=== PATIENT | female | born 1950 | race Caucasian/White ===

== ENCOUNTER 2025-04-11 13:37 | Inpatient (IN) ==
--- NOTE | 2025-04-11 14:02 | Emergency Department Note ---
Impression & Plan Acute hypotension, Hypothermia, Elevated troponin, RANDY (acute kidney injury) ED Provider Note NAME: ANTONIA LAW AGE: 75 SEX: F : 1950 ARRIVES VIA: Walk-In INFORMANT: Patient ED PROVIDER(S): Paul Whipple DO CHIEF COMPLAINT: Slurred speech, loss of vision and facial droop HPI: Patient is a 75-year-old female who presents to the ER with a past medical history of HUANG who presents to the ER for symptoms that started 3 weeks ago. She notes it started with initially loss of vision from her left eye and part loss of vision from the right eye. In combination with this she noticed right sided facial droop and trouble speaking which has been present for the past 3 weeks. She denies any headache. No chest pain or shortness of breath currently but she did have some chest pain this previous Saturday. She notes that no belly pain, dysuria, urgency or frequency. No focal weakness in the arms and legs. No dysuria urgency or frequency. ADDITIONAL HISTORY OBTAINED: Brother is present at bedside and notes that she hit his shoe with her right walter last night and created a skin tear. Chronic Medical/Social Conditions Affecting Care: Per HPI PAST MEDICAL HISTORY:See Below PAST SURGICAL HISTORY:See Below FAMILY HISTORY:See Below SOCIAL HISTORY:See Below HOME MEDICATIONS:See Below ALLERGIES:See Below VITALS:See Below PHYSICAL EXAMINATION: GENERAL: Sitting up in bed, awake but falls asleep quickly, disheveled EYE EXAM: normal conjunctiva. PERRL and EOM's grossly intact. OROPHARYNX: no exudate, no erythema, lips, buccal mucosa, and tongue normal and mucous membranes are moist NECK: supple, no nuchal rigidity, no adenopathy, non-tender LUNGS: Clear to auscultation. Normal chest wall mechanics HEART: no murmurs, S1 normal and S2 normal ABDOMEN: abdomen soft, non-tender, normo-active bowel sounds, no masses, no rebound or guarding. UPPER EXTREMITIES: upper extremities are grossly normal. LOWER EXTREMITIES: No pitting edema. Skin tear on right lateral distal walter NEURO EXAM: Normal sensorium, cranial nerves II-XII intact with the exception of maybe a faint right-sided facial droop, normal speech, no weakness of arms, no weakness of legs. No drift. Finger to nose intact. Gross sensation intact. MEDICAL DECISION MAKING: Patient is a 75-year-old female who was brought into the B1 secondary to hypotension. Systolic pressures were initially 80 and they trended down to 60. IVs were started. We obtained 218 gauges. We initially started 2 L of IV fluids. Blood pressures continue to trend down into the 50s. She was started on Levophed prior to receiving 2 L of IV fluids. Levophed was titrated up to 0.1. This was then titrated down following the completion of 2 L to 0.02. We attempted to get her off of Levophed however she still required a small dose. She was given additional 500 cc bolus. Labs were obtained and she was placed on a Nichol hugger as temp was 35 C. Labs show mild leukopenia 3.6. No anemia. Thrombocytopenia at 61. INR 1.1. VBG with a pH of 7.3 and a CO2 of 22. BMP with a creatinine of 2.8 up from baseline of about 2. Lactate was elevated 2.7. LFTs and bilirubin were unremarkable. Troponin was elevated in the 60s. UA was clean. CT of the head chest abdomen pelvis showed a dilated CBD. LFTs and bilirubin were not elevated. I discussed this with Dr. Dong Corbin and he agreed with admission here. I discussed with the ICU Dr. Valadez. Patient was initially given IV Rocephin upon arrival following the CT to be on the safe side she was given IV Zosyn. Discussed case with Dr. Nagel for further evaluation management and treatment. Consults/Care Managements Discussions: Per [facility] Triage Nursing notes reviewed. Limited review of prior medical records performed Vital Signs: reviewed and remarkable for hypotensive and tachycardic Differential diagnosis: Differential Diagnosis includes but is not limited to ischemic Stroke, hemorrhagic stroke, bells palsy, mass, neoplasm, migraine headache, seizure, subarachnoid hemorrhage, TIA, and transient global amnesia. ER treatment provided: See below Diagnostics interpreted by me include EKG and cardiac monitoring as listed below: -Cardiac Monitoring: An order was placed for continuous cardiac monitoring. The monitor shows a rate of 110 with A-fib rhythm. -ECG: A-fib rate of 111 Left axis No PVCs QTc 443 -Laboratory studies:Interpreted by me as stated above in MDM and shown below. Imaging studies: Xrays: As interpreted by me: Portable AP upright 1 view of the chest shows no focal infiltrate CTs show: CT of the head chest abdomen pelvis as described above Procedures:none Critical Care: I have personally spent 75 minutes of critical care time in the direct management of this patient. This includes bedside care, interpretation of diagnostic studies, and testing, discussion with consultants, patient, and family members, and other required patient management activities. This 75 minutes is in excess of all separately billable procedures. Past Med/Surg History Problem List (Updated 04/11/25 @ 17:46 by Paul Whipple DO) Acute hypotension (Acute) Hypothermia (Acute) CKD (chronic kidney disease) stage 3, GFR 30-59 ml/min Atrial fibrillation with rapid ventricular response Septic shock (Acute) Encounter for pre-operative examination Hip fracture History of back surgery (Chronic) "x 2" History of total right knee replacement (Chronic) H/O repair of rotator cuff (Chronic) "L side" Lumbago (Chronic) HUANG (nonalcoholic steatohepatitis) (Chronic) Allergic rhinitis (Chronic) Medical History Anxiety Constipation HX Diabetes mellitus type 2 in nonobese DVT (deep venous thrombosis) RIGHT LEG S/P HIP SX 2016 Dyslipidemia GERD (gastroesophageal reflux disease) History of anemia HTN (hypertension) Lichen planus HUANG (nonalcoholic steatohepatitis) Thrombocytopenia HX Varicose veins of both lower extremities Surgical History H/O breast biopsy On 11/08/15 10:28 [facility] [employer] wrote "01/29/2012 right core bx - BCC - ductal hyperplasia, columnar cell hyperplasia and fibrocystic change - [facility] BCC 01/29/2012" H/O hernia repair History of back surgery X3 (HAS HARDWARE) History of cataract surgery Right Cataract surgery 06/11/22 History of colonoscopy History of endoscopy History of hip replacement PARTIAL RIGHT History of repair of rotator cuff LEFT History of tonsillectomy "1974" History of tubal ligation Family History Mother Family history of diabetes mellitus Other Family history non-contributory Social History Smoking Status: Never smoker Second Hand Exposure: No; Do You Dip or Chew Tobacco: No; Hx Alcohol Use: No Hx Substance Use: No Preferred Language: Bengali Communication Ability: Effective Supply Clerk Required: No Beliefs That Will Affect Care: None Current Living Situation: Alone Feels Safe at Home: Yes Assistive Devices: Cane, Denture - Upper, Denture - Lower and Glasses Allergies Allergies Allergy/AdvReac Type Severity Reaction Status Date / Time carrot Allergy Intermediate RAW Verified 04/11/25 14:52 CARROTS CAUSE INSIDE MOUTH TO GET ITCHY ON CHEEKS nut - unspecified Allergy Intermediate ERUPTION Verified 04/11/25 14:52 INSIDE MOUTH AND LIPS peanut Allergy Intermediate ERUPTION Verified 04/11/25 14:52 INSIDE MOUTH AND LIPS Sulfa (Sulfonamide Allergy Intermediate "SULFA Verified 04/11/25 14:52 Antibiotics) DRUGS": ITCHY & HIVES LICHEN ISLANDICUS AdvReac Intermediate BLEEDING Uncoded 04/11/25 14:52 Home Meds Home Medications Medication Instructions Recorded Confirmed ascorbic acid (vitamin C) 250 mg 500 mg PO QAM 06/23/18 04/11/25 tablet (Vitamin C) atenolol 50 mg tablet 50 mg PO QAM 06/23/18 04/11/25 clobetasol 0.05 % topical gel 1 applic topical BID PRN LICHEN 06/23/18 04/11/25 PLANUS BREAK OUTS clonazepam 0.5 mg tablet (Klonopin) 0.5 tab PO TID PRN Anxiety 06/23/18 04/11/25 ferrous sulfate 325 mg (65 mg 325 mg PO WK 06/23/18 04/11/25 iron) tablet (iron) folic acid 1 mg tablet 1 mg PO QAM 06/23/18 04/11/25 furosemide 40 mg tablet (Lasix) 40 mg PO QAM 06/23/18 04/11/25 gabapentin 100 mg capsule 100 mg PO .BID-QAM & AFTERNOON 06/23/18 04/11/25 lactulose 10 gram/15 mL oral 30 ml PO TID 06/23/18 04/11/25 solution omeprazole 40 mg capsule,delayed 40 mg PO DAILYBB 06/23/18 04/11/25 release oxycodone 5 mg tablet 2.5 mg PO Q8H PRN Pain 06/23/18 04/11/25 potassium chloride 20 mEq 10 meq PO QDL 06/23/18 04/11/25 tablet,extended release(part/cryst) (Klor-Con M) rifaximin 550 mg tablet (Xifaxan) 550 mg PO BID 06/23/18 04/11/25 spironolactone 100 mg tablet See Rx Instructions .Route .COMPLEX 06/23/18 04/11/25 cephalexin 500 mg capsule 500 mg PO BID 06/05/22 04/11/25 furosemide 40 mg tablet 20 mg PO HS 06/05/22 04/11/25 citalopram 40 mg tablet 20 mg PO DAILY PRN Anxiety 11/07/22 04/11/25 gabapentin 100 mg capsule 300 mg PO HS 11/07/22 04/11/25 nystatin 100,000 unit/gram topical 1 applic topical TID PRN SKIN RASH 07/15/23 04/11/25 powder (Nyamyc) ondansetron HCl 4 mg tablet 4 mg PO Q6H PRN NAUSEA/VOMITING 07/15/23 04/11/25 atenolol 50 mg tablet 25 mg PO QPM 04/11/25 04/11/25 betamethasone dipropionate 0.05 % 1 applic topical BID PRN SKIN 04/11/25 04/11/25 topical cream IRRITATIONS cholecalciferol (vitamin D3) 25 25 mcg PO DAILY 04/11/25 04/11/25 mcg (1,000 unit) capsule (Vitamin D3) cyanocobalamin (vitamin B-12) 1,000 mcg PO Q OTHER DAY 04/11/25 04/11/25 1,000 mcg tablet (Vitamin B-12) diclofenac sodium 2 % topical 0 ml topical DIRECTED PRN Pain 04/11/25 04/11/25 solution in packet (Pennsaid) empagliflozin 10 mg tablet 10 mg PO QAM 04/11/25 04/11/25 (Jardiance) levothyroxine 50 mcg tablet 50 mcg PO DAILYBB 04/11/25 04/11/25 lidocaine 4 % topical patch 1 patch topical DAILY 04/11/25 04/11/25 montelukast 10 mg tablet 10 mg PO HS 04/11/25 04/11/25 (Singulair) xyelbkut-bqk-jzldub 5 mg-zeaxanth 1 cap PO DAILY 04/11/25 04/11/25 1 mg-bilberry 7.5 mg-herbal capsule (In[employer]isource Health Formula) tacrolimus 0.1 % topical ointment 1 applic topical BID PRN SKIN 04/11/25 04/11/25 IRRITATIONS tizanidine 4 mg tablet 1 mg PO HS 04/11/25 04/11/25 triamcinolone acetonide 0.1 % 1 applic topical BID PRN FLARE UPS 04/11/25 04/11/25 topical ointment vitamin E 268 mg (400 unit) capsule 268 mg PO DAILY 04/11/25 04/11/25 Results & Data (ED) Vital Signs Vital Signs - 24 hr 04/11/25 13:40 04/11/25 13:55 04/11/25 13:56 Temperature 36.6 C Temperature Source Temporal Artery Scan Pulse Rate 90 Pulse Rate [Finger] 124 H Pulse Rate from SpO2 Sensor Pulse Rhythm [Finger] Regular Pulse Strength [Finger] Normal Respiratory Rate 16 24 Respiratory Effort / Characteristics Non-Labored Spontaneous Non-Labored Spontaneous Respiratory Depth Normal Normal Blood Pressure 43/33 L Blood Pressure [Right Arm] 88/47 L Blood Pressure Mean 36 Blood Pressure Mean [Right Arm] 60 Blood Pressure Position Sitting Blood Pressure Position [Right Arm] Pulse Oximetry 94 95 96 Oxygen Delivery Method Room Air Room Air Room Air Oxygen Flow Rate 0 Sepsis Recent Fever Within 48 Hours No Sepsis New/Unexplained Change in Mental Status No Sepsis Action Taken by Nursing No Action Required Oxygen Flow Rate - Titration Pulse Oximetry Post Tiitration 04/11/25 14:10 04/11/25 14:43 04/11/25 14:52 Temperature Temperature Source Pulse Rate Pulse Rate [Finger] 112 H 93 H Pulse Rate from SpO2 Sensor Pulse Rhythm [Finger] Regular Regular Pulse Strength [Finger] Normal Normal Respiratory Rate 16 20 Respiratory Effort / Characteristics Non-Labored Spontaneous Non-Labored Spontaneous Respiratory Depth Normal Normal Blood Pressure Blood Pressure [Right Arm] 61/41 L 131/98 Blood Pressure Mean Blood Pressure Mean [Right Arm] 47 109 Blood Pressure Position Blood Pressure Position [Right Arm] Sitting Pulse Oximetry 99 88 L 100 Oxygen Delivery Method Room Air Room Air Nasal Cannula Nasal Cannula Oxygen Flow Rate 0 2 Sepsis Recent Fever Within 48 Hours Sepsis New/Unexplained Change in Mental Status Sepsis Action Taken by Nursing Oxygen Flow Rate - Titration 2 Pulse Oximetry Post Tiitration 95 04/11/25 14:56 04/11/25 15:05 04/11/25 15:06 Temperature 35.5 C L Temperature Source Pulse Rate 110 H Pulse Rate [Finger] 82 Pulse Rate from SpO2 Sensor 96 H Pulse Rhythm [Finger] Regular Pulse Strength [Finger] Normal Respiratory Rate 21 21 Respiratory Effort / Characteristics Non-Labored Spontaneous Respiratory Depth Normal Blood Pressure 86/69 L Blood Pressure [Right Arm] 106/78 Blood Pressure Mean 74 Blood Pressure Mean [Right Arm] 87 Blood Pressure Position Blood Pressure Position [Right Arm] Pulse Oximetry 100 100 Oxygen Delivery Method Room Air Nasal Cannula Oxygen Flow Rate 1 Sepsis Recent Fever Within 48 Hours Sepsis New/Unexplained Change in Mental Status Sepsis Action Taken by Nursing Oxygen Flow Rate - Titration Pulse Oximetry Post Tiitration 04/11/25 15:12 04/11/25 15:15 04/11/25 15:16 Temperature Temperature Source Pulse Rate 120 H Pulse Rate [Finger] Pulse Rate from SpO2 Sensor 99 H Pulse Rhythm [Finger] Pulse Strength [Finger] Respiratory Rate 18 Respiratory Effort / Characteristics Respiratory Depth Blood Pressure 116/77 114/66 Blood Pressure [Right Arm] Blood Pressure Mean 83 90 Blood Pressure Mean [Right Arm] Blood Pressure Position Blood Pressure Position [Right Arm] Pulse Oximetry 100 Oxygen Delivery Method Nasal Cannula Oxygen Flow Rate 1 Sepsis Recent Fever Within 48 Hours Sepsis New/Unexplained Change in Mental Status Sepsis Action Taken by Nursing Oxygen Flow Rate - Titration Pulse Oximetry Post Tiitration 04/11/25 15:18 04/11/25 15:18 04/11/25 15:20 Temperature 35.5 C L Temperature Source Pulse Rate 97 H Pulse Rate [Finger] Pulse Rate from SpO2 Sensor 109 H Pulse Rhythm [Finger] Pulse Strength [Finger] Respiratory Rate 23 Respiratory Effort / Characteristics Respiratory Depth Blood Pressure 106/81 117/86 Blood Pressure [Right Arm] Blood Pressure Mean 86 91 Blood Pressure Mean [Right Arm] Blood Pressure Position Blood Pressure Position [Right Arm] Pulse Oximetry 100 Oxygen Delivery Method Nasal Cannula Oxygen Flow Rate 1 Sepsis Recent Fever Within 48 Hours Sepsis New/Unexplained Change in Mental Status Sepsis Action Taken by Nursing Oxygen Flow Rate - Titration Pulse Oximetry Post Tiitration 04/11/25 15:22 04/11/25 15:23 04/11/25 15:25 Temperature 35.5 C L Temperature Source Muniz Cath ( Temp Sensing) Pulse Rate Pulse Rate [Finger] Pulse Rate from SpO2 Sensor Pulse Rhythm [Finger] Pulse Strength [Finger] Respiratory Rate Respiratory Effort / Characteristics Respiratory Depth Blood Pressure 92/60 L 91/73 L Blood Pressure [Right Arm] Blood Pressure Mean 63 80 Blood Pressure Mean [Right Arm] Blood Pressure Position Blood Pressure Position [Right Arm] Pulse Oximetry Oxygen Delivery Method Oxygen Flow Rate Sepsis Recent Fever Within 48 Hours Sepsis New/Unexplained Change in Mental Status Sepsis Action Taken by Nursing Oxygen Flow Rate - Titration Pulse Oximetry Post Tiitration 04/11/25 15:27 04/11/25 15:30 04/11/25 15:36 Temperature 35.5 C L 35.5 C L Temperature Source Pulse Rate 114 H 101 H Pulse Rate [Finger] Pulse Rate from SpO2 Sensor 116 H 108 H Pulse Rhythm [Finger] Pulse Strength [Finger] Respiratory Rate 17 13 Respiratory Effort / Characteristics Respiratory Depth Blood Pressure 103/62 Blood Pressure [Right Arm] Blood Pressure Mean 82 Blood Pressure Mean [Right Arm] Blood Pressure Position Blood Pressure Position [Right Arm] Pulse Oximetry 98 100 Oxygen Delivery Method Nasal Cannula Nasal Cannula Oxygen Flow Rate 1 1 Sepsis Recent Fever Within 48 Hours Sepsis New/Unexplained Change in Mental Status Sepsis Action Taken by Nursing Oxygen Flow Rate - Titration Pulse Oximetry Post Tiitration 04/11/25 15:36 04/11/25 15:36 04/11/25 15:39 Temperature 35.5 C L Temperature Source Pulse Rate 95 H Pulse Rate [Finger] Pulse Rate from SpO2 Sensor 119 H Pulse Rhythm [Finger] Pulse Strength [Finger] Respiratory Rate 18 Respiratory Effort / Characteristics Respiratory Depth Blood Pressure 105/54 L 105/54 L Blood Pressure [Right Arm] Blood Pressure Mean 74 74 Blood Pressure Mean [Right Arm] Blood Pressure Position Blood Pressure Position [Right Arm] Pulse Oximetry 100 Oxygen Delivery Method Nasal Cannula Oxygen Flow Rate 1 Sepsis Recent Fever Within 48 Hours Sepsis New/Unexplained Change in Mental Status Sepsis Action Taken by Nursing Oxygen Flow Rate - Titration Pulse Oximetry Post Tiitration 04/11/25 15:48 04/11/25 15:50 04/11/25 15:50 Temperature 35.6 C L Temperature Source Muniz Cath ( Temp Sensing) Pulse Rate Pulse Rate [Finger] Pulse Rate from SpO2 Sensor Pulse Rhythm [Finger] Pulse Strength [Finger] Respiratory Rate Respiratory Effort / Characteristics Respiratory Depth Blood Pressure 92/61 L 92/61 L Blood Pressure [Right Arm] Blood Pressure Mean 67 67 Blood Pressure Mean [Right Arm] Blood Pressure Position Blood Pressure Position [Right Arm] Pulse Oximetry Oxygen Delivery Method Oxygen Flow Rate Sepsis Recent Fever Within 48 Hours Sepsis New/Unexplained Change in Mental Status Sepsis Action Taken by Nursing Oxygen Flow Rate - Titration Pulse Oximetry Post Tiitration 04/11/25 15:50 04/11/25 15:50 04/11/25 15:51 Temperature 35.6 C L Temperature Source Pulse Rate 114 H Pulse Rate [Finger] Pulse Rate from SpO2 Sensor 121 H Pulse Rhythm [Finger] Pulse Strength [Finger] Respiratory Rate 27 H Respiratory Effort / Characteristics Respiratory Depth Blood Pressure 92/61 L 92/61 L Blood Pressure [Right Arm] Blood Pressure Mean 67 67 Blood Pressure Mean [Right Arm] Blood Pressure Position Blood Pressure Position [Right Arm] Pulse Oximetry 99 Oxygen Delivery Method Nasal Cannula Oxygen Flow Rate 1 Sepsis Recent Fever Within 48 Hours Sepsis New/Unexplained Change in Mental Status Sepsis Action Taken by Nursing Oxygen Flow Rate - Titration Pulse Oximetry Post Tiitration 04/11/25 15:54 04/11/25 15:55 04/11/25 15:58 Temperature 35.6 C L Temperature Source Pulse Rate 117 H 99 H Pulse Rate [Finger] Pulse Rate from SpO2 Sensor 119 H Pulse Rhythm [Finger] Pulse Strength [Finger] Respiratory Rate 18 Respiratory Effort / Characteristics Respiratory Depth Blood Pressure 82/66 L Blood Pressure [Right Arm] Blood Pressure Mean 70 Blood Pressure Mean [Right Arm] Blood Pressure Position Blood Pressure Position [Right Arm] Pulse Oximetry 99 Oxygen Delivery Method Nasal Cannula Oxygen Flow Rate 1 Sepsis Recent Fever Within 48 Hours Sepsis New/Unexplained Change in Mental Status Sepsis Action Taken by Nursing Oxygen Flow Rate - Titration Pulse Oximetry Post Tiitration 04/11/25 16:00 04/11/25 16:03 04/11/25 16:12 Temperature 35.6 C L 35.6 C L 35.6 C L Temperature Source Pulse Rate 94 H 95 H 94 H Pulse Rate [Finger] Pulse Rate from SpO2 Sensor 113 H Pulse Rhythm [Finger] Pulse Strength [Finger] Respiratory Rate 25 H 29 H 24 Respiratory Effort / Characteristics Respiratory Depth Blood Pressure 103/77 Blood Pressure [Right Arm] Blood Pressure Mean 85 Blood Pressure Mean [Right Arm] Blood Pressure Position Blood Pressure Position [Right Arm] Pulse Oximetry 97 96 96 Oxygen Delivery Method Nasal Cannula Nasal Cannula Nasal Cannula Oxygen Flow Rate 1 1 1 Sepsis Recent Fever Within 48 Hours Sepsis New/Unexplained Change in Mental Status Sepsis Action Taken by Nursing Oxygen Flow Rate - Titration Pulse Oximetry Post Tiitration 04/11/25 16:12 04/11/25 16:15 04/11/25 16:15 Temperature 35.6 C L Temperature Source Pulse Rate 98 H Pulse Rate [Finger] Pulse Rate from SpO2 Sensor 97 H Pulse Rhythm [Finger] Pulse Strength [Finger] Respiratory Rate 18 Respiratory Effort / Characteristics Respiratory Depth Blood Pressure 103/77 90/65 L Blood Pressure [Right Arm] Blood Pressure Mean 81 81 Blood Pressure Mean [Right Arm] Blood Pressure Position Blood Pressure Position [Right Arm] Pulse Oximetry 100 Oxygen Delivery Method Nasal Cannula Oxygen Flow Rate 1 Sepsis Recent Fever Within 48 Hours Sepsis New/Unexplained Change in Mental Status Sepsis Action Taken by Nursing Oxygen Flow Rate - Titration Pulse Oximetry Post Tiitration 04/11/25 16:18 04/11/25 16:20 04/11/25 16:25 Temperature 35.6 C L Temperature Source Pulse Rate 102 H Pulse Rate [Finger] Pulse Rate from SpO2 Sensor 107 H Pulse Rhythm [Finger] Pulse Strength [Finger] Respiratory Rate 18 Respiratory Effort / Characteristics Respiratory Depth Blood Pressure 110/76 104/73 Blood Pressure [Right Arm] Blood Pressure Mean 82 75 Blood Pressure Mean [Right Arm] Blood Pressure Position Blood Pressure Position [Right Arm] Pulse Oximetry 100 Oxygen Delivery Method Oxygen Flow Rate Sepsis Recent Fever Within 48 Hours Sepsis New/Unexplained Change in Mental Status Sepsis Action Taken by Nursing Oxygen Flow Rate - Titration Pulse Oximetry Post Tiitration 04/11/25 16:27 04/11/25 16:30 04/11/25 16:33 Temperature 35.6 C L 35.6 C L Temperature Source Pulse Rate 100 H 81 Pulse Rate [Finger] Pulse Rate from SpO2 Sensor 98 H 97 H Pulse Rhythm [Finger] Pulse Strength [Finger] Respiratory Rate 22 15 Respiratory Effort / Characteristics Respiratory Depth Blood Pressure 105/71 Blood Pressure [Right Arm] Blood Pressure Mean 82 Blood Pressure Mean [Right Arm] Blood Pressure Position Blood Pressure Position [Right Arm] Pulse Oximetry 100 100 Oxygen Delivery Method Nasal Cannula Nasal Cannula Oxygen Flow Rate 1 1 Sepsis Recent Fever Within 48 Hours Sepsis New/Unexplained Change in Mental Status Sepsis Action Taken by Nursing Oxygen Flow Rate - Titration Pulse Oximetry Post Tiitration 04/11/25 16:36 04/11/25 16:41 04/11/25 16:46 Temperature Temperature Source Pulse Rate Pulse Rate [Finger] Pulse Rate from SpO2 Sensor Pulse Rhythm [Finger] Pulse Strength [Finger] Respiratory Rate Respiratory Effort / Characteristics Respiratory Depth Blood Pressure 93/70 L 105/58 L 108/56 L Blood Pressure [Right Arm] Blood Pressure Mean 78 80 67 Blood Pressure Mean [Right Arm] Blood Pressure Position Blood Pressure Position [Right Arm] Pulse Oximetry Oxygen Delivery Method Oxygen Flow Rate Sepsis Recent Fever Within 48 Hours Sepsis New/Unexplained Change in Mental Status Sepsis Action Taken by Nursing Oxygen Flow Rate - Titration Pulse Oximetry Post Tiitration 04/11/25 16:48 04/11/25 16:51 04/11/25 16:54 Temperature 35.7 C L 35.7 C L Temperature Source Pulse Rate 59 L 82 Pulse Rate [Finger] Pulse Rate from SpO2 Sensor 114 H Pulse Rhythm [Finger] Pulse Strength [Finger] Respiratory Rate 20 27 H Respiratory Effort / Characteristics Respiratory Depth Blood Pressure 152/72 H Blood Pressure [Right Arm] Blood Pressure Mean 85 Blood Pressure Mean [Right Arm] Blood Pressure Position Blood Pressure Position [Right Arm] Pulse Oximetry 100 95 Oxygen Delivery Method Nasal Cannula Nasal Cannula Oxygen Flow Rate 1 1 Sepsis Recent Fever Within 48 Hours Sepsis New/Unexplained Change in Mental Status Sepsis Action Taken by Nursing Oxygen Flow Rate - Titration Pulse Oximetry Post Tiitration 04/11/25 16:56 04/11/25 17:00 04/11/25 17:03 Temperature 35.8 C L Temperature Source Pulse Rate 106 H Pulse Rate [Finger] Pulse Rate from SpO2 Sensor 119 H Pulse Rhythm [Finger] Pulse Strength [Finger] Respiratory Rate 16 Respiratory Effort / Characteristics Respiratory Depth Blood Pressure 125/83 120/76 Blood Pressure [Right Arm] Blood Pressure Mean 92 95 Blood Pressure Mean [Right Arm] Blood Pressure Position Blood Pressure Position [Right Arm] Pulse Oximetry 99 Oxygen Delivery Method Nasal Cannula Oxygen Flow Rate 1 Sepsis Recent Fever Within 48 Hours Sepsis New/Unexplained Change in Mental Status Sepsis Action Taken by Nursing Oxygen Flow Rate - Titration Pulse Oximetry Post Tiitration 04/11/25 17:06 04/11/25 17:06 04/11/25 17:06 Temperature 35.8 C L Temperature Source Pulse Rate 113 H Pulse Rate [Finger] Pulse Rate from SpO2 Sensor 105 H Pulse Rhythm [Finger] Pulse Strength [Finger] Respiratory Rate 14 Respiratory Effort / Characteristics Respiratory Depth Blood Pressure 109/79 109/79 Blood Pressure [Right Arm] Blood Pressure Mean 84 84 Blood Pressure Mean [Right Arm] Blood Pressure Position Blood Pressure Position [Right Arm] Pulse Oximetry 95 Oxygen Delivery Method Nasal Cannula Oxygen Flow Rate 1 Sepsis Recent Fever Within 48 Hours Sepsis New/Unexplained Change in Mental Status Sepsis Action Taken by Nursing Oxygen Flow Rate - Titration Pulse Oximetry Post Tiitration 04/11/25 17:09 04/11/25 17:10 04/11/25 17:12 Temperature 35.8 C L 35.8 C L Temperature Source Pulse Rate 88 79 Pulse Rate [Finger] Pulse Rate from SpO2 Sensor 93 H 113 H Pulse Rhythm [Finger] Pulse Strength [Finger] Respiratory Rate 19 20 Respiratory Effort / Characteristics Respiratory Depth Blood Pressure 98/74 L Blood Pressure [Right Arm] Blood Pressure Mean 78 Blood Pressure Mean [Right Arm] Blood Pressure Position Blood Pressure Position [Right Arm] Pulse Oximetry 98 93 Oxygen Delivery Method Oxygen Flow Rate Sepsis Recent Fever Within 48 Hours Sepsis New/Unexplained Change in Mental Status Sepsis Action Taken by Nursing Oxygen Flow Rate - Titration Pulse Oximetry Post Tiitration 04/11/25 17:17 04/11/25 17:20 04/11/25 17:21 Temperature 35.9 C L Temperature Source Pulse Rate 109 H Pulse Rate [Finger] Pulse Rate from SpO2 Sensor 116 H Pulse Rhythm [Finger] Pulse Strength [Finger] Respiratory Rate 22 Respiratory Effort / Characteristics Respiratory Depth Blood Pressure 107/75 119/79 Blood Pressure [Right Arm] Blood Pressure Mean 80 89 Blood Pressure Mean [Right Arm] Blood Pressure Position Blood Pressure Position [Right Arm] Pulse Oximetry Oxygen Delivery Method Oxygen Flow Rate Sepsis Recent Fever Within 48 Hours Sepsis New/Unexplained Change in Mental Status Sepsis Action Taken by Nursing Oxygen Flow Rate - Titration Pulse Oximetry Post Tiitration 04/11/25 17:36 Temperature 35.8 C L Temperature Source Pulse Rate 111 H Pulse Rate [Finger] Pulse Rate from SpO2 Sensor 146 H Pulse Rhythm [Finger] Pulse Strength [Finger] Respiratory Rate Respiratory Effort / Characteristics Respiratory Depth Blood Pressure Blood Pressure [Right Arm] Blood Pressure Mean Blood Pressure Mean [Right Arm] Blood Pressure Position Blood Pressure Position [Right Arm] Pulse Oximetry Oxygen Delivery Method Oxygen Flow Rate Sepsis Recent Fever Within 48 Hours Sepsis New/Unexplained Change in Mental Status Sepsis Action Taken by Nursing Oxygen Flow Rate - Titration Pulse Oximetry Post Tiitration Laboratory Data 04/11/25 13:55 04/11/25 13:55 Lab Results 04/11/25 04/11/25 04/11/25 Range/Units 13:55 14:01 14:03 WBC 3.68 L (4.8-10.8) K/ul RBC 4.27 (4.20-5.40) M/uL Hgb 12.6 (12.0-16.0) g/dl POC Hgb 12.9 (12.0-16.0) g/dl Hct 38.8 (37.0-47.0) % POC Hct 38 (37-47) % MCV 90.9 (80.0-100.0) fL MCH 29.5 (25.0-34.0) pg MCHC 32.5 (32.0-36.0) g/dL RDW Std Deviation 48.8 H (36.4-46.3) fL RDW Coeff of Arlene 14.7 H (11.5-14.5) % Plt Count 61 L (130-400) K/uL MPV 11.7 (9.4-12.4) fL Immature Gran % (Auto) 0.3 % Neut % (Auto) 58.7 % Lymph % (Auto) 17.9 % [place] % (Auto) 14.4 % Eos % (Auto) 7.9 % Baso % (Auto) 0.8 % Neut # (Auto) 2.16 (1.40-6.50) K/uL Lymph # (Auto) 0.66 L (1.20-3.40) K/uL [place] # (Auto) 0.53 (0.11-0.59) K/uL Eos # (Auto) 0.29 (0.00-0.50) K/uL Baso # (Auto) 0.03 (0.00-0.20) K/uL Immature Gran # (Auto) 0.01 (0.01-0.20) K/uL PT 12.2 H (9.0-12.0) Seconds INR 1.1 (0.9-1.1) APTT 28 (21-31) Seconds PTT Ratio 1.0 VBG pH (7.36-7.41) VBG pCO2 (38-50) mmHg VBG pO2 mmHg VBG HCO3 mmol/L VBG O2 Saturation % VBG Base Excess mEq/L POC Sodium 134 L (135-144) mmol/L Sodium 133 L (136-145) mmol/L POC Potassium 4.4 (3.3-5.0) mmol/L Potassium 4.4 (3.5-5.1) mmol/L POC Chloride 98 L (101-112) mmol/L Chloride 97 L (98-107) mmol/L Carbon Dioxide 26 (21-32) mmol/L POC Total CO2 24 (24-31) mmol/L Anion Gap 10 (3-11) POC Anion Gap 17.0 (16-25) mmol/L POC BUN 31 H (7-18) mg/dl BUN 36 H (6-23) mg/dl Creatinine 2.84 H (0.6-1.2) mg/dl POC Creatinine 3.0 H (0.6-1.3) mg/dl Est Cr Clr Drug Dosing 11.9 ml/min eGFR 16.58 BUN/Creatinine Ratio 12.7 (10-20) Glucose 154 H (70-99(Fasting)) mg/dl POC Glucose 170 H (70-99) mg/dl POC Glucose (other) 149 H (70-99) mg/dl Lactate (0.4-2.0) mmol/L Calcium 9.0 (8.6-10.3) mg/dl POC Ioniz Calcium Tank 1.13 (1.12-1.32) mmol/l Magnesium 2.3 (1.7-2.4) mg/dl Total Bilirubin 1.0 (0.2-1.0) mg/dl AST 25 (13-39) U/L ALT 12 (7-52) U/L Alkaline Phosphatase 75 (34-104) U/L Ammonia (18-72) umol/L Troponin I High Sens 62.7 H* (0-14) pg/ml Total Protein 6.3 (6.0-8.3) gm/dl Albumin 3.3 L (3.4-5.0) gm/dl Globulin 3.0 (2.5-4.0) gm/dl Albumin/Globulin Ratio 1.1 (0.9-2) Urine Color Urine Appearance (Clear) Urine pH (4.5-7.5) Ur Specific [place] (1.000-1.030) Urine Protein (Negative) Urine Glucose (UA) (Negative) Urine Ketones (Negative) Urine Blood (Negative) Urine Nitrite (Negative) Urine Bilirubin (Negative) Urine Urobilinogen (Negative) Ur Leukocyte Esterase (Negative) Urine WBC (Auto) (0-5) /hpf Urine RBC (Auto) (0-2) /hpf U Hyaline Cast (Auto) (0-2) /lpf U Epithel Cells (Auto) (0-2) /hpf Urine Bacteria (Auto) (None Seen) Urine Comment Ethyl Alcohol mg/dL (<10.0) mg/dl 04/11/25 04/11/25 04/11/25 Range/Units 14:09 14:17 14:19 WBC (4.8-10.8) K/ul RBC (4.20-5.40) M/uL Hgb (12.0-16.0) g/dl POC Hgb (12.0-16.0) g/dl Hct (37.0-47.0) % POC Hct (37-47) % MCV (80.0-100.0) fL MCH (25.0-34.0) pg MCHC (32.0-36.0) g/dL RDW Std Deviation (36.4-46.3) fL RDW Coeff of Arlene (11.5-14.5) % Plt Count (130-400) K/uL MPV (9.4-12.4) fL Immature Gran % (Auto) % Neut % (Auto) % Lymph % (Auto) % [place] % (Auto) % Eos % (Auto) % Baso % (Auto) % Neut # (Auto) (1.40-6.50) K/uL Lymph # (Auto) (1.20-3.40) K/uL [place] # (Auto) (0.11-0.59) K/uL Eos # (Auto) (0.00-0.50) K/uL Baso # (Auto) (0.00-0.20) K/uL Immature Gran # (Auto) (0.01-0.20) K/uL PT (9.0-12.0) Seconds INR (0.9-1.1) APTT (21-31) Seconds PTT Ratio VBG pH 7.30 L (7.36-7.41) VBG pCO2 44 (38-50) mmHg VBG pO2 38 mmHg VBG HCO3 22 mmol/L VBG O2 Saturation 61.3 % VBG Base Excess -4.8 mEq/L POC Sodium (135-144) mmol/L Sodium (136-145) mmol/L POC Potassium (3.3-5.0) mmol/L Potassium (3.5-5.1) mmol/L POC Chloride (101-112) mmol/L Chloride (98-107) mmol/L Carbon Dioxide (21-32) mmol/L POC Total CO2 (24-31) mmol/L Anion Gap (3-11) POC Anion Gap (16-25) mmol/L POC BUN (7-18) mg/dl BUN (6-23) mg/dl Creatinine (0.6-1.2) mg/dl POC Creatinine (0.6-1.3) mg/dl Est Cr Clr Drug Dosing ml/min eGFR BUN/Creatinine Ratio (10-20) Glucose (70-99(Fasting)) mg/dl POC Glucose (70-99) mg/dl POC Glucose (other) (70-99) mg/dl Lactate 2.7 H* (0.4-2.0) mmol/L Calcium (8.6-10.3) mg/dl POC Ioniz Calcium Tank (1.12-1.32) mmol/l Magnesium (1.7-2.4) mg/dl Total Bilirubin (0.2-1.0) mg/dl AST (13-39) U/L ALT (7-52) U/L Alkaline Phosphatase (34-104) U/L Ammonia 39.0 (18-72) umol/L Troponin I High Sens (0-14) pg/ml Total Protein (6.0-8.3) gm/dl Albumin (3.4-5.0) gm/dl Globulin (2.5-4.0) gm/dl Albumin/Globulin Ratio (0.9-2) Urine Color Yellow Urine Appearance Clear (Clear) Urine pH 6.0 (4.5-7.5) Ur Specific [place] 1.016 (1.000-1.030) Urine Protein Negative (Negative) Urine Glucose (UA) Negative (Negative) Urine Ketones Trace H (Negative) Urine Blood Negative (Negative) Urine Nitrite Negative (Negative) Urine Bilirubin Negative (Negative) Urine Urobilinogen Negative (Negative) Ur Leukocyte Esterase Trace H (Negative) Urine WBC (Auto) 0-5 (0-5) /hpf Urine RBC (Auto) 0-2 (0-2) /hpf U Hyaline Cast (Auto) >20 H (0-2) /lpf U Epithel Cells (Auto) 0-2 (0-2) /hpf Urine Bacteria (Auto) None Seen (None Seen) Urine Comment Ethyl Alcohol mg/dL < 10.0 (<10.0) mg/dl 04/11/25 04/11/25 04/11/25 Range/Units 15:39 15:59 17:37 WBC (4.8-10.8) K/ul RBC (4.20-5.40) M/uL Hgb (12.0-16.0) g/dl POC Hgb (12.0-16.0) g/dl Hct (37.0-47.0) % POC Hct (37-47) % MCV (80.0-100.0) fL MCH (25.0-34.0) pg MCHC (32.0-36.0) g/dL RDW Std Deviation (36.4-46.3) fL RDW Coeff of Arlene (11.5-14.5) % Plt Count (130-400) K/uL MPV (9.4-12.4) fL Immature Gran % (Auto) % Neut % (Auto) % Lymph % (Auto) % [place] % (Auto) % Eos % (Auto) % Baso % (Auto) % Neut # (Auto) (1.40-6.50) K/uL Lymph # (Auto) (1.20-3.40) K/uL [place] # (Auto) (0.11-0.59) K/uL Eos # (Auto) (0.00-0.50) K/uL Baso # (Auto) (0.00-0.20) K/uL Immature Gran # (Auto) (0.01-0.20) K/uL PT (9.0-12.0) Seconds INR (0.9-1.1) APTT (21-31) Seconds PTT Ratio VBG pH (7.36-7.41) VBG pCO2 (38-50) mmHg VBG pO2 mmHg VBG HCO3 mmol/L VBG O2 Saturation % VBG Base Excess mEq/L POC Sodium (135-144) mmol/L Sodium (136-145) mmol/L POC Potassium (3.3-5.0) mmol/L Potassium (3.5-5.1) mmol/L POC Chloride (101-112) mmol/L Chloride (98-107) mmol/L Carbon Dioxide (21-32) mmol/L POC Total CO2 (24-31) mmol/L Anion Gap (3-11) POC Anion Gap (16-25) mmol/L POC BUN (7-18) mg/dl BUN (6-23) mg/dl Creatinine (0.6-1.2) mg/dl POC Creatinine (0.6-1.3) mg/dl Est Cr Clr Drug Dosing ml/min eGFR BUN/Creatinine Ratio (10-20) Glucose (70-99(Fasting)) mg/dl POC Glucose 175 H (70-99) mg/dl POC Glucose (other) (70-99) mg/dl Lactate 1.3 (0.4-2.0) mmol/L Calcium (8.6-10.3) mg/dl POC Ioniz Calcium Atnk (1.12-1.32) mmol/l Magnesium (1.7-2.4) mg/dl Total Bilirubin (0.2-1.0) mg/dl AST (13-39) U/L ALT (7-52) U/L Alkaline Phosphatase (34-104) U/L Ammonia (18-72) umol/L Troponin I High Sens 52.7 H* D (0-14) pg/ml Total Protein (6.0-8.3) gm/dl Albumin (3.4-5.0) gm/dl Globulin (2.5-4.0) gm/dl Albumin/Globulin Ratio (0.9-2) Urine Color Urine Appearance (Clear) Urine pH (4.5-7.5) Ur Specific [place] (1.000-1.030) Urine Protein (Negative) Urine Glucose (UA) (Negative) Urine Ketones (Negative) Urine Blood (Negative) Urine Nitrite (Negative) Urine Bilirubin (Negative) Urine Urobilinogen (Negative) Ur Leukocyte Esterase (Negative) Urine WBC (Auto) (0-5) /hpf Urine RBC (Auto) (0-2) /hpf U Hyaline Cast (Auto) (0-2) /lpf U Epithel Cells (Auto) (0-2) /hpf Urine Bacteria (Auto) (None Seen) Urine Comment Ethyl Alcohol mg/dL (<10.0) mg/dl Administered Medications Norepinephrine Bitartrate (Levophed/D5w) 4 mg in 250 mls @ 13.613 mls/hr IV .[id number] HUSAM; Protocol Stop: 05/11/25 14:14 Last Titration: 04/11/25 14:49 Dose: 0.02 mcg/kg/min, 5.4 mls/hr Documented By: NAHUM Co-signed By: ANNA Titration: 04/11/25 14:36 Dose: 0.05 mcg/kg/min, 13.6 mls/hr Documented By: NAHUM Co-signed By: SEEMA Titration: 04/11/25 14:16 Dose: 0.07 mcg/kg/min, 19.1 mls/hr Documented By: NAHUM Co-signed By: SEEMA Admin: 04/11/25 14:14 Dose: 0.05 mcg/kg/min, 13.6 mls/hr Documented By: NAHUM Co-signed By: SEEMA Discontinued Medications Ceftriaxone Sodium (Rocephin) 2,000 mg in 50 mls @ 100 mls/hr IV NOW STA Stop: 04/11/25 14:41 Last Infusion: 04/11/25 15:16 Dose: Infused Documented By: Admin: 04/11/25 14:46 Dose: 100 mls/hr Documented By: NAHUM Piperacillin Sod/Tazobactam Sod (Zosyn) 4.5 gm in 100 mls @ 200 mls/hr IV NOW ONE; Protocol Stop: 04/11/25 16:11 Last Infusion: 04/11/25 16:29 Dose: Infused Documented By: Admin: 04/11/25 15:59 Dose: 200 mls/hr Documented By: HANNAH Sodium Chloride (Nss) 500 mls @ 999 mls/hr IV .Q31M ONE Stop: 04/11/25 16:18 Last Admin: 04/11/25 15:59 Dose: 999 mls/hr Documented By: HANNAH Miscellaneous (Stat Iv Infusion Titration Per Protocol) 1 each N/A NOW STA Stop: 04/11/25 14:13 Last Admin: 04/11/25 14:14 Dose: Not Given Documented By: NAHUM Imaging Data Radiologist's Impression: Chest X-Ray 04/11/25 13:56 EXAM: Radiograph of the Chest 1 View INDICATION: Neurologic deficit. TECHNIQUE: Frontal view of the chest. COMPARISON: 04/11/2025 FINDINGS: Lungs and pleural spaces: Shallow inspiration with mild atelectasis in the left lung base. No pleural effusion or pneumothorax. No consolidation or pulmonary edema. Heart: Stable enlarged cardiac shadow accentuated by technique. Mediastinum: Normal contour. Bones/joints: Degenerative changes in the spine and right shoulder. No acute osseous abnormality. Visualized portions of posterior proximal lumbar hardware grossly unremarkable. Soft tissues: No abnormality noted. No radiopaque foreign body noted. Upper abdomen: No abnormality noted. IMPRESSION: Minimal left base atelectasis. ACT 112: N/A Electronically signed by Anu Garcia 04-11-2025 4:[address] 04/11/25 13:56 EXAM: CT Head Without Intravenous Contrast INDICATION: Stroke like symptoms. Sepsis. TECHNIQUE: Axial computed tomography images of the head/brain without intravenous contrast. Sagittal and/or coronal reformats are provided. Sagittal and coronal reformatted images were created and reviewed. This CT exam was performed using one or more of the following dose reduction techniques: automated exposure control, adjustment of the mA and/or kV according to patient size, and/or use of iterative reconstruction technique. COMPARISON: 11/27/2024 FINDINGS: Limitations: None. Brain and extra-axial spaces: There is age appropriate cortical atrophy and chronic ischemic periventricular white matter hypodensity. No acute infarct, hemorrhage or mass noted. Bones/joints: No acute changes. Soft tissues: No significant abnormality noted. Vasculature: No acute abnormality noted. Sinuses: No layering fluid in the visualized portions of the paranasal sinuses. Mastoid air cells: No mastoid effusion. Orbits: No significant abnormality noted. IMPRESSION: Cerebral atrophy. No acute changes. ACT 112: N/A Electronically signed by Anu Garcia 04-11-2025 2:57 PM Abdomen/Pelvis CT 04/11/25 14:12 EXAM: CT Chest Abdomen and Pelvis Without Intravenous Contrast INDICATION: Sepsis. TECHNIQUE: Axial computed tomography images of the chest, abdomen and pelvis without intravenous contrast. Sagittal and coronal reformatted images were created and reviewed. This CT exam was performed using one or more of the following dose reduction techniques: automated exposure control, adjustment of the mA and/or kV according to patient size, and/or use of iterative reconstruction technique. COMPARISON: No relevant prior studies available. FINDINGS: Limitations: None. CHEST: Lungs and pleural spaces: No abnormality noted. No mass. No consolidation. No significant effusion. No pneumothorax. Heart: Marked cardiomegaly. Dense coronary calcification noted. There is mitral annular calcification. Mild aortic valve calcification. No pericardial effusion. Mediastinum: No abnormality noted. Thyroid: No abnormality noted. ABDOMEN: Liver: Cirrhotic liver. Gallbladder and bile ducts: Layering stones and sludge in the gallbladder. Dilated common bile duct measures 2.3 cm. No calcified ductal stone noted. Pancreas: No pancreatic mass, calcification, inflammation or ductal dilation noted. Spleen: No significant abnormality noted. Adrenals: No significant abnormality noted. 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 No hemorrhage. No further assessment required. The left kidney is small. No stones or hydronephrosis. Stomach and bowel: No distension or mucosal thickening. No inflammation noted. PELVIS: Appendix: Well seen and appears normal. Bladder: Urinary bladder is obscured by artifact from a right hip prosthesis. A catheter is in place but not assessed. Reproductive: No significant abnormality noted. CHEST, ABDOMEN and PELVIS: Intraperitoneal space: No free air. No significant fluid collection. Retroperitoneal space: No abnormality noted. No fluid collection. Bones/joints: The bones are markedly demineralized. There is posterior lumbosacral fusion. Marked chronic compression fracture of T12 with thoracolumbar kyphosis. Moderate degenerative changes left hip. Right hip normally located. Soft tissues: No significant abnormality noted. Vasculature: There is diffuse atherosclerosis of the aorta and branches. The portal vein is somewhat ill-defined. Patency cannot be assessed. No aortic aneurysm. Lymph nodes: No enlarged lymph nodes. IMPRESSION: 1. No inflammatory process noted in the chest, abdomen or pelvis. 2. Markedly dilated common bile duct of 2.3 cm with sludge and stones noted in the gallbladder. 3. Cirrhosis. 4. Slightly ill-defined portal vein. Thrombosis not excluded. #5 scarred left kidney. ACT 112: N/A Electronically signed by Anu Garcia 04-11-2025 3:[address] 04/11/25 14:12 EXAM: CT Chest Abdomen and Pelvis Without Intravenous Contrast INDICATION: Sepsis. TECHNIQUE: Axial computed tomography images of the chest, abdomen and pelvis without intravenous contrast. Sagittal and coronal reformatted images were created and reviewed. This CT exam was performed using one or more of the following dose reduction techniques: automated exposure control, adjustment of the mA and/or kV according to patient size, and/or use of iterative reconstruction technique. COMPARISON: No relevant prior studies available. FINDINGS: Limitations: None. CHEST: Lungs and pleural spaces: No abnormality noted. No mass. No consolidation. No significant effusion. No pneumothorax. Heart: Marked cardiomegaly. Dense coronary calcification noted. There is mitral annular calcification. Mild aortic valve calcification. No pericardial effusion. Mediastinum: No abnormality noted. Thyroid: No abnormality noted. ABDOMEN: Liver: Cirrhotic liver. Gallbladder and bile ducts: Layering stones and sludge in the gallbladder. Dilated common bile duct measures 2.3 cm. No calcified ductal stone noted. Pancreas: No pancreatic mass, calcification, inflammation or ductal dilation noted. Spleen: No significant abnormality noted. Adrenals: No significant abnormality noted. 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 No hemorrhage. No further assessment required. The left kidney is small. No stones or hydronephrosis. Stomach and bowel: No distension or mucosal thickening. No inflammation noted. PELVIS: Appendix: Well seen and appears normal. Bladder: Urinary bladder is obscured by artifact from a right hip prosthesis. A catheter is in place but not assessed. Reproductive: No significant abnormality noted. CHEST, ABDOMEN and PELVIS: Intraperitoneal space: No free air. No significant fluid collection. Retroperitoneal space: No abnormality noted. No fluid collection. Bones/joints: The bones are markedly demineralized. There is posterior lumbosacral fusion. Marked chronic compression fracture of T12 with thoracolumbar kyphosis. Moderate degenerative changes left hip. Right hip normally located. Soft tissues: No significant abnormality noted. Vasculature: There is diffuse atherosclerosis of the aorta and branches. The portal vein is somewhat ill-defined. Patency cannot be assessed. No aortic aneurysm. Lymph nodes: No enlarged lymph nodes. IMPRESSION: 1. No inflammatory process noted in the chest, abdomen or pelvis. 2. Markedly dilated common bile duct of 2.3 cm with sludge and stones noted in the gallbladder. 3. Cirrhosis. 4. Slightly ill-defined portal vein. Thrombosis not excluded. #5 scarred left kidney. ACT 112: N/A Electronically signed by Anu Garcia 04-11-2025 3:02 PM Discharge Plan Visit Data Chief Complaint: Stroke/CVA Symptoms Stated Complaint: POSSIBLE STROKE, SPEECH PROBLEM RGT ANKLE CUT ED Provider: Paul Whipple Discharge Problem: Septic shock, Hypothermia, Acute hypotension Condition: Critical Discharge Instructions Interventions: ED Discharge Assessment Last Done: 04/11/25 17:16 Forms Stand Alone Forms: My [facility] Prescriptions Prescriptions: No Action furosemide [Lasix] 40 mg Tablet 40 mg PO QAM clonazepam [Klonopin] 0.5 mg Tablet 0.5 tab PO TID PRN (Reason: Anxiety) Patient Comments: GENERALLY TAKE A HALF AT BED TIME spironolactone 100 mg Tablet See Rx Instructions .ROUTE .COMPLEX Rx Instructions: TAKES 100 MG QAM, THEN 50 MG QPM. omeprazole 40 mg Capsule,Delayed Release(Dr/Ec) 40 mg PO DAILYBB clobetasol 0.05 % Gel 1 applic Topical BID PRN (Reason: LICHEN PLANUS BREAK OUTS) potassium chloride [Klor-Con M20] 20 mEq Tablet,Er Particles/Crystals 10 meq PO QDL ascorbic acid (vitamin C) [Vitamin C] 250 mg Tablet 500 mg PO QAM ferrous sulfate [iron] 325 mg (65 mg iron) Tablet 325 mg PO WK Patient Comments: NOT OFTEN, USUALLY TWICE A WEEK Rx Instructions: SATURDAYS folic acid 1 mg Tablet 1 mg PO QAM gabapentin 100 mg Capsule 100 mg PO .BID-QAM & AFTERNOON atenolol 50 mg Tablet 50 mg PO QAM oxycodone 5 mg Tablet 2.5 mg PO Q8H PRN (Reason: Pain) Patient Comments: CAN TAKE 1-1.5 PILLS EVERY 8 HR NEEDED lactulose 10 gram/15 mL Solution 30 ml PO TID Xifaxan 550 mg Tablet 550 mg PO BID furosemide 40 mg Tablet 20 mg PO HS cephalexin 500 mg Capsule 500 mg PO BID Patient Comments: FOR OUTBREAK ON LEGS AND LIPS WITH THE LICHEN PLANUS citalopram 40 mg tablet 20 mg PO DAILY PRN (Reason: Anxiety) Rx Instructions: PER GMG gabapentin 100 mg capsule 300 mg PO HS nystatin [Nyamyc] 100,000 unit/gram powder 1 applic TOPICAL TID PRN (Reason: SKIN RASH) ondansetron HCl [Zofran] 4 mg Tablet 4 mg PO Q6H PRN (Reason: NAUSEA/VOMITING) lidocaine 4 % Adhesive Patch,Medicated 1 patch TOPICAL DAILY Rx Instructions: APPLY FOR 12 HOURS tizanidine 4 mg tablet 1 mg PO HS Rx Instructions: TAKES 1/4 OF TAB AT HS, ORDERED Q8H IF NEEDED. cyanocobalamin (vitamin B-12) [Vitamin B-12] 1,000 mcg Tablet 1,000 mcg PO Q OTHER DAY levothyroxine 50 mcg Tablet 50 mcg PO DAILYBB tacrolimus 0.1 % Ointment 1 applic TOPICAL BID PRN (Reason: SKIN IRRITATIONS) Rx Instructions: APPLY TO LIPS & LEGS triamcinolone acetonide 0.1 % Ointment 1 applic TOPICAL BID PRN (Reason: FLARE UPS) Rx Instructions: APPLY TO LIPS NEEDED betamethasone dipropionate 0.05 % Cream 1 applic TOPICAL BID PRN (Reason: SKIN IRRITATIONS) Rx Instructions: APPLY TO LEGS montelukast [Singulair] 10 mg Tablet 10 mg PO HS atenolol 50 mg tablet 25 mg PO QPM vitamin E 268 mg (400 unit) Capsule 268 mg PO DAILY cholecalciferol (vitamin D3) [Vitamin D3] 25 mcg (1,000 unit) Capsule 25 mcg PO DAILY Jardiance 10 mg tablet 10 mg PO QAM Pennsaid 2 % Solution In Packet 0 ml TOPICAL DIRECTED PRN (Reason: Pain) Macular Health Formula 5-1-7.5 mg Capsule 1 cap PO DAILY Referrals Referrals: Deion Joy MD [Primary Care Provider] - Discharge Problem: Hypothermia Qualifiers: Encounter type: initial encounter Qualified Code(s): T68.XXXA - Hypothermia, initial encounter
[2025-04-11 14:13] LABS: iSTAT Hemoglobin 12.9 g/dl (12.0-16.0); iSTAT Ionized Calcium 1.13 mmol/l (1.12-1.32); iSTAT Potassium 4.4 mmol/L (3.3-5.0)
[2025-04-11 14:17] LABS: Basophils # (auto) 0.03 K/uL (0.00-0.20); Basophils % (auto) 0.8 %; Eosinophils # (auto) 0.29 K/uL (0.00-0.50); Eosinophils % (auto) 7.9 %; Hematocrit (blood only) 38.8 % (37.0-47.0); Hemoglobin 12.6 g/dl (12.0-16.0); Immature Granulocytes # (auto) 0.01 K/uL (0.01-0.20); Immature Granulocytes % (auto) 0.3 %; Lymphocytes # (auto) 0.66 K/uL (1.20-3.40); Lymphocytes % (auto) 17.9 %; Mean Corpuscular Hemoglobin 29.5 pg (25.0-34.0); Mean Corpuscular Hgb Conc 32.5 g/dL (32.0-36.0); Mean Corpuscular Volume 90.9 fL (80.0-100.0); Mean Platelet Volume 11.7 fL (9.4-12.4); Monocytes # (auto) 0.53 K/uL (0.11-0.59); Monocytes % (auto) 14.4 %; Neutrophils # (auto) 2.16 K/uL (1.40-6.50); Neutrophils % (auto) 58.7 %; Platelet Count 61 K/uL (130-400); RDW Coefficient of Variation 14.7 % (11.5-14.5); RDW Standard Deviation 48.8 fL (36.4-46.3); Red Blood Count 4.27 M/uL (4.20-5.40); White Blood Count 3.68 K/ul (4.8-10.8)
[2025-04-11 14:32] LABS: Base Excess VBG -4.8 mEq/L; HCO3 VBG 22 mmol/L; Oxygen Saturation VBG 61.3 %; PCO2 VBG 44 mmHg (38-50); PO2 VBG 38 mmHg
[2025-04-11 14:45] LABS: INR 1.1 (0.9-1.1); Partial Thromboplastin Time 28 Seconds (21-31); Prothrombin Time 12.2 Seconds (9.0-12.0)
[2025-04-11 14:49] LABS: Albumin Globulin Ratio 1.1 (0.9-2); Albumin Level 3.3 gm/dl (3.4-5.0); BUN Creatinine Ratio 12.7 (10-20); Creatinine Clr Calc Pharmacy 11.9 ml/min; Magnesium 2.3 mg/dl (1.7-2.4); Potassium 4.4 mmol/L (3.5-5.1); Total Protein 6.3 gm/dl (6.0-8.3)
[2025-04-11 14:51] LABS: Appearance Urine Clear (Clear); Bacteria Urine Automated None Seen (None Seen); Bilirubin Urine Negative (Negative); Blood Urine Negative (Negative); Cast Urine Automated >20 /lpf (0-2); Color Urine Yellow; Epithelial Cell Urine Auto 0-2 /hpf (0-2); Glucose Urine UA Negative (Negative); Ketones Urine Trace (Negative); Leukocyte Esterase Urine Trace (Negative); Nitrite Urine Negative (Negative); Protein Urine Negative (Negative); RBC Urine Automated 0-2 /hpf (0-2); Specific Gravity Urine 1.016 (1.000-1.030); Urobilinogen Urine Negative (Negative); WBC Urine Automated 0-5 /hpf (0-5)
--- NOTE | 2025-04-11 14:58 | CT Scan Report ---
EXAM: CT Head Without Intravenous Contrast INDICATION: Stroke like symptoms. Sepsis. TECHNIQUE: Axial computed tomography images of the head/brain without intravenous contrast. Sagittal and/or coronal reformats are provided. Sagittal and coronal reformatted images were created and reviewed. This CT exam was performed using one or more of the following dose reduction techniques: automated exposure control, adjustment of the mA and/or kV according to patient size, and/or use of iterative reconstruction technique. COMPARISON: 11/27/2024 FINDINGS: Limitations: None. Brain and extra-axial spaces: There is age appropriate cortical atrophy and chronic ischemic periventricular white matter hypodensity. No acute infarct, hemorrhage or mass noted. Bones/joints: No acute changes. Soft tissues: No significant abnormality noted. Vasculature: No acute abnormality noted. Sinuses: No layering fluid in the visualized portions of the paranasal sinuses. Mastoid air cells: No mastoid effusion. Orbits: No significant abnormality noted. IMPRESSION: Cerebral atrophy. No acute changes. ACT 112: N/A Electronically signed by Anu Garcia 04-11-2025 2:57 PM
--- NOTE | 2025-04-11 15:03 | CT Scan Report ---
EXAM: CT Chest Abdomen and Pelvis Without Intravenous Contrast INDICATION: Sepsis. TECHNIQUE: Axial computed tomography images of the chest, abdomen and pelvis without intravenous contrast. Sagittal and coronal reformatted images were created and reviewed. This CT exam was performed using one or more of the following dose reduction techniques: automated exposure control, adjustment of the mA and/or kV according to patient size, and/or use of iterative reconstruction technique. COMPARISON: No relevant prior studies available. FINDINGS: Limitations: None. CHEST: Lungs and pleural spaces: No abnormality noted. No mass. No consolidation. No significant effusion. No pneumothorax. Heart: Marked cardiomegaly. Dense coronary calcification noted. There is mitral annular calcification. Mild aortic valve calcification. No pericardial effusion. Mediastinum: No abnormality noted. Thyroid: No abnormality noted. ABDOMEN: Liver: Cirrhotic liver. Gallbladder and bile ducts: Layering stones and sludge in the gallbladder. Dilated common bile duct measures 2.3 cm. No calcified ductal stone noted. Pancreas: No pancreatic mass, calcification, inflammation or ductal dilation noted. Spleen: No significant abnormality noted. Adrenals: No significant abnormality noted. 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 No hemorrhage. No further assessment required. The left kidney is small. No stones or hydronephrosis. Stomach and bowel: No distension or mucosal thickening. No inflammation noted. PELVIS: Appendix: Well seen and appears normal. Bladder: Urinary bladder is obscured by artifact from a right hip prosthesis. A catheter is in place but not assessed. Reproductive: No significant abnormality noted. CHEST, ABDOMEN and PELVIS: Intraperitoneal space: No free air. No significant fluid collection. Retroperitoneal space: No abnormality noted. No fluid collection. Bones/joints: The bones are markedly demineralized. There is posterior lumbosacral fusion. Marked chronic compression fracture of T12 with thoracolumbar kyphosis. Moderate degenerative changes left hip. Right hip normally located. Soft tissues: No significant abnormality noted. Vasculature: There is diffuse atherosclerosis of the aorta and branches. The portal vein is somewhat ill-defined. Patency cannot be assessed. No aortic aneurysm. Lymph nodes: No enlarged lymph nodes. IMPRESSION: 1. No inflammatory process noted in the chest, abdomen or pelvis. 2. Markedly dilated common bile duct of 2.3 cm with sludge and stones noted in the gallbladder. 3. Cirrhosis. 4. Slightly ill-defined portal vein. Thrombosis not excluded. #5 scarred left kidney. ACT 112: N/A Electronically signed by Anu Garcia 04-11-2025 3:02 PM
[2025-04-11 15:17] LABS: Troponin I High Sensitivity 62.7 pg/ml (0-14)
--- NOTE | 2025-04-11 16:03 | XRay Report ---
EXAM: Radiograph of the Chest 1 View INDICATION: Neurologic deficit. TECHNIQUE: Frontal view of the chest. COMPARISON: 04/11/2025 FINDINGS: Lungs and pleural spaces: Shallow inspiration with mild atelectasis in the left lung base. No pleural effusion or pneumothorax. No consolidation or pulmonary edema. Heart: Stable enlarged cardiac shadow accentuated by technique. Mediastinum: Normal contour. Bones/joints: Degenerative changes in the spine and right shoulder. No acute osseous abnormality. Visualized portions of posterior proximal lumbar hardware grossly unremarkable. Soft tissues: No abnormality noted. No radiopaque foreign body noted. Upper abdomen: No abnormality noted. IMPRESSION: Minimal left base atelectasis. ACT 112: N/A Electronically signed by Anu Garcia 04-11-2025 4:03 PM
--- NOTE | 2025-04-11 16:22 | History & Physical Report ---
Date of Service April 11, 2025 Assessment & Plan (1) Septic shock: Plan: Presented with weakness and also fever with sweating since last night Elevated direct lactate with normal white count Significant elevation of the common bile duct with gallstones and gallbladder sludge likely the source of infection Started with intravenous Zosyn and blood cultures are taken Has been started on intravenous Levophed and also will be given cautious amount of intravenous fluid Accountant Manager consulted Strokelike symptoms She has been having strokelike symptoms with slurred speech and blurred vision for the last 6 weeks According to the daughter she gets the symptoms periodically She did not have any stroke in the past She is being seen by an metal cut off saw operator for ongoing 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 No focal neurological deficit on examination and CT scan of the head was unremarkable Will get MRI of the head to rule out any embolic phenomenon (2) Atrial fibrillation with rapid ventricular response: Plan: Has a strong family history of atrial fibrillation She is not aware of having atrial fibrillation so seems to be new in onset Discussed with the daughter about anticoagulation given that history of cirrhosis and thrombocytopenia and also anemia Discussed about consequences of not having any anticoagulation and also about bleeding risk with anticoagulation The family is okay if she needs to be on anticoagulation She has generalized bruising We discussed with the shipping and receiving supervisor and plan to start heparin Increased troponin Troponin is mildly elevated-likely secondary to stress and A-fib Doubt any ACS Will get serial troponins and echocardiogram (3) BUCHANAN (nonalcoholic steatohepatitis): Plan: History of [place] cirrhosis with history of hepatic encephalopathy Will continue with current lactulose and also rifaximin Will get ultrasound of the abdomen to rule out: Acute cholecystitis and also ascites and possible paracentesis if there is any ascites LFTs are normal and ammonia is normal to (4) Diabetes mellitus type 2 in nonobese: Plan: Will hold any oral medications and put her on sliding scale insulin coverage (5) GERD (gastroesophageal reflux disease): Plan: Continue PPI (6) HTN (hypertension): (7) CKD (chronic kidney disease) stage 3, GFR 30-59 ml/min: Plan: Will monitor kidney function (8) Thrombocytopenia: Plan: Platelet count is around 60s and will monitor Plan DVT prophylaxis SCDs CODE STATUS= DNR/DNI Discussed with the family members History of Present Illness Chief Complaint: Slurred speech, generalized weakness, fever with sweating since last night Primary Care Provider: Deion Joy MD She is a 75-year-old female with significant past medical history of cirrhosis of the liver with ascites and thrombocytopenia, type 2 diabetes, stage IIIb chronic kidney disease, hypertension, hyperlipidemia, history of hepatic failure, primary hyperparathyroidism and ambulatory dysfunction apparently was brought into the emergency room with profound weakness, slurred speech, fever with chills and sweating since last night and a recent skin tear involving the right ankle area. She was noted to be very hypertensive in the emergency room and required to restart intravenous pressor agents to maintain the blood pressure around systolic 90. She was noted to have normal white count, afebrile, elevated lactate and a dilated common bile duct with sludge and stones noted in the gallbladder without any abnormal liver function test. She was started with intravenous Zosyn and before that she received 1 dose of ceftriaxone and also started with Levophed and was transferred to ICU for continued care. She was also noted to be in atrial fibrillation with RVR and she has not on any anticoagulation. She also complained to have strokelike symptoms including slurred speech occasional facial droop and also visual problems involving both eyes for the last 6 weeks. She has been to metal cut off saw operator and the visual symptoms seems to be secondary to diabetic retinopathy. She is not aware of having any atrial fibrillation before and she has not been taking any anticoagulation. She denies any cough and/or increasing shortness of breath, no abdominal pain or distention does not have any nausea and or vomiting. Denies any problem with urine or bowel habit. Allergies Allergy/AdvReac Type Severity Reaction Status Date / Time carrot Allergy Intermediate RAW Verified 04/11/25 14:52 CARROTS CAUSE INSIDE MOUTH TO GET ITCHY ON CHEEKS nut - unspecified Allergy Intermediate ERUPTION Verified 04/11/25 14:52 INSIDE MOUTH AND LIPS peanut Allergy Intermediate ERUPTION Verified 04/11/25 14:52 INSIDE MOUTH AND LIPS Sulfa (Sulfonamide Allergy Intermediate "SULFA Verified 04/11/25 14:52 Antibiotics) DRUGS": ITCHY & HIVES [place]EN ISLANDICUS AdvReac Intermediate BLEEDING Uncoded 04/11/25 14:52 Home Medications Medication Instructions Recorded Confirmed Type ascorbic acid (vitamin C) 250 mg 500 mg PO QAM 06/23/18 04/11/25 History tablet (Vitamin C) atenolol 50 mg tablet 50 mg PO QAM 06/23/18 04/11/25 History clobetasol 0.05 % topical gel 1 applic topical BID PRN LICHEN 06/23/18 04/11/25 History PLANUS BREAK OUTS clonazepam 0.5 mg tablet (Klonopin) 0.5 tab PO TID PRN Anxiety 06/23/18 04/11/25 History ferrous sulfate 325 mg (65 mg 325 mg PO WK 06/23/18 04/11/25 History iron) tablet (iron) folic acid 1 mg tablet 1 mg PO QAM 06/23/18 04/11/25 History furosemide 40 mg tablet (Lasix) 40 mg PO QAM 06/23/18 04/11/25 History gabapentin 100 mg capsule 100 mg PO .BID-QAM & AFTERNOON 06/23/18 04/11/25 History lactulose 10 gram/15 mL oral 30 ml PO TID 06/23/18 04/11/25 History solution omeprazole 40 mg capsule,delayed 40 mg PO DAILYBB 06/23/18 04/11/25 History release oxycodone 5 mg tablet 2.5 mg PO Q8H PRN Pain 06/23/18 04/11/25 History potassium chloride 20 mEq 10 meq PO QDL 06/23/18 04/11/25 History tablet,extended release(part/cryst) (Klor-Con M) rifaximin 550 mg tablet (Xifaxan) 550 mg PO BID 06/23/18 04/11/25 History spironolactone 100 mg tablet See Rx Instructions .Route .COMPLEX 06/23/18 04/11/25 History cephalexin 500 mg capsule 500 mg PO BID 06/05/22 04/11/25 History furosemide 40 mg tablet 20 mg PO HS 06/05/22 04/11/25 History citalopram 40 mg tablet 20 mg PO DAILY PRN Anxiety 11/07/22 04/11/25 History gabapentin 100 mg capsule 300 mg PO HS 11/07/22 04/11/25 History nystatin 100,000 unit/gram topical 1 applic topical TID PRN SKIN RASH 07/15/23 04/11/25 History powder (Nyamyc) ondansetron HCl 4 mg tablet 4 mg PO Q6H PRN NAUSEA/VOMITING 07/15/23 04/11/25 History atenolol 50 mg tablet 25 mg PO QPM 04/11/25 04/11/25 History betamethasone dipropionate 0.05 % 1 applic topical BID PRN SKIN 04/11/25 04/11/25 History topical cream IRRITATIONS cholecalciferol (vitamin D3) 25 25 mcg PO DAILY 04/11/25 04/11/25 History mcg (1,000 unit) capsule (Vitamin D3) cyanocobalamin (vitamin B-12) 1,000 mcg PO Q OTHER DAY 04/11/25 04/11/25 History 1,000 mcg tablet (Vitamin B-12) diclofenac sodium 2 % topical 0 ml topical DIRECTED PRN Pain 04/11/25 04/11/25 History solution in packet (Pennsaid) empagliflozin 10 mg tablet 10 mg PO QAM 04/11/25 04/11/25 History (Jardiance) levothyroxine 50 mcg tablet 50 mcg PO DAILYBB 04/11/25 04/11/25 History lidocaine 4 % topical patch 1 patch topical DAILY 04/11/25 04/11/25 History montelukast 10 mg tablet 10 mg PO HS 04/11/25 04/11/25 History (Singulair) skifowoa-xya-xdwckm 5 mg-zeaxanth 1 cap PO DAILY 04/11/25 04/11/25 History 1 mg-bilberry 7.5 mg-herbal capsule (Macular Health Formula) tacrolimus 0.1 % topical ointment 1 applic topical BID PRN SKIN 04/11/25 04/11/25 History IRRITATIONS tizanidine 4 mg tablet 1 mg PO HS 04/11/25 04/11/25 History triamcinolone acetonide 0.1 % 1 applic topical BID PRN FLARE UPS 04/11/25 04/11/25 History topical ointment vitamin E 268 mg (400 unit) capsule 268 mg PO DAILY 04/11/25 04/11/25 History Past Med/Surg History Problem List (Updated 04/11/25 @ 16:41 by Char Nagel MD) CKD (chronic kidney disease) stage 3, GFR 30-59 ml/min Atrial fibrillation with rapid ventricular response Septic shock Encounter for pre-operative examination Hip fracture History of back surgery (Chronic) "x 2" History of total right knee replacement (Chronic) H/O repair of rotator cuff (Chronic) "L side" Lumbago (Chronic) BUCHANAN (nonalcoholic steatohepatitis) (Chronic) Allergic rhinitis (Chronic) Medical History Anxiety Constipation HX Diabetes mellitus type 2 in nonobese DVT (deep venous thrombosis) RIGHT LEG S/P HIP SX 2015 Dyslipidemia GERD (gastroesophageal reflux disease) History of anemia HTN (hypertension) Lichen planus BUCHANAN (nonalcoholic steatohepatitis) Thrombocytopenia HX Varicose veins of both lower extremities Surgical History H/O breast biopsy On 11/08/15 10:28 Erin Mccabe wrote "01/29/2012 right core bx - BCC - ductal hyperplasia, columnar cell hyperplasia and fibrocystic change - [facility] BCC 01/29/2012" H/O hernia repair History of back surgery X3 (HAS HARDWARE) History of cataract surgery Right Cataract surgery 06/11/22 History of colonoscopy History of endoscopy History of hip replacement PARTIAL RIGHT History of repair of rotator cuff LEFT History of tonsillectomy "1974" History of tubal ligation Family History Mother Family history of diabetes mellitus Other Family history non-contributory Social History Smoking Status: Never smoker Second Hand Exposure: No; Do You Dip or Chew Tobacco: No; Hx Alcohol Use: No Hx Substance Use: No Preferred Language: Thai Communication Ability: Effective Teradata Solution Architect Required: No Beliefs That Will Affect Care: None Current Living Situation: Alone Feels Safe at Home: Yes Assistive Devices: Cane, Denture - Upper, Denture - Lower and Glasses Review of Systems Review of Systems: All systems reviewed and unremarkable except as noted below Physical Exam Physical Exam: Lying in bed with weakness and tiredness but no acute distress Constitutional: + ill appearing and + obese Eyes: PERRL, conjunctivae normal, anicteric sclerae ENMT: external ear and nose normal, oropharynx normal Neck: trachea midline, no thyromegaly Respiratory: no respiratory distress Auscultation: lungs clear to auscultation bilaterally; no crackles Cardiovascular: Rate/Rhythm: + tachycardic and + irregularly irregular Heart Sounds: normal S1 and normal S2; no murmur Extremities: no edema Gastrointestinal (Abdomen): Inspection/Auscultation: normal bowel sounds; abdo men not distended Percussion/Palpation: abdomen soft; abdomen nontender Musculoskeletal: No acute arthritis involving any of the joint Skin: Has generalized skin bruising and skin tears in the upper extremities and also right ankle which is bandaged Neurologic: Alert and awake with occasional slurred speech. No facial droop. Generally weak but no focal neurodeficit Lymphatic: no cervical or axillary lymphadenopathy Results & Data Results & Data Vital Signs (Past 12 Hours) Vital Signs Temp Pulse Pulse Resp BP BP Pulse Ox 04/11/25 16:15 35.6 C L 98 H 18 100 04/11/25 16:15 90/65 L 04/11/25 16:12 103/77 04/11/25 16:12 35.6 C L 94 H 24 103/77 96 04/11/25 16:03 35.6 C L 95 H 29 H 96 04/11/25 16:00 35.6 C L 94 H 25 H 97 04/11/25 15:58 99 H 04/11/25 15:55 82/66 L 04/11/25 15:54 35.6 C L 117 H 18 99 04/11/25 15:51 35.6 C L 114 H 27 H 99 04/11/25 15:50 92/61 L 04/11/25 15:50 92/61 L 04/11/25 15:50 92/61 L 04/11/25 15:50 92/61 L 04/11/25 15:48 35.6 C L 04/11/25 15:39 35.5 C L 95 H 18 100 04/11/25 15:36 105/54 L 04/11/25 15:36 105/54 L 04/11/25 15:36 35.5 C L 101 H 13 100 04/11/25 15:30 103/62 04/11/25 15:27 35.5 C L 114 H 17 98 04/11/25 15:25 91/73 L 04/11/25 15:23 92/60 L 04/11/25 15:22 35.5 C L 04/11/25 15:20 117/86 04/11/25 15:18 35.5 C L 97 H 23 100 04/11/25 15:18 106/81 04/11/25 15:16 114/66 04/11/25 15:15 120 H 18 100 04/11/25 15:12 116/77 04/11/25 15:06 35.5 C L 110 H 21 100 04/11/25 15:05 86/69 L 04/11/25 14:56 82 21 106/78 100 04/11/25 14:52 93 H 20 131/98 100 04/11/25 14:43 88 L 04/11/25 14:10 112 H 16 61/41 L 99 04/11/25 13:56 96 04/11/25 13:55 124 H 24 88/47 L 95 04/11/25 13:40 36.6 C 90 16 43/33 L 94 O2 Del Method O2 Flow Rate 04/11/25 16:15 Nasal Cannula 1 04/11/25 16:15 04/11/25 16:12 04/11/25 16:12 Nasal Cannula 1 04/11/25 16:03 Nasal Cannula 1 04/11/25 16:00 Nasal Cannula 1 04/11/25 15:58 04/11/25 15:55 04/11/25 15:54 Nasal Cannula 1 04/11/25 15:51 Nasal Cannula 1 04/11/25 15:50 04/11/25 15:50 04/11/25 15:50 04/11/25 15:50 04/11/25 15:48 04/11/25 15:39 Nasal Cannula 1 04/11/25 15:36 04/11/25 15:36 04/11/25 15:36 Nasal Cannula 1 04/11/25 15:30 04/11/25 15:27 Nasal Cannula 1 04/11/25 15:25 04/11/25 15:23 04/11/25 15:22 04/11/25 15:20 04/11/25 15:18 Nasal Cannula 1 04/11/25 15:18 04/11/25 15:16 04/11/25 15:15 Nasal Cannula 1 04/11/25 15:12 04/11/25 15:06 Nasal Cannula 1 04/11/25 15:05 04/11/25 14:56 Room Air 04/11/25 14:52 Nasal Cannula 2 04/11/25 14:43 Room Air, Nasal Cannula 0 04/11/25 14:10 Room Air 04/11/25 13:56 Room Air 0 04/11/25 13:55 Room Air 04/11/25 13:40 Room Air Laboratory Results Short CBC 04/11/25 Range/Units 13:55 WBC 3.68 L (4.8-10.8) K/ul Hgb 12.6 (12.0-16.0) g/dl Hct 38.8 (37.0-47.0) % Plt Count 61 L (130-400) K/uL BMP 04/11/25 13:55 Sodium 133 L Potassium 4.4 Chloride 97 L Carbon Dioxide 26 BUN 36 H Creatinine 2.84 H Glucose 154 H Calcium 9.0 Liver Function 04/11/25 Range/Units 13:55 Total Bilirubin 1.0 (0.2-1.0) mg/dl AST 25 (13-39) U/L ALT 12 (7-52) U/L Alkaline Phosphatase 75 (34-104) U/L Albumin 3.3 L (3.4-5.0) gm/dl Urine 04/11/25 Range/Units 14:19 Urine Color Yellow Urine Appearance Clear (Clear) Urine pH 6.0 (4.5-7.5) Ur Specific [place] 1.016 (1.000-1.030) Urine Protein Negative (Negative) Urine Glucose (UA) Negative (Negative) Medications Administered Current Inpatient Medications Norepinephrine Bitartrate (Levophed/D5w) 4 mg in 250 mls @ 13.613 mls/hr IV .[id number] [facility]; Protocol Stop: 05/11/25 14:14 Last Titration: 04/11/25 14:49 Dose: 0.02 mcg/kg/min, 5.4 mls/hr Code Status & VTE Plan VTE Prophylaxis Plan VTE Prophylaxis will be ordered: Yes
--- NOTE | 2025-04-11 19:06 | Critical Care Consultation ---
Date of Consultation April 11, 2025 Assessment & Plan (1) Septic shock: (2) RANDY (acute kidney injury): (3) HUANG (nonalcoholic steatohepatitis): (4) New onset a-fib: (5) Thrombocytopenia: Plan Reason Critically Ill: 75 YOF presents to ER hypotensive - sepsis pathway initiated with presumed source at this time as GI likely GB, Neuro - Metabolic Encephalopathy, Stroke like symptoms, Hx of Anxiety/Depression, hx of chronic back pain CAM ICU: NEGATIVE - Metabolic Encephalopathy appears to have cleared with mormon of blood pressure - Ammonia negative - stroke like symptoms with reported monocular LEFT lateral visual field cut- no other focal symptoms on exam- ct head negative for LVO/Bleed/Mass- MRI pending - Anxiety- will continue with her Clonazepam 0.25mg PO TID anxiety - For her back pain/spasm- hold tizanidine at this time as this is also notorious for causing hypotension- - Gabapentin adjusted for renal function Cardiac- Shock, NOAF,elevated HsCTNI, Hx- HTN, HLD, - Shock at this time is likely multifactorial- she has SIRS criteria with WBC <5, Hypotension, Tachycardia, elevated lactate- with possible source being cholecystitis or other GI source. She also has NOAF with at times RVR. - She has received 2.5L crystalloid- will provide another 500ml and change to plasmalyte with her RANDY - Lactate has cleared and urine output is adequate- continue to follow perfusion with UO, MAPS, and biomarkers- consider POCUS for further evaluation of fluid volume status or PLR if further evaluation is needed - MAPS >65- LEVOphed- consider changing to ANGELES if afib with RVR becomes uncontrolled - Random cortisol 6- initiate stress dose steroids - Hold Atenolol until off vasopressors - Hold diuretics until vasopressor are off or clinically warranted - Elevated HsCTNi- with history of 1-3 days ago of chest pain- her ECG is without stemi likely type II demand - follow ECG and troponin - NOAF- ECHO pending- her symptoms over the past 1-3 days of dyspnea and chest pain may be related to her going into and out of afib- will follow symptoms- if rate control needed consider esmolol or DIG. - Heparin without bolus pending her imaging - will need to closely follow her platelet count and bleeding times - [id number] - HASbled- 3 Respiratory - No acute needs - imaging of CXR and CT non con chest personally reviewed- no opacites or infiltrates - continue supportive care GI - dilated CBD with sludge and stones, HUANG cirrhosis, ? hepatic vein thrombosis - with sludge and stones in CBD with dilation - request MRCP performed- with normal LFTS is reassuring and she is also non-tender- possible source of infection - continue ZOsyn - GI consultation appreciated - CT abd/pelvis is with mention of "Slightly ill-defined portal vein. 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 - PPI continue - NPO after midnight until GI evaluation RENAL/LYTES - RANDY on CKD 4, mild hyponatremia - Likely organ dysfunction secondary to shock- replete intravascular volume maintain MAPS as above- follow daily BMP - renal dose medications - avoid nephrotoxic medications as able and if needed, minimize duration of exposure - No acute needs - Shell to gravity ENDO - low random cortiso, elevated blood glucose without diagnosis of DM - as above initiate stress dose steroids - Place on ICU hyperglycemic protocol espeically while on steroids- HEME - chronic thrombocytopenia - Platelet count back to 2018 in our system remains with platelet count of 60s- review from history provided from admitting team - likely attributed to her HUANG cirrhosis ID - Septic shock - as above SIRS with source possibly GI/GB - Continue Zosyn - follow blood culture - PCT negative - Lactate cleared - follow organ dysfunction as above LINES/IV ACCESS - PIV x2, shell Continue use of these lines DVT PROPHYLAXIS - SCDS, Heparin infusion low dose no bolus- AFib ? portal vein thrombosis DISPO: ICU while on vasopressors I have personally spent 40minutes of critical care time in the direct management of this patient. This is a life/limb threatening event. This includes time spent evaluating patient, direct bedside care, chart review, placing orders, interpretation of diagnostic studies, discussion with consultants, patient, and family members, as well as other required patient management activities. This time is exclusive of all separately billable procedures, and separate from and in addition to any other critical care service time. Thank you for allowing us to participate in the care of this patient. Please refer to my attending physician's documentation for any further recommendations. History of Present Illness Reason for Consultation: septic shock Requesting Physician: Robe Pardo MD Attending Physician: Char Nagel MD History of Present Illness 75 YOF with medical history of: HUANG cirrhosis, chronic pain- hx lumbar fusion, HLD, DMII, GERD, Primary hyperparathyroidism, CKD, HFpEF. Patient comes to the ER or evaluation of weakness that has progressively getting worse, this has been associated with her having some episodes of dyspnea and chest pain over the past 3 days as well. She also reports that 2 months ago she lost vision in both eyes, this mostly resolve but still reports a left monocular lateral visual field cut. In the ER patient was noted to be very hypotensive and was started on vasopressors simultaneously as fluid boluses, which she responded to well enough to wean her vasopressors down to low dose LEVO. She had CT of the head completed, CXR, CT abd/pelvis completed. She was noted with sludge and stone in gallbladder with dilated CBD, however with normal LFTs/alk po4. She was noted on routine labs to have leukopenia, and thrombocytopenia (Her thrombocytopenia is chronic back to 2018 in our system and by chart review appears to be related to her cirrhosis). 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 Following 2.5 L crystalloid and vasopressors lactate did decrease to 1.3. She was also noted to be in AFIB, which appears as NOAF. Patient will be admitted to ICU for likely sepsis related to GI source. Evaluation with MRCP, further neurological imaging per primary service. CODE: DNR/DNI Allergies Allergy/AdvReac Type Severity Reaction Status Date / Time carrot Allergy Intermediate RAW Verified 04/11/25 14:52 CARROTS CAUSE INSIDE MOUTH TO GET ITCHY ON CHEEKS nut - unspecified Allergy Intermediate ERUPTION Verified 04/11/25 14:52 INSIDE MOUTH AND LIPS peanut Allergy Intermediate ERUPTION Verified 04/11/25 14:52 INSIDE MOUTH AND LIPS Sulfa (Sulfonamide Allergy Intermediate "SULFA Verified 04/11/25 14:52 Antibiotics) DRUGS": ITCHY & HIVES LICHEN ISLANDICUS AdvReac Intermediate BLEEDING Uncoded 04/11/25 14:52 Home Medications Medication Instructions Recorded Confirmed Type ascorbic acid (vitamin C) 250 mg 500 mg PO QAM 06/23/18 04/11/25 History tablet (Vitamin C) atenolol 50 mg tablet 50 mg PO QAM 06/23/18 04/11/25 History clobetasol 0.05 % topical gel 1 applic topical BID PRN LICHEN 06/23/18 04/11/25 History PLANUS BREAK OUTS clonazepam 0.5 mg tablet (Klonopin) 0.5 tab PO TID PRN Anxiety 06/23/18 04/11/25 History ferrous sulfate 325 mg (65 mg 325 mg PO WK 06/23/18 04/11/25 History iron) tablet (iron) folic acid 1 mg tablet 1 mg PO QAM 06/23/18 04/11/25 History furosemide 40 mg tablet (Lasix) 40 mg PO QAM 06/23/18 04/11/25 History gabapentin 100 mg capsule 100 mg PO .BID-QAM & AFTERNOON 06/23/18 04/11/25 History lactulose 10 gram/15 mL oral 30 ml PO TID 06/23/18 04/11/25 History solution omeprazole 40 mg capsule,delayed 40 mg PO DAILYBB 06/23/18 04/11/25 History release oxycodone 5 mg tablet 2.5 mg PO Q8H PRN Pain 06/23/18 04/11/25 History potassium chloride 20 mEq 10 meq PO QDL 06/23/18 04/11/25 History tablet,extended release(part/cryst) (Klor-Con M) rifaximin 550 mg tablet (Xifaxan) 550 mg PO BID 06/23/18 04/11/25 History spironolactone 100 mg tablet See Rx Instructions .Route .COMPLEX 06/23/18 04/11/25 History cephalexin 500 mg capsule 500 mg PO BID 06/05/22 04/11/25 History furosemide 40 mg tablet 20 mg PO HS 06/05/22 04/11/25 History citalopram 40 mg tablet 20 mg PO DAILY PRN Anxiety 11/07/22 04/11/25 History gabapentin 100 mg capsule 300 mg PO HS 11/07/22 04/11/25 History nystatin 100,000 unit/gram topical 1 applic topical TID PRN SKIN RASH 07/15/23 04/11/25 History powder (Nyamyc) ondansetron HCl 4 mg tablet 4 mg PO Q6H PRN NAUSEA/VOMITING 07/15/23 04/11/25 History atenolol 50 mg tablet 25 mg PO QPM 04/11/25 04/11/25 History betamethasone dipropionate 0.05 % 1 applic topical BID PRN SKIN 04/11/25 04/11/25 History topical cream IRRITATIONS cholecalciferol (vitamin D3) 25 25 mcg PO DAILY 04/11/25 04/11/25 History mcg (1,000 unit) capsule (Vitamin D3) cyanocobalamin (vitamin B-12) 1,000 mcg PO Q OTHER DAY 04/11/25 04/11/25 History 1,000 mcg tablet (Vitamin B-12) diclofenac sodium 2 % topical 0 ml topical DIRECTED PRN Pain 04/11/25 04/11/25 History solution in packet (Pennsaid) empagliflozin 10 mg tablet 10 mg PO QAM 04/11/25 04/11/25 History (Jardiance) levothyroxine 50 mcg tablet 50 mcg PO DAILYBB 04/11/25 04/11/25 History lidocaine 4 % topical patch 1 patch topical DAILY 04/11/25 04/11/25 History montelukast 10 mg tablet 10 mg PO HS 04/11/25 04/11/25 History (Singulair) [id number] 5 mg-zeaxanth 1 cap PO DAILY 04/11/25 04/11/25 History 1 mg-bilberry 7.5 mg-herbal capsule (Macular Health Formula) tacrolimus 0.1 % topical ointment 1 applic topical BID PRN SKIN 04/11/25 04/11/25 History IRRITATIONS tizanidine 4 mg tablet 1 mg PO HS 04/11/25 04/11/25 History triamcinolone acetonide 0.1 % 1 applic topical BID PRN FLARE UPS 04/11/25 04/11/25 History topical ointment vitamin E 268 mg (400 unit) capsule 268 mg PO DAILY 04/11/25 04/11/25 History Patient History Medical History Varicose veins of both lower extremities HUANG (nonalcoholic steatohepatitis) Constipation HX Anxiety Lichen planus Thrombocytopenia HX History of anemia Diabetes mellitus type 2 in nonobese DVT (deep venous thrombosis) RIGHT LEG S/P HIP SX 2015 Dyslipidemia GERD (gastroesophageal reflux disease) HTN (hypertension) Surgical History History of cataract surgery Right Cataract surgery 06/11/22 History of endoscopy History of colonoscopy History of back surgery X3 (HAS HARDWARE) History of hip replacement PARTIAL RIGHT History of repair of rotator cuff LEFT History of tonsillectomy "1974" H/O hernia repair History of tubal ligation H/O breast biopsy On 11/08/15 10:28 Erin Estelle wrote "01/29/2012 right core bx - BCC - ductal hyperplasia, columnar cell hyperplasia and fibrocystic change - [facility] BCC 01/29/2012" Family History Mother Family history of diabetes mellitus Other Family history non-contributory Social History Smoking Status: Former smoker Second Hand Exposure: No; Do You Dip or Chew Tobacco: No; Hx Alcohol Use: No Hx Substance Use: No Preferred Language: [place]ese Communication Ability: Effective Source Inspector Required: No Beliefs That Will Affect Care: None Current Living Situation: Alone Other Information That Helps Us Care for You: No Feels Safe at Home: Yes Safety Concerns: Feels Safe At This Time Assistive Devices: Cane, Denture - Upper, Denture - Lower, Glasses and Wheelchair Review of Systems Review of Systems: REVIEW OF SYSTEMS: Constitutional: (+) generalized weakness, No fever, sweats or chills Eyes: (+) vision changes with left visual field cut, ENT: normal hearing, no trouble swallowing Respiratory: No cough, sputum, dyspnea at rest or on exertion Cardiovascular: (+) chest pain, tightness or palpitations Abdomen: (+) pain, nausea, No vomiting, diarrhea or constipation Musculoskeletal: (+) chronic back joint pain, Neurologic: (+) weakness, balance problems (uses walker at baseline) NO numbness/tingling, or balance problems Psychiatric: (+) anxiety Skin: (+) easily bruising Physical Exam Physical Exam: PHYSICAL EXAM: General: awake, alert, no apparent distress Head: Normocephalic, atraumatic Neuro: AAO x 3, speech clear and appropriate, PERRLA, EOMI, reports LEFT visual field cut, but peripheral exam appears to be intact bilaterally and with right eye covered, strength equal bilaterally and sensation intact bilaterally, no pronator drift and no facial droop. Chest: equal rise and fall of the chest, no accessory muscle use, Clear to auscultation, on room air, Cardiac: irregular rate and rhythm, telemetry reviewed- afib rate controlled, skin warm dry, cap refill <3 seconds, peripheral pusles +2 no JVD, trace edema, GI: NABS x 4 quadrants, soft, nontender to palpation, no rebound, guarding or tenderness : Shell to gravity Psych: anxious Skin: with multiple areas of bruising Results & Data Results & Data Vital Signs (Past 12 Hours) Vital Signs Temp Pulse Pulse Resp BP BP Pulse Ox 04/11/25 18:31 96 H 16 102/64 98 04/11/25 18:15 36.0 C L 101 H 14 95 04/11/25 18:01 94/59 L 04/11/25 17:36 35.8 C L 111 H 04/11/25 17:21 35.9 C L 109 H 22 04/11/25 17:20 119/79 04/11/25 17:17 107/75 04/11/25 17:12 35.8 C L 79 20 93 04/11/25 17:10 98/74 L 04/11/25 17:09 35.8 C L 88 19 98 04/11/25 17:06 109/79 04/11/25 17:06 35.8 C L 113 H 14 95 04/11/25 17:06 109/79 04/11/25 17:03 35.8 C L 106 H 16 99 04/11/25 17:00 120/76 04/11/25 16:56 125/83 04/11/25 16:54 35.7 C L 82 27 H 95 04/11/25 16:51 152/72 H 04/11/25 16:48 35.7 C L 59 L 20 100 04/11/25 16:46 108/56 L 04/11/25 16:41 105/58 L 04/11/25 16:36 93/70 L 04/11/25 16:33 35.6 C L 81 15 100 04/11/25 16:30 105/71 04/11/25 16:27 35.6 C L 100 H 22 100 04/11/25 16:25 104/73 04/11/25 16:20 110/76 04/11/25 16:18 35.6 C L 102 H 18 100 04/11/25 16:15 35.6 C L 98 H 18 100 04/11/25 16:15 90/65 L 04/11/25 16:12 103/77 04/11/25 16:12 35.6 C L 94 H 24 103/77 96 04/11/25 16:03 35.6 C L 95 H 29 H 96 04/11/25 16:00 35.6 C L 94 H 25 H 97 04/11/25 15:58 99 H 04/11/25 15:55 82/66 L 04/11/25 15:54 35.6 C L 117 H 18 99 04/11/25 15:51 35.6 C L 114 H 27 H 99 04/11/25 15:50 92/61 L 04/11/25 15:50 92/61 L 04/11/25 15:50 92/61 L 04/11/25 15:50 92/61 L 04/11/25 15:48 35.6 C L 04/11/25 15:39 35.5 C L 95 H 18 100 04/11/25 15:36 105/54 L 04/11/25 15:36 105/54 L 04/11/25 15:36 35.5 C L 101 H 13 100 04/11/25 15:30 103/62 04/11/25 15:27 35.5 C L 114 H 17 98 04/11/25 15:25 91/73 L 04/11/25 15:23 92/60 L 04/11/25 15:22 35.5 C L 04/11/25 15:20 117/86 04/11/25 15:18 35.5 C L 97 H 23 100 04/11/25 15:18 106/81 04/11/25 15:16 114/66 04/11/25 15:15 120 H 18 100 04/11/25 15:12 116/77 04/11/25 15:06 35.5 C L 110 H 21 100 04/11/25 15:05 86/69 L 04/11/25 14:56 82 21 106/78 100 04/11/25 14:52 93 H 20 131/98 100 06/22/25 14:43 88 L 04/11/25 14:10 112 H 16 61/41 L 99 04/11/25 13:56 96 04/11/25 13:55 124 H 24 88/47 L 95 04/11/25 13:40 36.6 C 90 16 43/33 L 94 O2 Del Method O2 Flow Rate 04/11/25 18:31 Room Air 04/11/25 18:15 04/11/25 18:01 04/11/25 17:36 04/11/25 17:21 04/11/25 17:20 04/11/25 17:17 04/11/25 17:12 04/11/25 17:10 04/11/25 17:09 04/11/25 17:06 04/11/25 17:06 Nasal Cannula 1 04/11/25 17:06 04/11/25 17:03 Nasal Cannula 1 04/11/25 17:00 04/11/25 16:56 04/11/25 16:54 Nasal Cannula 1 04/11/25 16:51 04/11/25 16:48 Nasal Cannula 1 04/11/25 16:46 04/11/25 16:41 04/11/25 16:36 04/11/25 16:33 Nasal Cannula 1 04/11/25 16:30 04/11/25 16:27 Nasal Cannula 1 04/11/25 16:25 04/11/25 16:20 04/11/25 16:18 04/11/25 16:15 Nasal Cannula 1 04/11/25 16:15 04/11/25 16:12 04/11/25 16:12 Nasal Cannula 1 04/11/25 16:03 Nasal Cannula 1 04/11/25 16:00 Nasal Cannula 1 04/11/25 15:58 04/11/25 15:55 04/11/25 15:54 Nasal Cannula 1 04/11/25 15:51 Nasal Cannula 1 04/11/25 15:50 04/11/25 15:50 04/11/25 15:50 04/11/25 15:50 04/11/25 15:48 04/11/25 15:39 Nasal Cannula 1 04/11/25 15:36 04/11/25 15:36 04/11/25 15:36 Nasal Cannula 1 04/11/25 15:30 04/11/25 15:27 Nasal Cannula 1 04/11/25 15:25 04/11/25 15:23 04/11/25 15:22 04/11/25 15:20 04/11/25 15:18 Nasal Cannula 1 04/11/25 15:18 04/11/25 15:16 04/11/25 15:15 Nasal Cannula 1 04/11/25 15:12 04/11/25 15:06 Nasal Cannula 1 04/11/25 15:05 04/11/25 14:56 Room Air 04/11/25 14:52 Nasal Cannula 2 04/11/25 14:43 Room Air, Nasal Cannula 0 04/11/25 14:10 Room Air 04/11/25 13:56 Room Air 0 04/11/25 13:55 Room Air 04/11/25 13:40 Room Air Laboratory Results Abnormal lab results 04/11/25 04/11/25 04/11/25 Range/Units 13:55 14:01 14:03 WBC 3.68 L (4.8-10.8) K/ul RDW Std Deviation 48.8 H (36.4-46.3) fL RDW Coeff of Arlene 14.7 H (11.5-14.5) % Plt Count 61 L (130-400) K/uL Lymph # (Auto) 0.66 L (1.20-3.40) K/uL PT 12.2 H (9.0-12.0) Seconds VBG pH (7.36-7.41) POC Sodium 134 L (135-144) mmol/L Sodium 133 L (136-145) mmol/L POC Chloride 98 L (101-112) mmol/L Chloride 97 L (98-107) mmol/L POC BUN 31 H (7-18) mg/dl BUN 36 H (6-23) mg/dl Creatinine 2.84 H (0.6-1.2) mg/dl POC Creatinine 3.0 H (0.6-1.3) mg/dl Glucose 154 H (70-99(Fasting)) mg/dl POC Glucose 170 H (70-99) mg/dl POC Glucose (other) 149 H (70-99) mg/dl Lactate (0.4-2.0) mmol/L Troponin I High Sens 62.7 H* (0-14) pg/ml Albumin 3.3 L (3.4-5.0) gm/dl Urine Ketones (Negative) Ur Leukocyte Esterase (Negative) U Hyaline Cast (Auto) (0-2) /lpf 04/11/25 04/11/25 04/11/25 Range/Units 14:09 14:17 14:19 WBC (4.8-10.8) K/ul RDW Std Deviation (36.4-46.3) fL RDW Coeff of Arlene (11.5-14.5) % Plt Count (130-400) K/uL Lymph # (Auto) (1.20-3.40) K/uL PT (9.0-12.0) Seconds VBG pH 7.30 L (7.36-7.41) POC Sodium (135-144) mmol/L Sodium (136-145) mmol/L POC Chloride (101-112) mmol/L Chloride (98-107) mmol/L POC BUN (7-18) mg/dl BUN (6-23) mg/dl Creatinine (0.6-1.2) mg/dl POC Creatinine (0.6-1.3) mg/dl Glucose (70-99(Fasting)) mg/dl POC Glucose (70-99) mg/dl POC Glucose (other) (70-99) mg/dl Lactate 2.7 H* (0.4-2.0) mmol/L Troponin I High Sens (0-14) pg/ml Albumin (3.4-5.0) gm/dl Urine Ketones Trace H (Negative) Ur Leukocyte Esterase Trace H (Negative) U Hyaline Cast (Auto) >20 H (0-2) /lpf 04/11/25 04/11/25 Range/Units 15:39 17:37 WBC (4.8-10.8) K/ul RDW Std Deviation (36.4-46.3) fL RDW Coeff of Arlene (11.5-14.5) % Plt Count (130-400) K/uL Lymph # (Auto) (1.20-3.40) K/uL PT (9.0-12.0) Seconds VBG pH (7.36-7.41) POC Sodium (135-144) mmol/L Sodium (136-145) mmol/L POC Chloride (101-112) mmol/L Chloride (98-107) mmol/L POC BUN (7-18) mg/dl BUN (6-23) mg/dl Creatinine (0.6-1.2) mg/dl POC Creatinine (0.6-1.3) mg/dl Glucose (70-99(Fasting)) mg/dl POC Glucose 175 H (70-99) mg/dl POC Glucose (other) (70-99) mg/dl Lactate (0.4-2.0) mmol/L Troponin I High Sens 52.7 H* D (0-14) pg/ml Albumin (3.4-5.0) gm/dl Urine Ketones (Negative) Ur Leukocyte Esterase (Negative) U Hyaline Cast (Auto) (0-2) /lpf Diagnostic Findings Chest X-Ray 04/11/25 13:56 EXAM: Radiograph of the Chest 1 View INDICATION: Neurologic deficit. TECHNIQUE: Frontal view of the chest. COMPARISON: 04/11/2025 FINDINGS: Lungs and pleural spaces: Shallow inspiration with mild atelectasis in the left lung base. No pleural effusion or pneumothorax. No consolidation or pulmonary edema. Heart: Stable enlarged cardiac shadow accentuated by technique. Mediastinum: Normal contour. Bones/joints: Degenerative changes in the spine and right shoulder. No acute osseous abnormality. Visualized portions of posterior proximal lumbar hardware grossly unremarkable. Soft tissues: No abnormality noted. No radiopaque foreign body noted. Upper abdomen: No abnormality noted. IMPRESSION: Minimal left base atelectasis. ACT 112: N/A Electronically signed by Anu Garcia 04-11-2025 4:[address] 04/11/25 13:56 EXAM: CT Head Without Intravenous Contrast INDICATION: Stroke like symptoms. Sepsis. TECHNIQUE: Axial computed tomography images of the head/brain without intravenous contrast. Sagittal and/or coronal reformats are provided. Sagittal and coronal reformatted images were created and reviewed. This CT exam was performed using one or more of the following dose reduction techniques: automated exposure control, adjustment of the mA and/or kV according to patient size, and/or use of iterative reconstruction technique. COMPARISON: 11/27/2024 FINDINGS: Limitations: None. Brain and extra-axial spaces: There is age appropriate cortical atrophy and chronic ischemic periventricular white matter hypodensity. No acute infarct, hemorrhage or mass noted. Bones/joints: No acute changes. Soft tissues: No significant abnormality noted. Vasculature: No acute abnormality noted. Sinuses: No layering fluid in the visualized portions of the paranasal sinuses. Mastoid air cells: No mastoid effusion. Orbits: No significant abnormality noted. IMPRESSION: Cerebral atrophy. No acute changes. ACT 112: N/A Electronically signed by Anu Garcia 04-11-2025 2:57 PM Abdomen/Pelvis CT 04/11/25 14:12 EXAM: CT Chest Abdomen and Pelvis Without Intravenous Contrast INDICATION: Sepsis. TECHNIQUE: Axial computed tomography images of the chest, abdomen and pelvis without intravenous contrast. Sagittal and coronal reformatted images were created and reviewed. This CT exam was performed using one or more of the following dose reduction techniques: automated exposure control, adjustment of the mA and/or kV according to patient size, and/or use of iterative reconstruction technique. COMPARISON: No relevant prior studies available. FINDINGS: Limitations: None. CHEST: Lungs and pleural spaces: No abnormality noted. No mass. No consolidation. No significant effusion. No pneumothorax. Heart: Marked cardiomegaly. Dense coronary calcification noted. There is mitral annular calcification. Mild aortic valve calcification. No pericardial effusion. Mediastinum: No abnormality noted. Thyroid: No abnormality noted. ABDOMEN: Liver: Cirrhotic liver. Gallbladder and bile ducts: Layering stones and sludge in the gallbladder. Dilated common bile duct measures 2.3 cm. No calcified ductal stone noted. Pancreas: No pancreatic mass, calcification, inflammation or ductal dilation noted. Spleen: No significant abnormality noted. Adrenals: No significant abnormality noted. 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 No hemorrhage. No further assessment required. The left kidney is small. No stones or hydronephrosis. Stomach and bowel: No distension or mucosal thickening. No inflammation noted. PELVIS: Appendix: Well seen and appears normal. Bladder: Urinary bladder is obscured by artifact from a right hip prosthesis. A catheter is in place but not assessed. Reproductive: No significant abnormality noted. CHEST, ABDOMEN and PELVIS: Intraperitoneal space: No free air. No significant fluid collection. Retroperitoneal space: No abnormality noted. No fluid collection. Bones/joints: The bones are markedly demineralized. There is posterior lumbosacral fusion. Marked chronic compression fracture of T12 with thoracolumbar kyphosis. Moderate degenerative changes left hip. Right hip normally located. Soft tissues: No significant abnormality noted. Vasculature: There is diffuse atherosclerosis of the aorta and branches. The portal vein is somewhat ill-defined. Patency cannot be assessed. No aortic aneurysm. Lymph nodes: No enlarged lymph nodes. IMPRESSION: 1. No inflammatory process noted in the chest, abdomen or pelvis. 2. Markedly dilated common bile duct of 2.3 cm with sludge and stones noted in the gallbladder. 3. Cirrhosis. 4. Slightly ill-defined portal vein. Thrombosis not excluded. #5 scarred left kidney. ACT 112: N/A Electronically signed by Anu Garcia 04-11-2025 3:[address] 04/11/25 14:12 EXAM: CT Chest Abdomen and Pelvis Without Intravenous Contrast INDICATION: Sepsis. TECHNIQUE: Axial computed tomography images of the chest, abdomen and pelvis without intravenous contrast. Sagittal and coronal reformatted images were created and reviewed. This CT exam was performed using one or more of the following dose reduction techniques: automated exposure control, adjustment of the mA and/or kV according to patient size, and/or use of iterative reconstruction technique. COMPARISON: No relevant prior studies available. FINDINGS: Limitations: None. CHEST: Lungs and pleural spaces: No abnormality noted. No mass. No consolidation. No significant effusion. No pneumothorax. Heart: Marked cardiomegaly. Dense coronary calcification noted. There is mitral annular calcification. Mild aortic valve calcification. No pericardial effusion. Mediastinum: No abnormality noted. Thyroid: No abnormality noted. ABDOMEN: Liver: Cirrhotic liver. Gallbladder and bile ducts: Layering stones and sludge in the gallbladder. Dilated common bile duct measures 2.3 cm. No calcified ductal stone noted. Pancreas: No pancreatic mass, calcification, inflammation or ductal dilation noted. Spleen: No significant abnormality noted. Adrenals: No significant abnormality noted. 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 No hemorrhage. No further assessment required. The left kidney is small. No stones or hydronephrosis. Stomach and bowel: No distension or mucosal thickening. No inflammation noted. PELVIS: Appendix: Well seen and appears normal. Bladder: Urinary bladder is obscured by artifact from a right hip prosthesis. A catheter is in place but not assessed. Reproductive: No significant abnormality noted. CHEST, ABDOMEN and PELVIS: Intraperitoneal space: No free air. No significant fluid collection. Retroperitoneal space: No abnormality noted. No fluid collection. Bones/joints: The bones are markedly demineralized. There is posterior lumbosacral fusion. Marked chronic compression fracture of T12 with thoracolumbar kyphosis. Moderate degenerative changes left hip. Right hip normally located. Soft tissues: No significant abnormality noted. Vasculature: There is diffuse atherosclerosis of the aorta and branches. The portal vein is somewhat ill-defined. Patency cannot be assessed. No aortic aneurysm. Lymph nodes: No enlarged lymph nodes. IMPRESSION: 1. No inflammatory process noted in the chest, abdomen or pelvis. 2. Markedly dilated common bile duct of 2.3 cm with sludge and stones noted in the gallbladder. 3. Cirrhosis. 4. Slightly ill-defined portal vein. Thrombosis not excluded. #5 scarred left kidney. ACT 112: N/A Electronically signed by Anu Garcia 04-11-2025 3:02 PM Medications Administered Home Medications ascorbic acid (vitamin C) 250 mg tablet (Vitamin C) 500 mg PO QAM 06/23/18 [History Confirmed 04/11/25] atenolol 50 mg tablet 50 mg PO QAM 06/23/18 [History Confirmed 04/11/25] clobetasol 0.05 % topical gel 1 applic topical BID PRN LICHEN PLANUS BREAK OUTS 06/23/18 [History Confirmed 04/11/25] clonazepam 0.5 mg tablet (Klonopin) 0.5 tab PO TID PRN Anxiety 06/23/18 [History Confirmed 04/11/25] ferrous sulfate 325 mg (65 mg iron) tablet (iron) 325 mg PO WK 06/23/18 [History Confirmed 04/11/25] folic acid 1 mg tablet 1 mg PO QAM 06/23/18 [History Confirmed 04/11/25] furosemide 40 mg tablet (Lasix) 40 mg PO QAM 06/23/18 [History Confirmed 04/11/25] gabapentin 100 mg capsule 100 mg PO .BID-QAM & AFTERNOON 06/23/18 [History Con firmed 04/11/25] lactulose 10 gram/15 mL oral solution 30 ml PO TID 06/23/18 [History Confirmed 04/11/25] omeprazole 40 mg capsule,delayed release 40 mg PO DAILYBB 06/23/18 [History Confirmed 04/11/25] oxycodone 5 mg tablet 2.5 mg PO Q8H PRN Pain 06/23/18 [History Confirmed 04/11/25] potassium chloride 20 mEq tablet,extended release(part/cryst) (Klor-Con M) 10 meq PO QDL 06/23/18 [History Confirmed 04/11/25] rifaximin 550 mg tablet (Xifaxan) 550 mg PO BID 06/23/18 [History Confirmed 04/11/25] spironolactone 100 mg tablet See Rx Instructions .Route .COMPLEX 06/23/18 [History Confirmed 04/11/25] cephalexin 500 mg capsule 500 mg PO BID 06/05/22 [History Confirmed 04/11/25] furosemide 40 mg tablet 20 mg PO HS 06/05/22 [History Confirmed 04/11/25] citalopram 40 mg tablet 20 mg PO DAILY PRN Anxiety 11/07/22 [History Confirmed 04/11/25] gabapentin 100 mg capsule 300 mg PO HS 11/07/22 [History Confirmed 04/11/25] nystatin 100,000 unit/gram topical powder (Nyamyc) 1 applic topical TID PRN SKIN RASH 07/15/23 [History Confirmed 04/11/25] ondansetron HCl 4 mg tablet 4 mg PO Q6H PRN NAUSEA/VOMITING 07/15/23 [History Confirmed 04/11/25] atenolol 50 mg tablet 25 mg PO QPM 04/11/25 [History Confirmed 04/11/25] betamethasone dipropionate 0.05 % topical cream 1 applic topical BID PRN SKIN IRRITATIONS 04/11/25 [History Confirmed 04/11/25] cholecalciferol (vitamin D3) 25 mcg (1,000 unit) capsule (Vitamin D3) 25 mcg PO DAILY 04/11/25 [History Confirmed 04/11/25] cyanocobalamin (vitamin B-12) 1,000 mcg tablet (Vitamin B-12) 1,000 mcg PO Q OTHER DAY 04/11/25 [History Confirmed 04/11/25] diclofenac sodium 2 % topical solution in packet (Pennsaid) 0 ml topical DIRECTED PRN Pain 04/11/25 [History Confirmed 04/11/25] empagliflozin 10 mg tablet (Jardiance) 10 mg PO QAM 04/11/25 [History Confirmed 04/11/25] levothyroxine 50 mcg tablet 50 mcg PO DAILYBB 04/11/25 [History Confirmed 04/11/25] lidocaine 4 % topical patch 1 patch topical DAILY 04/11/25 [History Confirmed 04/11/25] montelukast 10 mg tablet (Singulair) 10 mg PO HS 04/11/25 [History Confirmed 04/11/25] [id number] 5 mg-zeaxanth 1 mg-bilberry 7.5 mg-herbal capsule ([employer] Formula) 1 cap PO DAILY 04/11/25 [History Confirmed 04/11/25] tacrolimus 0.1 % topical ointment 1 applic topical BID PRN SKIN IRRITATIONS 04/11/25 [History Confirmed 04/11/25] tizanidine 4 mg tablet 1 mg PO HS 04/11/25 [History Confirmed 04/11/25] triamcinolone acetonide 0.1 % topical ointment 1 applic topical BID PRN FLARE UPS 04/11/25 [History Confirmed 04/11/25] vitamin E 268 mg (400 unit) capsule 268 mg PO DAILY 04/11/25 [History Confirmed 04/11/25] Active Medications Atenolol (Atenolol 25 Mg Tablet) 25 mg PO QPM HUSAM Stop: 05/11/25 20:59 Atenolol (Atenolol 50 Mg Tablet) 50 mg PO QAM HUSAM Stop: 05/12/25 08:59 Citalopram Hydrobromide (Citalopram 20 Mg Tab) 20 mg PO DAILY PRN PRN Reason: Anxiety Stop: 05/11/25 18:00 Clonazepam (Clonazepam 0.5 Mg Tab) 0.25 mg PO TID PRN PRN Reason: Anxiety Stop: 05/11/25 19:00 Last Admin: 04/11/25 19:14 Dose: 0.25 mg Cyanocobalamin (Cyanocobalamin (B-12) 500 Mcg Tablet) 1,000 mcg PO Q2D HUSAM Stop: 05/12/25 08:59 Dextrose (Dextrose 50% 50 Ml Syringe) 25 - 50 ml IV UD PRN; Protocol PRN Reason: Hypoglycemia Protocol Stop: 05/11/25 18:27 Folic Acid (Folic Acid 1 Mg Tab) 1 mg PO QAM HUSAM Stop: 05/12/25 08:59 Gabapentin (Gabapentin 100 Mg Cap) 100 mg PO BID@0900,1400 HUSAM Stop: 05/11/25 18:29 Glucagon (Glucagon For Inj 1 Mg Vial) 1 mg SQ UD PRN; Protocol PRN Reason: Hypoglycemia Protocol Stop: 05/11/25 18:27 Glucose (Glucose 40% Gel 15 Gm Tube) 15 - 30 gm PO UD PRN; Protocol PRN Reason: Hypoglycemia Protocol Stop: 05/11/25 18:27 Glucose (Glucose 10 Tab/Tube) 4 - 8 tab PO UD PRN; Protocol PRN Reason: Hypoglycemia Protocol Stop: 05/11/25 18:27 Norepinephrine Bitartrate (Levophed/D5w) 4 mg in 250 mls @ 8.168 mls/hr IV .Q24H HUSAM; Protocol Stop: 05/11/25 14:14 Last Titration: 04/11/25 19:02 Dose: 0.03 mcg/kg/min, 8.2 mls/hr Piperacillin Sod/Tazobactam Sod (Zosyn) 4.5 gm in 100 mls @ 25 mls/hr IV Q12H HUSAM; Protocol Stop: 04/22/25 00:00 Hydrocortisone Sodium (Succinate 50 mg/ Syringe) 1 mls @ 4 mls/min IV Q6 HUSAM Stop: 05/12/25 00:00 Parenteral Electrolytes (Plasma-Lyte A Ph 7.4) 1,000 mls @ 125 mls/hr IV .Q8H HUSAM Stop: 04/14/25 18:44 Insulin Aspart (Insulin Aspart Per Unit Charge) 0 units SC ACHS HUSAM Stop: 05/11/25 20:59 Lactulose (Lactulose Syrup 20 Gm/30 Ml Udc) 20 gm PO TID HUSAM Stop: 05/11/25 20:59 Levothyroxine Sodium (Levothyroxine Sodium 50 Mcg Tablet) 50 mcg PO DAILYBB HUSAM Stop: 05/12/25 06:29 Miscellaneous (Tacrolimus Ointment: Order Awaiting Action) 1 each N/A QS HUSAM Stop: 05/12/25 00:00 Miscellaneous (Carbohydrates For Hypoglycemia ) 15 - 30 gm PO UD PRN PRN Reason: Hypoglycemia Protocol Stop: 05/11/25 18:27 Montelukast Sodium (Montelukast Sodium 10 Mg Tablet) 10 mg PO HS HUSAM Stop: 05/11/25 20:59 Multivitamins/Minerals (Cerovite Adv Formula Tab) 1 tab PO DAILY HUSAM; Protocol Stop: 05/12/25 08:59 Nystatin (Nystatin Powder 15gm Btl) 1 appln EXT TID PRN PRN Reason: SKIN RASH Stop: 05/11/25 18:00 Pantoprazole Sodium (Pantoprazole 40 Mg Tab) 40 mg PO DAILYBB HUSAM; Protocol Stop: 05/12/25 06:29 Rifaximin (Rifaximin 550 Mg Tablet) 550 mg PO BID HUSAM Stop: 05/11/25 20:59 Vitamin D (Cholecalciferol 25 Mcg (1000 Units) Tab) 25 mcg PO DAILY HUSAM Stop: 05/12/25 08:59 Vitamin E (Tocopheryl, Dl-Alpha 400 Units 180 Mg Cap) 180 mg PO DAILY HUSAM Stop: 05/12/25 08:59 ECG Additional Comments: Atrial fibrillationwith rapid ventricular responsewith premature ventricular or aberrantly conducted complexes Left axis deviation Inferior infarct, age undetermined Anterolateral infarct, age undetermined Abnormal ECG When compared with ECG [id number] 11:53, Atrial fibrillationhas replacedSinus rhythm Vent. ratehas increasedby 52bpm Inferior infarctis nowPresent Non-specific change in ST segment inLateral leads Coding Level of Care Code 95619 CRITICAL CARE 1ST 30-74M Diagnoses Septic shock A41.9; R65.21 RANDY (acute kidney injury) N17.9 HUANG (nonalcoholic steatohepatitis) K75.81 New onset a-fib I48.91 Thrombocytopenia D69.6
--- NOTE | 2025-04-11 21:06 | Magnetic Resonance Report ---
MRI of the brain performed without IV contrast History: Recent vision loss. Comparison: Noncontrast head CT correlate earlier same day. Technique: Routine multiplanar multisequence MR images of the brain without contrast. Findings: No restricted diffusion. Ventricles and sulci are within normal limits for patient's age. Major vascular flow voids are present. Brain parenchyma demonstrates few scattered small foci of increased T2 T2 flair signal. This is not uncommon for patient's age. No mass effect. Basal cisterns are patent. Midline structures are intact. Orbital soft tissues are within normal limits. Skull base and calvarial signal are within normal limits. Impression: Few nonspecific small foci of white matter signal alteration not uncommon for patient's age likely representing mild sequela from chronic microvascular disease. Otherwise no findings to indicate source of patient's symptoms. Electronically signed by Jared Chin 04-11-2025 9:06 PM
--- NOTE | 2025-04-11 21:24 | Magnetic Resonance Report ---
Exam: Magnetic resonance cholangiopancreatography without contrast. History: Cirrhosis. Comparison:None. Findings: Diffusion weighted series demonstrates no discrete restricted diffusion. Motion limits portions of the evaluation. Macro microlobulated surface contour to the liver is noted. This is consistent with cirrhosis history. Heterogeneous increased fluid sensitive signal of the liver most marked along the right liver lobe without discrete mass or fluid collection. Layering densities within a moderately distended gallbladder consistent with likely gravel type stones. Common duct measures approximately 9 mm. No discrete choledocholithiasis. Prominent pancreatic duct. At the level of the pancreatic head there is a 3.1 cm diameter fluid signal mass. No appreciated surrounding fluid collections or discrete inflammatory changes. Pancreas appears to be at least mildly atrophied. Small amount of fluid within the perisplenic region. There is a partially included fluid signal process within the right abdomen which may represent free fluid. This is indeterminant and incompletely evaluated on this exam. Impression: 1. Significantly degraded exam secondary to patient motion with cirrhotic appearing liver. No discrete mass is identified. Infiltrative process cannot be excluded on the basis of this exam. 2. At least moderate distended gallbladder with layering likely gravel type stones. No discrete acute gallbladder disease. 3. Approximately 9 mm diameter common duct without appreciated choledocholithiasis. 4. Approximately 3 cm diameter pancreatic head cyst. Suspect benign process although other etiologies are not excluded. No additional pancreatic mass or ductal dilatation. 5. Incompletely evaluated fluid signal intensity process of the right lower abdominal quadrant. This is indeterminant. Recommend CT and/or ultrasound for further characterization. Electronically signed by Jared Chin 04-11-2025 9:23 PM
[2025-04-11 22:06] LABS: Basophils # (auto) 0.04 K/uL (0.00-0.20); Eosinophils # (auto) 0.45 K/uL (0.00-0.50); Eosinophils % (auto) 11.2 %; Hematocrit (blood only) 37.6 % (37.0-47.0); Hemoglobin 12.5 g/dl (12.0-16.0); Immature Granulocytes # (auto) 0.01 K/uL (0.01-0.20); Immature Granulocytes % (auto) 0.2 %; Lymphocytes # (auto) 0.51 K/uL (1.20-3.40); Lymphocytes % (auto) 12.7 %; Mean Corpuscular Hgb Conc 33.2 g/dL (32.0-36.0); Mean Corpuscular Volume 90.2 fL (80.0-100.0); Monocytes # (auto) 0.62 K/uL (0.11-0.59); Monocytes % (auto) 15.4 %; Neutrophils # (auto) 2.39 K/uL (1.40-6.50); Neutrophils % (auto) 59.5 %; Platelet Count 71 K/uL (130-400); RDW Coefficient of Variation 14.7 % (11.5-14.5); RDW Standard Deviation 48.4 fL (36.4-46.3); Red Blood Count 4.17 M/uL (4.20-5.40); White Blood Count 4.02 K/ul (4.8-10.8)
[2025-04-11 22:21] LABS: BUN Creatinine Ratio 12.6 (10-20); Calcium 7.8 mg/dl (8.6-10.3); Creatinine Clr Calc Pharmacy 13.6 ml/min; Potassium 3.8 mmol/L (3.5-5.1)
[2025-04-11 22:37] LABS: INR 1.1 (0.9-1.1); Partial Thromboplastin Time 28 Seconds (21-31); Prothrombin Time 12.2 Seconds (9.0-12.0)
--- NOTE | 2025-04-12 00:04 | Ultrasound Report ---
Exam(s): US OTHER EXAM: US Duplex liver CLINICAL HISTORY: Reason for exam: eval for ? Thrombus portal vein. TECHNIQUE: Real-time duplex ultrasound scan of the liver integrating B-mode two- dimensional vascular structure, Doppler spectral analysis and color flow Doppler imaging. COMPARISON: No relevant prior studies available. FINDINGS: Exam is somewhat limited. The left hepatic vein, the right hepatic vein and the main hepatic vein are patent. The main portal vein demonstrates hepatopedal flow. No thrombus is visualized. The left and right portal veins are patent. The splenic vein is patent. The hepatic artery is patent. IMPRESSION: No thrombus is noted in the portal veins. Electronically signed by: Ollie Myers MD 04/12/25 00:03 AM
[2025-04-12 04:24] LABS: Basophils # (auto) 0.01 K/uL (0.00-0.20); Basophils % (auto) 0.4 %; Eosinophils # (auto) 0.01 K/uL (0.00-0.50); Eosinophils % (auto) 0.4 %; Hematocrit (blood only) 40.4 % (37.0-47.0); Hemoglobin 13.5 g/dl (12.0-16.0); Lymphocytes # (auto) 0.22 K/uL (1.20-3.40); Lymphocytes % (auto) 9.9 %; Mean Corpuscular Hemoglobin 29.8 pg (25.0-34.0); Mean Corpuscular Hgb Conc 33.4 g/dL (32.0-36.0); Mean Corpuscular Volume 89.2 fL (80.0-100.0); Monocytes # (auto) 0.06 K/uL (0.11-0.59); Monocytes % (auto) 2.7 %; Neutrophils # (auto) 1.93 K/uL (1.40-6.50); Neutrophils % (auto) 86.6 %; Platelet Count 50 K/uL (130-400); RDW Coefficient of Variation 14.7 % (11.5-14.5); RDW Standard Deviation 47.4 fL (36.4-46.3); Red Blood Count 4.53 M/uL (4.20-5.40); White Blood Count 2.23 K/ul (4.8-10.8)
[2025-04-12 04:37] LABS: Albumin Globulin Ratio 0.9 (0.9-2); Albumin Level 2.9 gm/dl (3.4-5.0); BUN Creatinine Ratio 14.8 (10-20); Bilirubin,Total 1.1 mg/dl (0.2-1.0); Calcium 8.1 mg/dl (8.6-10.3); Globulin 3.1 gm/dl (2.5-4.0); Magnesium 2.1 mg/dl (1.7-2.4); Phosphorus 4.4 mg/dl (2.5-4.9)
[2025-04-12 04:51] LABS: Thyroid Stimulating Hormone 0.355 uIu/ml (0.300-4.500)
[2025-04-12 05:45] LABS: ANTI-Xa, UFH(UnfractionatedHep 0.24 IU/ml (0.3-0.7)
[2025-04-12 08:29] LABS: Estimated Average Glucose 117 mg/dl; Hemoglobin A1C 5.7 % (4.5-5.6)
--- NOTE | 2025-04-12 08:38 | Critical Care Progress Note ---
Date of Service April 12, 2025 Assessment & Plan (1) New onset a-fib: (2) RANDY (acute kidney injury): (3) Septic shock: (4) Thrombocytopenia: (5) HUANG (nonalcoholic steatohepatitis): Plan Impression: 75-year-old female with nonalcoholic steatohepatitis and chronic thrombocytopenia admitted with lactic acidosis and septic shock with dilated common bile duct and stones in the gallbladder but negative MRCP. She was transferred to the ICU due to the continued pressor requirement which has been weaned to off. Patient is in new onset A-fib and anticoagulated on heparin. 24-hour events: Patient mated to the ICU. Antibiotics were continued. She has been weaned off of vasopressor agents. She was placed on stress dose steroids for relative adrenal insufficiency. Recommendations: 1. Neurologic: Patient presented with a variety of neurological complaints which been going on for over 3 years. Initial imaging unrevealing and no neurological deficits currently. MRI of the brain shows only small vessel white matter signal alteration likely consistent with microvascular changes. Continue to follow clinically. Initiate physical therapy and Occupational Therapy. Out of bed to chair as tolerated. If continued neurological complaints persist, consultation with neurology might be appropriate. Continue outpatient Celexa and Klonopin as well as gabapentin 2. Cardiovascular: Patient presented with lactic acidosis and hypotension. She was adequately fluid resuscitated. Lactate is cleared. Pressors are now off. She is in A-fib. Holding rate control agents given soft blood pressure. She is anticoagulated with heparin currently and will need to transition to a DOAC or Coumadin at some point. Will initiate cardiology consultation. Echocardiogram pending. Holding outpatient antihypertensives. If rate control remains problematic, consideration for digoxin might be appropriate however her renal function may present some problems for this. She did have a mild elevation in her troponin which has peaked and is downtrending and likely represents type II ischemia. No additional workup evaluation needed at this point in time unless echo suggest regional wall motion abnormalities 3. Pulmonary: No current issues. Incentive spirometry. Out of bed to chair as tolerated. 4. Renal: The patient presented with acute on chronic renal insufficiency. Creatinine has improved but remains above her baseline. She had an initial metabolic acidosis which is cleared. Acid-base status and electrolytes appear improved this morning. Continue to follow clinically. Discontinue Muniz catheter 5. GI: History of nonalcoholic steatohepatitis with significantly dilated common bile duct. MRCP unremarkable. Patient is currently on antibiotics and GI consultation is pending. LFTs fortunately unrevealing with the exception of a very marginal elevation in total bilirubin. Keep n.p.o. pending GI evaluation. Acalculous cholecystitis would be a concern however given the patient's clinical improvement, would hold off for HIDA scan pending GI recommen dations. 6. ID: Patient is currently day #2 Zosyn. This would be adequate coverage for intra-abdominal pathology and will be continued for 3 days as empiric coverage pending clarification of the patient's clinical status. 7. Heme-onc: Patient is leukopenic and thrombocytopenic. These findings are been present dating back for 5 or 6 years. Recommend outpatient hematology evaluation. 8. Endocrine: On stress dose steroids. Ideally would add Florinef however she is clinically improved. Glycemic control per protocol. Hemoglobin A1c marginally elevated. Continue Synthroid The patient appears to be responding favorably. If she remains off pressors this morning, can likely transfer to the floor later today. Critical care will sign off when the patient is transferred out of the ICU Total time for todays visit is 52 minutes which includes reviewing records prior to patient arrival, the face to face visit, as well as time to record documentation after patient departure including coordination of care with other specialists and providers. Admission and Anticipated Discharge Date Admission Date: April 11, 2025 Subjective Patient seen and examined. MR sadler Discussed with overnight critical care QUAN as well as with bedside critical care nurse in a multidisciplinary rounds. Patient is awake alert and conversant this morning. She is complaining of hunger and thirst but otherwise has no complaints. She specifically denies any nausea or vomiting or significant abdominal pain. She has no new neurological complaints. Review of Systems Review of Systems: All systems reviewed & are unremarkable except as noted in Subjective Physical Exam Constitutional: WD/WN, vitals as above Neck: trachea midline, no thyromegaly Respiratory: normal respiratory effort, lungs clear to auscultation Cardiovascular: RRR, no murmur, no edema Gastrointestinal (Abdomen): normal bowel sounds, soft, nontender, no hepatosplenomegaly Musculoskeletal: Extremities: extremities normal to inspection Skin: no rashes, warm and dry Neurologic: Nonfocal exam Lymphatic: no cervical lymphadenopathy Results & Data Results & Data Vital Signs (Past 12 Hours) Vital Signs Temp Pulse Resp BP Pulse Ox O2 Del Method 04/12/25 07:56 Room Air 04/12/25 07:49 119 H 04/12/25 07:31 93/63 L 04/12/25 07:18 36.6 C 120 H 14 100 04/12/25 06:51 94/69 L 04/12/25 06:48 36.7 C 126 H 16 98 04/12/25 06:42 36.7 C 111 H 22 90 04/12/25 06:39 36.5 C 104 H 26 H 98 04/12/25 06:30 85/71 L 04/12/25 06:15 36.7 C 120 H 21 93 04/12/25 06:06 36.7 C 114 H 15 94 04/12/25 06:03 36.8 C 117 H 17 94 04/12/25 06:00 87/71 L 04/12/25 05:54 36.7 C 117 H 20 98 04/12/25 05:36 36.7 C 113 H 16 98 04/12/25 05:30 94/72 L 04/12/25 05:30 94/72 L 04/12/25 05:30 36.7 C 127 H 19 99 04/12/25 05:27 36.7 C 127 H 20 98 04/12/25 05:21 36.7 C 107 H 26 H 96 04/12/25 05:04 86/69 L 04/12/25 05:04 86/69 L 04/12/25 05:03 36.6 C 116 H 13 97 04/12/25 05:00 36.7 C 116 H 14 98 04/12/25 04:57 36.7 C 114 H 23 97 04/12/25 04:45 36.7 C 112 H 14 100 04/12/25 04:45 86/72 L 04/12/25 04:42 36.7 C 126 H 14 91 04/12/25 04:39 36.7 C 105 H 16 95 04/12/25 04:21 36.7 C 109 H 20 97 04/12/25 04:08 103/79 04/12/25 04:08 103/79 04/12/25 04:06 36.9 C 122 H 19 95 04/12/25 04:00 36.9 C 120 H 19 97 04/12/25 03:48 36.9 C 113 H 18 97 04/12/25 03:45 101/75 04/12/25 03:45 101/75 04/12/25 03:42 36.9 C 109 H 17 97 04/12/25 03:21 36.9 C 113 H 15 98 04/12/25 03:16 103/79 04/12/25 03:16 103/79 04/12/25 03:15 36.8 C 105 H 16 95 04/12/25 02:45 125/81 04/12/25 02:45 125/81 04/12/25 02:39 36.7 C 106 H 27 H 97 04/12/25 02:30 101/72 04/12/25 02:24 36.7 C 112 H 30 H 93 04/12/25 02:21 36.7 C 107 H 31 H 96 04/12/25 02:15 36.7 C 114 H 25 H 94 04/12/25 02:00 36.6 C 106 H 17 95 04/12/25 02:00 109/85 04/12/25 02:00 109/85 04/12/25 01:57 36.6 C 110 H 13 96 04/12/25 01:45 36.6 C 115 H 15 90 04/12/25 01:45 113/77 04/12/25 01:45 113/77 04/12/25 01:42 36.6 C 114 H 16 99 04/12/25 01:36 36.7 C 113 H 20 99 04/12/25 01:30 106/76 04/12/25 01:30 106/76 04/12/25 01:30 106/76 04/12/25 01:30 36.6 C 106 H 19 96 04/12/25 01:27 36.7 C 115 H 18 98 04/12/25 01:24 36.6 C 113 H 19 99 04/12/25 01:15 36.6 C 106 H 15 97 04/12/25 01:00 36.6 C 123 H 20 88 L 04/12/25 00:51 36.6 C 115 H 23 95 04/12/25 00:46 119/64 04/12/25 00:46 119/64 04/12/25 00:42 36.5 C 105 H 19 97 04/12/25 00:30 116/90 04/12/25 00:30 116/90 04/12/25 00:24 36.4 C L 109 H 23 97 04/12/25 00:15 115/79 04/12/25 00:15 36.4 C L 113 H 18 97 04/12/25 00:12 36.4 C L 112 H 19 95 04/12/25 00:06 36.3 C L 112 H 22 89 L 04/12/25 00:01 113/75 04/12/25 00:01 113/75 04/11/25 23:57 36.3 C L 113 H 13 97 04/11/25 23:45 117/88 04/11/25 23:45 117/88 04/11/25 23:45 117/88 04/11/25 23:45 36.3 C L 108 H 14 96 04/11/25 23:42 36.3 C L 104 H 17 92 04/11/25 23:31 127/102 H 04/11/25 23:31 127/102 H 04/11/25 23:31 127/102 H 04/11/25 23:30 36.3 C L 97 H 9 L 99 04/11/25 23:27 36.3 C L 110 H 16 97 04/11/25 23:21 36.3 C L 94 H 17 95 04/11/25 23:15 96/77 L 04/11/25 23:15 96/77 L 04/11/25 23:00 107/74 04/11/25 23:00 107/74 04/11/25 22:45 123/85 04/11/25 22:45 123/85 04/11/25 22:45 123/85 04/11/25 22:45 36.2 C L 98 H 15 95 04/11/25 22:36 36.2 C L 111 H 20 100 04/11/25 22:30 113/85 04/11/25 22:30 113/85 04/11/25 22:30 113/85 04/11/25 22:30 36.2 C L 114 H 21 97 04/11/25 22:21 36.2 C L 93 H 17 99 04/11/25 22:15 110/83 04/11/25 22:15 110/83 04/11/25 22:00 126/80 04/11/25 22:00 36.2 C L 120 H 20 99 04/11/25 21:57 36.2 C L 90 16 99 04/11/25 21:54 36.2 C L 100 H 15 96 04/11/25 21:46 102/79 04/11/25 21:22 88/69 L Critical Care Results & Data Vital Signs (Past 12 Hours) Vital Signs Temp Pulse Resp BP Pulse Ox O2 Del Method 04/12/25 07:56 Room Air 04/12/25 07:49 119 H 04/12/25 07:31 93/63 L 04/12/25 07:18 36.6 C 120 H 14 100 04/12/25 06:51 94/69 L 04/12/25 06:48 36.7 C 126 H 16 98 04/12/25 06:42 36.7 C 111 H 22 90 04/12/25 06:39 36.5 C 104 H 26 H 98 04/12/25 06:30 85/71 L 04/12/25 06:15 36.7 C 120 H 21 93 04/12/25 06:06 36.7 C 114 H 15 94 04/12/25 06:03 36.8 C 117 H 17 94 04/12/25 06:00 87/71 L 04/12/25 05:54 36.7 C 117 H 20 98 04/12/25 05:36 36.7 C 113 H 16 98 04/12/25 05:30 94/72 L 04/12/25 05:30 94/72 L 04/12/25 05:30 36.7 C 127 H 19 99 04/12/25 05:27 36.7 C 127 H 20 98 04/12/25 05:21 36.7 C 107 H 26 H 96 04/12/25 05:04 86/69 L 04/12/25 05:04 86/69 L 04/12/25 05:03 36.6 C 116 H 13 97 04/12/25 05:00 36.7 C 116 H 14 98 04/12/25 04:57 36.7 C 114 H 23 97 04/12/25 04:45 36.7 C 112 H 14 100 04/12/25 04:45 86/72 L 04/12/25 04:42 36.7 C 126 H 14 91 04/12/25 04:39 36.7 C 105 H 16 95 04/12/25 04:21 36.7 C 109 H 20 97 04/12/25 04:08 103/79 04/12/25 04:08 103/79 04/12/25 04:06 36.9 C 122 H 19 95 04/12/25 04:00 36.9 C 120 H 19 97 04/12/25 03:48 36.9 C 113 H 18 97 04/12/25 03:45 101/75 04/12/25 03:45 101/75 04/12/25 03:42 36.9 C 109 H 17 97 04/12/25 03:21 36.9 C 113 H 15 98 04/12/25 03:16 103/79 04/12/25 03:16 103/79 04/12/25 03:15 36.8 C 105 H 16 95 04/12/25 02:45 125/81 04/12/25 02:45 125/81 04/12/25 02:39 36.7 C 106 H 27 H 97 04/12/25 02:30 101/72 04/12/25 02:24 36.7 C 112 H 30 H 93 04/12/25 02:21 36.7 C 107 H 31 H 96 04/12/25 02:15 36.7 C 114 H 25 H 94 04/12/25 02:00 36.6 C 106 H 17 95 04/12/25 02:00 109/85 04/12/25 02:00 109/85 04/12/25 01:57 36.6 C 110 H 13 96 04/12/25 01:45 36.6 C 115 H 15 90 04/12/25 01:45 113/77 04/12/25 01:45 113/77 04/12/25 01:42 36.6 C 114 H 16 99 04/12/25 01:36 36.7 C 113 H 20 99 04/12/25 01:30 106/76 04/12/25 01:30 106/76 04/12/25 01:30 106/76 04/12/25 01:30 36.6 C 106 H 19 96 04/12/25 01:27 36.7 C 115 H 18 98 04/12/25 01:24 36.6 C 113 H 19 99 04/12/25 01:15 36.6 C 106 H 15 97 04/12/25 01:00 36.6 C 123 H 20 88 L 04/12/25 00:51 36.6 C 115 H 23 95 04/12/25 00:46 119/64 04/12/25 00:46 119/64 04/12/25 00:42 36.5 C 105 H 19 97 04/12/25 00:30 116/90 04/12/25 00:30 116/90 04/12/25 00:24 36.4 C L 109 H 23 97 04/12/25 00:15 115/79 04/12/25 00:15 36.4 C L 113 H 18 97 04/12/25 00:12 36.4 C L 112 H 19 95 04/12/25 00:06 36.3 C L 112 H 22 89 L 04/12/25 00:01 113/75 04/12/25 00:01 113/75 04/11/25 23:57 36.3 C L 113 H 13 97 04/11/25 23:45 117/88 04/11/25 23:45 117/88 04/11/25 23:45 117/88 04/11/25 23:45 36.3 C L 108 H 14 96 04/11/25 23:42 36.3 C L 104 H 17 92 04/11/25 23:31 127/102 H 04/11/25 23:31 127/102 H 04/11/25 23:31 127/102 H 04/11/25 23:30 36.3 C L 97 H 9 L 99 04/11/25 23:27 36.3 C L 110 H 16 97 04/11/25 23:21 36.3 C L 94 H 17 95 04/11/25 23:15 96/77 L 04/11/25 23:15 96/77 L 04/11/25 23:00 107/74 04/11/25 23:00 107/74 04/11/25 22:45 123/85 04/11/25 22:45 123/85 04/11/25 22:45 123/85 04/11/25 22:45 36.2 C L 98 H 15 95 04/11/25 22:36 36.2 C L 111 H 20 100 04/11/25 22:30 113/85 04/11/25 22:30 113/85 04/11/25 22:30 113/85 04/11/25 22:30 36.2 C L 114 H 21 97 04/11/25 22:21 36.2 C L 93 H 17 99 04/11/25 22:15 110/83 04/11/25 22:15 110/83 04/11/25 22:00 126/80 04/11/25 22:00 36.2 C L 120 H 20 99 04/11/25 21:57 36.2 C L 90 16 99 04/11/25 21:54 36.2 C L 100 H 15 96 04/11/25 21:46 102/79 04/11/25 21:22 88/69 L Lab & Micro Results (Past 24 Hours) RBC 4.53 M/uL (4.20-5.40) 04/12/25 WBC 2.23 K/ul (4.8-10.8) L 04/12/25 Hgb 13.5 g/dl (12.0-16.0) 04/12/25 Hct 40.4 % (37.0-47.0) 04/12/25 MCV 89.2 fL (80.0-100.0) 04/12/25 MCH 29.8 pg (25.0-34.0) 04/12/25 MCHC 33.4 g/dL (32.0-36.0) 04/12/25 RDW Standard Deviation 47.4 fL (36.4-46.3) H 04/12/25 RDW Coefficient of Variation 14.7 % (11.5-14.5) H 04/12/25 Plt Count 50 K/uL (130-400) L 04/12/25 MPV 12.0 fL (9.4-12.4) 04/12/25 Neutrophils (%) (Auto) 86.6 % 04/12/25 Lymphocytes (%) (Auto) 9.9 % 04/12/25 Monocytes # (Auto) 0.06 K/uL (0.11-0.59) L 04/12/25 Eosinophils # (Auto) 0.01 K/uL (0.00-0.50) 04/12/25 Immature Granulocyte % (Auto) 0.0 % 04/12/25 Neutrophils # (Auto) 1.93 K/uL (1.40-6.50) 04/12/25 Lymphocytes # (Auto) 0.22 K/uL (1.20-3.40) L 04/12/25 Monocytes # (Auto) 0.06 K/uL (0.11-0.59) L 04/12/25 Eosinophils # (Auto) 0.01 K/uL (0.00-0.50) 04/12/25 Basophils # (Auto) 0.01 K/uL (0.00-0.20) 04/12/25 Immature Granulocyte # (Auto) 0.00 K/uL (0.01-0.20) L 04/12 Na 136 mmol/L (136-145) 04/12/25 K 4.0 mmol/L (3.5-5.1) 04/12/25 Cl 106 mmol/L (98-107) 04/12/25 CO2 19 mmol/L (21-32) L 04/12/25 Anion Gap 11 (3-11) 04/12/25 BUN 31 mg/dl (6-23) H 04/12/25 Creatinine 2.10 mg/dl (0.6-1.2) H 04/12/25 BUN/Creatinine Ratio 14.8 (10-20) 04/12/25 Glu 142 mg/dl (70-99(Fasting)) H 04/12/25 Ca 8.1 mg/dl (8.6-10.3) L 04/12/25 Phosphorus Level 4.4 mg/dl (2.5-4.9) 04/12/25 Total Bilirubin 1.1 mg/dl (0.2-1.0) H 04/12/25 AST 24 U/L (13-39) 04/12/25 ALT 10 U/L (7-52) 04/12/25 Alkaline Phosphatase 75 U/L (34-104) 04/12/25 TP 6.0 gm/dl (6.0-8.3) 04/12/25 Albumin 2.9 gm/dl (3.4-5.0) L 04/12/25 Globulin 3.1 gm/dl (2.5-4.0) 04/12/25 Albumin/Globulin Ratio 0.9 (0.9-2) 04/12/25 Mg 2.1 mg/dl (1.7-2.4) 04/12/25 03:48 Calcium Level 8.1 mg/dl (8.6-10.3) L 04/12/25 03:48 Prothromb Time International Ratio 1.1 (0.9-1.1) 04/11/25 21:5 0 Venous Blood pH 7.30 (7.36-7.41) L 04/11/25 14:17 Venous Blood Partial Pressure CO2 44 mmHg (38-50) 04/11/25 14:1 7 Venous Blood Partial Pressure O2 38 mmHg 04/11/25 14:17 Venous Blood HCO3 22 mmol/L 04/11/25 14:17 Venous Blood Base Excess -4.8 mEq/L 04/11/25 14:17 Venous Blood Oxygen Saturation 61.3 % 04/11/25 14:17 Diagnostic Findings (Past 24 Hours) Chest X-Ray 04/11/25 13:56 EXAM: Radiograph of the Chest 1 View INDICATION: Neurologic deficit. TECHNIQUE: Frontal view of the chest. COMPARISON: 04/11/2025 FINDINGS: Lungs and pleural spaces: Shallow inspiration with mild atelectasis in the left lung base. No pleural effusion or pneumothorax. No consolidation or pulmonary edema. Heart: Stable enlarged cardiac shadow accentuated by technique. Mediastinum: Normal contour. Bones/joints: Degenerative changes in the spine and right shoulder. No acute osseous abnormality. Visualized portions of posterior proximal lumbar hardware grossly unremarkable. Soft tissues: No abnormality noted. No radiopaque foreign body noted. Upper abdomen: No abnormality noted. IMPRESSION: Minimal left base atelectasis. ACT 112: N/A Electronically signed by Anu Garcia 04-11-2025 4:[address] 04/11/25 13:56 EXAM: CT Head Without Intravenous Contrast INDICATION: Stroke like symptoms. Sepsis. TECHNIQUE: Axial computed tomography images of the head/brain without intravenous contrast. Sagittal and/or coronal reformats are provided. Sagittal and coronal reformatted images were created and reviewed. This CT exam was performed using one or more of the following dose reduction techniques: automated exposure control, adjustment of the mA and/or kV according to patient size, and/or use of iterative reconstruction technique. COMPARISON: 11/27/2024 FINDINGS: Limitations: None. Brain and extra-axial spaces: There is age appropriate cortical atrophy and chronic ischemic periventricular white matter hypodensity. No acute infarct, hemorrhage or mass noted. Bones/joints: No acute changes. Soft tissues: No significant abnormality noted. Vasculature: No acute abnormality noted. Sinuses: No layering fluid in the visualized portions of the paranasal sinuses. Mastoid air cells: No mastoid effusion. Orbits: No significant abnormality noted. IMPRESSION: Cerebral atrophy. No acute changes. ACT 112: N/A Electronically signed by Jose Anu 04-11-2025 2:57 PM Abdomen/Pelvis CT 04/11/25 14:12 EXAM: CT Chest Abdomen and Pelvis Without Intravenous Contrast INDICATION: Sepsis. TECHNIQUE: Axial computed tomography images of the chest, abdomen and pelvis without intravenous contrast. Sagittal and coronal reformatted images were created and reviewed. This CT exam was performed using one or more of the following dose reduction techniques: automated exposure control, adjustment of the mA and/or kV according to patient size, and/or use of iterative reconstruction technique. COMPARISON: No relevant prior studies available. FINDINGS: Limitations: None. CHEST: Lungs and pleural spaces: No abnormality noted. No mass. No consolidation. No significant effusion. No pneumothorax. Heart: Marked cardiomegaly. Dense coronary calcification noted. There is mitral annular calcification. Mild aortic valve calcification. No pericardial effusion. Mediastinum: No abnormality noted. Thyroid: No abnormality noted. ABDOMEN: Liver: Cirrhotic liver. Gallbladder and bile ducts: Layering stones and sludge in the gallbladder. Dilated common bile duct measures 2.3 cm. No calcified ductal stone noted. Pancreas: No pancreatic mass, calcification, inflammation or ductal dilation noted. Spleen: No significant abnormality noted. Adrenals: No significant abnormality noted. 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 No hemorrhage. No further assessment required. The left kidney is small. No stones or hydronephrosis. Stomach and bowel: No distension or mucosal thickening. No inflammation noted. PELVIS: Appendix: Well seen and appears normal. Bladder: Urinary bladder is obscured by artifact from a right hip prosthesis. A catheter is in place but not assessed. Reproductive: No significant abnormality noted. CHEST, ABDOMEN and PELVIS: Intraperitoneal space: No free air. No significant fluid collection. Retroperitoneal space: No abnormality noted. No fluid collection. Bones/joints: The bones are markedly demineralized. There is posterior lumbosacral fusion. Marked chronic compression fracture of T12 with thoracolumbar kyphosis. Moderate degenerative changes left hip. Right hip normally located. Soft tissues: No significant abnormality noted. Vasculature: There is diffuse atherosclerosis of the aorta and branches. The portal vein is somewhat ill-defined. Patency cannot be assessed. No aortic aneurysm. Lymph nodes: No enlarged lymph nodes. IMPRESSION: 1. No inflammatory process noted in the chest, abdomen or pelvis. 2. Markedly dilated common bile duct of 2.3 cm with sludge and stones noted in the gallbladder. 3. Cirrhosis. 4. Slightly ill-defined portal vein. Thrombosis not excluded. #5 scarred left kidney. ACT 112: N/A Electronically signed by Anu Garcia 04-11-2025 3:[address] 04/11/25 14:12 EXAM: CT Chest Abdomen and Pelvis Without Intravenous Contrast INDICATION: Sepsis. TECHNIQUE: Axial computed tomography images of the chest, abdomen and pelvis without intravenous contrast. Sagittal and coronal reformatted images were created and reviewed. This CT exam was performed using one or more of the following dose reduction techniques: automated exposure control, adjustment of the mA and/or kV according to patient size, and/or use of iterative reconstruction technique. COMPARISON: No relevant prior studies available. FINDINGS: Limitations: None. CHEST: Lungs and pleural spaces: No abnormality noted. No mass. No consolidation. No significant effusion. No pneumothorax. Heart: Marked cardiomegaly. Dense coronary calcification noted. There is mitral annular calcification. Mild aortic valve calcification. No pericardial effusion. Mediastinum: No abnormality noted. Thyroid: No abnormality noted. ABDOMEN: Liver: Cirrhotic liver. Gallbladder and bile ducts: Layering stones and sludge in the gallbladder. Dilated common bile duct measures 2.3 cm. No calcified ductal stone noted. Pancreas: No pancreatic mass, calcification, inflammation or ductal dilation noted. Spleen: No significant abnormality noted. Adrenals: No significant abnormality noted. 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 No hemorrhage. No further assessment required. The left kidney is small. No stones or hydronephrosis. Stomach and bowel: No distension or mucosal thickening. No inflammation noted. PELVIS: Appendix: Well seen and appears normal. Bladder: Urinary bladder is obscured by artifact from a right hip prosthesis. A catheter is in place but not assessed. Reproductive: No significant abnormality noted. CHEST, ABDOMEN and PELVIS: Intraperitoneal space: No free air. No significant fluid collection. Retroperitoneal space: No abnormality noted. No fluid collection. Bones/joints: The bones are markedly demineralized. There is posterior lumbosacral fusion. Marked chronic compression fracture of T12 with thoracolumbar kyphosis. Moderate degenerative changes left hip. Right hip normally located. Soft tissues: No significant abnormality noted. Vasculature: There is diffuse atherosclerosis of the aorta and branches. The portal vein is somewhat ill-defined. Patency cannot be assessed. No aortic aneurysm. Lymph nodes: No enlarged lymph nodes. IMPRESSION: 1. No inflammatory process noted in the chest, abdomen or pelvis. 2. Markedly dilated common bile duct of 2.3 cm with sludge and stones noted in the gallbladder. 3. Cirrhosis. 4. Slightly ill-defined portal vein. Thrombosis not excluded. #5 scarred left kidney. ACT 112: N/A Electronically signed by Anu Garcia 04-11-2025 3:02 PM Brain MRI 04/11/25 17:08 MRI of the brain performed without IV contrast History: Recent vision loss. Comparison: Noncontrast head CT correlate earlier same day. Technique: Routine multiplanar multisequence MR images of the brain without contrast. Findings: No restricted diffusion. Ventricles and sulci are within normal limits for patient's age. Major vascular flow voids are present. Brain parenchyma demonstrates few scattered small foci of increased T2 T2 flair signal. This is not uncommon for patient's age. No mass effect. Basal cisterns are patent. Midline structures are intact. Orbital soft tissues are within normal limits. Skull base and calvarial signal are within normal limits. Impression: Few nonspecific small foci of white matter signal alteration not uncommon for patient's age likely representing mild sequela from chronic microvascular disease. Otherwise no findings to indicate source of patient's symptoms. Electronically signed by Jared Chin 04-11-2025 9:06 PM Cholangiopancreatography MRI 04/11/25 18:52 Exam: Magnetic resonance cholangiopancreatography without contrast. History: Cirrhosis. Comparison:None. Findings: Diffusion weighted series demonstrates no discrete restricted diffusion. Motion limits portions of the evaluation. Macro microlobulated surface contour to the liver is noted. This is consistent with cirrhosis history. Heterogeneous increased fluid sensitive signal of the liver most marked along the right liver lobe without discrete mass or fluid collection. Layering densities within a moderately distended gallbladder consistent with likely gravel type stones. Common duct measures approximately 9 mm. No discrete choledocholithiasis. Prominent pancreatic duct. At the level of the pancreatic head there is a 3.1 cm diameter fluid signal mass. No appreciated surrounding fluid collections or discrete inflammatory changes. Pancreas appears to be at least mildly atrophied. Small amount of fluid within the perisplenic region. There is a partially included fluid signal process within the right abdomen which may represent free fluid. This is indeterminant and incompletely evaluated on this exam. Impression: 1. Significantly degraded exam secondary to patient motion with cirrhotic appearing liver. No discrete mass is identified. Infiltrative process cannot be excluded on the basis of this exam. 2. At least moderate distended gallbladder with layering likely gravel type stones. No discrete acute gallbladder disease. 3. Approximately 9 mm diameter common duct without appreciated choledocholithiasis. 4. Approximately 3 cm diameter pancreatic head cyst. Suspect benign process although other etiologies are not excluded. No additional pancreatic mass or ductal dilatation. 5. Incompletely evaluated fluid signal intensity process of the right lower abdominal quadrant. This is indeterminant. Recommend CT and/or ultrasound for further characterization. Electronically signed by Jared Chin 04-11-2025 9:23 PM Portal Vein US 04/11/25 19:59 Exam(s): US OTHER EXAM: US Duplex liver CLINICAL HISTORY: Reason for exam: eval for ? Thrombus portal vein. TECHNIQUE: Real-time duplex ultrasound scan of the liver integrating B-mode two- dimensional vascular structure, Doppler spectral analysis and color flow Doppler imaging. COMPARISON: No relevant prior studies available. FINDINGS: Exam is somewhat limited. The left hepatic vein, the right hepatic vein and the main hepatic vein are patent. The main portal vein demonstrates hepatopedal flow. No thrombus is visualized. The left and right portal veins are patent. The splenic vein is patent. The hepatic artery is patent. IMPRESSION: No thrombus is noted in the portal veins. Electronically signed by: Ollie Myers MD 04/12/25 00:03 AM I & O Totals 24 Hours 04/11/25 04/12/25 04/13/25 06:59 06:59 06:59 Intake Total 2716.172 / 2716.172 Output Total 1010 / 1010 140 / 140 Balance 1706.172 / 1706.172 -140 / -140 Cumulative 04/11/25 13:37 thru 04/12/25 08:09 Intake Total 2716.172 Output Total 1150 Balance 1566.172 RT Ventilator Mngmt (Last Documented) Ventilator Ordered Settings Respiratory Rate 14 04/12/25 07:18 Ventilator - PT Measurements Respiratory Rate 14 Coding Level of Care Code 93973 SUB INP/OBS CARE 3/50MIN Diagnoses New onset a-fib I48.91 RANDY (acute kidney injury) N17.9 Septic shock A41.9; R65.21 Thrombocytopenia D69.6 HUANG (nonalcoholic steatohepatitis) K75.81
--- NOTE | 2025-04-12 09:37 | Gastroenterology Progress Note ---
Date of Service April 12, 2025 Assessment & Plan Admission and Anticipated Discharge Date Admission Date: April 11, 2025 Review of Systems Constitutional: as per Subjective / HPI; no body aches Results & Data Vital Signs (Past 12 Hours) Vital Signs Temp Pulse Resp BP Pulse Ox O2 Del Method 04/12/25 07:56 Room Air 04/12/25 07:49 119 H 04/12/25 07:31 93/63 L 04/12/25 07:18 36.6 C 120 H 14 100 04/12/25 06:51 94/69 L 04/12/25 06:48 36.7 C 126 H 16 98 04/12/25 06:42 36.7 C 111 H 22 90 04/12/25 06:39 36.5 C 104 H 26 H 98 04/12/25 06:30 85/71 L 04/12/25 06:15 36.7 C 120 H 21 93 04/12/25 06:06 36.7 C 114 H 15 94 04/12/25 06:03 36.8 C 117 H 17 94 04/12/25 06:00 87/71 L 04/12/25 05:54 36.7 C 117 H 20 98 04/12/25 05:36 36.7 C 113 H 16 98 04/12/25 05:30 94/72 L 04/12/25 05:30 94/72 L 04/12/25 05:30 36.7 C 127 H 19 99 04/12/25 05:27 36.7 C 127 H 20 98 04/12/25 05:21 36.7 C 107 H 26 H 96 04/12/25 05:04 86/69 L 04/12/25 05:04 86/69 L 04/12/25 05:03 36.6 C 116 H 13 97 04/12/25 05:00 36.7 C 116 H 14 98 04/12/25 04:57 36.7 C 114 H 23 97 04/12/25 04:45 36.7 C 112 H 14 100 04/12/25 04:45 86/72 L 04/12/25 04:42 36.7 C 126 H 14 91 04/12/25 04:39 36.7 C 105 H 16 95 04/12/25 04:21 36.7 C 109 H 20 97 04/12/25 04:08 103/79 04/12/25 04:08 103/79 04/12/25 04:06 36.9 C 122 H 19 95 04/12/25 04:00 36.9 C 120 H 19 97 04/12/25 03:48 36.9 C 113 H 18 97 04/12/25 03:45 101/75 04/12/25 03:45 101/75 04/12/25 03:42 36.9 C 109 H 17 97 04/12/25 03:21 36.9 C 113 H 15 98 04/12/25 03:16 103/79 04/12/25 03:16 103/79 04/12/25 03:15 36.8 C 105 H 16 95 04/12/25 02:45 125/81 04/12/25 02:45 125/81 04/12/25 02:39 36.7 C 106 H 27 H 97 04/12/25 02:30 101/72 04/12/25 02:24 36.7 C 112 H 30 H 93 04/12/25 02:21 36.7 C 107 H 31 H 96 04/12/25 02:15 36.7 C 114 H 25 H 94 04/12/25 02:00 36.6 C 106 H 17 95 04/12/25 02:00 109/85 04/12/25 02:00 109/85 04/12/25 01:57 36.6 C 110 H 13 96 04/12/25 01:45 36.6 C 115 H 15 90 04/12/25 01:45 113/77 04/12/25 01:45 113/77 04/12/25 01:42 36.6 C 114 H 16 99 04/12/25 01:36 36.7 C 113 H 20 99 04/12/25 01:30 106/76 04/12/25 01:30 106/76 04/12/25 01:30 106/76 04/12/25 01:30 36.6 C 106 H 19 96 04/12/25 01:27 36.7 C 115 H 18 98 04/12/25 01:24 36.6 C 113 H 19 99 04/12/25 01:15 36.6 C 106 H 15 97 04/12/25 01:00 36.6 C 123 H 20 88 L 04/12/25 00:51 36.6 C 115 H 23 95 04/12/25 00:46 119/64 04/12/25 00:46 119/64 04/12/25 00:42 36.5 C 105 H 19 97 04/12/25 00:30 116/90 04/12/25 00:30 116/90 04/12/25 00:24 36.4 C L 109 H 23 97 04/12/25 00:15 115/79 04/12/25 00:15 36.4 C L 113 H 18 97 04/12/25 00:12 36.4 C L 112 H 19 95 04/12/25 00:06 36.3 C L 112 H 22 89 L 04/12/25 00:01 113/75 04/12/25 00:01 113/75 04/11/25 23:57 36.3 C L 113 H 13 97 04/11/25 23:45 117/88 04/11/25 23:45 117/88 04/11/25 23:45 117/88 04/11/25 23:45 36.3 C L 108 H 14 96 04/11/25 23:42 36.3 C L 104 H 17 92 04/11/25 23:31 127/102 H 04/11/25 23:31 127/102 H 04/11/25 23:31 127/102 H 04/11/25 23:30 36.3 C L 97 H 9 L 99 04/11/25 23:27 36.3 C L 110 H 16 97 04/11/25 23:21 36.3 C L 94 H 17 95 04/11/25 23:15 96/77 L 04/11/25 23:15 96/77 L 04/11/25 23:00 107/74 04/11/25 23:00 107/74 04/11/25 22:45 123/85 04/11/25 22:45 123/85 04/11/25 22:45 123/85 04/11/25 22:45 36.2 C L 98 H 15 95 04/11/25 22:36 36.2 C L 111 H 20 100 04/11/25 22:30 113/85 04/11/25 22:30 113/85 04/11/25 22:30 113/85 04/11/25 22:30 36.2 C L 114 H 21 97 04/11/25 22:21 36.2 C L 93 H 17 99 04/11/25 22:15 110/83 04/11/25 22:15 110/83 04/11/25 22:00 126/80 04/11/25 22:00 36.2 C L 120 H 20 99 04/11/25 21:57 36.2 C L 90 16 99 04/11/25 21:54 36.2 C L 100 H 15 96 04/11/25 21:46 102/79
--- NOTE | 2025-04-12 10:39 | Gastrointestinal Consultation ---
Date of Consultation April 12, 2025 Assessment & Plan (1) Cirrhosis: Plan Patient with known HUANG Cirrhosis, who had biliary dilation seen on imaging but LFTs are unremarkable and MRCP did not suggest choledocholithiasis at this time. She overall seems to be improving. There does not appear to be a GI issue currently. Would recommend supportive care and she should follow with her regular GI team at [facility] upon discharge. She can discuss with her outpatient GI team about possible EUS to evaluate pancreatic head cyst seen on MRCP. I will discuss this case further with my supervising physician. Further recommendations to follow. Supervising Physician Co-Signing Physician Notes ATTENDING ADDENDUM The patient was seen and evaluated at bedside. The patient is asymptomatic at present time and is tolerating diet well. There is no clear gastrointestinal source of sepsis and imaging is not borne out any choledocholithiasis or biliary obstruction. Outpatient endoscopic ultrasound is reasonable to rule workup the patient's pancreatic cyst which likely represents a cystic pancreatic neoplasm. Recommend pursuit of alternative causes of sepsis and infection. We will sign off. Kindly recall the GI service as needed. History of Present Illness Reason for Consultation: Cirrhosis, gallstones with dilated CBD Requesting Physician: Char Nagel MD Attending Physician: Vishal Cruz MD History of Present Illness Patient is a 75 year old female with significant past medical history of HUANG cirrhosis of the liver with ascites and thrombocytopenia, DM II, stage IIIb chronic kidney disease, hypertension, hyperlipidemia, history of hepatic failure, primary hyperparathyroidism and ambulatory dysfunction who was brought into the emergency room with profound weakness, slurred speech, fever with chills and sweating and a recent skin tear involving the right ankle area. She was noted to be very hypertensive in the emergency room and required to restart intravenous pressor agents to maintain the blood pressure around systolic 90. She was noted to have normal white count, afebrile, elevated lactate and a dilated common bile duct with sludge and stones noted in the gallbladder without any abnormal liver function test. She was started with intravenous Zosyn and before that she received 1 dose of ceftriaxone and also started with Levophed and was transferred to ICU for continued care. She was noted to be in atrial fibrillation with RVR which she tells me is new for her. no anticoagulation use. She also complained to have intermittent strokelike symptoms including slurred speech, occasional facial droop, and also visual problems involving both eyes for the last 6 weeks. She has been to [facility] and the visual symptoms seems to be secondary to diabetic retinopathy. GI asked to see for Cirrhosis, gallstones and a dilated common bile duct. LFTs unremarkable. She had follow up MRCP that shown no choledocholithiasis. She tells me that she has known she has had cirrhosis since 2017 when she was told it was secondary to history of fatty liver. She follows with [facility] on this as an outpatient. Currently in ICU for septic shock with gallbladder being presumed source and required pressors. She seems to have improved. she denies any nausea, vomiting, abdominal pain, acid reflux, dysphagia, unintentional weight loss, changes in bowels, blood in the stools, or melena. 04/11/25 LFTs wnl. 04/12/25 T bili 1.1, rest of LFTs wnl. MRCP 04/11/25 1. Significantly degraded exam secondary to patient motion with cirrhotic appearing liver. No discrete mass is identified. Infiltrative process cannot be excluded on the basis of this exam. 2. At least moderate distended gallbladder with layering likely gravel type stones. No discrete acute gallbladder disease. 3. Approximately 9 mm diameter common duct without appreciated choledocholithiasis. 4. Approximately 3 cm diameter pancreatic head cyst. Suspect benign process al though other etiologies are not excluded. No additional pancreatic mass or ductal dilatation. 5. Incompletely evaluated fluid signal intensity process of the right lower abdominal quadrant. This is indeterminant. Recommend CT and/or ultrasound for further characterization. Portal vein US 04/11/25 No thrombus is noted in the portal veins. CT A/P 04/11/25 1. No inflammatory process noted in the chest, abdomen or pelvis. 2. Markedly dilated common bile duct of 2.3 cm with sludge and stones noted in the gallbladder. 3. Cirrhosis. 4. Slightly ill-defined portal vein. Thrombosis not excluded. #5 scarred left kidney. Allergies Allergy/AdvReac Type Severity Reaction Status Date / Time carrot Allergy Intermediate RAW Verified 04/11/25 14:52 CARROTS CAUSE INSIDE MOUTH TO GET ITCHY ON CHEEKS nut - unspecified Allergy Intermediate ERUPTION Verified 04/11/25 14:52 INSIDE MOUTH AND LIPS peanut Allergy Intermediate ERUPTION Verified 04/11/25 14:52 INSIDE MOUTH AND LIPS Sulfa (Sulfonamide Allergy Intermediate "SULFA Verified 04/11/25 14:52 Antibiotics) DRUGS": ITCHY & HIVES [place] AdvReac Intermediate BLEEDING Uncoded 04/11/25 14:52 Home Medications Medication Instructions Recorded Confirmed Type ascorbic acid (vitamin C) 250 mg 500 mg PO QAM 06/23/18 04/11/25 History tablet (Vitamin C) atenolol 50 mg tablet 50 mg PO QAM 06/23/18 04/11/25 History clobetasol 0.05 % topical gel 1 applic topical BID PRN LICHEN 06/23/18 04/11/25 History PLANUS BREAK OUTS clonazepam 0.5 mg tablet (Klonopin) 0.5 tab PO TID PRN Anxiety 06/23/18 04/11/25 History ferrous sulfate 325 mg (65 mg 325 mg PO WK 06/23/18 04/11/25 History iron) tablet (iron) folic acid 1 mg tablet 1 mg PO QAM 06/23/18 04/11/25 History furosemide 40 mg tablet (Lasix) 40 mg PO QAM 06/23/18 04/11/25 History gabapentin 100 mg capsule 100 mg PO .BID-QAM & AFTERNOON 06/23/18 04/11/25 History lactulose 10 gram/15 mL oral 30 ml PO TID 06/23/18 04/11/25 History solution omeprazole 40 mg capsule,delayed 40 mg PO DAILYBB 06/23/18 04/11/25 History release oxycodone 5 mg tablet 2.5 mg PO Q8H PRN Pain 06/23/18 04/11/25 History potassium chloride 20 mEq 10 meq PO QDL 06/23/18 04/11/25 History tablet,extended release(part/cryst) (Klor-Con M) rifaximin 550 mg tablet (Xifaxan) 550 mg PO BID 06/23/18 04/11/25 History spironolactone 100 mg tablet See Rx Instructions .Route .COMPLEX 06/23/18 04/11/25 History cephalexin 500 mg capsule 500 mg PO BID 06/05/22 04/11/25 History furosemide 40 mg tablet 20 mg PO HS 06/05/22 04/11/25 History citalopram 40 mg tablet 20 mg PO DAILY PRN Anxiety 11/07/22 04/11/25 History gabapentin 100 mg capsule 300 mg PO HS 11/07/22 04/11/25 History nystatin 100,000 unit/gram topical 1 applic topical TID PRN SKIN RASH 07/15/23 04/11/25 History powder (Nyamyc) ondansetron HCl 4 mg tablet 4 mg PO Q6H PRN NAUSEA/VOMITING 07/15/23 04/11/25 History atenolol 50 mg tablet 25 mg PO QPM 04/11/25 04/11/25 History betamethasone dipropionate 0.05 % 1 applic topical BID PRN SKIN 04/11/25 04/11/25 History topical cream IRRITATIONS cholecalciferol (vitamin D3) 25 25 mcg PO DAILY 04/11/25 04/11/25 History mcg (1,000 unit) capsule (Vitamin D3) cyanocobalamin (vitamin B-12) 1,000 mcg PO Q OTHER DAY 04/11/25 04/11/25 History 1,000 mcg tablet (Vitamin B-12) diclofenac sodium 2 % topical 0 ml topical DIRECTED PRN Pain 04/11/25 04/11/25 History solution in packet (Pennsaid) empagliflozin 10 mg tablet 10 mg PO QAM 04/11/25 04/11/25 History (Jardiance) levothyroxine 50 mcg tablet 50 mcg PO DAILYBB 04/11/25 04/11/25 History lidocaine 4 % topical patch 1 patch topical DAILY 04/11/25 04/11/25 History montelukast 10 mg tablet 10 mg PO HS 04/11/25 04/11/25 History (Singulair) vjjtaula-zhg-txzlnh 5 mg-zeaxanth 1 cap PO DAILY 04/11/25 04/11/25 History 1 mg-bilberry 7.5 mg-herbal capsule (Macular Health Formula) tacrolimus 0.1 % topical ointment 1 applic topical BID PRN SKIN 04/11/25 04/11/25 History IRRITATIONS tizanidine 4 mg tablet 1 mg PO HS 04/11/25 04/11/25 History triamcinolone acetonide 0.1 % 1 applic topical BID PRN FLARE UPS 04/11/25 04/11/25 History topical ointment vitamin E 268 mg (400 unit) capsule 268 mg PO DAILY 04/11/25 04/11/25 History Patient History Medical History Varicose veins of both lower extremities HUANG (nonalcoholic steatohepatitis) Constipation HX Anxiety Lichen planus Thrombocytopenia HX History of anemia Diabetes mellitus type 2 in nonobese DVT (deep venous thrombosis) RIGHT LEG S/P HIP SX 2016 Dyslipidemia GERD (gastroesophageal reflux disease) HTN (hypertension) Surgical History History of cataract surgery Right Cataract surgery 06/11/22 History of endoscopy History of colonoscopy History of back surgery X3 (HAS HARDWARE) History of hip replacement PARTIAL RIGHT History of repair of rotator cuff LEFT History of tonsillectomy "1974" H/O hernia repair History of tubal ligation H/O breast biopsy On 11/08/15 10:28 Erin Mccabe wrote "01/29/2012 right core bx - BCC - ductal hyperplasia, columnar cell hyperplasia and fibrocystic change - [facility] BCC 01/29/2012" Family History Mother Family history of diabetes mellitus Other Family history non-contributory Social History Smoking Status: Former smoker Second Hand Exposure: No; Do You Dip or Chew Tobacco: No; Hx Alcohol Use: No Hx Substance Use: No Preferred Language: Ethiopian Communication Ability: Effective 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 Beliefs That Will Affect Care: None Current Living Situation: Alone Other Information That Helps Us Care for You: No Feels Safe at Home: Yes Safety Concerns: Feels Safe At This Time Assistive Devices: Cane Review of Systems Review of Systems: All systems reviewed & are unremarkable except as noted in HPI & below Physical Exam Constitutional: WD/WN, vitals as above Respiratory: normal respiratory effort, lungs clear to auscultation Cardiovascular: tachycardic Gastrointestinal (Abdomen): normal bowel sounds, soft, nontender, no hepatosplenomegaly Psychiatric: Orientation: alert and oriented x 3 Affect: euthymic affect Results & Data Vital Signs (Past 12 Hours) Vital Signs Temp Pulse Resp BP Pulse Ox O2 Del Method 04/12/25 10:22 97/75 L 04/12/25 10:03 98.6 F 121 H 15 97 04/12/25 10:00 86/64 L 04/12/25 09:48 98.4 F 130 H 15 96 04/12/25 09:00 86/72 L 04/12/25 09:00 98.2 F 132 H 17 99 04/12/25 08:35 107/68 04/12/25 08:30 98.6 F 105 H 17 97 04/12/25 08:00 94/72 L 04/12/25 07:56 Room Air 04/12/25 07:49 119 H 04/12/25 07:33 98.2 F 107 H 15 90 04/12/25 07:31 93/63 L 04/12/25 07:18 97.9 F 120 H 14 100 04/12/25 06:51 94/69 L 04/12/25 06:48 98.1 F 126 H 16 98 04/12/25 06:42 98.1 F 111 H 22 90 04/12/25 06:39 97.7 F 104 H 26 H 98 04/12/25 06:30 85/71 L 04/12/25 06:15 98.1 F 120 H 21 93 04/12/25 06:06 98.1 F 114 H 15 94 04/12/25 06:03 98.2 F 117 H 17 94 04/12/25 06:00 87/71 L 04/12/25 05:54 98.1 F 117 H 20 98 04/12/25 05:36 98.1 F 113 H 16 98 04/12/25 05:30 94/72 L 04/12/25 05:30 94/72 L 04/12/25 05:30 98.1 F 127 H 19 99 04/12/25 05:27 98.1 F 127 H 20 98 04/12/25 05:21 98.1 F 107 H 26 H 96 04/12/25 05:04 86/69 L 04/12/25 05:04 86/69 L 04/12/25 05:03 97.9 F 116 H 13 97 04/12/25 05:00 98.1 F 116 H 14 98 04/12/25 04:57 98.1 F 114 H 23 97 04/12/25 04:45 98.1 F 112 H 14 100 04/12/25 04:45 86/72 L 04/12/25 04:42 98.1 F 126 H 14 91 04/12/25 04:39 98.1 F 105 H 16 95 04/12/25 04:21 98.1 F 109 H 20 97 04/12/25 04:08 103/79 04/12/25 04:08 103/79 04/12/25 04:06 98.4 F 122 H 19 95 04/12/25 04:00 98.4 F 120 H 19 97 04/12/25 03:48 98.4 F 113 H 18 97 04/12/25 03:45 101/75 04/12/25 03:45 101/75 04/12/25 03:42 98.4 F 109 H 17 97 04/12/25 03:21 98.4 F 113 H 15 98 04/12/25 03:16 103/79 04/12/25 03:16 103/79 04/12/25 03:15 98.2 F 105 H 16 95 04/12/25 02:45 125/81 04/12/25 02:45 125/81 04/12/25 02:39 98.1 F 106 H 27 H 97 04/12/25 02:30 101/72 04/12/25 02:24 98.1 F 112 H 30 H 93 04/12/25 02:21 98.1 F 107 H 31 H 96 04/12/25 02:15 98.1 F 114 H 25 H 94 04/12/25 02:00 97.9 F 106 H 17 95 04/12/25 02:00 109/85 04/12/25 02:00 109/85 04/12/25 01:57 97.9 F 110 H 13 96 04/12/25 01:45 97.9 F 115 H 15 90 04/12/25 01:45 113/77 04/12/25 01:45 113/77 04/12/25 01:42 97.9 F 114 H 16 99 04/12/25 01:36 98.1 F 113 H 20 99 04/12/25 01:30 106/76 04/12/25 01:30 106/76 04/12/25 01:30 106/76 04/12/25 01:30 97.9 F 106 H 19 96 04/12/25 01:27 98.1 F 115 H 18 98 04/12/25 01:24 97.9 F 113 H 19 99 04/12/25 01:15 97.9 F 106 H 15 97 04/12/25 01:00 97.9 F 123 H 20 88 L 04/12/25 00:51 97.9 F 115 H 23 95 04/12/25 00:46 119/64 04/12/25 00:46 119/64 04/12/25 00:42 97.7 F 105 H 19 97 04/12/25 00:30 116/90 04/12/25 00:30 116/90 04/12/25 00:24 97.5 F L 109 H 23 97 04/12/25 00:15 115/79 04/12/25 00:15 97.5 F L 113 H 18 97 04/12/25 00:12 97.5 F L 112 H 19 95 04/12/25 00:06 97.3 F L 112 H 22 89 L 04/12/25 00:01 113/75 04/12/25 00:01 113/75 04/11/25 23:57 97.3 F L 113 H 13 97 04/11/25 23:45 117/88 04/11/25 23:45 117/88 04/11/25 23:45 117/88 04/11/25 23:45 97.3 F L 108 H 14 96 04/11/25 23:42 97.3 F L 104 H 17 92 04/11/25 23:31 127/102 H 04/11/25 23:31 127/102 H 04/11/25 23:31 127/102 H 04/11/25 23:30 97.3 F L 97 H 9 L 99 04/11/25 23:27 97.3 F L 110 H 16 97 04/11/25 23:21 97.3 F L 94 H 17 95 04/11/25 23:15 96/77 L 04/11/25 23:15 96/77 L 04/11/25 23:00 107/74 04/11/25 23:00 107/74 04/11/25 22:45 123/85 04/11/25 22:45 123/85 04/11/25 22:45 123/85 04/11/25 22:45 97.2 F L 98 H 15 95 PG Care Time/CCT Total # of Minutes Spent Total Time Spent with Patient: > 55 minutes which includes reviewing records/information prior to seeing patient, face to face discussion, as well as record documentation on the date of encounter. Coding Level of Care Code 88213 INT INP/OBS CARE MIN Diagnoses Cirrhosis K74.60
--- NOTE | 2025-04-12 11:29 | Cardiology Consultation ---
Date of Consultation April 12, 2025 Assessment & Plan (1) Septic shock: (2) Atrial fibrillation with rapid ventricular response: (3) RANDY (acute kidney injury): (4) Thrombocytopenia: (5) Cirrhosis: Plan Patient admitted to [facility] with weakness, hypotension, tachycardia, with findings of possible biliary dilatation on CT scans with underlying HUANG and signs of septic shock. Blood cultures pending Started on broad spectrum antibiotics for probable sepsis. Required pressor support for hypotension. Weaned off pressors overnight, but remains borderline hypotensive with BP in the 90's GI consulted and after further imaging, felt there was no evidence of choledocholithiasis and no further GI testing warranted. Upon admission, also found to have afib with RVR. New diagnosis. Duration unknown. She normally takes atenolol as an outpatient for 'palpitations' but no history of PAF. She began to feel weak and have intermittent abdominal pain and chest tightness last week, possibly correlating with onset of afib. HS troponin minimally elevated but flat ranging 55-70, consistent with demand ischemia in setting of afib RVR and RANDY. Echo ordered and pending. Started on IV heparin due to stroke concerns. Brain MRI negative. Monitor platelet count with chronic thrombocytopenia. Amiodarone not ideal treatment given her HUANG/cirrhosis. consider low dose IV digoxin to treat afib RVR, however with RANDY on admisison, would need to monitor closely. Could also consider low dose metoprolol. Her BP seems to improve as her HR trends lower, so possible she may tolerate low dose beta lizbet. Will discuss with Dr. Reddy and review echo when available. Further recommendations pending evaluation with Dr. Reddy Case discussed with Dr. Reddy I spent a total of 60 minutes on the date of service in preparation, delivery, and documentation of the care provided to this patient, excluding any time spent in the performance of separately billed services. Telma Buckley PA-C Department of Cardiology, [facility] This chart was completed in part utilizing Speech Voice Recognition Software. Grammatical errors, random word insertions, pronoun errors, and incomplete sentences are an occasional consequence of this system due to software limitations, ambient noise, and hardware issues. Any formal questions or concerns about the content, text, or information contained within the body of this dictation should be directly addressed to the provider for clarification. Supervising Physician Co-Signing Physician Notes I have personally performed a history and physical examination on the patient. I have reviewed the advance practitioner's documentation, and I agree with, and take responsibility for the plan of care. 75-year-old female admitted with weakness, hypotension, atrial fibrillation with rapid ventricular response and possible sepsis. Prescribed broad-spectrum antibiotic and pressor therapy. Levophed weaned off with systolic pressures averaging in the 90s currently. Telemetry reveals atrial fibrillation with heart rates in the 120s to 130s. Echocardiogram with hyperdynamic LV function and moderate concentric left ventricular hypertrophy. Severe left atrial enlargement noted. No significant pericardial effusion or valvular pathology. Treated with atenolol as an outpatient although not restarted during hospitalization due to hypotension. Recommend addition of low-dose beta- lizbet, metoprolol tartrate 12.5 mg 3 times daily. First dose now. Medication parameters adjusted to hold for systolic blood pressure less than 90 mmHg. Consider addition of digoxin pending clinical response/tolerance. Patient currently anticoagulated, however, does not appear to be a strong candidate for long-term anticoagulation due to chronic thrombocytopenia. Monitor CBC daily. Consider hematology evaluation. I spent a total of 35 minutes on the date of service in preparation, delivery, and documentation of the care provided to this patient, excluding any time spent in the performance of separately billed services. Ghulam Reddy DO, [facility] History of Present Illness Reason for Consultation: Afib RVR in setting of septic shock Requesting Physician: Armando Hospitalist/Critical Care Team Attending Physician: Dr. Reddy History of Present Illness Patient is a 75 year old female who preented to [facility] yesterday afternoon with weakness, abdominal pain, slurred speech, and intermittent fever/chills. Symptoms began last week and over the last few days patient devleoped worsening weakness, dizziness. Over the weekend she also sliced her right ankle and reports losing "alot of blood", soaking thhrough multiple dish towels. Patient was camping and did not seek emergency help. Upon arrival to the ER, patient was hypotensive with systolic readings in the 80's requiring pressors. WBC was normal. Found to have dilated CBD with sludge and stones. Normal LFT's. GI consulted. blood cultures ordered. Started on broad spectrum antibiotics and admitted to ICU for septic shock, RANDY with creatinine of 2.8. Upon admission, EKG demonstrated atrial fibrillation with RVR. New diagnosis. Duration unknown. She was hypotensive at recent PCP office visit in the 80's, but HR was recorded as 55 bmp. No EKG done. Apparently patient had been complaining of stroke like symptoms with slurred speech, facial droop and visual problems over the last 6 months. Brain MRI ordered but was negative for acute infarcts. Possible microvascular changes noted. Patient admitted to ICU on pressors to aid with BP support. Pressors di scontinued approx 3:00 AM. BP in the 90's50's. HR remains in the 110-120's Cardiology consulted due to persistent afib with elevated rates. She has not received any AV ministerio blocking agents since admission due to hypotension. At time of consult, patient resting in bed. Just feels ongoing weakness and intermittent epigastric pain/tightness. Occasional tightness radiates to her chest and left arm and her back between her shoulder blades. HS troponin minimally elevated on arrival at 62 and has remained fairly flat at 52-71-and 53. Echo was completed this morning and is pending. Per nursing staff, when HR trends lower around 90-100 her BP typically improves. History includes; 1. 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 Chronic thrombocytopenia 3. type II diabetes 4. CKD 5. HTN 6. Dyslipidemia 7. history of liver failure 8. history of hyperparathyroidism. Allergies Allergy/AdvReac Type Severity Reaction Status Date / Time carrot Allergy Intermediate RAW Verified 04/11/25 14:52 CARROTS CAUSE INSIDE MOUTH TO GET ITCHY ON CHEEKS nut - unspecified Allergy Intermediate ERUPTION Verified 04/11/25 14:52 INSIDE MOUTH AND LIPS peanut Allergy Intermediate ERUPTION Verified 04/11/25 14:52 INSIDE MOUTH AND LIPS Sulfa (Sulfonamide Allergy Intermediate "SULFA Verified 04/11/25 14:52 Antibiotics) DRUGS": ITCHY & HIVES [place] IS[place]IC[place] AdvReac Intermediate BLEEDING Uncoded 04/11/25 14:52 Home Medications Medication Instructions Recorded Confirmed Type ascorbic acid (vitamin C) 250 mg 500 mg PO QAM 06/23/18 04/11/25 History tablet (Vitamin C) atenolol 50 mg tablet 50 mg PO QAM 06/23/18 04/11/25 History clobetasol 0.05 % topical gel 1 applic topical BID PRN LICHEN 06/23/18 04/11/25 History PLANUS BREAK OUTS clonazepam 0.5 mg tablet (Klonopin) 0.5 tab PO TID PRN Anxiety 06/23/18 04/11/25 History ferrous sulfate 325 mg (65 mg 325 mg PO WK 06/23/18 04/11/25 History iron) tablet (iron) folic acid 1 mg tablet 1 mg PO QAM 06/23/18 04/11/25 History furosemide 40 mg tablet (Lasix) 40 mg PO QAM 06/23/18 04/11/25 History gabapentin 100 mg capsule 100 mg PO .BID-QAM & AFTERNOON 06/23/18 04/11/25 History lactulose 10 gram/15 mL oral 30 ml PO TID 06/23/18 04/11/25 History solution omeprazole 40 mg capsule,delayed 40 mg PO DAILYBB 06/23/18 04/11/25 History release oxycodone 5 mg tablet 2.5 mg PO Q8H PRN Pain 06/23/18 04/11/25 History potassium chloride 20 mEq 10 meq PO QDL 06/23/18 04/11/25 History tablet,extended release(part/cryst) (Klor-Con M) rifaximin 550 mg tablet (Xifaxan) 550 mg PO BID 06/23/18 04/11/25 History spironolactone 100 mg tablet See Rx Instructions .Route .COMPLEX 06/23/18 04/11/25 History cephalexin 500 mg capsule 500 mg PO BID 06/05/22 04/11/25 History furosemide 40 mg tablet 20 mg PO HS 06/05/22 04/11/25 History citalopram 40 mg tablet 20 mg PO DAILY PRN Anxiety 11/07/22 04/11/25 History gabapentin 100 mg capsule 300 mg PO HS 11/07/22 04/11/25 History nystatin 100,000 unit/gram topical 1 applic topical TID PRN SKIN RASH 07/15/23 04/11/25 History powder (Nyamyc) ondansetron HCl 4 mg tablet 4 mg PO Q6H PRN NAUSEA/VOMITING 07/15/23 04/11/25 History atenolol 50 mg tablet 25 mg PO QPM 04/11/25 04/11/25 History betamethasone dipropionate 0.05 % 1 applic topical BID PRN SKIN 04/11/25 04/11/25 History topical cream IRRITATIONS cholecalciferol (vitamin D3) 25 25 mcg PO DAILY 04/11/25 04/11/25 History mcg (1,000 unit) capsule (Vitamin D3) cyanocobalamin (vitamin B-12) 1,000 mcg PO Q OTHER DAY 04/11/25 04/11/25 History 1,000 mcg tablet (Vitamin B-12) diclofenac sodium 2 % topical 0 ml topical DIRECTED PRN Pain 04/11/25 04/11/25 History solution in packet (Pennsaid) empagliflozin 10 mg tablet 10 mg PO QAM 04/11/25 04/11/25 History (Jardiance) levothyroxine 50 mcg tablet 50 mcg PO DAILYBB 04/11/25 04/11/25 History lidocaine 4 % topical patch 1 patch topical DAILY 04/11/25 04/11/25 History montelukast 10 mg tablet 10 mg PO HS 04/11/25 04/11/25 History (Singulair) mvpvfkie-swp-oclxza 5 mg-zeaxanth 1 cap PO DAILY 04/11/25 04/11/25 History 1 mg-bilberry 7.5 mg-herbal capsule (Macular Health Formula) tacrolimus 0.1 % topical ointment 1 applic topical BID PRN SKIN 04/11/25 04/11/25 History IRRITATIONS tizanidine 4 mg tablet 1 mg PO HS 04/11/25 04/11/25 History triamcinolone acetonide 0.1 % 1 applic topical BID PRN FLARE UPS 04/11/25 04/11/25 History topical ointment vitamin E 268 mg (400 unit) capsule 268 mg PO DAILY 04/11/25 04/11/25 History Patient History Medical History Varicose veins of both lower extremities HUANG (nonalcoholic steatohepatitis) Constipation HX Anxiety Lichen planus Thrombocytopenia HX History of anemia Diabetes mellitus type 2 in nonobese DVT (deep venous thrombosis) RIGHT LEG S/P HIP SX 2015 Dyslipidemia GERD (gastroesophageal reflux disease) HTN (hypertension) Surgical History History of cataract surgery Right Cataract surgery 06/11/22 History of endoscopy History of colonoscopy History of back surgery X3 (HAS HARDWARE) History of hip replacement PARTIAL RIGHT History of repair of rotator cuff LEFT History of tonsillectomy "1974" H/O hernia repair History of tubal ligation H/O breast biopsy On 11/08/15 10:28 Erin Mccabe wrote "01/29/2012 right core bx - BCC - ductal hyperplasia, columnar cell hyperplasia and fibrocystic change - [facility] BCC 01/29/2012" Family History Mother Family history of diabetes mellitus Other Family history non-contributory Social History Smoking Status: Former smoker Second Hand Exposure: No; Do You Dip or Chew Tobacco: No; Hx Alcohol Use: No Hx Substance Use: No Preferred Language: Uzbek Communication Ability: Effective Homogenizer Operator Required: No Beliefs That Will Affect Care: None Current Living Situation: Alone Other Information That Helps Us Care for You: No Feels Safe at Home: Yes Safety Concerns: Feels Safe At This Time Assistive Devices: Cane Review of Systems Review of Systems: All systems reviewed & are unremarkable except as noted in HPI & below Physical Exam Constitutional: + ill appearing; no acute distress Neck: trachea midline, no thyromegaly Respiratory: normal respiratory effort; no cough Auscultation: lungs clear to auscultation bilaterally Cardiovascular: Rate/Rhythm: + tachycardic and + irregularly irregular Heart Sounds: no murmur (no audible murmurs) Vessels: no JVD Extremities: + edema (trace b/l pretibial edema ; right LE wrapped ) Gastrointestinal (Abdomen): normal bowel sounds, soft, nontender, no hepatosplenomegaly Neurologic: PERRL, EOMI, accommodation nl, no face palsy, no dysarthria Results & Data Vital Signs (Past 12 Hours) Vital Signs Temp Pulse Resp BP Pulse Ox O2 Del Method 04/12/25 11:03 37.2 C 124 H 24 99 04/12/25 11:00 91/66 L 04/12/25 10:33 37.1 C 124 H 20 98 04/12/25 10:33 82/65 L 04/12/25 10:24 37.1 C 121 H 19 94 04/12/25 10:22 97/75 L 04/12/25 10:03 37.0 C 121 H 15 97 04/12/25 10:00 86/64 L 04/12/25 09:48 36.9 C 130 H 15 96 04/12/25 09:00 86/72 L 04/12/25 09:00 36.8 C 132 H 17 99 04/12/25 08:35 107/68 04/12/25 08:30 37.0 C 105 H 17 97 04/12/25 08:00 94/72 L 04/12/25 07:56 Room Air 04/12/25 07:49 119 H 04/12/25 07:33 36.8 C 107 H 15 90 04/12/25 07:31 93/63 L 04/12/25 07:18 36.6 C 120 H 14 100 04/12/25 06:51 94/69 L 04/12/25 06:48 36.7 C 126 H 16 98 04/12/25 06:42 36.7 C 111 H 22 90 04/12/25 06:39 36.5 C 104 H 26 H 98 04/12/25 06:30 85/71 L 04/12/25 06:15 36.7 C 120 H 21 93 04/12/25 06:06 36.7 C 114 H 15 94 04/12/25 06:03 36.8 C 117 H 17 94 04/12/25 06:00 87/71 L 04/12/25 05:54 36.7 C 117 H 20 98 04/12/25 05:36 36.7 C 113 H 16 98 04/12/25 05:30 94/72 L 04/12/25 05:30 94/72 L 04/12/25 05:30 36.7 C 127 H 19 99 04/12/25 05:27 36.7 C 127 H 20 98 04/12/25 05:21 36.7 C 107 H 26 H 96 04/12/25 05:04 86/69 L 04/12/25 05:04 86/69 L 04/12/25 05:03 36.6 C 116 H 13 97 04/12/25 05:00 36.7 C 116 H 14 98 04/12/25 04:57 36.7 C 114 H 23 97 04/12/25 04:45 36.7 C 112 H 14 100 04/12/25 04:45 86/72 L 04/12/25 04:42 36.7 C 126 H 14 91 04/12/25 04:39 36.7 C 105 H 16 95 04/12/25 04:21 36.7 C 109 H 20 97 04/12/25 04:08 103/79 04/12/25 04:08 103/79 04/12/25 04:06 36.9 C 122 H 19 95 04/12/25 04:00 36.9 C 120 H 19 97 04/12/25 03:48 36.9 C 113 H 18 97 04/12/25 03:45 101/75 04/12/25 03:45 101/75 04/12/25 03:42 36.9 C 109 H 17 97 04/12/25 03:21 36.9 C 113 H 15 98 04/12/25 03:16 103/79 04/12/25 03:16 103/79 04/12/25 03:15 36.8 C 105 H 16 95 04/12/25 02:45 125/81 04/12/25 02:45 125/81 04/12/25 02:39 36.7 C 106 H 27 H 97 04/12/25 02:30 101/72 04/12/25 02:24 36.7 C 112 H 30 H 93 04/12/25 02:21 36.7 C 107 H 31 H 96 04/12/25 02:15 36.7 C 114 H 25 H 94 04/12/25 02:00 36.6 C 106 H 17 95 04/12/25 02:00 109/85 04/12/25 02:00 109/85 04/12/25 01:57 36.6 C 110 H 13 96 04/12/25 01:45 36.6 C 115 H 15 90 04/12/25 01:45 113/77 04/12/25 01:45 113/77 04/12/25 01:42 36.6 C 114 H 16 99 04/12/25 01:36 36.7 C 113 H 20 99 04/12/25 01:30 106/76 04/12/25 01:30 106/76 04/12/25 01:30 106/76 04/12/25 01:30 36.6 C 106 H 19 96 04/12/25 01:27 36.7 C 115 H 18 98 04/12/25 01:24 36.6 C 113 H 19 99 04/12/25 01:15 36.6 C 106 H 15 97 04/12/25 01:00 36.6 C 123 H 20 88 L 04/12/25 00:51 36.6 C 115 H 23 95 04/12/25 00:46 119/64 04/12/25 00:46 119/64 04/12/25 00:42 36.5 C 105 H 19 97 04/12/25 00:30 116/90 04/12/25 00:30 116/90 04/12/25 00:24 36.4 C L 109 H 23 97 04/12/25 00:15 115/79 04/12/25 00:15 36.4 C L 113 H 18 97 04/12/25 00:12 36.4 C L 112 H 19 95 04/12/25 00:06 36.3 C L 112 H 22 89 L 04/12/25 00:01 113/75 04/12/25 00:01 113/75 04/11/25 23:57 36.3 C L 113 H 13 97 04/11/25 23:45 117/88 04/11/25 23:45 117/88 04/11/25 23:45 117/88 04/11/25 23:45 36.3 C L 108 H 14 96 04/11/25 23:42 36.3 C L 104 H 17 92 04/11/25 23:31 127/102 H 04/11/25 23:31 127/102 H 04/11/25 23:31 127/102 H 04/11/25 23:30 36.3 C L 97 H 9 L 99 04/11/25 23:27 36.3 C L 110 H 16 97 04/11/25 23:21 36.3 C L 94 H 17 95 Laboratory Results Cardiac Enzymes 04/11/25 04/11/25 04/11/25 Range/Units 13:55 15:39 21:50 AST 25 (13-39) U/L Troponin I High Sens 62.7 H* 52.7 H* D 71.0 H* D (0-14) pg/ml 04/12/25 Range/Units 03:48 AST 24 (13-39) U/L Troponin I High Sens 53.5 H* D (0-14) pg/ml Coagulation 04/11/25 04/11/25 Range/Units 13:55 21:50 PT 12.2 H 12.2 H (9.0-12.0) Seconds APTT 28 28 (21-31) Seconds CBC 04/11/25 04/11/25 04/12/25 Range/Units 13:55 21:50 03:48 WBC 3.68 L 4.02 L 2.23 L (4.8-10.8) K/ul RBC 4.27 4.17 L 4.53 (4.20-5.40) M/uL Hgb 12.6 12.5 13.5 (12.0-16.0) g/dl Hct 38.8 37.6 40.4 (37.0-47.0) % Plt Count 61 L 71 L 50 L (130-400) K/uL Neut # (Auto) 2.16 2.39 1.93 (1.40-6.50) K/uL Lymph # (Auto) 0.66 L 0.51 L 0.22 L (1.20-3.40) K/uL [place] # (Auto) 0.53 0.62 H 0.06 L (0.11-0.59) K/uL Eos # (Auto) 0.29 0.45 0.01 (0.00-0.50) K/uL Baso # (Auto) 0.03 0.04 0.01 (0.00-0.20) K/uL Comprehensive Metabolic Panel 04/11/25 04/11/25 04/12/25 Range/Units 13:55 21:50 03:48 Sodium 133 L 136 136 (136-145) mmol/L Potassium 4.4 3.8 4.0 (3.5-5.1) mmol/L Chloride 97 L 104 106 (98-107) mmol/L Carbon Dioxide 26 24 19 L (21-32) mmol/L BUN 36 H 31 H 31 H (6-23) mg/dl Creatinine 2.84 H 2.47 H D 2.10 H D (0.6-1.2) mg/dl Glucose 154 H 80 142 H (70-99(Fasting)) mg/dl Calcium 9.0 7.8 L 8.1 L (8.6-10.3) mg/dl AST 25 24 (13-39) U/L ALT 12 10 (7-52) U/L Alkaline Phosphatase 75 75 (34-104) U/L Total Protein 6.3 6.0 (6.0-8.3) gm/dl Albumin 3.3 L 2.9 L (3.4-5.0) gm/dl Intake and Output 04/11/25 04/12/25 04/12/25 22:59 06:59 14:59 Intake Total 1450.803 / 2716.172 1255.602 / 2716.172 160 / 160 Output Total 275 / 1010 735 / 1010 320 / 320 Balance 1175.803 / 1706.172 520.602 / 1706.172 -160 / -160 Intake: IV 1450.803 / 2716.172 1255.602 / 2716.172 160 / 160 Acetaminophen 1,000 mg In 100 100 / 100 ml @ 400 mls/hr IV NOW STA Rx#: [id number] Albumin 25% 25 gm In 100 ml @ 100 / 100 50 mls/hr IV ONE ONE Rx#: [id number] Calcium Gluconate 1,000 mg In 60 / 60 60 ml @ 240 mls/hr IV NOW STA Rx#:[id number] Heparin 90546 Unit/500 ml D5w 91.65 / 91.65 25,000 units In 500 ml @ 700 UNITS/HR 14 mls/hr IV .Q24H HUSAM Rx#:[id number] Norepinephrine/D5w 4 mg In 250 25.803 / 99.522 63.952 / 99.522 0 / 0 ml @ 0 MCG/KG/MIN IV .Q0M HUSAM Rx#:[id number] Piperacillin/Tazobactam 4.5 gm 100 / 200 100 / 200 In 100 ml @ 25 mls/hr IV Q12H HUSAM Rx#:[id number] Plasma-Lyte A 1,000 ml @ 125 500 / 1500 1000 / 1500 mls/hr IV .Q8H HUSAM Rx#:[id number] Sodium Chloride 0.9% 1,000 ml @ 175 / 175 125 mls/hr IV .Q8H HUSAM Rx#: [id number] Sodium Chloride 0.9% 500 ml @ 500 / 500 999 mls/hr IV .Q31M ONE Rx#: [id number] cefTRIAXone SODIUM 2,000 mg In 50 / 50 50 ml @ 100 mls/hr IV NOW STA Rx#:[id number] Output: Urine 180 / 180 Urine Amount (Catheter) 275 / 1010 735 / 1010 140 / 140 Muniz/Indwelling 275 / 1010 735 / 1010 140 / 140 Other: Weight 72.6 kg 72.6 kg Weight Measurement Method Built in [facility] Patient Weight 04/13/25 06:59 Weight 72.6 kg Diagnostic Findings Telemetry reviewed: Atrial fibrillation with rapid ventricular response, rates ranging 100-130's; Frequent PVC's. EKG reviewed from admission: Afib with RVR at 111 bmp LAD Old anteroseptal infarct Old Inferior infarct Poor R wave progression T wave abnormality in lateral leads. Echocardiogram pending Chest X-Ray 04/11/25 13:56 IMPRESSION: Minimal left base atelectasis. Head CT 04/11/25 13:56 IMPRESSION: Cerebral atrophy. No acute changes. Abdomen/Pelvis CT 04/11/25 14:12 IMPRESSION: 1. No inflammatory process noted in the chest, abdomen or pelvis. 2. Markedly dilated common bile duct of 2.3 cm with sludge and stones noted in the gallbladder. 3. Cirrhosis. 4. Slightly ill-defined portal vein. Thrombosis not excluded. #5 scarred left kidney. Chest CT 04/11/25 14:12 IMPRESSION: 1. No inflammatory process noted in the chest, abdomen or pelvis. 2. Markedly dilated common bile duct of 2.3 cm with sludge and stones noted in the gallbladder. 3. Cirrhosis. 4. Slightly ill-defined portal vein. Thrombosis not excluded. #5 scarred left kidney. Brain MRI 04/11/25 17:08 Impression: Few nonspecific small foci of white matter signal alteration not uncommon for patient's age likely representing mild sequela from chronic microvascular disease. Otherwise no findings to indicate source of patient's symptoms. Cholangiopancreatography MRI 04/11/25 18:52 Exam: Magnetic resonance cholangiopancreatography without contrast. Impression: 1. Significantly degraded exam secondary to patient motion with cirrhotic appearing liver. No discrete mass is identified. Infiltrative process cannot be excluded on the basis of this exam. 2. At least moderate distended gallbladder with layering likely gravel type stones. No discrete acute gallbladder disease. 3. Approximately 9 mm diameter common duct without appreciated choledocholithiasis. 4. Approximately 3 cm diameter pancreatic head cyst. Suspect benign process although other etiologies are not excluded. No additional pancreatic mass or ductal dilatation. 5. Incompletely evaluated fluid signal intensity process of the right lower abdominal quadrant. This is indeterminant. Recommend CT and/or ultrasound for further characterization. Electronically signed by Jared Chin 04-11-2025 9:23 PM Portal Vein US 04/11/25 19:59 IMPRESSION: No thrombus is noted in the portal veins Electronically signed by: Ollie Myers MD 04/12/25 00:03 AM Medications Administered Current Inpatient Medications Atenolol (Atenolol 25 Mg Tablet) 25 mg PO QPM HUSAM Stop: 05/11/25 20:59 Atenolol (Atenolol 50 Mg Tablet) 50 mg PO QAM HUSAM Stop: 05/12/25 08:59 Citalopram Hydrobromide (Citalopram 20 Mg Tab) 20 mg PO DAILY PRN PRN Reason: Anxiety Stop: 05/11/25 18:00 Clonazepam (Clonazepam 0.5 Mg Tab) 0.25 mg PO TID PRN PRN Reason: Anxiety Stop: 05/11/25 19:00 Last Admin: 04/11/25 19:14 Dose: 0.25 mg Cyanocobalamin (Cyanocobalamin (B-12) 500 Mcg Tablet) 1,000 mcg PO Q2D HUSAM Stop: 05/12/25 08:59 Last Admin: 04/12/25 08:26 Dose: 1,000 mcg Dextrose (Dextrose 50% 50 Ml Syringe) 25 - 50 ml IV UD PRN; Protocol PRN Reason: Hypoglycemia Protocol Stop: 05/11/25 18:27 Folic Acid (Folic Acid 1 Mg Tab) 1 mg PO QAM HUSAM Stop: 05/12/25 08:59 Last Admin: 04/12/25 08:27 Dose: 1 mg Gabapentin (Gabapentin 100 Mg Cap) 100 mg PO BID@0900,1400 HUSAM Stop: 05/11/25 18:29 Last Admin: 04/12/25 08:28 Dose: 100 mg Glucagon (Glucagon For Inj 1 Mg Vial) 1 mg SQ UD PRN; Protocol PRN Reason: Hypoglycemia Protocol Stop: 05/11/25 18:27 Glucose (Glucose 40% Gel 15 Gm Tube) 15 - 30 gm PO UD PRN; Protocol PRN Reason: Hypoglycemia Protocol Stop: 05/11/25 18:27 Glucose (Glucose 10 Tab/Tube) 4 - 8 tab PO UD PRN; Protocol PRN Reason: Hypoglycemia Protocol Stop: 05/11/25 18:27 Piperacillin Sod/Tazobactam Sod (Zosyn) 4.5 gm in 100 mls @ 25 mls/hr IV Q12H HUSAM; Protocol Stop: 04/22/25 00:00 Last Admin: 04/12/25 12:14 Dose: 25 mls/hr Hydrocortisone Sodium (Succinate 50 mg/ Syringe) 1 mls @ 4 mls/min IV Q6 HUSAM Stop: 05/12/25 00:00 Last Admin: 04/12/25 12:14 Dose: 4 mls/min Heparin Sodium/Dextrose (Heparin 94638 Unit/500 Ml D5w) 25,000 units in 500 mls @ 14 mls/hr IV .Q24H HUSAM; Protocol Stop: 05/11/25 22:14 Last Titration: 04/12/25 05:47 Dose: 700 units/hr, 14 mls/hr Insulin Aspart (Insulin Aspart Per Unit Charge) 0 units SC ACHS HUSAM Stop: 05/11/25 20:59 Last Admin: 04/12/25 12:10 Dose: Not Given Lactulose (Lactulose Syrup 20 Gm/30 Ml Udc) 20 gm PO TID HUSAM Stop: 05/11/25 20:59 Last Admin: 04/12/25 08:26 Dose: 20 gm Levothyroxine Sodium (Levothyroxine Sodium 50 Mcg Tablet) 50 mcg PO DAILYBB HUSAM Stop: 05/12/25 06:29 Last Admin: 04/12/25 05:51 Dose: 50 mcg Miscellaneous (Tacrolimus Ointment: Order Awaiting Action) 1 each N/A QS [facility] Stop: 05/12/25 00:00 Last Admin: 04/12/25 08:40 Dose: Not Given Miscellaneous (Carbohydrates For Hypoglycemia ) 15 - 30 gm PO UD PRN PRN Reason: Hypoglycemia Protocol Stop: 05/11/25 18:27 Miscellaneous (Icu Electrolyte Replacement Protocol) 1 each N/A BID@06,18 HUSAM; Protocol Stop: 04/19/25 05:59 Last Admin: 04/12/25 04:39 Dose: Not Given Montelukast Sodium (Montelukast Sodium 10 Mg Tablet) 10 mg PO HS HUSAM Stop: 05/11/25 20:59 Last Admin: 04/11/25 21:39 Dose: 10 mg Multivitamins/Minerals (Cerovite Adv Formula Tab) 1 tab PO DAILY HUSAM; Protocol Stop: 05/12/25 08:59 Last Admin: 04/12/25 08:28 Dose: 1 tab Nystatin (Nystatin Powder 15gm Btl) 1 appln EXT TID PRN PRN Reason: SKIN RASH Stop: 05/11/25 18:00 Pantoprazole Sodium (Pantoprazole 40 Mg Tab) 40 mg PO DAILYBB HUSAM; Protocol Stop: 05/12/25 06:29 Last Admin: 04/12/25 05:51 Dose: 40 mg Vitamin D (Cholecalciferol 25 Mcg (1000 Units) Tab) 25 mcg PO DAILY HUSAM Stop: 05/12/25 08:59 Last Admin: 04/12/25 08:27 Dose: 25 mcg Vitamin E (Tocopheryl, Dl-Alpha 400 Units 180 Mg Cap) 180 mg PO DAILY HUSAM Stop: 05/12/25 08:59 Last Admin: 04/12/25 08:27 Dose: 180 mg
--- NOTE | 2025-04-12 15:06 | Hospitalist Progress Note ---
Date of Service April 12, 2025 Assessment & Plan (1) Septic shock: Plan: -Presented with weakness and also fever with sweating since last night -Elevated direct lactate with normal white count -unclear source of shock, likely multifactorial (septic, cardiogenic, distributive) shock in setting of uncontrolled afib with RVR, cirrhosis, and septic component as well -unclear infectious source, UA unremarkable, imaging unremarkable for infectious process, could GI in nature given dilated bile ducts -also on clonazepam and other potentially sedating medications Plan: -goal MAP 65, currently off pressors -continue zosyn for now -f/u culture results -appreciate GI and cardiology input, hopeful that afib treatment will improve BP -may need further inpatient evaluation of bile duct dilatation with EUS/ERCP pending clinical course -will downtitrate hydrocortisone tomorrow to homegoing dose -continue decreased prn dose of clonazepam -stop montelukast (2) Atrial fibrillation with rapid ventricular response: Plan: -Has a strong family history of atrial fibrillation -She is not aware of having atrial fibrillation so seems to be new in onset -concern afib with RVR is causing low BP -echo with severely dilated LA and EF of 70% suggestive that cardioversion and even amiodarone may not be successful 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 low dose metoprolol per cardiology -switch to eliquis vs. 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 -likely contributor to shock Plan: -Will continue with current lactulose and also rifaximin (4) Diabetes mellitus type 2 in nonobese: Plan: -Will hold any oral medications and put her on sliding scale insulin coverage (5) GERD (gastroesophageal reflux disease): Plan: -Continue PPI (6) CKD (chronic kidney disease) stage 3, GFR 30-59 ml/min: Plan: -Will monitor kidney function (7) Thrombocytopenia: Plan: -Platelet count is around 60s and will monitor Plan #Slurred Speech -She has been having strokelike symptoms with slurred speech and blurred vision for the last 6 weeks -According to the daughter she gets the symptoms periodically -She did not have any stroke in the past -She is being seen by an pneumatic hoist operator for ongoing 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 -No focal neurological deficit on examination and CT scan of the head was unremarkable -MRI unremarkable Plan: -PT/OT/speech consults ordered #Type 2 TN -in setting of above -resolving I spent a total of 55 minutes in direct patient care, including [id number] time with the patient and/or family, reviewing medical records, ordering and reviewing diagnostic tests, and coordinating care with other healthcare providers. This time includes: history taking, physical examination, medical decision making, counseling, ECG interpretation, imaging interpretation, lab interpretation, orders, and education, excluding time spent in the performance of separately billed services. Admission and Anticipated Discharge Date Admission Date: April 11, 2025 Subjective Patient seen and examined at bedside. Patient doing ok today. She is surpised she is in the ICU. Otherwise feels fatigued and weak but otherwise ok. Review of Systems Review of Systems: CONSTITUTIONAL: fatigue weakness EYES: Patient denies any visual symptoms. EARS, NOSE, AND THROAT: No difficulties with hearing. No symptoms of rhinitis or sore throat. CARDIOVASCULAR: Patient denies chest pains, palpitations, orthopnea and paroxysmal nocturnal dyspnea. RESPIRATORY: No dyspnea on exertion, no wheezing or cough. GI: No nausea, vomiting, diarrhea, constipation, abdominal pain, hematochezia or melena. : No urinary hesitancy or dribbling. No nocturia or urinary frequency. No abnormal urethral discharge. MUSCULOSKELETAL: No myalgias or arthralgias. NEUROLOGIC: No chronic headaches, no seizures. Patient denies numbness, tingling or weakness. PSYCHIATRIC: Patient denies problems with mood disturbance. No problems with anxiety. ENDOCRINE: No excessive urination or excessive thirst. DERMATOLOGIC: Patient denies any rashes or skin changes. Physical Exam Physical Exam: Gen: A&O 3 NAD HEENT: NCAT, EOMI, not icteric. External ears normal. No rhinorrhea. Moist mucous membranes. Neck: Supple, full range of motion, no observable masses, No meningeal sign. Lungs: No Respiratory distress. CV: RRR, no edema. Abdomen: Soft, nondistended, No rebound tenderness. MSK: No joint swelling, no redness. Skin: No rashes, petechiae, lesions. Normal color per patient. Neuro: Normal Gait, Grossly intact. Psych: Appropriate for situation. Results & Data Results & Data Vital Signs (Past 12 Hours) Vital Signs Temp Pulse Resp BP Pulse Ox O2 Del Method 04/12/25 14:00 89/62 L 04/12/25 13:57 37.4 C 134 H 20 97 04/12/25 13:01 98/69 L 04/12/25 13:00 37.4 C 130 H 19 87 L 04/12/25 12:06 37.3 C 132 H 20 96 04/12/25 12:02 93/65 L 04/12/25 12:00 37.3 C 123 H 21 97 04/12/25 11:03 37.2 C 124 H 24 99 04/12/25 11:00 91/66 L 04/12/25 10:33 37.1 C 124 H 20 98 04/12/25 10:33 82/65 L 04/12/25 10:24 37.1 C 121 H 19 94 04/12/25 10:22 97/75 L 04/12/25 10:03 37.0 C 121 H 15 97 04/12/25 10:00 86/64 L 04/12/25 09:48 36.9 C 130 H 15 96 04/12/25 09:00 86/72 L 04/12/25 09:00 36.8 C 132 H 17 99 04/12/25 08:35 107/68 04/12/25 08:30 37.0 C 105 H 17 97 04/12/25 08:00 94/72 L 04/12/25 07:56 Room Air 04/12/25 07:49 119 H 04/12/25 07:33 36.8 C 107 H 15 90 04/12/25 07:31 93/63 L 04/12/25 07:18 36.6 C 120 H 14 100 04/12/25 06:51 94/69 L 04/12/25 06:48 36.7 C 126 H 16 98 04/12/25 06:42 36.7 C 111 H 22 90 04/12/25 06:39 36.5 C 104 H 26 H 98 04/12/25 06:30 85/71 L 04/12/25 06:15 36.7 C 120 H 21 93 04/12/25 06:06 36.7 C 114 H 15 94 04/12/25 06:03 36.8 C 117 H 17 94 04/12/25 06:00 87/71 L 04/12/25 05:54 36.7 C 117 H 20 98 04/12/25 05:36 36.7 C 113 H 16 98 04/12/25 05:30 94/72 L 04/12/25 05:30 94/72 L 04/12/25 05:30 36.7 C 127 H 19 99 04/12/25 05:27 36.7 C 127 H 20 98 04/12/25 05:21 36.7 C 107 H 26 H 96 04/12/25 05:04 86/69 L 04/12/25 05:04 86/69 L 04/12/25 05:03 36.6 C 116 H 13 97 04/12/25 05:00 36.7 C 116 H 14 98 04/12/25 04:57 36.7 C 114 H 23 97 04/12/25 04:45 36.7 C 112 H 14 100 04/12/25 04:45 86/72 L 04/12/25 04:42 36.7 C 126 H 14 91 04/12/25 04:39 36.7 C 105 H 16 95 04/12/25 04:21 36.7 C 109 H 20 97 04/12/25 04:08 103/79 04/12/25 04:08 103/79 04/12/25 04:06 36.9 C 122 H 19 95 04/12/25 04:00 36.9 C 120 H 19 97 04/12/25 03:48 36.9 C 113 H 18 97 04/12/25 03:45 101/75 04/12/25 03:45 101/75 04/12/25 03:42 36.9 C 109 H 17 97 04/12/25 03:21 36.9 C 113 H 15 98 04/12/25 03:16 103/79 04/12/25 03:16 103/79 04/12/25 03:15 36.8 C 105 H 16 95 Laboratory Results -personally reviewed, leukopenia noted, creatinine at baseline Medications Administered Clonazepam (Clonazepam 0.5 Mg Tab) 0.25 mg PO TID PRN PRN Reason: Anxiety Stop: 05/11/25 19:00 Last Admin: 04/11/25 19:14 Dose: 0.25 mg Documented By: SMW Cyanocobalamin (Cyanocobalamin (B-12) 500 Mcg Tablet) 1,000 mcg PO Q2D [facility] Stop: 05/12/25 08:59 Last Admin: 04/12/25 08:26 Dose: 1,000 mcg Documented By: AISSATOU Folic Acid (Folic Acid 1 Mg Tab) 1 mg PO QAM [facility] Stop: 05/12/25 08:59 Last Admin: 04/12/25 08:27 Dose: 1 mg Documented By: AISSATOU Gabapentin (Gabapentin 100 Mg Cap) 100 mg PO BID@0900,1400 [facility] Stop: 05/11/25 18:29 Last Admin: 04/12/25 13:43 Dose: 100 mg Documented By: Admin: 04/12/25 08:28 Dose: 100 mg Documented By: Admin: 04/11/25 21:38 Dose: 100 mg Documented By: ITALO Piperacillin Sod/Tazobactam Sod (Zosyn) 4.5 gm in 100 mls @ 25 mls/hr IV Q12H [facility]; Protocol Stop: 04/22/25 00:00 Last Admin: 04/12/25 12:14 Dose: 25 mls/hr Documented By: Infusion: 04/12/25 03:37 Dose: Infused Documented By: Admin: 04/11/25 23:57 Dose: 25 mls/hr Documented By: ITALO Hydrocortisone Sodium (Succinate 50 mg/ Syringe) 1 mls @ 4 mls/min IV Q6 [facility] Stop: 05/12/25 00:00 Last Admin: 04/12/25 12:14 Dose: 4 mls/min Documented By: Admin: 04/12/25 05:51 Dose: 4 mls/min Documented By: Admin: 04/11/25 23:58 Dose: 4 mls/min Documented By: ITALO Heparin Sodium/Dextrose (Heparin 78623 Unit/500 Ml D5w) 25,000 units in 500 mls @ 14 mls/hr IV .Q24H [facility]; Protocol Stop: 05/11/25 22:14 Last Titration: 04/12/25 12:42 Dose: 700 units/hr, 14 mls/hr Documented By: AISSATOU Co-signed By: LAF Titration: 04/12/25 05:47 Dose: 700 units/hr, 14 mls/hr Documented By: ITALO Co-signed By: SAMIR Admin: 04/11/25 22:44 Dose: 650 units/hr, 13 mls/hr Documented By: ITALO Co-signed By: SAMIR Insulin Aspart (Insulin Aspart Per Unit Charge) 0 units SC ACHS [facility] Stop: 05/11/25 20:59 Last Admin: 04/12/25 12:10 Dose: Not Given Documented By: Admin: 04/12/25 08:23 Dose: Not Given Documented By: Admin: 04/11/25 21:53 Dose: Not Given Documented By: ITALO Lactulose (Lactulose Syrup 20 Gm/30 Ml Udc) 20 gm PO TID [facility] Stop: 05/11/25 20:59 Last Admin: 04/12/25 13:43 Dose: 20 gm Documented By: Admin: 04/12/25 08:26 Dose: 20 gm Documented By: Admin: 04/11/25 21:38 Dose: 20 gm Documented By: ITALO Levothyroxine Sodium (Levothyroxine Sodium 50 Mcg Tablet) 50 mcg PO DAILYBB [facility] Stop: 05/12/25 06:29 Last Admin: 04/12/25 05:51 Dose: 50 mcg Documented By: ITALO Missusuaneous (Tacrolimus Ointment: Order Awaiting Action) 1 each N/A QS [facility] Stop: 05/12/25 00:00 Last Admin: 04/12/25 08:40 Dose: Not Given Documented By: Admin: 04/11/25 22:50 Dose: Not Given Documented By: SAMIR Missusuaneous (Icu Electrolyte Replacement Protocol) 1 each N/A BID@06,18 [facility]; Protocol Stop: 04/19/25 05:59 Last Admin: 04/12/25 04:39 Dose: Not Given Documented By: ITALO Montelukast Sodium (Montelukast Sodium 10 Mg Tablet) 10 mg PO HS [facility] Stop: 05/11/25 20:59 Last Admin: 04/11/25 21:39 Dose: 10 mg Documented By: ITALO Multivitamins/Minerals (Cerovite Adv Formula Tab) 1 tab PO DAILY [facility]; Protocol Stop: 05/12/25 08:59 Last Admin: 04/12/25 08:28 Dose: 1 tab Documented By: AISSATOU Pantoprazole Sodium ([facility]op[facility] 40 Mg Tab) [facility]; Protocol Stop: 05/12/25 06:29 Last Admin: 04/12/25 05:51 Dose: 40 mg Documented By: ITALO Vitamin D (Cholecalciferol 25 Mcg (1000 Units) Tab) 25 mcg PO DAILY [facility] Stop: 05/12/25 08:59 Last Admin: 04/12/25 08:27 Dose: 25 mcg Documented By: AISSATOU Vitamin E (Tocopheryl, Dl-Alpha 400 Units 180 Mg Cap) 180 mg PO DAILY [facility] Stop: 05/12/25 08:59 Last Admin: 04/12/25 08:27 Dose: 180 mg Documented By: AISSATOU
[2025-04-13 05:07] LABS: Hematocrit (blood only) 32.5 % (37.0-47.0); Mean Corpuscular Hgb Conc 33.8 g/dL (32.0-36.0); Mean Corpuscular Volume 88.6 fL (80.0-100.0); Mean Platelet Volume 11.8 fL (9.4-12.4); Platelet Count 39 K/uL (130-400); RDW Coefficient of Variation 14.6 % (11.5-14.5); RDW Standard Deviation 47.5 fL (36.4-46.3); Red Blood Count 3.67 M/uL (4.20-5.40); White Blood Count 2.37 K/ul (4.8-10.8)
[2025-04-13 05:16] LABS: ANTI-Xa, UFH(UnfractionatedHep 0.42 IU/ml (0.3-0.7)
[2025-04-13 05:27] LABS: BUN Creatinine Ratio 13.2 (10-20); Calcium 8.4 mg/dl (8.6-10.3); Creatinine Clr Calc Pharmacy 15.3 ml/min; Magnesium 2.2 mg/dl (1.7-2.4); Phosphorus 4.5 mg/dl (2.5-4.9); Potassium 3.2 mmol/L (3.5-5.1)
--- NOTE | 2025-04-13 10:14 | Cardiology Progress Note ---
Date of Service April 13, 2025 Assessment & Plan (1) Atrial fibrillation with rapid ventricular response: (2) RANDY (acute kidney injury): (3) Thrombocytopenia: (4) Cirrhosis: Plan 04/12/25 Patient admitted to [facility] with weakness, hypotension, tachycardia, with findings of possible biliary dilatation on CT scans with underlying HUANG and signs of septic shock. Blood cultures pending Started on broad spectrum antibiotics for probable sepsis. Required pressor support for hypotension. Weaned off pressors overnight, but remains borderline hypotensive with BP in the 90's GI consulted and after further imaging, felt there was no evidence of choledocholithiasis and no further GI testing warranted. Upon admission, also found to have afib with RVR. New diagnosis. Duration unknown. She normally takes atenolol as an outpatient for 'palpitations' but no history of PAF. She began to feel weak and have intermittent abdominal pain and chest tightness last week, possibly correlating with onset of afib. HS troponin minimally elevated but flat ranging 55-70, consistent with demand ischemia in setting of afib RVR and RANDY. Echo ordered and pending. Started on IV heparin due to stroke concerns. Brain MRI negative. Monitor platelet count with chronic thrombocytopenia. Amiodarone not ideal treatment given her HUANG/cirrhosis. consider low dose IV digoxin to treat afib RVR, however with RANDY on admission, would need to monitor closely. Could also consider low dose metoprolol. Her BP seems to improve as her HR trends lower, so possible she may tolerate low dose beta lizbet. 04/13/25 Initially felt to be in septic shock, but infectious work up has been unremarka ble. She was hypotensive likely due to hypovolemia, and afib RVR. Persistent afib noted this morning. She has severely dilated left atrium, suggesting that afib has been present for awhile, conversion to NSR would be unlikely. Continue rate control strategy. Increase metoprolol tartrate to 25 mg BID. Additional 12.5 mg now to equal 25 mg this morning. Holding parameters changed to hold for systolic BP < 90, HR < 60. In regards to anticoagulation, she was started on IV heparin. Unfortunately her platelet count has dropped to 39, lower than typical baseline for her chronic thrombocytopenia (baseline 50-70's per outpatient labs). Hold IV heparin this morning. clinical research associate anticoagulation therapy would be high risk and likely outweigh the benefit of stroke prevention. Supplement potassium - ordered. Recheck this afternoon. Case discussed with Dr. Reddy I spent a total of 30 minutes on the date of service in preparation, delivery, and documentation of the care provided to this patient, excluding any time spent in the performance of separately billed services. Telma Buckley PA-C Department of Cardiology, [facility] This chart was completed in part utilizing Speech Voice Recognition Software. Grammatical errors, random word insertions, pronoun errors, and incomplete sentences are an occasional consequence of this system due to software limitations, ambient noise, and hardware issues. Any formal questions or concerns about the content, text, or information contained within the body of this dictation should be directly addressed to the provider for clarification. Admission and Anticipated Discharge Date Admission Date: April 11, 2025 Supervising Physician Co-Signing Physician Notes I have personally performed a history and physical examination on the patient. I have reviewed the advance practitioner's documentation, and I agree with, and take responsibility for the plan of care. 75-year-old female admitted with weakness, hypotension, atrial fibrillation with rapid ventricular response and possible sepsis. Prescribed broad-spectrum antibiotic and pressor therapy. Levophed weaned off with systolic pressures averaging in the 90s. Beta-lizbet restarted 04/12/2025 with low-dose metoprolol. (Taking atenolol as outpatient) heart rate improved. Increase metoprolol to 25 mg twice daily. Discontinue IV heparin with platelets trending downward below 50. Monitor CBC daily. Consider hematology evaluation. I spent a total of 30 minutes on the date of service in preparation, delivery, and documentation of the care provided to this patient, excluding any time spent in the performance of separately billed services. Ghulam Reddy DO, [facility] Subjective Patient resting in chair. Feeling well. About to work with PT. HR's have trended down and tolerating low dose metoprolol. BP improved. No dizziness or lightheadedness. Review of Systems Review of Systems: All systems reviewed & are unremarkable except as noted in HPI & below Physical Exam Constitutional: no acute distress Neck: trachea midline, no thyromegaly Respiratory: normal respiratory effort; no cough Auscultation: lungs clear to auscultation bilaterally Cardiovascular: Rate/Rhythm: + irregularly irregular Heart Sounds: no murmur (no audible murmurs) Vessels: no JVD Extremities: + edema (trace b/l pretibial edema ; right LE wrapped ) Gastrointestinal (Abdomen): normal bowel sounds, soft, nontender, no hepatosplenomegaly Neurologic: PERRL, EOMI, accommodation nl, no face palsy, no dysarthria Results & Data Vital Signs (Past 12 Hours) Vital Signs Temp Pulse Resp BP Pulse Ox 04/13/25 09:03 86 20 04/13/25 08:03 112 H 24 04/13/25 08:00 109/72 04/13/25 07:54 104 H 21 04/13/25 07:02 107 H 04/13/25 07:00 36.9 C 98 H 18 92/64 L 100 04/13/25 06:06 36.9 C 97 H 23 99 04/13/25 06:00 36.9 C 101 H 17 100 04/13/25 06:00 92/64 L 04/13/25 06:00 92/64 L 04/13/25 06:00 92/64 L 04/13/25 06:00 92/64 L 04/13/25 05:57 36.9 C 83 13 99 04/13/25 05:42 36.9 C 108 H 18 76 L 04/13/25 04:48 36.9 C 103 H 20 98 04/13/25 04:36 36.9 C 92 H 17 97 04/13/25 04:30 36.9 C 95 H 23 100 04/13/25 04:27 36.9 C 115 H 17 99 04/13/25 04:21 36.9 C 108 H 17 98 04/13/25 04:15 36.9 C 105 H 18 87 L 04/13/25 04:12 36.9 C 108 H 21 96 04/13/25 04:09 36.9 C 95 H 23 94 04/13/25 04:00 97/66 L 04/13/25 04:00 97/66 L 04/13/25 04:00 97/66 L 04/13/25 03:51 36.9 C 105 H 18 98 04/13/25 03:45 36.9 C 92 H 15 98 04/13/25 03:36 36.9 C 110 H 18 97 04/13/25 03:30 36.9 C 106 H 19 94 04/13/25 03:00 36.9 C 143 H 15 96 04/13/25 02:51 36.9 C 108 H 18 97 04/13/25 02:42 36.9 C 108 H 16 94 04/13/25 02:36 36.9 C 122 H 14 94 04/13/25 02:21 36.9 C 110 H 20 96 04/13/25 02:00 91/62 L 04/13/25 01:45 36.9 C 106 H 15 96 04/13/25 01:30 36.9 C 109 H 16 98 04/13/25 01:06 36.9 C 103 H 21 99 04/13/25 01:03 36.9 C 110 H 21 100 04/13/25 00:51 37.0 C 118 H 22 100 04/13/25 00:21 37.1 C 106 H 18 97 04/13/25 00:18 37.1 C 107 H 21 100 04/13/25 00:12 37.1 C 103 H 22 88 L 04/13/25 00:09 37.1 C 113 H 27 H 83 L 04/13/25 00:01 96/67 L 04/13/25 00:00 37.0 C 123 H 23 90 04/12/25 23:51 37.0 C 101 H 20 95 04/12/25 23:48 37.0 C 101 H 19 90 04/12/25 23:39 37.0 C 106 H 20 98 04/12/25 23:30 37.0 C 103 H 21 92 04/12/25 23:21 37.0 C 101 H 21 87 L 04/12/25 23:15 37.0 C 115 H 18 96 04/12/25 23:12 37.0 C 104 H 21 97 04/12/25 23:06 37.0 C 123 H 22 92 04/12/25 23:03 37.0 C 100 H 25 H 93 04/12/25 22:51 37.0 C 96 H 19 98 04/12/25 22:45 37.0 C 96 H 16 89 L 04/12/25 22:42 37.0 C 99 H 21 97 04/12/25 22:36 37.0 C 105 H 22 95 04/12/25 22:27 37.0 C 99 H 15 100 Laboratory Results CBC 04/13/25 Range/Units 04:56 WBC 2.37 L (4.8-10.8) K/ul RBC 3.67 L (4.20-5.40) M/uL Hgb 11.0 L (12.0-16.0) g/dl Hct 32.5 L (37.0-47.0) % Plt Count 39 L (130-400) K/uL Comprehensive Metabolic Panel 04/13/25 Range/Units 04:56 Sodium 134 L (136-145) mmol/L Potassium 3.2 L (3.5-5.1) mmol/L Chloride 102 (98-107) mmol/L Carbon Dioxide 22 (21-32) mmol/L BUN 29 H (6-23) mg/dl Creatinine 2.20 H (0.6-1.2) mg/dl Glucose 148 H (70-99(Fasting)) mg/dl Calcium 8.4 L (8.6-10.3) mg/dl Intake and Output 04/12/25 04/13/25 04/13/25 22:59 06:59 14:59 Intake Total 100 / 709.066 352.233 / 709.066 Output Total 200 / 1045 400 / 1045 Balance -100 / -335.934 -47.767 / -335.934 Intake: IV 100 / 709.066 352.233 / 709.066 Heparin 00912 Unit/500 ml D5w 252.233 / 349.066 25,000 units In 500 ml @ 700 UNITS/HR 14 mls/hr IV .Q24H [facility] Rx#:[id number] Piperacillin/Tazobactam 4.5 gm 100 / 200 100 / 200 In 100 ml @ 25 mls/hr IV Q12H [facility] Rx#:[id number] Output: Urine Amount (Catheter) 200 / 865 400 / 865 Muniz/Indwelling 200 / 865 400 / 865 Diagnostic Findings telemetry reviewed: Persistent afib, rates improving. Currently ranging 90-110 at rest. Echo reviewed from 04/12: Compared to prior study, changes are noted. The rhythm is afib with RVR LV is hyperdynamic. LVEF > 70% severely dilated left atrium Mild MR Mild TR No pulm hypertension Medications Administered Current Inpatient Medications Acetaminophen (Acetaminophen 500 Mg Tab) 1,000 mg PO Q8H PRN PRN Reason: Severe Pain (Scale 7, 8, 9,10) Stop: 05/12/25 16:25 Last Admin: 04/12/25 20:13 Dose: 1,000 mg Citalopram Hydrobromide (Citalopram 20 Mg Tab) 20 mg PO DAILY PRN PRN Reason: Anxiety Stop: 05/11/25 18:00 Clonazepam (Clonazepam 0.5 Mg Tab) 0.25 mg PO TID PRN PRN Reason: Anxiety Stop: 05/11/25 19:00 Last Admin: 04/13/25 08:36 Dose: 0.25 mg Cyanocobalamin (Cyanocobalamin (B-12) 500 Mcg Tablet) 1,000 mcg PO Q2D [facility] Stop: 05/12/25 08:59 Last Admin: 04/12/25 08:26 Dose: 1,000 mcg Folic Acid (Folic Acid 1 Mg Tab) 1 mg PO QAM [facility] Stop: 05/12/25 08:59 Last Admin: 04/13/25 08:39 Dose: 1 mg Gabapentin (Gabapentin 100 Mg Cap) 100 mg PO BID@0900,1400 [facility] Stop: 05/11/25 18:29 Last Admin: 04/13/25 08:38 Dose: 100 mg Glucagon (Glucagon For Inj 1 Mg Vial) 1 mg SQ UD PRN; Protocol PRN Reason: Hypoglycemia Protocol Stop: 05/11/25 18:27 Glucose (Glucose 40% Gel 15 Gm Tube) 15 - 30 gm PO UD PRN; Protocol PRN Reason: Hypoglycemia Protocol Stop: 05/11/25 18:27 Glucose (Glucose 10 Tab/Tube) 4 - 8 tab PO UD PRN; Protocol PRN Reason: Hypoglycemia Protocol Stop: 05/11/25 18:27 Piperacillin Sod/Tazobactam Sod (Zosyn) 4.5 gm in 100 mls @ 25 mls/hr IV Q12H [facility]; Protocol Stop: 04/22/25 00:00 Last Infusion: 04/13/25 03:45 Dose: Infused Hydrocortisone Sodium (Succinate 50 mg/ Syringe) 1 mls @ 4 mls/min IV Q6 [facility] Stop: 05/12/25 00:00 Last Admin: 04/13/25 03:40 Dose: 4 mls/min Heparin Sodium/Dextrose (Heparin 38811 Unit/500 Ml D5w) 25,000 units in 500 mls @ 14 mls/hr IV .Q24H [facility]; Protocol Stop: 05/11/25 22:14 Last Titration: 04/13/25 06:43 Dose: 700 units/hr, 14 mls/hr Insulin Aspart (Insulin Aspart Per Unit Charge) 0 units SC ACHS [facility] Stop: 05/11/25 20:59 Last Admin: 04/13/25 08:35 Dose: 2 units Lactulose (Lactulose Syrup 20 Gm/30 Ml Udc) 20 gm PO TID [facility] Stop: 05/11/25 20:59 Last Admin: 04/13/25 08:39 Dose: Not Given Levothyroxine Sodium (Levothyroxine Sodium 50 Mcg Tablet) 50 mcg PO DAILYBB [facility] Stop: 05/12/25 06:29 Last Admin: 04/13/25 03:40 Dose: 50 mcg Metoprolol Tartrate (Metoprolol Tartrate 25 Mg Tab) 25 mg PO BID [facility] Stop: 05/13/25 20:59 Miscellaneous (Tacrolimus Ointment: Order Awaiting Action) 1 each N/A QS [facility] Stop: 05/12/25 00:00 Last Admin: 04/13/25 08:36 Dose: Not Given Multivitamins/Minerals (Cerovite Adv Formula Tab) 1 tab PO DAILY [facility]; Protocol Stop: 05/12/25 08:59 Last Admin: 04/13/25 08:38 Dose: 1 tab Nystatin (Nystatin Powder 15gm Btl) 1 appln EXT TID PRN PRN Reason: SKIN RASH Stop: 05/11/25 18:00 Pantoprazole Sodium (Pantoprazole 40 Mg Tab) 40 mg PO DAILYBB [facility]; Protocol Stop: 05/12/25 06:29 Last Admin: 04/13/25 03:40 Dose: 40 mg Vitamin D (Cholecalciferol 25 Mcg (1000 Units) Tab) 25 mcg PO DAILY [facility] Stop: 05/12/25 08:59 Last Admin: 04/13/25 08:38 Dose: 25 mcg
--- NOTE | 2025-04-13 13:45 | Hospitalist Progress Note ---
Date of Service April 13, 2025 Assessment & Plan (1) Septic shock: Plan: -Presented with weakness and also fever with sweating since last night -Elevated direct lactate with normal white count -unclear source of shock, likely multifactorial (septic, cardiogenic, distributive) shock in setting of uncontrolled afib with RVR, cirrhosis, and septic component as well -unclear infectious source, UA unremarkable, imaging unremarkable for infectious process, could GI in nature given dilated bile ducts -also on clonazepam and other potentially sedating medications Plan: -goal MAP 65, currently off pressors -continue zosyn for 5 day course given possible GI source, albeit unlikely -f/u culture results -appreciate GI and cardiology input -f/u bile duct dilitation outpatient -switch IV hydrocortisone to hydrocortisone 50 mg PO bid, then in 72 hours switch to 20mg PO in morning, 10mg PO in evening -continue decreased prn dose of clonazepam -start oxycodone 2.5 q4hr prn for severe pain, lidocaine cream scheduled for bilateral leg pain before bedtime, discussed with patient and family, patient requested (2) Atrial fibrillation with rapid ventricular response: Plan: -Has a strong family history of atrial fibrillation -She is not aware of having atrial fibrillation so seems to be new in onset -concern afib with RVR is causing low BP -echo with severely dilated LA and EF of 70% suggestive that cardioversion and even amiodarone may not be successful short and snf Plan: -cardiology consulted, appreciate recs -stop anticoagulation given platlet levels chronically, will be unable to anticoagulate given this -increase metoprolol to 25mg bid, 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 (3) HUANG (nonalcoholic steatohepatitis): Plan: -History of Huang cirrhosis with history of hepatic encephalopathy -likely contributor to shock Plan: -Will continue with current lactulose and also rifaximin (4) Diabetes mellitus type 2 in nonobese: Plan: -SSI (5) GERD (gastroesophageal reflux disease): Plan: -Continue PPI (6) CKD (chronic kidney disease) stage 3, GFR 30-59 ml/min: Plan: -Will monitor kidney function (7) Thrombocytopenia: Plan: -Platelet count is around 60s and will monitor Plan #Slurred Speech -She has been having strokelike symptoms with slurred speech and blurred vision for the last 6 weeks -According to the daughter she gets the symptoms periodically -She did not have any stroke in the past -She is being seen by an family medicine physician for 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 This time includes: history taking, physical examination, medical decision making, counseling, ECG interpretation, imaging interpretation, lab interpretation, orders, and education, excluding time spent in the performance of separately billed services. Admission and Anticipated Discharge Date Admission Date: April 11, 2025 Subjective Patient seen and examined at bedside. Patient doing better today, daughter and grandson at bedside as well. Patient having pain in legs. Review of Systems Review of Systems: CONSTITUTIONAL: fatigue, weakness, improved from prior EYES: Patient denies any visual symptoms. EARS, NOSE, AND THROAT: No difficulties with hearing. No symptoms of rhinitis or sore throat. CARDIOVASCULAR: Patient denies chest pains, palpitations, orthopnea and paroxysmal nocturnal dyspnea. RESPIRATORY: No dyspnea on exertion, no wheezing or cough. GI: No nausea, vomiting, diarrhea, constipation, abdominal pain, hematochezia or melena. : No urinary hesitancy or dribbling. No nocturia or urinary frequency. No abnormal urethral discharge. MUSCULOSKELETAL: leg pain bilaterally NEUROLOGIC: No chronic headaches, no seizures. Patient denies numbness, tingling or weakness. PSYCHIATRIC: Patient denies problems with mood disturbance. No problems with anxiety. ENDOCRINE: No excessive urination or excessive thirst. DERMATOLOGIC: Patient denies any rashes or skin changes. Physical Exam Physical Exam: Gen: A&O 3 NAD HEENT: NCAT, EOMI, not icteric. External ears normal. No rhinorrhea. Moist mucous membranes. Neck: Supple, full range of motion, no observable masses, No meningeal sign. Lungs: No Respiratory distress. CV: irregularly irregular, tachycardic Abdomen: Soft, nondistended, No rebound tenderness. MSK: No joint swelling, no redness. Skin: No rashes, petechiae, lesions. Normal color per patient. Neuro: Normal Gait, Grossly intact. Psych: Appropriate for situation. Results & Data Results & Data Vital Signs (Past 12 Hours) Vital Signs Temp Pulse Resp BP Pulse Ox O2 Del Method 04/13/25 11:03 95/73 L 99 Room Air 04/13/25 11:00 90 04/13/25 10:00 84 24 04/13/25 09:03 86 20 04/13/25 08:03 112 H 24 04/13/25 08:00 109/72 04/13/25 07:54 104 H 21 04/13/25 07:02 107 H 04/13/25 07:00 36.9 C 98 H 18 92/64 L 100 04/13/25 06:06 36.9 C 97 H 23 99 04/13/25 06:00 36.9 C 101 H 17 100 04/13/25 06:00 92/64 L 04/13/25 06:00 92/64 L 04/13/25 06:00 92/64 L 04/13/25 06:00 92/64 L 04/13/25 05:57 36.9 C 83 13 99 04/13/25 05:42 36.9 C 108 H 18 76 L 04/13/25 04:48 36.9 C 103 H 20 98 04/13/25 04:36 36.9 C 92 H 17 97 04/13/25 04:30 36.9 C 95 H 23 100 04/13/25 04:27 36.9 C 115 H 17 99 04/13/25 04:21 36.9 C 108 H 17 98 04/13/25 04:15 36.9 C 105 H 18 87 L 04/13/25 04:12 36.9 C 108 H 21 96 04/13/25 04:09 36.9 C 95 H 23 94 04/13/25 04:00 97/66 L 04/13/25 04:00 97/66 L 04/13/25 04:00 97/66 L 04/13/25 03:51 36.9 C 105 H 18 98 04/13/25 03:45 36.9 C 92 H 15 98 04/13/25 03:36 36.9 C 110 H 18 97 04/13/25 03:30 36.9 C 106 H 19 94 04/13/25 03:00 36.9 C 143 H 15 96 04/13/25 02:51 36.9 C 108 H 18 97 04/13/25 02:42 36.9 C 108 H 16 94 04/13/25 02:36 36.9 C 122 H 14 94 04/13/25 02:21 36.9 C 110 H 20 96 04/13/25 02:00 91/62 L 04/13/25 01:45 36.9 C 106 H 15 96 Laboratory Results -personally reviewed, pancytopenia in setting of cirrhosis, K of 3.2 repleted, creatinine appears at baseline Medications Administered Acetaminophen (Acetaminophen 500 Mg Tab) 1,000 mg PO Q8H PRN PRN Reason: Severe Pain (Scale 7, 8, 9,10) Stop: 05/12/25 16:25 Last Admin: 04/12/25 20:13 Dose: 1,000 mg Documented By: Admin: 04/12/25 16:40 Dose: 1,000 mg Documented By: AISSATOU Clonazepam (Clonazepam 0.5 Mg Tab) 0.25 mg PO TID PRN PRN Reason: Anxiety Stop: 05/11/25 19:00 Last Admin: 04/13/25 08:36 Dose: 0.25 mg Documented By: Admin: 04/12/25 20:14 Dose: 0.25 mg Documented By: Admin: 04/11/25 19:14 Dose: 0.25 mg Documented By: ITALO Cyanocobalamin (Cyanocobalamin (B-12) 500 Mcg Tablet) 1,000 mcg PO Q2D [facility] Stop: 05/12/25 08:59 Last Admin: 04/12/25 08:26 Dose: 1,000 mcg Documented By: AISSATOU Folic Acid (Folic Acid 1 Mg Tab) 1 mg PO QAM [facility] Stop: 05/12/25 08:59 Last Admin: 04/13/25 08:39 Dose: 1 mg Documented By: Admin: 04/12/25 08:27 Dose: 1 mg Documented By: AISSATOU Gabapentin (Gabapentin 100 Mg Cap) 100 mg PO BID@0900,1400 [facility] Stop: 05/11/25 18:29 Last Admin: 04/13/25 08:38 Dose: 100 mg Documented By: Admin: 04/12/25 13:43 Dose: 100 mg Documented By: Admin: 04/12/25 08:28 Dose: 100 mg Documented By: Admin: 04/11/25 21:38 Dose: 100 mg Documented By: ITALO Piperacillin Sod/Tazobactam Sod (Zosyn) 4.5 gm in 100 mls @ 25 mls/hr IV Q12H [facility]; Protocol Stop: 04/22/25 00:00 Last Admin: 04/13/25 10:56 Dose: 25 mls/hr Documented By: Infusion: 04/13/25 03:45 Dose: Infused Documented By: Admin: 04/12/25 23:54 Dose: 25 mls/hr Documented By: Infusion: 04/12/25 17:20 Dose: Infused Documented By: Admin: 04/12/25 12:14 Dose: 25 mls/hr Documented By: Infusion: 04/12/25 03:37 Dose: Infused Documented By: Admin: 04/11/25 23:57 Dose: 25 mls/hr Documented By: ITALO Hydrocortisone Sodium (Succinate 50 mg/ Syringe) 1 mls @ 4 mls/min IV Q6 [facility] Stop: 05/12/25 00:00 Last Admin: 04/13/25 10:59 Dose: 4 mls/min Documented By: Admin: 04/13/25 03:40 Dose: 4 mls/min Documented By: Admin: 04/12/25 23:54 Dose: 4 mls/min Documented By: Admin: 04/12/25 17:58 Dose: 4 mls/min Documented By: Admin: 04/12/25 12:14 Dose: 4 mls/min Documented By: Admin: 04/12/25 05:51 Dose: 4 mls/min Documented By: Admin: 04/11/25 23:58 Dose: 4 mls/min Documented By: ITALO Heparin Sodium/Dextrose (Heparin 09736 Unit/500 Ml D5w) 25,000 units in 500 mls @ 14 mls/hr IV .Q24H [facility]; Protocol Stop: 05/11/25 22:14 Last Titration: 04/13/25 10:52 Dose: Infused Documented By: ALFRED Co-signed By: BETTY Titration: 04/13/25 06:43 Dose: 700 units/hr, 14 mls/hr Documented By: SAMIR Co-signed By: ALFRED Admin: 04/12/25 20:22 Dose: Not Given Documented By: Titration: 04/12/25 12:42 Dose: 700 units/hr, 14 mls/hr Documented By: AISSATOU Co-signed By: ALFRED Titration: 04/12/25 05:47 Dose: 700 units/hr, 14 mls/hr Documented By: ITALO Co-signed By: SAMIR Admin: 04/11/25 22:44 Dose: 650 units/hr, 13 mls/hr Documented By: ITALO Co-signed By: SAMIR Insulin Aspart (Insulin Aspart Per Unit Charge) 0 units SC ACHS [facility] Stop: 05/11/25 20:59 Last Admin: 04/13/25 12:41 Dose: 3 units Documented By: BARRY Co-signed By: ALFRED Admin: 04/13/25 08:35 Dose: 2 units Documented By: ALFRED Co-signed By: BARRY Admin: 04/12/25 20:58 Dose: 3 units Documented By: SAMIR Co-signed By: ITALO Admin: 04/12/25 17:14 Dose: 2 units Documented By: AISSATOU Co-signed By: ALFRED Admin: 04/12/25 12:10 Dose: Not Given Documented By: Admin: 04/12/25 08:23 Dose: Not Given Documented By: Admin: 04/11/25 21:53 Dose: Not Given Documented By: ITALO Lactulose (Lactulose Syrup 20 Gm/30 Ml Udc) 20 gm PO TID [facility] Stop: 05/11/25 20:59 Last Admin: 04/13/25 08:39 Dose: Not Given Documented By: Admin: 04/12/25 20:22 Dose: Not Given Documented By: Admin: 04/12/25 13:43 Dose: 20 gm Documented By: Admin: 04/12/25 08:26 Dose: 20 gm Documented By: Admin: 04/11/25 21:38 Dose: 20 gm Documented By: ITALO Levothyroxine Sodium (Levothyroxine Sodium 50 Mcg Tablet) 50 mcg PO DAILYBB [facility] Stop: 05/12/25 06:29 Last Admin: 04/13/25 03:40 Dose: 50 mcg Documented By: Admin: 04/12/25 05:51 Dose: 50 mcg Documented By: ITALO Miscellaneous (Tacrolimus Ointment: Order Awaiting Action) 1 each N/A QS [facility] Stop: 05/12/25 00:00 Last Admin: 04/13/25 08:36 Dose: Not Given Documented By: Admin: 04/12/25 20:51 Dose: Not Given Documented By: Admin: 04/12/25 17:19 Dose: Not Given Documented By: Admin: 04/12/25 08:40 Dose: Not Given Documented By: Admin: 04/11/25 22:50 Dose: Not Given Documented By: SAMIR Multivitamins/Minerals (Cerovite Adv Formula Tab) 1 tab PO DAILY [facility]; Protocol Stop: 05/12/25 08:59 Last Admin: 04/13/25 08:38 Dose: 1 tab Documented By: Admin: 04/12/25 08:28 Dose: 1 tab Documented By: AISSATOU Pantoprazole Sodium (Pantoprazole 40 Mg Tab) 40 mg PO DAILYBB [facility]; Protocol Stop: 05/12/25 06:29 Last Admin: 04/13/25 03:40 Dose: 40 mg Documented By: Admin: 04/12/25 05:51 Dose: 40 mg Documented By: ITALO Vitamin D (Cholecalciferol 25 Mcg (1000 Units) Tab) 25 mcg PO DAILY [facility] Stop: 05/12/25 08:59 Last Admin: 04/13/25 08:38 Dose: 25 mcg Documented By: Admin: 04/12/25 08:27 Dose: 25 mcg Documented By: AISSATOU
[2025-04-14 07:03] LABS: Hematocrit (blood only) 33.8 % (37.0-47.0); Hemoglobin 11.3 g/dl (12.0-16.0); Mean Corpuscular Hemoglobin 29.7 pg (25.0-34.0); Mean Corpuscular Hgb Conc 33.4 g/dL (32.0-36.0); Mean Corpuscular Volume 88.9 fL (80.0-100.0); Mean Platelet Volume 10.8 fL (9.4-12.4); Platelet Count 39 K/uL (130-400); RDW Standard Deviation 47.8 fL (36.4-46.3); White Blood Count 2.78 K/ul (4.8-10.8)
[2025-04-14 07:21] LABS: ANTI-Xa, UFH(UnfractionatedHep < 0.10 IU/ml (0.3-0.7); Calcium 8.5 mg/dl (8.6-10.3); Creatinine Clr Calc Pharmacy 16.2 ml/min; Magnesium 2.3 mg/dl (1.7-2.4); Phosphorus 3.6 mg/dl (2.5-4.9); Potassium 3.4 mmol/L (3.5-5.1)
[2025-04-14 10:25] LABS: Immature Granulocytes # (auto) 0.02 K/uL (0.01-0.20); Immature Granulocytes % (auto) 0.7 %; Lymphocytes # (auto) 0.15 K/uL (1.20-3.40); Lymphocytes % (auto) 5.2 %; Monocytes # (auto) 0.21 K/uL (0.11-0.59); Monocytes % (auto) 7.3 %; Neutrophils # (auto) 2.48 K/uL (1.40-6.50); Neutrophils % (auto) 86.8 %
[2025-04-14 10:46] LABS: Toxic Vacuolation 1+
--- NOTE | 2025-04-14 11:42 | Cardiology Progress Note ---
Date of Service April 14, 2025 Assessment & Plan (1) Atrial fibrillation with rapid ventricular response: (2) RANDY (acute kidney injury): (3) Thrombocytopenia: (4) Cirrhosis: Plan 75-year-old female admitted with weakness, hypotension, atrial fibrillation with rapid ventricular response and possible sepsis. Prescribed broad-spectrum antibiotic and pressor therapy. Levophed weaned off and patient transferred out of ICU. Beta-lizbet restarted 04/12/2025 with low-dose metoprolol. (Taking atenolol as outpatient) Heart rate improved, however, remains mildly elevated. Recommendations: * Increase metoprolol to 50 mg twice daily. * Give additional 25 mg oral metoprolol x 1 dose now. * Anticoagulation discontinued secondary to thrombocytopenia * Monitor CBC daily. * Baseline creatinine 1.9-2.2. * Consider restart oral furosemide 20 mg daily (outpatient dose) in next 24 to 48 hours Ghulam Reddy DO, [facility] Admission and Anticipated Discharge Date Admission Date: April 11, 2025 Subjective Patient seen and examined at the bedside. Feeling better today. Heart rate mildly improved. Blood pressure trending upward. Denies chest pain or p alpitations. Serum creatinine trending downward today. Platelet count remains low (39), however, unchanged from yesterday. Review of Systems Review of Systems: All systems reviewed & are unremarkable except as noted in Subjective Physical Exam Constitutional: + ill appearing; no acute distress Respiratory: no respiratory distress, no labored breathing and no retractions Cardiovascular: Rate/Rhythm: + irregularly irregular Heart Sounds: normal S1 and normal S2; no murmur Vessels: no JVD Extremities: + edema Gastrointestinal (Abdomen): Inspection/Auscultation: abdomen normal to inspection and normal bowel sounds; abdomen not distended Percussion/Palpation: abdomen soft; abdomen nontender Neurologic: moves all extremities; no focal motor deficits Results & Data Vital Signs (Past 12 Hours) Vital Signs Temp Pulse Pulse Pulse Resp BP Pulse Ox 04/14/25 10:49 36.4 C L 109 H 18 126/71 97 04/14/25 08:00 101 H 04/14/25 07:19 36.6 C 90 17 109/66 96 04/14/25 02:36 36.5 C 96 H 18 122/73 96 O2 Del Method 04/14/25 10:49 Room Air 04/14/25 08:00 04/14/25 07:19 Room Air 04/14/25 02:36 Room Air Laboratory Results CBC 04/14/25 Range/Units 06:36 WBC 2.78 L (4.8-10.8) K/ul RBC 3.80 L (4.20-5.40) M/uL Hgb 11.3 L (12.0-16.0) g/dl Hct 33.8 L (37.0-47.0) % Plt Count 39 L (130-400) K/uL Neut # (Auto) 2.48 (1.40-6.50) K/uL Lymph # (Auto) 0.15 L (1.20-3.40) K/uL [place] # (Auto) 0.21 (0.11-0.59) K/uL Eos # (Auto) 0.00 (0.00-0.50) K/uL Baso # (Auto) 0.00 (0.00-0.20) K/uL Comprehensive Metabolic Panel 04/14/25 Range/Units 06:36 Sodium 133 L (136-145) mmol/L Potassium 3.4 L (3.5-5.1) mmol/L Chloride 101 (98-107) mmol/L Carbon Dioxide 25 (21-32) mmol/L BUN 27 H (6-23) mg/dl Creatinine 2.08 H (0.6-1.2) mg/dl Glucose 143 H (70-99(Fasting)) mg/dl Calcium 8.5 L (8.6-10.3) mg/dl Intake and Output 04/13/25 04/14/25 04/14/25 22:59 06:59 14:59 Intake Total 100 / 459.284 300 / 459.284 Balance 100 / 459.284 300 / 459.284 Intake: IV 100 / 259.284 100 / 259.284 Piperacillin/Tazobactam 4.5 gm 100 / 200 100 / 200 In 100 ml @ 25 mls/hr IV Q12H [facility] Rx#:[id number] Oral 200 / 200 Other: # Unmeasured Voids 1 2 Weight 72.3 kg
--- NOTE | 2025-04-14 12:37 | Electrocardiogram Report ---
Test Reason : Blood Pressure : */* mmHG Vent. Rate : 111 BPM Atrial Rate : * BPM P-R Int : * ms QRS Dur : 76 ms QT Int : 326 ms P-R-T Axes : * -43 106 degrees QTcB Int : 443 ms Atrial fibrillation with rapid ventricular response with premature ventricular or aberrantly conducte d complexes Left axis deviation Inferior infarct , age undetermined Anterolateral infarct , age undetermined Abnormal ECG When compared with ECG of 07-Nov-2022 11:53, Atrial fibrillation has replaced Sinus rhythm Vent. rate has increased by 52 bpm Inferior infarct is now Present Non-specific change in ST segment in Lateral leads Confirmed by Nathaniel Chavis ([id number]) on 04/14/2025 12:37:04 PM Referred By: Confirmed By: Nathaniel Chavis
--- NOTE | 2025-04-14 14:47 | Hospitalist Progress Note ---
Date of Service April 14, 2025 Assessment & Plan (1) Septic shock: Plan: per previous hospitalist notes with addendum: -Presented with weakness and also fever with sweating since last night -Elevated direct lactate with normal white count -unclear source of shock, likely multifactorial (septic, cardiogenic, distributive) shock in setting of uncontrolled afib with RVR, cirrhosis, and septic component as well -unclear infectious source, UA unremarkable, imaging unremarkable for infectious process, could GI in nature given dilated bile ducts -also on clonazepam and other potentially sedating medications Plan: -goal MAP 65, currently off pressors -continue zosyn for 5 day course given possible GI source, albeit unlikely -f/u culture results -appreciate GI and cardiology input -f/u bile duct dilitation outpatient -switch IV hydrocortisone to hydrocortisone 50 mg PO bid, then in 72 hours switch to 20mg PO in morning, 10mg PO in evening -continue decreased prn dose of clonazepam -start oxycodone 2.5 q4hr prn for severe pain, lidocaine cream scheduled for bilateral leg pain before bedtime, discussed with patient and family, patient requested 04/14 BP stable overall continue Hydrocortisone PO 50mg BID continue IV Zosyn (2) Atrial fibrillation with rapid ventricular response: Plan: -Has a strong family history of atrial fibrillation -She is not aware of having atrial fibrillation so seems to be new in onset -concern afib with RVR is causing low BP -echo with severely dilated LA and EF of 70% suggestive that cardioversion and even amiodarone may not be successful short and mcfp Plan: -cardiology consulted, appreciate recs -stop anticoagulation given platlet levels chronically, will be unable to anticoagulate given this -increase metoprolol to 25mg bid, trial judge response 04/14 Metoprolol increased further to 50mg BID (3) HUANG (nonalcoholic steatohepatitis): Plan: -History of Huang cirrhosis with history of hepatic encephalopathy -likely contributor to shock Plan: -Will continue with current lactulose and also rifaximin (4) Diabetes mellitus type 2 in nonobese: Plan: -SSI (5) GERD (gastroesophageal reflux disease): Plan: -Continue PPI (6) CKD (chronic kidney disease) stage 3, GFR 30-59 ml/min: Plan: -Will monitor kidney function (7) Thrombocytopenia: Plan: PANCYTOPENIA -Platelet count is around 60s and will monitor 04/14 peripheral smear ordered anemia panel ordered Consulted Hematology Plan #Slurred Speech -She has been having strokelike symptoms with slurred speech and blurred vision for the last 6 weeks -According to the daughter she gets the symptoms periodically -She did not have any stroke in the past -She is being seen by an registered route associate for ongoing 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 -No focal neurological deficit on examination and CT scan of the head was unremarkable -MRI unremarkable Plan: -PT/OT/speech consults ordered #Type 2 [place] -in setting of above -resolving #Adrenal Insufficiency -see above Disposition PT/OT evaluation Admission and Anticipated Discharge Date Admission Date: April 11, 2025 Subjective ff up for shock, etc seen resting in bed, comfortable states she continues to feel improved gradually daily no fever/chills no abdominal pain, nausea, tolerated breakfast well no chest pain, palpitations, dizziness no other symptoms Review of Systems 2 Review of Systems: all noted and negative except for above Physical Exam Physical Exam: General- oriented x 3, not in distress, speaks in sentences with no effort or accessory muscle use Eyes- anicteric Neck- no JVD Lungs- clear breath sounds bilaterally, no rales/wheezes Heart- normal rate, irregularly irregular rhythm; no murmurs Abdomen- normal bowel sounds, nondistended, soft, nontender Extremities- no pretibial edema, no calf tenderness Neuro- alert, oriented x 3; no gross focal neurologic deficits Skin- warm & dry Results & Data Results & Data Vital Signs (Past 12 Hours) Vital Signs Temp Pulse Pulse Resp BP Pulse Ox O2 Del Method 04/14/25 10:49 36.4 C L 109 H 18 126/71 97 Room Air 04/14/25 08:00 101 H 04/14/25 07:19 36.6 C 90 17 109/66 96 Room Air all noted and reviewed including below
--- NOTE | 2025-04-14 19:27 | CT Scan Report ---
CT ABDOMEN and PELVIS without INTRAVENOUS CONTRAST HISTORY: Abdominal pain TECHNIQUE: CT abdomen and pelvis without contrast. IV CONTRAST: None ENTERIC CONTRAST: None. COMPARISON: CT abdomen pelvis April 11, 2025 FINDINGS: LOWER CHEST: Cardiac enlargement. Coronary and valvular calcifications. Small pleural fluids are new from previous. Subjacent atelectasis LIVER: Limited assessment for a focal lesion identified in this noncontrast study. Advanced cirrhosis GALLBLADDER/BILIARY: Hyperdense luminal material is again, likely represents sludge and small stones. No appreciable pericholecystic inflammation. Redemonstrated marked dilatation of the common bile duct. SPLEEN: Splenomegaly. PANCREAS: Unremarkable. ADRENALS: Unremarkable. KIDNEYS: Severely atrophic kidneys. No stones or hydronephrosis identified. Small angiomyelolipoma of the right kidney PERITONEUM/RETROPERITONEUM. No significant ascites. No lymphadenopathy by size criteria. No aortic aneurysm. GASTROINTESTINAL: No obstruction. Mild distention of the stomach and proximal small bowel loops without a clear transition point identified. Also small bowel loops demonstrate inflammatory changes wall thickening. Normal appendix. Colonic diverticulosis without evidence of diverticulitis. REPRODUCTIVE: No specific pelvic mass identified however evaluation of the pelvis is limited due to streak artifact arising from the right hip arthroplasty hardware. BONES: No acute findings. Right hip arthroplasty. Lumbosacral spinal fusion and laminectomies with chronic appearing compression fractures of the lower thoracic spine vertebral bodies. Chronic deformity of the right superior and inferior pubic rami IMPRESSION: New small pleural fluids. Advanced cirrhosis with portal hypertension. No significant ascitic fluid. Mild distention of the stomach and the proximal small bowel loops without a clear transition point with inflammatory changes may suggest gastroenteritis. While etiology may be infectious/inflammatory, portal hypertensive enteropathy is a consideration. Electronically signed by Nelson Ordoñez 04-14-2025 7:27 PM
[2025-04-15 08:08] LABS: Hematocrit (blood only) 37.1 % (37.0-47.0); Hemoglobin 12.6 g/dl (12.0-16.0); Mean Corpuscular Hemoglobin 30.4 pg (25.0-34.0); Mean Corpuscular Volume 89.6 fL (80.0-100.0); Mean Platelet Volume 11.9 fL (9.4-12.4); Platelet Count 48 K/uL (130-400); RDW Coefficient of Variation 14.9 % (11.5-14.5); RDW Standard Deviation 47.9 fL (36.4-46.3); Red Blood Count 4.14 M/uL (4.20-5.40); White Blood Count 3.19 K/ul (4.8-10.8)
[2025-04-15 08:22] LABS: ANTI-Xa, UFH(UnfractionatedHep < 0.10 IU/ml (0.3-0.7)
[2025-04-15 08:23] LABS: BUN Creatinine Ratio 14.4 (10-20); Calcium 8.9 mg/dl (8.6-10.3); Creatinine Clr Calc Pharmacy 18.5 ml/min; Magnesium 2.6 mg/dl (1.7-2.4); Phosphorus 3.2 mg/dl (2.5-4.9)
[2025-04-15 08:43] LABS: Ferritin 58.4 ng/ml (8-388); Folate (Folic Acid),Ser orPlas > 22.30 ng/ml (>5.38)
[2025-04-15 08:44] LABS: Vitamin B12 > 1500 pg/ml (180-914)
--- NOTE | 2025-04-15 08:46 | Cardiology Progress Note ---
Date of Service April 15, 2025 Assessment & Plan (1) Atrial fibrillation with rapid ventricular response: (2) RANDY (acute kidney injury): (3) Thrombocytopenia: (4) Cirrhosis: Plan Assessment: 75-year-old female admitted with weakness, hypotension, atrial fibrillation with rapid ventricular response and possible sepsis. Prescribed broad-spectrum antibiotic and pressor therapy. Levophed weaned off and patient transferred out of ICU. Beta-lizbet restarted 04/12/2025 with low-dose metoprolol. (Taking atenolol as outpatient) Heart rate improved, however, remains mildly elevated. 1. Atrial fibrillation with RVR 2. RANDY 3. Thrombocytopenia 4. Cirrhosis -Patient with no acute cardiac complaints. -Telemetry reviewed:Afib with PVCs, HR 90s-114 with no acute events overnight. Afib, HR 80s with rate of 130s-140s x1 hr this morning. -Continue metoprolol tartrate 50 mg twice daily (increased from 25 mg BID on 04/14/25) -Patient with chronic thrombocytopenia, baseline platelets 60,000. Anticoagulation discontinued 04/14/25 d/t platelets 39,000; today 48,000. -Continue to hold Heparin. -Monitor CBC daily. -Baseline creatinine 1.9-2.2. -Consider restarting oral furosemide 20 mg daily (outpatient dose) in next 24 to 48 hours -CT AP 04/14/25: New small pleural fluids. Advanced cirrhosis with portal hypertension. No significant ascitic fluid. Recommend continued follow-up with GI. Case discussed with biopharmaceutical rep Dr. Reddy. Further recommendations pending his evaluation and assessment. I spent a total of 35 minutes on the date of service in preparation, delivery, and documentation of the care provided to this patient, excluding any time spent in the performance of separately billed services. Patsy Flores, GEOVANYC Department of Cardiology, [facility] This chart was completed in part utilizing Speech Voice Recognition Software. Grammatical errors, random word insertions, pronoun errors, and incomplete sentences are an occasional consequence of this system due to software limitations, ambient noise, and hardware issues. Any formal questions or concerns about the content, text, or information contained within the body of this dictation should be directly addressed to the provider for clarification. Admission and Anticipated Discharge Date Admission Date: April 11, 2025 Supervising Physician Co-Signing Physician Notes I have personally performed a history and physical examination on the patient. I have reviewed the advance practitioner's documentation, and I agree with, and take responsibility for the plan of care. 75-year-old female admitted with weakness, hypotension, atrial fibrillation with rapid ventricular response and possible sepsis. Beta-lizbet restarted 04/12/2025 with low-dose metoprolol. Titrated to 50 mg twice daily yesterday. Continue this dose for another 24 hours and observe telemetry. Consider titration to 75 mg twice daily tomorrow. Anticoagulation discontinued secondary to thrombocytopenia. Positive fluid balance noted since admission. Restart outpatient furosemide 40 mg daily. She was taking spironolactone as an outpatient as well, however, will hold off on restarting at this time due to elevated creatinine. I spent a total of 30 minutes on the date of service in preparation, delivery, and documentation of the care provided to this patient, excluding any time spent in the performance of separately billed services. Ghulam Reddy DO, [facility] Subjective Patient seen and examined today for follow-up. Offers no acute cardiac complaints. Denies chest pain, heart palpitations/fluttering, and SOB. Complains of abdominal discomfort and bloating with pain 2/10 in severity and described as "a grinding toothache" in quality. She attributes this mostly to her known HUANG cirrhosis but states she is more bloated than usual. Denies any other issues. Labs, diagnostics, vitals, and documentation reviewed. Telemetry reviewed:Afib with PVCs, HR 90s-114 with no acute events overnight. Afib, HR 80s with rate of 130s-140s x1 hr this morning. Review of Systems Review of Systems: All systems reviewed & are unremarkable except as noted in HPI & below Physical Exam Constitutional: no acute distress Neck: trachea midline, no thyromegaly Respiratory: normal respiratory effort; no respiratory distress, no labored breathing, no retractions and no cough Auscultation: lungs clear to auscultation bilaterally Cardiovascular: Rate/Rhythm: + irregularly irregular Heart Sounds: normal S1 and normal S2; no murmur Vessels: no JVD Extremities: + edema (minimal) Gastrointestinal (Abdomen): Inspection/Auscultation: + abdomen distended and normal bowel sounds Percussion/Palpation: abdomen nontender and no guarding Skin: + purpura (bilateral UE) Neurologic: PERRL, EOMI, accommodation nl, no face palsy, no dysarthria moves all extremities; no focal motor deficits Psychiatric: A+Ox3, euthymic affect Results & Data Vital Signs (Past 12 Hours) Vital Signs Temp Pulse Pulse Pulse Resp BP Pulse Ox 04/15/25 07:23 36.5 C 100 H 16 107/64 97 04/15/25 02:25 36.6 C 98 H 20 112/79 96 04/14/25 23:39 36.5 C 63 16 117/73 96 04/14/25 21:48 95 H O2 Del Method 04/15/25 07:23 Room Air 04/15/25 02:25 Room Air 04/14/25 23:39 Room Air 04/14/25 21:48 Laboratory Results CBC 04/14/25 04/15/25 Range/Units 06:36 07:33 WBC 2.78 L 3.19 L (4.8-10.8) K/ul RBC 3.80 L 4.14 L (4.20-5.40) M/uL Hgb 11.3 L 12.6 (12.0-16.0) g/dl Hct 33.8 L 37.1 (37.0-47.0) % Plt Count 39 L 48 L (130-400) K/uL Neut # (Auto) 2.48 (1.40-6.50) K/uL Lymph # (Auto) 0.15 L (1.20-3.40) K/uL [place] # (Auto) 0.21 (0.11-0.59) K/uL Eos # (Auto) 0.00 (0.00-0.50) K/uL Baso # (Auto) 0.00 (0.00-0.20) K/uL Comprehensive Metabolic Panel 04/15/25 Range/Units 07:33 Sodium 133 L (136-145) mmol/L Potassium 4.0 (3.5-5.1) mmol/L Chloride 100 (98-107) mmol/L Carbon Dioxide 27 (21-32) mmol/L BUN 26 H (6-23) mg/dl Creatinine 1.81 H (0.6-1.2) mg/dl Glucose 142 H (70-99(Fasting)) mg/dl Calcium 8.9 (8.6-10.3) mg/dl Intake and Output 04/14/25 04/15/25 04/15/25 22:59 06:59 14:59 Intake Total 100 / 680 100 / 680 Balance 100 / 430 100 / 430 Intake: IV 100 / 200 100 / 200 Piperacillin/Tazobactam 4.5 gm 100 / 200 100 / 200 In 100 ml @ 25 mls/hr IV Q12H [facility] Rx#:[id number] Other: # Unmeasured Voids 1 2 1 Weight 72.[address] AP 04/14/25: New small pleural fluids. Advanced cirrhosis with portal hypertension. No significant ascitic fluid. Medications Administered Current Inpatient Medications Acetaminophen (Acetaminophen 500 Mg Tab) 1,000 mg PO Q8H PRN PRN Reason: Mild-Mod Pain (Scale 1-6) Stop: 05/12/25 16:25 Last Admin: 04/15/25 04:03 Dose: 1,000 mg Citalopram Hydrobromide (Citalopram 20 Mg Tab) 20 mg PO DAILY PRN PRN Reason: Anxiety Stop: 05/11/25 18:00 Clonazepam (Clonazepam 0.5 Mg Tab) 0.25 mg PO TID PRN PRN Reason: Anxiety Stop: 05/11/25 19:00 Last Admin: 04/15/25 04:02 Dose: 0.25 mg Cyanocobalamin (Cyanocobalamin (B-12) 500 Mcg Tablet) 1,000 mcg PO Q2D [facility]US[facility] Stop: 05/12/25 08:59 Last Admin: 04/14/25 09:21 Dose: 1,000 mcg Folic Acid (Folic Acid 1 Mg Tab) 1 mg PO QAM HUSAM Stop: 05/12/25 08:59 Last Admin: 04/15/25 08:22 Dose: 1 mg Gabapentin (Gabapentin 100 Mg Cap) 100 mg PO BID@0900,1400 [facility] Stop: 05/11/25 18:29 Last Admin: 04/15/25 08:21 Dose: 100 mg Glucagon (Glucagon For Inj 1 Mg Vial) 1 mg SQ UD PRN; Protocol PRN Reason: Hypoglycemia Protocol Stop: 05/11/25 18:27 Glucose (Glucose 40% Gel 15 Gm Tube) 15 - 30 gm PO UD PRN; Protocol PRN Reason: Hypoglycemia Protocol Stop: 05/11/25 18:27 Glucose (Glucose 10 Tab/Tube) 4 - 8 tab PO UD PRN; Protocol PRN Reason: Hypoglycemia Protocol Stop: 05/11/25 18:27 Hydrocortisone (Hydrocortisone 10 Mg Tab) 50 mg PO BID [facility] Stop: 05/13/25 20:59 Last Admin: 04/15/25 08:19 Dose: 50 mg Piperacillin Sod/Tazobactam Sod (Zosyn) 4.5 gm in 100 mls @ 25 mls/hr IV Q12H [facility]; Protocol Stop: 04/16/25 23:59 Last Infusion: 04/15/25 04:06 Dose: Infused Heparin Sodium/Dextrose (Heparin 75540 Unit/500 Ml D5w) 25,000 units in 500 mls @ 14 mls/hr IV .Q24H [facility]; Protocol Stop: 05/11/25 22:14 Last Titration: 04/13/25 10:52 Dose: Infused Insulin Aspart (Insulin Aspart Per Unit Charge) 0 units SC ACHS HUSAM Stop: 05/11/25 20:59 Last Admin: 04/15/25 08:18 Dose: 4 units Lactulose (Lactulose Syrup 20 Gm/30 Ml Udc) 20 gm PO TID [facility] Stop: 05/11/25 20:59 Last Admin: 04/15/25 08:20 Dose: Not Given Levothyroxine Sodium (Levothyroxine Sodium 50 Mcg Tablet) 50 mcg PO DAILYBB [facility] Stop: 05/12/25 06:29 Last Admin: 04/15/25 04:03 Dose: 50 mcg Lidocaine (Lidocaine 5% Oint 30 Gm Tube) 1 appln EXT HS PRN PRN Reason: leg pain Stop: 05/13/25 13:47 Metoprolol Tartrate (Metoprolol Tartrate 50 Mg Tab) 50 mg PO BID [facility] Stop: 05/14/25 20:59 Last Admin: 04/15/25 08:21 Dose: 50 mg Miscellaneous (Tacrolimus Ointment: Order Awaiting Action) 1 each N/A QS [facility] Stop: 05/12/25 00:00 Last Admin: 04/15/25 08:07 Dose: Not Given Multivitamins/Minerals (Cerovite Adv Formula Tab) 1 tab PO DAILY [facility]; Protocol Stop: 05/12/25 08:59 Last Admin: 04/15/25 08:20 Dose: 1 tab Nystatin (Nystatin Powder 15gm Btl) 1 appln EXT TID PRN PRN Reason: SKIN RASH Stop: 05/11/25 18:00 Oxycodone HCl (Oxycodone Hcl Ir 5 Mg Tab (Immediate Release)) 2.5 mg PO Q4 PRN PRN Reason: Severe Pain (Scale 7, 8, 9,10) Stop: 04/27/25 13:47 Last Admin: 04/15/25 08:17 Dose: 2.5 mg Pantoprazole Sodium ([facility]ant[facility]razole 40 Mg Tab) [facility]; Protocol Stop: 05/12/25 06:29 Last Admin: 04/15/25 04:03 Dose: 40 mg Vitamin D (Cholecalciferol 25 Mcg (1000 Units) Tab) 25 mcg PO DAILY [facility] Stop: 05/12/25 08:59 Last Admin: 04/15/25 08:19 Dose: 25 mcg (4) Cirrhosis Hepatic cirrhosis type: other cirrhosis Qualified Code(s): K74.69 - Other cirrhosis of liver
--- NOTE | 2025-04-15 14:55 | Hospitalist Progress Note ---
Date of Service April 15, 2025 Assessment & Plan (1) Septic shock: Plan: per previous hospitalist notes with addendum: -Presented with weakness and also fever with sweating since last night -Elevated direct lactate with normal white count -unclear source of shock, likely multifactorial (septic, cardiogenic, distributive) shock in setting of uncontrolled afib with RVR, cirrhosis, and septic component as well -unclear infectious source, UA unremarkable, imaging unremarkable for infectious process, could GI in nature given dilated bile ducts -also on clonazepam and other potentially sedating medications Plan: -goal MAP 65, currently off pressors -continue zosyn for 5 day course given possible GI source, albeit unlikely -f/u culture results -appreciate GI and cardiology input -f/u bile duct dilitation outpatient -switch IV hydrocortisone to hydrocortisone 50 mg PO bid, then in 72 hours switch to 20mg PO in morning, 10mg PO in evening -continue decreased prn dose of clonazepam -start oxycodone 2.5 q4hr prn for severe pain, lidocaine cream scheduled for bilateral leg pain before bedtime, discussed with patient and family, patient requested 04/15 BP stable overall continue Hydrocortisone PO 50mg BID, taper continue IV Zosyn Day 4/ (2) Atrial fibrillation with rapid ventricular response: Plan: -Has a strong family history of atrial fibrillation -She is not aware of having atrial fibrillation so seems to be new in onset -concern afib with RVR is causing low BP -echo with severely dilated LA and EF of 70% suggestive that cardioversion and even amiodarone may not be successful short and shelter Plan: -cardiology consulted, appreciate recs -stop anticoagulation given platlet levels chronically, will be unable to anticoagulate given this -increase metoprolol to 25mg bid, premium representative response 04/15 Metoprolol increased further to 50mg BID Lasix 40mg po resumed continue to monitor closely (3) HUANG (nonalcoholic steatohepatitis): Plan: -History of Huang cirrhosis with history of hepatic encephalopathy -likely contributor to shock Plan: -Will continue with current lactulose and also rifaximin (4) Diabetes mellitus type 2 in nonobese: Plan: -SSI (5) GERD (gastroesophageal reflux disease): Plan: -Continue PPI (6) CKD (chronic kidney disease) stage 3, GFR 30-59 ml/min: Plan: improving Crea 1.8 (baseline 1.7) (7) Thrombocytopenia: Plan: PANCYTOPENIA -Platelet count is around 60s and will monitor 04/14 peripheral smear ordered: reviewed anemia panel ordered: iron, vit b12, folate okay CBC trending up continue to monitor Plan #Slurred Speech -She has been having strokelike symptoms with slurred speech and blurred vision for the last 6 weeks -According to the daughter she gets the symptoms periodically -She did not have any stroke in the past -She is being seen by an team foreman for ongoing 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 Seen sitting up in bed, comfortable, not in distress, in good spirits Patient's daughter at the bedside visiting States she feels better overall Denies dizziness, shortness of breath, chest pain, palpitations No abdominal pain, nausea or vomiting Ambulating to the bathroom with no problems no bleeding No other new symptoms Review of Systems Review of Systems: all noted and negative except for above Physical Exam Physical Exam: General- oriented x 3, not in distress, speaks in sentences with no effort or accessory muscle use Eyes- anicteric Neck- no JVD Lungs- clear breath sounds bilaterally, no rales/wheezes Heart- normal rate, regular rhythm; no murmurs Abdomen- normal bowel sounds, nondistended, soft, nontender Extremities- no pretibial edema, no calf tenderness Neuro- alert, oriented x 3; no gross focal neurologic deficits Skin- warm & dry Results & Data Results & Data Vital Signs (Past 12 Hours) Vital Signs Temp Pulse Resp BP BP Pulse Ox O2 Del Method 04/15/25 11:11 36.8 C 105 H 18 117/73 95 Room Air 04/15/25 07:23 36.5 C 100 H 16 107/64 97 Room Air all noted and reviewed including below
[2025-04-16 07:12] LABS: Calcium 8.4 mg/dl (8.6-10.3); Creatinine Clr Calc Pharmacy 18.8 ml/min; Magnesium 2.4 mg/dl (1.7-2.4); Phosphorus 3.4 mg/dl (2.5-4.9); Potassium 3.6 mmol/L (3.5-5.1)
--- NOTE | 2025-04-16 08:15 | Cardiology Progress Note ---
Date of Service April 16, 2025 Assessment & Plan (1) Atrial fibrillation with rapid ventricular response: (2) RANDY (acute kidney injury): (3) Thrombocytopenia: (4) Cirrhosis: Plan Assessment: 75-year-old female admitted with weakness, hypotension, atrial fibrillation with rapid ventricular response and possible sepsis. Prescribed broad-spectrum antibiotic and pressor therapy. Levophed weaned off and patient transferred out of ICU. Beta-lizbet restarted 04/12/2025 with low-dose metoprolol. (Taking atenolol as outpatient) Heart rate improved, however, remains mildly elevated. 1. Atrial fibrillation with RVR 2. RANDY 3. Thrombocytopenia 4. Cirrhosis -Patient with no acute cardiac complaints. -Telemetry reviewed: Afib with PVCs, HR 80s-110s with no acute events overnight. -Change metoprolol tartrate 50 mg BID to metoprolol succinate 100 mg PO QAM and 50 mg PO HS. (Patient was increased from metoprolol tartrate 25 mg BID to 50 mg BID on 04/14/25). -Patient with chronic thrombocytopenia, baseline platelets 60,000. Anticoagulation discontinued 04/14/25 d/t thrombocytopenia (plt 39,000); today 49,000. -Continue to hold Heparin due to thrombocytopenia. -Monitor CBC daily. -Elevated creatinine, 1.88 today. Patient was taking Spironolactone as outpa tient. Continue to hold off on restarting at this time due to increased creatinine. -Continue Furosemide 40 mg daily; restarted 04/15/25 due to positive fluid balance since admission. -Monitor ins and outs. -CT AP 04/14/25: New small pleural fluids. Advanced cirrhosis with portal hypertension. No significant ascitic fluid. Recommend continued follow-up with GI. -Recommend outpatient cardiology follow-up; most recent visit 04/26/2015. Case discussed with recruitment specialist Dr. Reddy. Further recommendations pending his evaluation and assessment. I spent a total of 35 minutes on the date of service in preparation, delivery, and documentation of the care provided to this patient, excluding any time spent in the performance of separately billed services. Patsy Flores, PALewisC Department of Cardiology, [facility] This chart was completed in part utilizing Speech Voice Recognition Software. Grammatical errors, random word insertions, pronoun errors, and incomplete sentences are an occasional consequence of this system due to software limitations, ambient noise, and hardware issues. Any formal questions or concerns about the content, text, or information contained within the body of t his dictation should be directly addressed to the provider for clarification. Admission and Anticipated Discharge Date Admission Date: April 11, 2025 Supervising Physician Co-Signing Physician Notes I have personally performed a history and physical examination on the patient. I have reviewed the advance practitioner's documentation, and I agree with, and take responsibility for the plan of care. 75-year-old female admitted with weakness, hypotension, atrial fibrillation with rapid ventricular response and possible sepsis. Beta-lizbet restarted 04/12/2025 with low-dose metoprolol. Borderline heart rate control at rest with rapid ventricular response during periods of mild activity. Current dose of metoprolol 50 mg twice daily. Outpatient dose of atenolol was 150 mg daily. Anticoagulation discontinued secondary to thrombocytopenia. Co nsider outpatient hematology evaluation to discuss feasibility of long-term anticoagulation. Outpatient furosemide 40 mg daily restarted yesterday. Recommendations: * Patient may resume Aldactone at discharge. * Transition metoprolol to tartrate to succinate formulation. * Titrate metoprolol to 100 mg in the a.m., 50 mg in the evening. * Outpatient hematology evaluation * No further inpatient cardiac testing or intervention recommended at this time. * Outpatient cardiology follow-up in 2 to 4 weeks. I spent a total of 30 minutes on the date of service in preparation, delivery, and documentation of the care provided to this patient, excluding any time spent in the performance of separately billed services. Ghulam Reddy DO, [facility] Subjective Patient seen and examined today for follow-up. Offers no acute cardiac complaints. Denies chest pain, heart palpitations/fluttering, SOB, dizziness, or lightheadedness. States her abdominal discomfort and distension have improved since yesterday, she feels great, and is ready to go home. Labs, diagnostics, vitals, and documentation reviewed. Telemetry reviewed: Afib with PVCs, HR 80s-110s with no acute events overnight. Review of Systems Review of Systems: All systems reviewed & are unremarkable except as noted in HPI & below Physical Exam Constitutional: no acute distress Neck: normal visual inspection and trachea midline Respiratory: normal respiratory effort; no respiratory distress, no labored breathing, no retractions and no cough Auscultation: lungs clear to auscultation bilaterally Cardiovascular: Rate/Rhythm: + irregularly irregular Heart Sounds: normal S1 and normal S2; no murmur Vessels: no JVD Extremities: + edema (minimal) Gastrointestinal (Abdomen): Inspection/Auscultation: + abdomen distended Skin: + purpura (bilateral UE) Psychiatric: A+Ox3, euthymic affect Results & Data Vital Signs (Past 12 Hours) Vital Signs Temp Pulse Pulse Resp BP Pulse Ox O2 Del Method 04/16/25 07:22 110 H 04/16/25 03:07 36.5 C 77 14 119/72 97 Room Air 04/15/25 23:55 95 H 04/15/25 23:09 36.4 C L 96 H 14 113/68 96 Room Air Laboratory Results Comprehensive Metabolic Panel 04/16/25 Range/Units 06:26 Sodium 132 L (136-145) mmol/L Potassium 3.6 (3.5-5.1) mmol/L Chloride 102 (98-107) mmol/L Carbon Dioxide 24 (21-32) mmol/L BUN 32 H (6-23) mg/dl Creatinine 1.88 H (0.6-1.2) mg/dl Glucose 161 H (70-99(Fasting)) mg/dl Calcium 8.4 L (8.6-10.3) mg/dl Intake and Output 04/15/25 04/16/25 04/16/25 22:59 06:59 14:59 Intake Total 1410 / 1560 150 / 1560 Balance 1410 / 1560 150 / 1560 Intake: IV 100 / 200 100 / 200 Piperacillin/Tazobactam 4.5 gm 100 / 200 100 / 200 In 100 ml @ 25 mls/hr IV Q12H [facility] Rx#:[id number] Oral 1310 / 1360 50 / 1360 Other: # Unmeasured Voids 2 2 Weight 77.973 kg Weight Measurement Method Built in [facility] Medications Administered Current Inpatient Medications Acetaminophen (Acetaminophen 500 Mg Tab) 1,000 mg PO Q8H PRN PRN Reason: Mild-Mod Pain (Scale 1-6) Stop: 05/12/25 16:25 Last Admin: 04/15/25 20:40 Dose: 1,000 mg Citalopram Hydrobromide (Citalopram 20 Mg Tab) 20 mg PO DAILY PRN PRN Reason: Anxiety Stop: 05/11/25 18:00 Last Admin: 04/15/25 09:18 Dose: 20 mg Clonazepam (Clonazepam 0.5 Mg Tab) 0.25 mg PO TID PRN PRN Reason: Anxiety Stop: 05/11/25 19:00 Last Admin: 04/15/25 20:40 Dose: 0.25 mg Cyanocobalamin (Cyanocobalamin (B-12) 500 Mcg Tablet) 1,000 mcg PO Q2D [facility] Stop: 05/12/25 08:59 Last Admin: 04/14/25 09:21 Dose: 1,000 mcg Folic Acid (Folic Acid 1 Mg Tab) 1 mg PO QAM [facility] Stop: 05/12/25 08:59 Last Admin: 04/15/25 08:22 Dose: 1 mg Furosemide (Furosemide 40 Mg Tab) 40 mg PO QAM [facility] Stop: 05/15/25 10:29 Last Admin: 04/15/25 11:30 Dose: 40 mg Gabapentin (Gabapentin 100 Mg Cap) 100 mg PO BID@0900,1400 [facility] Stop: 05/11/25 18:29 Last Admin: 04/15/25 14:54 Dose: 100 mg Glucagon (Glucagon For Inj 1 Mg Vial) 1 mg SQ UD PRN; Protocol PRN Reason: Hypoglycemia Protocol Stop: 05/11/25 18:27 Glucose (Glucose 40% Gel 15 Gm Tube) 15 - 30 gm PO UD PRN; Protocol PRN Reason: Hypoglycemia Protocol Stop: 05/11/25 18:27 Glucose (Glucose 10 Tab/Tube) 4 - 8 tab PO UD PRN; Protocol PRN Reason: Hypoglycemia Protocol Stop: 05/11/25 18:27 Hydrocortisone (Hydrocortisone 10 Mg Tab) 50 mg PO BID [facility] Stop: 05/13/25 20:59 Last Admin: 04/15/25 20:39 Dose: 50 mg Piperacillin Sod/Tazobactam Sod (Zosyn) 4.5 gm in 100 mls @ 25 mls/hr IV Q12H [facility]; Protocol Stop: 04/16/25 23:59 Last Infusion: 04/16/25 03:34 Dose: Infused Heparin Sodium/Dextrose (Heparin 98008 Unit/500 Ml D5w) 25,000 units in 500 mls @ 14 mls/hr IV .Q24H [facility]; Protocol Stop: 05/11/25 22:14 Last Titration: 04/13/25 10:52 Dose: Infused Insulin Aspart (Insulin Aspart Per Unit Charge) 0 units SC ACHS [facility] Stop: 05/11/25 20:59 Last Admin: 04/15/25 20:40 Dose: 1 units Lactulose (Lactulose Syrup 20 Gm/30 Ml Udc) 20 gm PO TID [facility] Stop: 05/11/25 20:59 Last Admin: 04/15/25 20:37 Dose: Not Given Levothyroxine Sodium (Levothyroxine Sodium 50 Mcg Tablet) 50 mcg PO DAILYBB [facility] Stop: 05/12/25 06:29 Last Admin: 04/16/25 05:54 Dose: 50 mcg Lidocaine (Lidocaine 5% Oint 30 Gm Tube) 1 appln EXT HS PRN PRN Reason: leg pain Stop: 05/13/25 13:47 Last Admin: 04/15/25 09:18 Dose: 1 appln Metoprolol Tartrate (Metoprolol Tartrate 50 Mg Tab) 50 mg PO BID [facility] Stop: 05/14/25 20:59 Last Admin: 04/15/25 20:39 Dose: 50 mg Miscellaneous (Tacrolimus Ointment: Order Awaiting Action) 1 each N/A QS [facility] Stop: 05/12/25 00:00 Last Admin: 04/16/25 07:49 Dose: Not Given Multivitamins/Minerals (Cerovite Adv Formula Tab) 1 tab PO DAILY [facility]; Protocol Stop: 05/12/25 08:59 Last Admin: 04/15/25 08:20 Dose: 1 tab Nystatin (Nystatin Powder 15gm Btl) 1 appln EXT TID PRN PRN Reason: SKIN RASH Stop: 05/11/25 18:00 Oxycodone HCl (Oxycodone Hcl Ir 5 Mg Tab (Immediate Release)) 2.5 mg PO Q4 PRN PRN Reason: Severe Pain (Scale 7, 8, 9,10) Stop: 04/27/25 13:47 Last Admin: 04/16/25 05:58 Dose: 2.5 mg Pantoprazole Sodium (Pantoprazole 40 Mg Tab) [facility] Protocol Stop: 05/12/25 06:29 Last Admin: 04/16/25 05:54 Dose: 40 mg Vitamin D (Cholecalciferol 25 Mcg (1000 Units) Tab) 25 mcg PO DAILY [facility] Stop: 05/12/25 08:59 Last Admin: 04/15/25 08:19 Dose: 25 mcg (4) Cirrhosis Hepatic cirrhosis type: other cirrhosis Qualified Code(s): K74.69 - Other cirrhosis of liver
[2025-04-16 10:37] LABS: Hematocrit (blood only) 37.2 % (37.0-47.0); Hemoglobin 12.9 g/dl (12.0-16.0); Lymphocytes # (auto) 0.16 K/uL (1.20-3.40); Lymphocytes % (auto) 4.8 %; Mean Corpuscular Hemoglobin 30.9 pg (25.0-34.0); Mean Corpuscular Hgb Conc 34.7 g/dL (32.0-36.0); Mean Corpuscular Volume 89.2 fL (80.0-100.0); Mean Platelet Volume 11.8 fL (9.4-12.4); Monocytes # (auto) 0.29 K/uL (0.11-0.59); Monocytes % (auto) 8.8 %; Neutrophils # (auto) 2.85 K/uL (1.40-6.50); Neutrophils % (auto) 86.4 %; Platelet Count 49 K/uL (130-400); RDW Coefficient of Variation 15.1 % (11.5-14.5); RDW Standard Deviation 48.6 fL (36.4-46.3); Red Blood Count 4.17 M/uL (4.20-5.40)
--- NOTE | 2025-04-16 11:41 | Discharge Summary ---
Discharge Summary Date of Service April 16, 2025 Principal Dx & Hospital Course #1 = Principal Diagnosis (1) Septic shock: per previous hospitalist notes with addendum: -Presented with weakness and also fever with sweating since last night -Elevated direct lactate with normal white count -unclear source of shock, likely multifactorial (septic, cardiogenic, distributive) shock in setting of uncontrolled afib with RVR, cirrhosis, and septic component as well -unclear infectious source, UA unremarkable, imaging unremarkable for infectious process, could GI in nature given dilated bile ducts -also on clonazepam and other potentially sedating medications Plan: -goal MAP 65, currently off pressors -continued zosyn for 5 day course given possible GI source, albeit unlikely -appreciate GI and cardiology input -f/u bile duct dilatation outpatient -switch IV hydrocortisone to hydrocortisone 50 mg PO bid, then in 72 hours switch to 20mg PO in morning, 10mg PO in evening -continue decreased prn dose of clonazepam -start oxycodone 2.5 q4hr prn for severe pain, lidocaine cream scheduled for bilateral leg pain before bedtime, discussed with patient and family, patient requested 04/16 BP stable overall continue Hydrocortisone PO taper x 4 more days ff up with PCP in 1 week (2) Atrial fibrillation with rapid ventricular response: -Has a strong family history of atrial fibrillation -She is not aware of having atrial fibrillation so seems to be new in onset -concern afib with RVR is causing low BP -echo with severely dilated LA and EF of 70% suggestive that cardioversion and even amiodarone may not be successful 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 * Transition metoprolol to tartrate to succinate formulation. * Titrate metoprolol to 100 mg in the a.m., 50 mg in the evening. * Outpatient hematology evaluation * No further inpatient cardiac testing or intervention recommended at this time. * Outpatient cardiology follow-up in 2 to 4 weeks. Dense coronary calcification noted Diffuse atherosclerosis of the aorta and branches -- seen on CT abd/pelvis -- Further work up, management, and ff up as outpatient (3) BUCHANAN (nonalcoholic steatohepatitis): -History of [place] cirrhosis with history of hepatic encephalopathy -likely contributor to shock Plan: - continue with current lactulose and also rifaximin Approximately 3 cm diameter pancreatic head cyst. Suspect benign process although other etiologies are not excluded. No additional pancreatic mass or ductal dilatation. -- seen on MRCP Further work up, management, and ff up as outpatient (4) Diabetes mellitus type 2 in nonobese: -SSI (5) GERD (gastroesophageal reflux disease): -Continue PPI (6) CKD (chronic kidney disease) stage 3, GFR 30-59 ml/min: improving Crea 1.8 (baseline 1.7) (7) Thrombocytopenia: PANCYTOPENIA -Platelet count is around 60s and will monitor 04/16 peripheral smear ordered: reviewed anemia panel ordered: iron, vit b12, folate okay CBC trending up repeat CBC upon ff up with PCP in 1 week Plan #Slurred Speech -She has been having strokelike symptoms with slurred speech and blurred vision for the last 6 weeks -According to the daughter she gets the symptoms periodically -She did not have any stroke in the past -She is being seen by an medical technologist clinical for ongoing 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 -No focal neurological deficit on examination and CT scan of the head was u nremarkable -MRI unremarkable Plan: -PT/OT/speech consults ordered #Type 2 NV -in setting of above -resolving #Adrenal Insufficiency -see above Disposition d/c home ff up with PCP in 1 week, Slag [facility]er in 2-4 weeks Notes For Next Care Provider Medication Changes From Visit as per Med rec Admission HPI Per Admitting Provider She is a 75-year-old female with significant past medical history of cirrhosis of the liver with ascites and thrombocytopenia, type 2 diabetes, stage IIIb chronic kidney disease, hypertension, hyperlipidemia, history of hepatic failure, primary hyperparathyroidism and ambulatory dysfunction apparently was brought into the emergency room with profound weakness, slurred speech, fever with chills and sweating since last night and a recent skin tear involving the right ankle area. She was noted to be very hypertensive in the emergency room and required to restart intravenous pressor agents to maintain the blood pressure around systolic 90. She was noted to have normal white count, afebrile, elevated lactate and a dilated common bile duct with sludge and stones noted in the gallbladder without any abnormal liver function test. She was started with intravenous Zosyn and before that she received 1 dose of ceftriaxone and also started with Levophed and was transferred to ICU for continued care. She was also noted to be in atrial fibrillation with RVR and she has not on any anticoagulation. She also complained to have strokelike symptoms including slurred speech occasional facial droop and also visual problems involving both eyes for the l ast 6 weeks. She has been to medical technologist clinical and the visual symptoms seems to be secondary to diabetic retinopathy. She is not aware of having any atrial fibrillation before and she has not been taking any anticoagulation. She denies any cough and/or increasing shortness of breath, no abdominal pain or distention does not have any nausea and or vomiting. Denies any problem with urine or bowel habit. Admission Exam Per Admitting Provider Physical Exam: Lying in bed with weakness and tiredness but no acute distress Constitutional: + ill appearing and + obese Eyes: PERRL, conjunctivae normal, anicteric sclerae ENMT: external ear and nose normal, oropharynx normal Neck: trachea midline, no thyromegaly Respiratory: no respiratory distress Auscultation: lungs clear to auscultation bilaterally; no crackles Cardiovascular: Rate/Rhythm: + tachycardic and + irregularly irregular Heart Sounds: normal S1 and normal S2; no murmur Extremities: no edema Gastrointestinal (Abdomen): Inspection/Auscultation: normal bowel sounds; abdomen not distended Percussion/Palpation: abdomen soft; abdomen nontender Musculoskeletal: No acute arthritis involving any of the joint Skin: Has generalized skin bruising and skin tears in the upper extremities and also right ankle which is bandaged Neurologic: Alert and awake with occasional slurred speech. No facial droop. Generally weak but no focal neurodeficit Lymphatic: no cervical or axillary lymphadenopathy Discharge Exam General- oriented x 3, not in distress, speaks in sentences with no effort or accessory muscle use Eyes- anicteric Neck- no JVD Lungs- clear breath sounds bilaterally, no rales/wheezes Heart- normal rate, irregularly irregular rhythm; no murmurs Abdomen- normal bowel sounds, nondistended, soft, nontender Extremities- no pretibial edema, no calf tenderness RLE: wound healing well Neuro- alert, oriented x 3; no gross focal neurologic deficits Skin- warm & dry Updated Medication List Medication Instructions Recorded Confirmed Type ascorbic acid (vitamin C) 250 mg 500 mg PO QAM 06/23/18 04/11/25 History tablet (Vitamin C) clobetasol 0.05 % topical gel 1 applic topical BID PRN LICHEN 06/23/18 04/11/25 History PLANUS BREAK OUTS clonazepam 0.5 mg tablet (Klonopin) 0.5 tab PO TID PRN Anxiety 06/23/18 04/11/25 History ferrous sulfate 325 mg (65 mg 325 mg PO WK 06/23/18 04/11/25 History iron) tablet (iron) folic acid 1 mg tablet 1 mg PO QAM 06/23/18 04/11/25 History furosemide 40 mg tablet (Lasix) 40 mg PO QAM 06/23/18 04/11/25 History gabapentin 100 mg capsule 100 mg PO .BID-QAM & AFTERNOON 06/23/18 04/11/25 History lactulose 10 gram/15 mL oral 30 ml PO TID 06/23/18 04/11/25 History solution omeprazole 40 mg capsule,delayed 40 mg PO DAILYBB 06/23/18 04/11/25 History release oxycodone 5 mg tablet 2.5 mg PO Q8H PRN Pain 06/23/18 04/11/25 History potassium chloride 20 mEq 10 meq PO QDL 06/23/18 04/11/25 History tablet,extended release(part/cryst) (Klor-Con M) rifaximin 550 mg tablet (Xifaxan) 550 mg PO BID 06/23/18 04/11/25 History spironolactone 100 mg tablet See Rx Instructions .Route .COMPLEX 06/23/18 04/11/25 History furosemide 40 mg tablet 20 mg PO HS 06/05/22 04/11/25 History citalopram 40 mg tablet 20 mg PO DAILY PRN Anxiety 11/07/22 04/11/25 History gabapentin 100 mg capsule 300 mg PO HS 11/07/22 04/11/25 History nystatin 100,000 unit/gram topical 1 applic topical TID PRN SKIN RASH 07/15/23 04/11/25 History powder (Nyamyc) ondansetron HCl 4 mg tablet 4 mg PO Q6H PRN NAUSEA/VOMITING 07/15/23 04/11/25 History betamethasone dipropionate 0.05 % 1 applic topical BID PRN SKIN 04/11/25 04/11/25 History topical cream IRRITATIONS cholecalciferol (vitamin D3) 25 25 mcg PO DAILY 04/11/25 04/11/25 History mcg (1,000 unit) capsule (Vitamin D3) cyanocobalamin (vitamin B-12) 1,000 mcg PO Q OTHER DAY 04/11/25 04/11/25 History 1,000 mcg tablet (Vitamin B-12) diclofenac sodium 2 % topical 0 ml topical DIRECTED PRN Pain 04/11/2504/11 History solution in packet (Pennsaid) empagliflozin 10 mg tablet 10 mg PO QAM 04/11/25 04/11/25 History (Jardiance) levothyroxine 50 mcg tablet 50 mcg PO DAILYBB 04/11/25 04/11/25 History lidocaine 4 % topical patch 1 patch topical DAILY 04/11/25 04/11/25 History montelukast 10 mg tablet 10 mg PO HS 04/11/25 04/11/25 History (Singulair) ufzslxig-[id number] 5 mg-zeaxanth 1 cap PO DAILY 04/11/25 04/11/25 History 1 mg-bilberry 7.5 mg-herbal capsule (Macular Health Formula) tacrolimus 0.1 % topical ointment 1 applic topical BID PRN SKIN 04/11/25 04/11/25 History IRRITATIONS tizanidine 4 mg tablet 1 mg PO HS 04/11/25 04/11/25 History triamcinolone acetonide 0.1 % 1 applic topical BID PRN FLARE UPS 04/11/25 04/11/25 History topical ointment vitamin E 268 mg (400 unit) capsule 268 mg PO DAILY 04/11/25 04/11/25 History hydrocortisone 10 mg tablet 10 mg PO UD #10 tabs 04/16/25 Rx metoprolol succinate 50 mg 50 mg PO HS 30 days #30 tabs 04/16/25 Rx tablet,extended release 24 hr metoprolol succinate 50 mg 100 mg (2 x 50 mg) PO QAM 30 days 04/16/25 Rx tablet,extended release 24 hr #60 tabs Hospital Stay Data Consultations 04/11/25 15:42 ED Decision to Admit Stat 04/11/25 16:17 Consult Account Associate Routine 04/11/25 16:52 Consult Gastroenterology Routine 04/12/25 08:46 Consult Cardiology Routine 04/14/25 10:50 Consult Hematology Routine Diagnostic Imagining Performed Laboratory Results WBC 3.30 K/ul (4.8-10.8) L 04/16/25 06:31 RBC 4.17 M/uL (4.20-5.40) L 04/16/25 06:31 Hgb 12.9 g/dl (12.0-16.0) 04/16/25 06:31 POC Hgb 12.9 g/dl (12.0-16.0) 04/11/25 14:01 Hct 37.2 % (37.0-47.0) 04/16/25 06:31 POC Hct 38 % (37-47) 04/11/25 14:01 MCV 89.2 fL (80.0-100.0) 04/16/25 06:31 MCH 30.9 pg (25.0-34.0) 04/16/25 06: MCHC 34.7 g/dL (32.0-36.0) 04/16/25 06:31 RDW Std Deviation 48.6 fL (36.4-46.3) H 04/16/25 06:31 RDW Coeff of Arlene 15.1 % (11.5-14.5) H 04/16/25 06:31 Plt Count 49 K/uL (130-400) L 04/16/25 06:31 MPV 11.8 fL (9.4-12.4) 04/16/25 06:31 Immature Gran % (Auto) 0.0 % 04/16/25 06: Neut % (Auto) 86.4 % 04/16/25 06:31 Lymph % (Auto) 4.8 % 04/16/25 06:31 [place] % (Auto) 8.8 % 04/16/25 06:31 Eos % (Auto) 0.0 % 04/16/25 06:31 Baso % (Auto) 0.0 % 04/16/25 06:31 Neut # (Auto) 2.85 K/uL (1.40-6.50) 04/16/25 06:31 Lymph # (Auto) 0.16 K/uL (1.20-3.40) L 04/16/25 06:31 [place] # (Auto) 0.29 K/uL (0.11-0.59) 04/16/25 06:31 Eos # (Auto) 0.00 K/uL (0.00-0.50) 04/16/25 06:31 Baso # (Auto) 0.00 K/uL (0.00-0.20) 04/16/25 06:31 Immature Gran # (Auto) 0.00 K/uL (0.01-0.20) L 04/16/25 06:31 Toxic Vacuolation 1+ 04/14/25 06:36 Peripher Smr Path Cons 04/14/25 06:36 PT 12.2 Seconds (9.0-12.0) H 04/11/25 21:50 INR 1.1 (0.9-1.1) 04/11/25 21:50 APTT 28 Seconds (21-31) 04/11/25 21:50 PTT Ratio 1.0 04/11/25 21:50 Heparin Anti-Xa, Unfract < 0.10 IU/ml (0.3-0.7) L 04/15/25 07:33 VBG pH 7.30 (7.36-7.41) L 04/11/25 14:17 VBG pCO2 44 mmHg (38-50) 04/11/25 14:17 VBG pO2 38 mmHg 04/11/25 14:17 VBG HCO3 22 mmol/L 04/11/25 14:17 VBG O2 Saturation 61.3 % 04/11/25 14:17 VBG Base Excess -4.8 mEq/L 04/11/25 14:17 POC Sodium 134 mmol/L (135-144) L 04/11/25 14:01 Sodium 132 mmol/L (136-145) L 04/16/25 06:26 POC Potassium 4.4 mmol/L (3.3-5.0) 04/11/25 14:01 Potassium 3.6 mmol/L (3.5-5.1) 04/16/25 06:26 POC Chloride 98 mmol/L (101-112) L 04/11/25 14:01 Chloride 102 mmol/L (98-107) 04/16/25 06:26 Carbon Dioxide 24 mmol/L (21-32) 04/16/25 06:26 POC Total CO2 24 mmol/L (24-31) 04/11/25 14:01 Anion Gap 6 (3-11) 04/16/25 06:26 POC Anion Gap 17.0 mmol/L (16-25) 04/11/25 14:01 POC BUN 31 mg/dl (7-18) H 04/11/25 14:01 BUN 32 mg/dl (6-23) H 04/16/25 06:26 Creatinine 1.88 mg/dl (0.6-1.2) H 04/16/25 06:26 POC Creatinine 3.0 mg/dl (0.6-1.3) H 04/11/25 14:01 Est Cr Clr Drug Dosing 18.8 ml/min 04/16/25 06: eGFR 27.20 04/16/25 06: BUN/Creatinine Ratio 17.0 (10-20) 04/16/25 06:26 Glucose 161 mg/dl (70-99(Fasting)) H 04/16/25 06:26 POC Glucose 138 mg/dl (70-99) H 04/16/25 11:12 POC Glucose (other) 149 mg/dl (70-99) H 04/11/25 14:01 Estimat Average Glucose 117 mg/dl 04/12/25 03:48 Hemoglobin A1c 5.7 % (4.5-5.6) H 04/12/25 03:48 Lactate 1.3 mmol/L (0.4-2.0) 04/11/25 15:59 Calcium 8.4 mg/dl (8.6-10.3) L 04/16/25 06:26 POC Ioniz Calcium Tank 1.13 mmol/l (1.12-1.32) 04/11/25 14:01 Phosphorus 3.4 mg/dl (2.5-4.9) 04/16/25 06:26 Magnesium 2.4 mg/dl (1.7-2.4) 04/16/25 06:26 Iron 47 mcg/dl (35-150) 04/15/25 07:33 Transferrin 211 mg/dl (200-360) 04/15/25 07:33 Ferritin 58.4 ng/ml (8-388) 04/15/25 07:33 Total Bilirubin 1.1 mg/dl (0.2-1.0) H 04/12/25 03:48 AST 24 U/L (13-39) 04/12/25 03:48 ALT 10 U/L (7-52) 04/12/25 03:48 Alkaline Phosphatase 75 U/L (34-104) 04/12/25 03:48 Ammonia 39.0 umol/L (18-72) 04/11/25 14:09 Troponin I High Sens 53.5 pg/ml (0-14) H* D 04/12/25 03:48 Total Protein 6.0 gm/dl (6.0-8.3) 04/12/25 03:48 Albumin 2.9 gm/dl (3.4-5.0) L 04/12/25 03:48 Globulin 3.1 gm/dl (2.5-4.0) 04/12/25 03:48 Albumin/Globulin Ratio 0.9 (0.9-2) 04/12/25 03:48 Vitamin B12 > 1500 pg/ml (180-914) H 04/15/25 07:33 Folate > 22.30 ng/ml (>5.38) 04/15/25 07:33 Procalcitonin 0.05 ng/ml (0-0.5) 04/11/25 13:55 TSH 0.355 uIu/ml (0.300-4.500) 04/12/25 03:48 Random Cortisol 6.48 mcg/dl 04/11/25 13:55 Urine Color Yellow 04/11/25 14:19 Urine Appearance Clear (Clear) 04/11/25 14:19 Urine pH 6.0 (4.5-7.5) 04/11/25 14:19 Ur Specific [place] 1.016 (1.000-1.030) 04/11/25 14:19 Urine Protein Negative (Negative) 04/11/25 14:19 Urine Glucose (UA) Negative (Negative) 04/11/25 14:19 Urine Ketones Trace (Negative) H 04/11/25 14:19 Urine Blood Negative (Negative) 04/11/25 14:19 Urine Nitrite Negative (Negative) 04/11/25 14:19 Urine Bilirubin Negative (Negative) 04/11/25 14:19 Urine Urobilinogen Negative (Negative) 04/11/25 14:19 Ur Leukocyte Esterase Trace (Negative) H 04/11/25 14:19 Urine WBC (Auto) 0-5 /hpf (0-5) 04/11/25 14:19 Urine RBC (Auto) 0-2 /hpf (0-2) 04/11/25 14:19 U Hyaline Cast (Auto) >20 /lpf (0-2) H 04/11/25 14:19 U Epithel Cells (Auto) 0-2 /hpf (0-2) 04/11/25 14:19 Urine Bacteria (Auto) None Seen (None Seen) 04/11/25 14:19 Urine Comment 04/11/25 14:19 Nasal Screen MRSA (PCR) Negative (Negative) 04/11/25 17:38 Ethyl Alcohol mg/dL < 10.0 mg/dl (<10.0) 04/11/25 14:17 Impressions Chest X-Ray 04/11/25 13:56 EXAM: Radiograph of the Chest 1 View INDICATION: Neurologic deficit. TECHNIQUE: Frontal view of the chest. COMPARISON: 04/11/2025 FINDINGS: Lungs and pleural spaces: Shallow inspiration with mild atelectasis in the left lung base. No pleural effusion or pneumothorax. No consolidation or pulmonary edema. Heart: Stable enlarged cardiac shadow accentuated by technique. Mediastinum: Normal contour. Bones/joints: Degenerative changes in the spine and right shoulder. No acute osseous abnormality. Visualized portions of posterior proximal lumbar hardware grossly unremarkable. Soft tissues: No abnormality noted. No radiopaque foreign body noted. Upper abdomen: No abnormality noted. IMPRESSION: Minimal left base atelectasis. ACT 112: N/A Electronically signed by Anu Garcia 04-11-2025 4:[address] 04/11/25 13:56 EXAM: CT Head Without Intravenous Contrast INDICATION: Stroke like symptoms. Sepsis. TECHNIQUE: Axial computed tomography images of the head/brain without intravenous contrast. Sagittal and/or coronal reformats are provided. Sagittal and coronal reformatted images were created and reviewed. This CT exam was performed using one or more of the following dose reduction techniques: automated exposure control, adjustment of the mA and/or kV according to patient size, and/or use of iterative reconstruction technique. COMPARISON: 11/27/2024 FINDINGS: Limitations: None. Brain and extra-axial spaces: There is age appropriate cortical atrophy and chronic ischemic periventricular white matter hypodensity. No acute infarct, hemorrhage or mass noted. Bones/joints: No acute changes. Soft tissues: No significant abnormality noted. Vasculature: No acute abnormality noted. Sinuses: No layering fluid in the visualized portions of the paranasal sinuses. Mastoid air cells: No mastoid effusion. Orbits: No significant abnormality noted. IMPRESSION: Cerebral atrophy. No acute changes. ACT 112: N/A Electronically signed by Anu Garcia 04-11-2025 2:[address] 04/11/25 14:12 EXAM: CT Chest Abdomen and Pelvis Without Intravenous Contrast INDICATION: Sepsis. TECHNIQUE: Axial computed tomography images of the chest, abdomen and pelvis without intravenous contrast. Sagittal and coronal reformatted images were created and reviewed. This CT exam was performed using one or more of the following dose reduction techniques: automated exposure control, adjustment of the mA and/or kV according to patient size, and/or use of iterative reconstruction technique. COMPARISON: No relevant prior studies available. FINDINGS: Limitations: None. CHEST: Lungs and pleural spaces: No abnormality noted. No mass. No consolidation. No significant effusion. No pneumothorax. Heart: Marked cardiomegaly. Dense coronary calcification noted. There is mitral annular calcification. Mild aortic valve calcification. No pericardial effusion. Mediastinum: No abnormality noted. Thyroid: No abnormality noted. ABDOMEN: Liver: Cirrhotic liver. Gallbladder and bile ducts: Layering stones and sludge in the gallbladder. Dilated common bile duct measures 2.3 cm. No calcified ductal stone noted. Pancreas: No pancreatic mass, calcification, inflammation or ductal dilation noted. Spleen: No significant abnormality noted. Adrenals: No significant abnormality noted. 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 No hemorrhage. No further assessment required. The left kidney is small. No stones or hydronephrosis. Stomach and bowel: No distension or mucosal thickening. No inflammation noted. PELVIS: Appendix: Well seen and appears normal. Bladder: Urinary bladder is obscured by artifact from a right hip prosthesis. A catheter is in place but not assessed. Reproductive: No significant abnormality noted. CHEST, ABDOMEN and PELVIS: Intraperitoneal space: No free air. No significant fluid collection. Retroperitoneal space: No abnormality noted. No fluid collection. Bones/joints: The bones are markedly demineralized. There is posterior lumbosacral fusion. Marked chronic compression fracture of T12 with thoracolumbar kyphosis. Moderate degenerative changes left hip. Right hip normally located. Soft tissues: No significant abnormality noted. Vasculature: There is diffuse atherosclerosis of the aorta and branches. The portal vein is somewhat ill-defined. Patency cannot be assessed. No aortic aneurysm. Lymph nodes: No enlarged lymph nodes. IMPRESSION: 1. No inflammatory process noted in the chest, abdomen or pelvis. 2. Markedly dilated common bile duct of 2.3 cm with sludge and stones noted in the gallbladder. 3. Cirrhosis. 4. Slightly ill-defined portal vein. Thrombosis not excluded. #5 scarred left kidney. ACT 112: N/A Electronically signed by Anu Garcia 04-11-2025 3:02 PM Brain MRI 04/11/25 17:08 MRI of the brain performed without IV contrast History: Recent vision loss. Comparison: Noncontrast head CT correlate earlier same day. Technique: Routine multiplanar multisequence MR images of the brain without contrast. Findings: No restricted diffusion. Ventricles and sulci are within normal limits for patient's age. Major vascular flow voids are present. Brain parenchyma demonstrates few scattered small foci of increased T2 T2 flair signal. This is not uncommon for patient's age. No mass effect. Basal cisterns are patent. Midline structures are intact. Orbital soft tissues are within normal limits. Skull base and calvarial signal are within normal limits. Impression: Few nonspecific small foci of white matter signal alteration not uncommon for patient's age likely representing mild sequela from chronic microvascular disease. Otherwise no findings to indicate source of patient's symptoms. Electronically signed by Jared Chin 04-11-2025 9:06 PM Cholangiopancreatography MRI 04/11/25 18:52 Exam: Magnetic resonance cholangiopancreatography without contrast. History: Cirrhosis. Comparison:None. Findings: Diffusion weighted series demonstrates no discrete restricted diffusion. Motion limits portions of the evaluation. Macro microlobulated surface contour to the liver is noted. This is consistent with cirrhosis history. Heterogeneous increased fluid sensitive signal of the liver most marked along the right liver lobe without discrete mass or fluid collection. Layering densities within a moderately distended gallbladder consistent with likely gravel type stones. Common duct measures approximately 9 mm. No discrete choledocholithiasis. Prominent pancreatic duct. At the level of the pancreatic head there is a 3.1 cm diameter fluid signal mass. No appreciated surrounding fluid collections or discrete inflammatory changes. Pancreas appears to be at least mildly atrophied. Small amount of fluid within the perisplenic region. There is a partially included fluid signal process within the right abdomen which may represent free fluid. This is indeterminant and incompletely evaluated on this exam. Impression: 1. Significantly degraded exam secondary to patient motion with cirrhotic appearing liver. No discrete mass is identified. Infiltrative process cannot be excluded on the basis of this exam. 2. At least moderate distended gallbladder with layering likely gravel type stones. No discrete acute gallbladder disease. 3. Approximately 9 mm diameter common duct without appreciated choledocholithiasis. 4. Approximately 3 cm diameter pancreatic head cyst. Suspect benign process although other etiologies are not excluded. No additional pancreatic mass or ductal dilatation. 5. Incompletely evaluated fluid signal intensity process of the right lower abdominal quadrant. This is indeterminant. Recommend CT and/or ultrasound for further characterization. Electronically signed by Jared Chin 04-11-2025 9:23 PM Portal Vein US 04/11/25 19:59 Exam(s): US OTHER EXAM: US Duplex liver CLINICAL HISTORY: Reason for exam: eval for ? Thrombus portal vein. TECHNIQUE: Real-time duplex ultrasound scan of the liver integrating B-mode two- dimensional vascular structure, Doppler spectral analysis and color flow Doppler imaging. COMPARISON: No relevant prior studies available. FINDINGS: Exam is somewhat limited. The left hepatic vein, the right hepatic vein and the main hepatic vein are patent. The main portal vein demonstrates hepatopedal flow. No thrombus is visualized. The left and right portal veins are patent. The splenic vein is patent. The hepatic artery is patent. IMPRESSION: No thrombus is noted in the portal veins. Electronically signed by: Ollie Myers MD 04/12/25 00:03 AM Abdomen/Pelvis CT 04/14/25 18:26 CT ABDOMEN and PELVIS without INTRAVENOUS CONTRAST HISTORY: Abdominal pain TECHNIQUE: CT abdomen and pelvis without contrast. IV CONTRAST: None ENTERIC CONTRAST: None. COMPARISON: CT abdomen pelvis April 11, 2025 FINDINGS: LOWER CHEST: Cardiac enlargement. Coronary and valvular calcifications. Small pleural fluids are new from previous. Subjacent atelectasis LIVER: Limited assessment for a focal lesion identified in this noncontrast study. Advanced cirrhosis GALLBLADDER/BILIARY: Hyperdense luminal material is again, likely represents sludge and small stones. No appreciable pericholecystic inflammation. Redemonstrated marked dilatation of the common bile duct. SPLEEN: Splenomegaly. PANCREAS: Unremarkable. ADRENALS: Unremarkable. KIDNEYS: Severely atrophic kidneys. No stones or hydronephrosis identified. Small angiomyelolipoma of the right kidney PERITONEUM/RETROPERITONEUM. No significant ascites. No lymphadenopathy by size criteria. No aortic aneurysm. GASTROINTESTINAL: No obstruction. Mild distention of the stomach and proximal small bowel loops without a clear transition point identified. Also small bowel loops demonstrate inflammatory changes wall thickening. Normal appendix. Colonic diverticulosis without evidence of diverticulitis. REPRODUCTIVE: No specific pelvic mass identified however evaluation of the pelvis is limited due to streak artifact arising from the right hip arthroplasty hardware. BONES: No acute findings. Right hip arthroplasty. Lumbosacral spinal fusion and laminectomies with chronic appearing compression fractures of the lower thoracic spine vertebral bodies. Chronic deformity of the right superior and inferior pubic rami IMPRESSION: New small pleural fluids. Advanced cirrhosis with portal hypertension. No significant ascitic fluid. Mild distention of the stomach and the proximal small bowel loops without a clear transition point with inflammatory changes may suggest gastroenteritis. While etiology may be infectious/inflammatory, portal hypertensive enteropathy is a consideration. Electronically signed by Nelson Ordoñez 04-14-2025 7:27 PM 04/11/25 13:56 CT head/brain wo con Stat 04/11/25 14:12 CT abd pelvis wo con Stat CT chest diagnostic wo con Stat 04/11/25 17:08 MRI Brain [MR brain wo con] Stat 04/11/25 18:52 MR MRCP Urgent 04/11/25 19:59 US duplex portal hepatic veins Routine 04/14/25 18:26 CT Abd and Pelvis [CT abd pelvis wo con] Stat Discharge Instructions Given to Patient (Per Discharging Provider) PLEASE REFER TO YOUR NEW MEDICATION LIST AND FOLLOW INSTRUCTIONS CAREFULLY. YOUR NEW MEDICATIONS INCLUDE: METOPROLOL - for atrial fibrillation, heart rate control HYDROCORTISONE TAPER- steroid taper for possible adrenal insufficiency PLEASE CALL YOUR PRIMARY CARE PHYSICIAN OR RETURN TO THE ER IF WITH WORSENING OF SYMPTOMS, INCLUDING FEVER/CHILLS, WEAKNESS, NAUSEA/VOMITING, CHEST PAIN, SHORTNESS OF BREATH, ETC FOLLOW UP WITH PRIMARY CARE PHYSICIAN OUTLINED ABOVE. FOLLOW UP WITH INSOLE AND HEEL STIFFENER DR. GODFREY IN 2 WEEKS. Total Time Total Time Spent Total Time Spent (In Minutes): 45 minutes
[2025-04-16 12:18] VITALS: RESP 18; TEMP 97.2; O2SAT 99
[2025-04-16 14:27] VITALS: BP 107/74; PULSE 77
== END 2025-04-16 15:28 | disposition home health service (06) | DRG 871 ==
LOC: ED 13:37 → SUATTDRO 16:17 → 1E 16:17 → 2S 04-13 13:09

== ENCOUNTER 2025-04-21 06:13 | Inpatient (IN) ==
--- NOTE | 2025-04-21 06:35 | Emergency Department Note ---
Impression & Plan Shock, Acute hypotension, HUANG (nonalcoholic steatohepatitis), RANDY (acute kidney injury) ED Provider Note NAME: ANTONIA LAW AGE: 75 SEX: F : 1950 ARRIVES VIA: Walk-In INFORMANT: Patient ED PROVIDER(S): Paul Whipple DO CHIEF COMPLAINT: Weakness, shortness of breath HPI: Patient is a 75-year-old female with a past medical history of cirrhosis, thrombocytopenia, RANDY, new onset A-fib who was just recently started on metoprolol. She was seen by her PCP yesterday and they increased her metoprolol as her heart was racing. She has had increasing shortness of breath over the past 24 hours. She has had increased swelling in her legs and drainage. Denies any headache or change in vision. No chest pain. Does admit to an upset stomach. No dysuria urgency or frequency. No other exacerbating or remitting factors. ADDITIONAL HISTORY OBTAINED: Per HPI Chronic Medical/Social Conditions Affecting Care: Per HPI PAST MEDICAL HISTORY:See Below PAST SURGICAL HISTORY:See Below FAMILY HISTORY:See Below SOCIAL HISTORY:See Below HOME MEDICATIONS:See Below ALLERGIES:See Below VITALS:See Below PHYSICAL EXAMINATION: GENERAL: Sitting up in bed, alert, ill-appearing, disheveled EYE EXAM: normal conjunctiva. PERRL and EOM's grossly intact. OROPHARYNX: no exudate, no erythema, lips, buccal mucosa, and tongue normal and mucous membranes are moist NECK: supple, no nuchal rigidity, no adenopathy, non-tender LUNGS: Clear to auscultation. Normal chest wall mechanics HEART: no murmurs, S1 normal and S2 normal ABDOMEN: abdomen soft, non-tender, normo-active bowel sounds, no masses, no rebound or guarding. UPPER EXTREMITIES: upper extremities are grossly normal. LOWER EXTREMITIES: Pitting edema in the bilateral lower extremities with a rash proximally on the right medial thigh NEURO EXAM: Normal sensorium, cranial nerves II-XII grossly intact, normal speech, no gross weakness of arms, no gross weakness of legs. No drift. Finger to nose intact. Gross sensation intact. MEDICAL DECISION MAKING: Patient is a 75-year-old female who presents ER for shortness of breath and weakness over the past 24 hours. Per daughter she has been unable to get up and walk over this time and has become slightly more confused. Upon arrival systolic pressures were found to be around 50 which then dropped into the 40s on repeat. IVs were obtained and blood work. Patient was started on IV fluids and Levophed. Chart was reviewed. POC was obtained and showed creatinine 2.7 up from 1.6. Systolic blood pressure trended up to the 80s to 90s on Levophed. This was was continually titrated up. Initially I felt this to be consistent with heart failure due to exam and did notify the supervisor painting. Labs eventually resulted and chest x-ray was obtained. Chest x-ray showed a right lower lobe infiltrate. Labs showed no significant leukocytosis but a mild anemia 10.4 and thrombocytopenia consistent with previous. VBG with a pH of 7.3. BMP was fairly reassuring with exception of creatinine of 2.6 up from 1.7. Lactate was elevated at 4.3. Troponin was elevated at 250. Pro-Rudy was significantly elevated at 13. UA with 0-5 whites not suggesting infection. Patient was covered with Zosyn IV and added vancomycin. Patient was given 2 L of IV fluids. CTs were obtained of the chest abdomen pelvis which showed no infiltrate in the lungs but rather pulmonary edema. CT of the belly to question Pylo however UA has no white cells to suggest infection but Pro-Rudy was significantly elevated. Patient was appropriately covered with IV antibiotics. Was admitted to the supervisor painting for further management Consults/Care Managements Discussions: Per [facility] Triage Nursing notes reviewed. Limited review of prior medical records performed Vital Signs: reviewed and remarkable for hypotension Differential diagnosis: Differential diagnosis includes etiologies such as sepsis, UTI, pneumonia, metabolic, electrolyte abnormalities, cardiac sources, intracerebral event, toxicologic, neurological, as well as others were entertained. ER treatment provided: See below Diagnostics interpreted by me include EKG and cardiac monitoring as listed below: -Cardiac Monitoring: An order was placed for continuous cardiac monitoring. The monitor shows a rate of 120 with AFIB rhythm. -ECG: A-fib rate of 120 Left axis No PVCs Septal Q waves QTc 426 -Laboratory studies:Interpreted by me as stated above in MDM and shown below. Imaging studies: Xrays: As interpreted by me: Portable AP upright 1 view of the chest shows opacity in right lower lobe CTs show: CT of the chest abdomen pelvis as described above Procedures:none Critical Care: I have personally spent 125 minutes of critical care time in the direct management of this patient. This includes bedside care, interpretation of diagnostic studies, and testing, discussion with consultants, patient, and family members, and other required patient management activities. This 125 minutes is in excess of all separately billable procedures. Past Med/Surg History Problem List (Updated 04/21/25 @ 12:49 by Paul Whipple, DO) Shock Cirrhosis Thrombocytopenia HX New onset a-fib RANDY (acute kidney injury) Acute hypotension (Acute) Hypothermia (Acute) CKD (chronic kidney disease) stage 3, GFR 30-59 ml/min Atrial fibrillation with rapid ventricular response Septic shock (Acute) Encounter for pre-operative examination Hip fracture History of back surgery (Chronic) "x 2" History of total right knee replacement (Chronic) H/O repair of rotator cuff (Chronic) "L side" Lumbago (Chronic) HUANG (nonalcoholic steatohepatitis) (Chronic) Allergic rhinitis (Chronic) Medical History Varicose veins of both lower extremities HUANG (nonalcoholic steatohepatitis) Constipation HX Anxiety Lichen planus Thrombocytopenia HX History of anemia Diabetes mellitus type 2 in nonobese DVT (deep venous thrombosis) RIGHT LEG S/P HIP SX 2016 Dyslipidemia GERD (gastroesophageal reflux disease) HTN (hypertension) Surgical History History of cataract surgery Right Cataract surgery 06/11/22 History of endoscopy History of colonoscopy History of back surgery X3 (HAS HARDWARE) History of hip replacement PARTIAL RIGHT History of repair of rotator cuff LEFT History of tonsillectomy "1974" H/O hernia repair History of tubal ligation H/O breast biopsy On 11/08/15 10:28 Erin Mccabe wrote "01/29/2012 right core bx - BCC - ductal hyperplasia, columnar cell hyperplasia and fibrocystic change - [facility] B[facility] 01/29/2012" Family History Mother Family history of diabetes mellitus Other Family history non-contributory Social History Smoking Status: Former smoker Second Hand Exposure: No; Do You Dip or Chew Tobacco: No; Tobacco Cessation Education Requested by Patient: No Hx Alcohol Use: No Hx Substance Use: No Preferred Language: Swazi Communication Ability: Effective Electronics Tester Required: No Beliefs That Will Affect Care: None Current Living Situation: Family Other Information That Helps Us Care for You: No Feels Safe at Home: Yes Safety Concerns: Feels Safe At This Time Assistive Devices: Cane, Denture - Upper, Denture - Lower, Glasses and Wheelchair Allergies Allergies Allergy/AdvReac Type Severity Reaction Status Date / Time carrot Allergy Intermediate RAW Verified 04/11/25 14:52 CARROTS CAUSE INSIDE MOUTH TO GET ITCHY ON CHEEKS nut - unspecified Allergy Intermediate ERUPTION Verified 04/11/25 14:52 INSIDE MOUTH AND LIPS peanut Allergy Intermediate ERUPTION Verified 04/11/25 14:52 INSIDE MOUTH AND LIPS Sulfa (Sulfonamide Allergy Intermediate "SULFA Verified 04/11/25 14:52 Antibiotics) DRUGS": ITCHY & HIVES [place] ISLANDIC[place] AdvReac Intermediate BLEEDING Uncoded 04/11/25 14:52 Home Meds Home Medications Medication Instructions Recorded Confirmed ascorbic acid (vitamin C) 250 mg 500 mg PO QAM 06/23/18 04/21/25 tablet (Vitamin C) clobetasol 0.05 % topical gel 1 applic topical BID PRN LICHEN 06/23/18 04/21/25 PLANUS BREAK OUTS clonazepam 0.5 mg tablet (Klonopin) 0.5 tab PO TID PRN Anxiety 06/23/18 04/21/25 ferrous sulfate 325 mg (65 mg 325 mg PO WK 06/23/18 04/21/25 iron) tablet (iron) folic acid 1 mg tablet 1 mg PO QAM 06/23/18 04/21/25 furosemide 40 mg tablet (Lasix) 40 mg PO QAM 06/23/18 04/21/25 gabapentin 100 mg capsule 100 mg PO .BID-QAM & AFTERNOON 06/23/18 04/21/25 lactulose 10 gram/15 mL oral 30 ml PO TID 06/23/18 04/21/25 solution omeprazole 40 mg capsule,delayed 40 mg PO DAILYBB 06/23/18 04/21/25 release oxycodone 5 mg tablet 2.5 mg PO Q8H PRN Pain 06/23/18 04/21/25 potassium chloride 20 mEq 10 meq PO QDL 06/23/18 04/21/25 tablet,extended release(part/cryst) (Klor-Con M) rifaximin 550 mg tablet (Xifaxan) 550 mg PO BID 06/23/18 04/21/25 spironolactone 100 mg tablet See Rx Instructions .Route .COMPLEX 06/23/18 04/21/25 furosemide 40 mg tablet 20 mg PO HS 06/05/22 04/21/25 citalopram 40 mg tablet 20 mg PO DAILY PRN Anxiety 11/07/22 04/21/25 gabapentin 100 mg capsule 300 mg PO HS 11/07/22 04/21/25 nystatin 100,000 unit/gram topical 1 applic topical TID PRN SKIN RASH 07/15/23 04/21/25 powder (Nyamyc) ondansetron HCl 4 mg tablet 4 mg PO Q6H PRN NAUSEA/VOMITING 07/15/23 04/21/25 betamethasone dipropionate 0.05 % 1 applic topical BID PRN SKIN 04/11/25 04/21/25 topical cream IRRITATIONS cholecalciferol (vitamin D3) 25 25 mcg PO DAILY 04/11/25 04/21/25 mcg (1,000 unit) capsule (Vitamin D3) cyanocobalamin (vitamin B-12) 1,000 mcg PO Q OTHER DAY 04/11/25 04/21/25 1,000 mcg tablet (Vitamin B-12) diclofenac sodium 2 % topical 0 ml topical DIRECTED PRN Pain 04/11/25 04/21/25 solution in packet (Pennsaid) empagliflozin 10 mg tablet 10 mg PO QAM 04/11/25 04/21/25 (Jardiance) levothyroxine 50 mcg tablet 50 mcg PO DAILYBB 04/11/25 04/21/25 lidocaine 4 % topical patch 1 patch topical DAILY 04/11/25 04/21/25 montelukast 10 mg tablet 10 mg PO HS 04/11/25 04/21/25 (Singulair) koevazae-jjl-geuvda 5 mg-zeaxanth 1 cap PO DAILY 04/11/25 04/21/25 1 mg-bilberry 7.5 mg-herbal capsule (Macular Health Formula) tacrolimus 0.1 % topical ointment 1 applic topical BID PRN SKIN 04/11/25 04/21/25 IRRITATIONS tizanidine 4 mg tablet 1 mg PO HS 04/11/25 04/21/25 triamcinolone acetonide 0.1 % 1 applic topical BID PRN FLARE UPS 04/11/25 04/21/25 topical ointment vitamin E 268 mg (400 unit) capsule 268 mg PO DAILY 04/11/25 04/21/25 metoprolol succinate 50 mg 100 mg PO BID 04/21/25 04/21/25 tablet,extended release 24 hr Previous Rx's Medication Instructions Recorded hydrocortisone 10 mg tablet 10 mg PO UD #10 tabs 04/16/25 Results & Data (ED) Vital Signs Vital Signs - 24 hr 04/21/25 06:17 04/21/25 06:35 04/21/25 06:37 Temperature 37.2 C Temperature Source Oral Pulse Rate 92 H 118 H Pulse Rate [Right Finger] 110 H Pulse Rate from SpO2 Sensor Pulse Rhythm Regular Respiratory Rate 19 28 H Respiratory Effort / Characteristics Non-Labored Respiratory Depth Normal Blood Pressure 70/47 L Blood Pressure [Left Arm] 69/46 L Blood Pressure Mean 54 Blood Pressure Mean [Left Arm] 53 Pulse Oximetry 100 Oxygen Delivery Method Room Air Sepsis Recent Fever Within 48 Hours No Sepsis New/Unexplained Change in Mental Status No Sepsis Action Taken by Nursing No Action Required 04/21/25 06:41 04/21/25 06:43 04/21/25 06:45 Temperature Temperature Source Pulse Rate 114 H 100 H Pulse Rate [Right Finger] Pulse Rate from SpO2 Sensor Pulse Rhythm Respiratory Rate 24 24 Respiratory Effort / Characteristics Respiratory Depth Blood Pressure 72/53 L 88/63 L Blood Pressure [Left Arm] Blood Pressure Mean 57 68 Blood Pressure Mean [Left Arm] Pulse Oximetry 91 99 95 Oxygen Delivery Method Room Air Sepsis Recent Fever Within 48 Hours Sepsis New/Unexplained Change in Mental Status Sepsis Action Taken by Nursing 04/21/25 06:50 04/21/25 06:55 04/21/25 06:57 Temperature Temperature Source Pulse Rate 92 H 91 H Pulse Rate [Right Finger] Pulse Rate from SpO2 Sensor 101 H Pulse Rhythm Respiratory Rate 24 26 H Respiratory Effort / Characteristics Respiratory Depth Blood Pressure 89/58 L 85/66 L Blood Pressure [Left Arm] Blood Pressure Mean 61 69 Blood Pressure Mean [Left Arm] Pulse Oximetry 98 96 Oxygen Delivery Method Sepsis Recent Fever Within 48 Hours Sepsis New/Unexplained Change in Mental Status Sepsis Action Taken by Nursing 04/21/25 07:02 04/21/25 07:03 04/21/25 07:05 Temperature 36.5 C Temperature Source Pulse Rate 95 H Pulse Rate [Right Finger] Pulse Rate from SpO2 Sensor 123 H Pulse Rhythm Respiratory Rate 20 Respiratory Effort / Characteristics Respiratory Depth Blood Pressure 88/47 L 77/48 L Blood Pressure [Left Arm] Blood Pressure Mean 56 54 Blood Pressure Mean [Left Arm] Pulse Oximetry 97 Oxygen Delivery Method Sepsis Recent Fever Within 48 Hours Sepsis New/Unexplained Change in Mental Status Sepsis Action Taken by Nursing 04/21/25 07:09 04/21/25 07:10 04/21/25 07:10 Temperature 36.8 C Temperature Source Pulse Rate 80 Pulse Rate [Right Finger] Pulse Rate from SpO2 Sensor 98 H Pulse Rhythm Respiratory Rate 17 Respiratory Effort / Characteristics Respiratory Depth Blood Pressure 77/54 L 77/54 L Blood Pressure [Left Arm] Blood Pressure Mean 58 58 Blood Pressure Mean [Left Arm] Pulse Oximetry 93 Oxygen Delivery Method Sepsis Recent Fever Within 48 Hours Sepsis New/Unexplained Change in Mental Status Sepsis Action Taken by Nursing 04/21/25 07:16 04/21/25 07:16 04/21/25 07:18 Temperature 37.4 C Temperature Source Pulse Rate 115 H Pulse Rate [Right Finger] Pulse Rate from SpO2 Sensor 110 H Pulse Rhythm Respiratory Rate 21 Respiratory Effort / Characteristics Respiratory Depth Blood Pressure 62/52 L 62/52 L Blood Pressure [Left Arm] Blood Pressure Mean 56 56 Blood Pressure Mean [Left Arm] Pulse Oximetry 96 Oxygen Delivery Method Sepsis Recent Fever Within 48 Hours Sepsis New/Unexplained Change in Mental Status Sepsis Action Taken by Nursing 04/21/25 07:21 04/21/25 07:21 04/21/25 07:21 Temperature 37.5 C Temperature Source Pulse Rate 97 H Pulse Rate [Right Finger] Pulse Rate from SpO2 Sensor 140 H Pulse Rhythm Respiratory Rate 19 Respiratory Effort / Characteristics Respiratory Depth Blood Pressure 51/27 L 51/27 L Blood Pressure [Left Arm] Blood Pressure Mean 35 35 Blood Pressure Mean [Left Arm] Pulse Oximetry Oxygen Delivery Method Sepsis Recent Fever Within 48 Hours Sepsis New/Unexplained Change in Mental Status Sepsis Action Taken by Nursing 04/21/25 07:24 04/21/25 07:31 04/21/25 07:31 Temperature Temperature Source Pulse Rate Pulse Rate [Right Finger] Pulse Rate from SpO2 Sensor Pulse Rhythm Respiratory Rate Respiratory Effort / Characteristics Respiratory Depth Blood Pressure 120/61 76/53 L 76/53 L Blood Pressure [Left Arm] Blood Pressure Mean 68 57 57 Blood Pressure Mean [Left Arm] Pulse Oximetry Oxygen Delivery Method Sepsis Recent Fever Within 48 Hours Sepsis New/Unexplained Change in Mental Status Sepsis Action Taken by Nursing 04/21/25 07:33 04/21/25 07:36 04/21/25 07:36 Temperature 37.6 C H Temperature Source Pulse Rate 72 Pulse Rate [Right Finger] Pulse Rate from SpO2 Sensor 116 H Pulse Rhythm Respiratory Rate 21 Respiratory Effort / Characteristics Respiratory Depth Blood Pressure 79/65 L 79/65 L Blood Pressure [Left Arm] Blood Pressure Mean 70 70 Blood Pressure Mean [Left Arm] Pulse Oximetry 98 Oxygen Delivery Method Sepsis Recent Fever Within 48 Hours Sepsis New/Unexplained Change in Mental Status Sepsis Action Taken by Nursing 04/21/25 07:36 04/21/25 07:36 04/21/25 07:36 Temperature 37.7 C H Temperature Source Pulse Rate 109 H Pulse Rate [Right Finger] Pulse Rate from SpO2 Sensor Pulse Rhythm Respiratory Rate 13 Respiratory Effort / Characteristics Respiratory Depth Blood Pressure 79/65 L 79/65 L Blood Pressure [Left Arm] Blood Pressure Mean 70 70 Blood Pressure Mean [Left Arm] Pulse Oximetry 98 Oxygen Delivery Method Sepsis Recent Fever Within 48 Hours Sepsis New/Unexplained Change in Mental Status Sepsis Action Taken by Nursing 04/21/25 07:39 04/21/25 07:40 04/21/25 07:46 Temperature 37.7 C H Temperature Source Pulse Rate 102 H Pulse Rate [Right Finger] Pulse Rate from SpO2 Sensor Pulse Rhythm Respiratory Rate 18 Respiratory Effort / Characteristics Respiratory Depth Blood Pressure 98/75 L 97/64 L Blood Pressure [Left Arm] Blood Pressure Mean 81 68 Blood Pressure Mean [Left Arm] Pulse Oximetry Oxygen Delivery Method Sepsis Recent Fever Within 48 Hours Sepsis New/Unexplained Change in Mental Status Sepsis Action Taken by Nursing 04/21/25 07:48 04/21/25 07:51 04/21/25 07:51 Temperature 37.7 C H Temperature Source Pulse Rate 101 H Pulse Rate [Right Finger] Pulse Rate from SpO2 Sensor Pulse Rhythm Respiratory Rate 17 Respiratory Effort / Characteristics Respiratory Depth Blood Pressure 75/36 L 75/36 L Blood Pressure [Left Arm] Blood Pressure Mean 43 43 Blood Pressure Mean [Left Arm] Pulse Oximetry 93 Oxygen Delivery Method Sepsis Recent Fever Within 48 Hours Sepsis New/Unexplained Change in Mental Status Sepsis Action Taken by Nursing 04/21/25 07:54 04/21/25 08:00 04/21/25 08:00 Temperature 37.7 C H Temperature Source Pulse Rate 112 H Pulse Rate [Right Finger] Pulse Rate from SpO2 Sensor Pulse Rhythm Respiratory Rate 24 Respiratory Effort / Characteristics Respiratory Depth Blood Pressure 88/58 L 88/58 L Blood Pressure [Left Arm] Blood Pressure Mean 62 62 Blood Pressure Mean [Left Arm] Pulse Oximetry Oxygen Delivery Method Sepsis Recent Fever Within 48 Hours Sepsis New/Unexplained Change in Mental Status Sepsis Action Taken by Nursing 04/21/25 08:05 04/21/25 08:05 04/21/25 08:05 Temperature Temperature Source Pulse Rate Pulse Rate [Right Finger] Pulse Rate from SpO2 Sensor Pulse Rhythm Respiratory Rate Respiratory Effort / Characteristics Respiratory Depth Blood Pressure 74/47 L 74/47 L 74/47 L Blood Pressure [Left Arm] Blood Pressure Mean 49 49 49 Blood Pressure Mean [Left Arm] Pulse Oximetry Oxygen Delivery Method Sepsis Recent Fever Within 48 Hours Sepsis New/Unexplained Change in Mental Status Sepsis Action Taken by Nursing 04/21/25 08:15 04/21/25 08:15 04/21/25 08:21 Temperature 37.6 C H Temperature Source Pulse Rate 99 H Pulse Rate [Right Finger] Pulse Rate from SpO2 Sensor 87 Pulse Rhythm Respiratory Rate 24 Respiratory Effort / Characteristics Respiratory Depth Blood Pressure 131/77 117/75 Blood Pressure [Left Arm] Blood Pressure Mean 89 76 Blood Pressure Mean [Left Arm] Pulse Oximetry 100 Oxygen Delivery Method Sepsis Recent Fever Within 48 Hours Sepsis New/Unexplained Change in Mental Status Sepsis Action Taken by Nursing 04/21/25 08:21 Temperature 37.6 C H Temperature Source Pulse Rate 91 H Pulse Rate [Right Finger] Pulse Rate from SpO2 Sensor 101 H Pulse Rhythm Respiratory Rate 21 Respiratory Effort / Characteristics Respiratory Depth Blood Pressure Blood Pressure [Left Arm] Blood Pressure Mean Blood Pressure Mean [Left Arm] Pulse Oximetry 99 Oxygen Delivery Method Sepsis Recent Fever Within 48 Hours Sepsis New/Unexplained Change in Mental Status Sepsis Action Taken by Nursing Laboratory Data 04/21/25 06:30 04/21/25 06:30 Lab Results 04/21/25 04/21/25 04/21/25 Range/Units 06:30 06:38 06:55 WBC 10.57 (4.8-10.8) K/ul RBC 3.42 L (4.20-5.40) M/uL Hgb 10.4 L (12.0-16.0) g/dl POC Hgb 11.2 L (12.0-16.0) g/dl Hct 32.5 L (37.0-47.0) % POC Hct 33 L (37-47) % MCV 95.0 (80.0-100.0) fL MCH 30.4 (25.0-34.0) pg MCHC 32.0 (32.0-36.0) g/dL RDW Std Deviation 56.7 H (36.4-46.3) fL RDW Coeff of Arlene 17.2 H (11.5-14.5) % Plt Count 74 L (130-400) K/uL MPV 11.8 (9.4-12.4) fL Immature Gran % (Auto) 0.2 % Neut % (Auto) 86.8 % Lymph % (Auto) 1.9 % [place] % (Auto) 8.7 % Eos % (Auto) 2.1 % Baso % (Auto) 0.3 % Neut # (Auto) 9.18 H (1.40-6.50) K/uL Lymph # (Auto) 0.20 L (1.20-3.40) K/uL [place] # (Auto) 0.92 H (0.11-0.59) K/uL Eos # (Auto) 0.22 (0.00-0.50) K/uL Baso # (Auto) 0.03 (0.00-0.20) K/uL Immature Gran # (Auto) 0.02 (0.01-0.20) K/uL Absolute Nucleated RBC 0.09 (0.00-0.12) K/uL Nucleated RBC % (auto) 0.9 % Toxic Vacuolation 3+ Echinocytes 1+ PT 12.7 H (9.0-12.0) Seconds INR 1.2 H (0.9-1.1) APTT 25 (21-31) Seconds PTT Ratio 0.9 VBG pH (7.36-7.41) VBG pCO2 (38-50) mmHg VBG pO2 mmHg VBG HCO3 mmol/L VBG O2 Saturation % VBG Base Excess mEq/L POC Sodium 132 L (135-144) mmol/L Sodium 132 L (136-145) mmol/L POC Potassium 4.5 (3.3-5.0) mmol/L Potassium 4.6 (3.5-5.1) mmol/L POC Chloride 98 L (101-112) mmol/L Chloride 97 L (98-107) mmol/L Carbon Dioxide 24 (21-32) mmol/L POC Total CO2 21 L (24-31) mmol/L Anion Gap 11 (3-11) POC Anion Gap 18.0 (16-25) mmol/L POC BUN 25 H (7-18) mg/dl BUN 29 H (6-23) mg/dl Creatinine 2.64 H (0.6-1.2) mg/dl POC Creatinine 2.7 H (0.6-1.3) mg/dl Est Cr Clr Drug Dosing 13.6 ml/min eGFR 18.10 BUN/Creatinine Ratio 11.0 (10-20) Glucose 102 H (70-99(Fasting)) mg/dl POC Glucose (other) 103 H (70-99) mg/dl Lactate 4.3 H* (0.4-2.0) mmol/L Calcium 8.3 L (8.6-10.3) mg/dl POC Ioniz Calcium Tank 1.07 L (1.12-1.32) mmol/l Magnesium 1.9 (1.7-2.4) mg/dl Total Bilirubin 1.3 H (0.2-1.0) mg/dl Direct Bilirubin TNP AST 36 (13-39) U/L ALT 39 (7-52) U/L Alkaline Phosphatase 65 (34-104) U/L Troponin I High Sens 244.6 H* (0-14) pg/ml B-Natriuretic Peptide 1293 H (0-100) pg/ml Total Protein 5.5 L (6.0-8.3) gm/dl Albumin 3.1 L (3.4-5.0) gm/dl Procalcitonin 13.30 H (0-0.5) ng/ml Urine Color Yellow Urine Appearance Cloudy A (Clear) Urine pH 5.0 (4.5-7.5) Ur Specific [place] 1.014 (1.000-1.030) Urine Protein Negative (Negative) Urine Glucose (UA) 2+ H (Negative) Urine Ketones Negative (Negative) Urine Blood Negative (Negative) Urine Nitrite Negative (Negative) Urine Bilirubin Negative (Negative) Urine Urobilinogen Negative (Negative) Ur Leukocyte Esterase Trace H (Negative) Urine WBC (Auto) 0-5 (0-5) /hpf Urine RBC (Auto) 3-5 H (0-2) /hpf U Hyaline Cast (Auto) 0-2 (0-2) /lpf U Epithel Cells (Auto) 3-5 H (0-2) /hpf Urine Bacteria (Auto) 3+ H (None Seen) Calcium Oxalate Crystal Present A (None Prsent) Hyaline Casts P (None Presnt) /lpf Urine Comment 04/21/25 04/21/25 04/21/25 Range/Units 07:23 07:24 08:23 WBC (4.8-10.8) K/ul RBC (4.20-5.40) M/uL Hgb (12.0-16.0) g/dl POC Hgb (12.0-16.0) g/dl Hct (37.0-47.0) % POC Hct (37-47) % MCV (80.0-100.0) fL MCH (25.0-34.0) pg MCHC (32.0-36.0) g/dL RDW Std Deviation (36.4-46.3) fL RDW Coeff of Arlene (11.5-14.5) % Plt Count (130-400) K/uL MPV (9.4-12.4) fL Immature Gran % (Auto) % Neut % (Auto) % Lymph % (Auto) % [place] % (Auto) % Eos % (Auto) % Baso % (Auto) % Neut # (Auto) (1.40-6.50) K/uL Lymph # (Auto) (1.20-3.40) K/uL [place] # (Auto) (0.11-0.59) K/uL Eos # (Auto) (0.00-0.50) K/uL Baso # (Auto) (0.00-0.20) K/uL Immature Gran # (Auto) (0.01-0.20) K/uL Absolute Nucleated RBC (0.00-0.12) K/uL Nucleated RBC % (auto) % Toxic Vacuolation Echinocytes PT (9.0-12.0) Seconds INR (0.9-1.1) APTT (21-31) Seconds PTT Ratio VBG pH 7.30 L (7.36-7.41) VBG pCO2 44 (38-50) mmHg VBG pO2 < 20 mmHg VBG HCO3 22 mmol/L VBG O2 Saturation < 60.0 % VBG Base Excess -4.8 mEq/L POC Sodium (135-144) mmol/L Sodium (136-145) mmol/L POC Potassium (3.3-5.0) mmol/L Potassium (3.5-5.1) mmol/L POC Chloride (101-112) mmol/L Chloride (98-107) mmol/L Carbon Dioxide (21-32) mmol/L POC Total CO2 (24-31) mmol/L Anion Gap (3-11) POC Anion Gap (16-25) mmol/L POC BUN (7-18) mg/dl BUN (6-23) mg/dl Creatinine (0.6-1.2) mg/dl POC Creatinine (0.6-1.3) mg/dl Est Cr Clr Drug Dosing ml/min eGFR BUN/Creatinine Ratio (10-20) Glucose (70-99(Fasting)) mg/dl POC Glucose (other) (70-99) mg/dl Lactate (0.4-2.0) mmol/L Calcium (8.6-10.3) mg/dl POC Ioniz Calcium Tank (1.12-1.32) mmol/l Magnesium (1.7-2.4) mg/dl Total Bilirubin (0.2-1.0) mg/dl Direct Bilirubin 0.4 H AST (13-39) U/L ALT (7-52) U/L Alkaline Phosphatase (34-104) U/L Troponin I High Sens 328.3 H* D (0-14) pg/ml B-Natriuretic Peptide (0-100) pg/ml Total Protein (6.0-8.3) gm/dl Albumin (3.4-5.0) gm/dl Procalcitonin (0-0.5) ng/ml Urine Color Urine Appearance (Clear) Urine pH (4.5-7.5) Ur Specific [place] (1.000-1.030) Urine Protein (Negative) Urine Glucose (UA) (Negative) Urine Ketones (Negative) Urine Blood (Negative) Urine Nitrite (Negative) Urine Bilirubin (Negative) Urine Urobilinogen (Negative) Ur Leukocyte Esterase (Negative) Urine WBC (Auto) (0-5) /hpf Urine RBC (Auto) (0-2) /hpf U Hyaline Cast (Auto) (0-2) /lpf U Epithel Cells (Auto) (0-2) /hpf Urine Bacteria (Auto) (None Seen) Calcium Oxalate Crystal (None Prsent) Hyaline Casts (None Presnt) /lpf Urine Comment 04/21/25 Range/Units 08:27 WBC (4.8-10.8) K/ul RBC (4.20-5.40) M/uL Hgb (12.0-16.0) g/dl POC Hgb (12.0-16.0) g/dl Hct (37.0-47.0) % POC Hct (37-47) % MCV (80.0-100.0) fL MCH (25.0-34.0) pg MCHC (32.0-36.0) g/dL RDW Std Deviation (36.4-46.3) fL RDW Coeff of Arlene (11.5-14.5) % Plt Count (130-400) K/uL MPV (9.4-12.4) fL Immature Gran % (Auto) % Neut % (Auto) % Lymph % (Auto) % [place] % (Auto) % Eos % (Auto) % Baso % (Auto) % Neut # (Auto) (1.40-6.50) K/uL Lymph # (Auto) (1.20-3.40) K/uL [place] # (Auto) (0.11-0.59) K/uL Eos # (Auto) (0.00-0.50) K/uL Baso # (Auto) (0.00-0.20) K/uL Immature Gran # (Auto) (0.01-0.20) K/uL Absolute Nucleated RBC (0.00-0.12) K/uL Nucleated RBC % (auto) % Toxic Vacuolation Echinocytes PT (9.0-12.0) Seconds INR (0.9-1.1) APTT (21-31) Seconds PTT Ratio VBG pH (7.36-7.41) VBG pCO2 (38-50) mmHg VBG pO2 mmHg VBG HCO3 mmol/L VBG O2 Saturation % VBG Base Excess mEq/L POC Sodium (135-144) mmol/L Sodium (136-145) mmol/L POC Potassium (3.3-5.0) mmol/L Potassium (3.5-5.1) mmol/L POC Chloride (101-112) mmol/L Chloride (98-107) mmol/L Carbon Dioxide (21-32) mmol/L POC Total CO2 (24-31) mmol/L Anion Gap (3-11) POC Anion Gap (16-25) mmol/L POC BUN (7-18) mg/dl BUN (6-23) mg/dl Creatinine (0.6-1.2) mg/dl POC Creatinine (0.6-1.3) mg/dl Est Cr Clr Drug Dosing ml/min eGFR BUN/Creatinine Ratio (10-20) Glucose (70-99(Fasting)) mg/dl POC Glucose (other) (70-99) mg/dl Lactate 3.5 H* (0.4-2.0) mmol/L Calcium (8.6-10.3) mg/dl POC Ioniz Calcium Tank (1.12-1.32) mmol/l Magnesium (1.7-2.4) mg/dl Total Bilirubin (0.2-1.0) mg/dl Direct Bilirubin AST (13-39) U/L ALT (7-52) U/L Alkaline Phosphatase (34-104) U/L Troponin I High Sens (0-14) pg/ml B-Natriuretic Peptide (0-100) pg/ml Total Protein (6.0-8.3) gm/dl Albumin (3.4-5.0) gm/dl Procalcitonin (0-0.5) ng/ml Urine Color Urine Appearance (Clear) Urine pH (4.5-7.5) Ur Specific [place] (1.000-1.030) Urine Protein (Negative) Urine Glucose (UA) (Negative) Urine Ketones (Negative) Urine Blood (Negative) Urine Nitrite (Negative) Urine Bilirubin (Negative) Urine Urobilinogen (Negative) Ur Leukocyte Esterase (Negative) Urine WBC (Auto) (0-5) /hpf Urine RBC (Auto) (0-2) /hpf U Hyaline Cast (Auto) (0-2) /lpf U Epithel Cells (Auto) (0-2) /hpf Urine Bacteria (Auto) (None Seen) Calcium Oxalate Crystal (None Prsent) Hyaline Casts (None Presnt) /lpf Urine Comment Administered Medications Gabapentin (Gabapentin 100 Mg Cap) 100 mg PO TID [facility] Stop: 05/21/25 10:59 Last Admin: 04/21/25 11:12 Dose: 100 mg Documented By: ISSAC Norepinephrine Bitartrate (Levophed/D5w) 4 mg in 250 mls @ 78.39 mls/hr IV .Q3H12M [facility]; Protocol Stop: 05/21/25 06:44 Last Admin: 04/21/25 12:23 Dose: 0.24 mcg/kg/min, 72.4 mls/hr Documented By: ISSAC Co-signed By: MTP Titration: 04/21/25 12:23 Dose: Infused Documented By: ISSAC Co-signed By: MTP Titration: 04/21/25 11:48 Dose: 0.26 mcg/kg/min, 78.4 mls/hr Documented By: ISSAC Co-signed By: MTP Titration: 04/21/25 11:30 Dose: 0.28 mcg/kg/min, 84.4 mls/hr Documented By: ISSAC Co-signed By: MTP Titration: 04/21/25 11:00 Dose: 0.3 mcg/kg/min, 90.5 mls/hr Documented By: ISSAC Co-signed By: MTP Titration: 04/21/25 10:45 Dose: 0.32 mcg/kg/min, 96.5 mls/hr Documented By: ISSAC Co-signed By: MTP Admin: 04/21/25 10:16 Dose: 0.34 mcg/kg/min, 102.5 mls/hr Documented By: ISSAC Co-signed By: CB Titration: 04/21/25 09:52 Dose: Infused Documented By: ISSAC Co-signed By: CB Titration: 04/21/25 08:08 Dose: 0.34 mcg/kg/min, 102.5 mls/hr Documented By: ELIANEW Co-signed By: ML Titration: 04/21/25 07:53 Dose: 0.32 mcg/kg/min, 96.5 mls/hr Documented By: ELIANEW Co-signed By: [facility] Titration: 04/21/25 07:39 Dose: 0.3 mcg/kg/min, 90.5 mls/hr Documented By: NDW Co-signed By: CAP Titration: 04/21/25 07:36 Dose: 0.26 mcg/kg/min, 78.4 mls/hr Documented By: NDW Co-signed By: CAP Titration: 04/21/25 07:32 Dose: 0.24 mcg/kg/min, 72.4 mls/hr Documented By: NDW Co-signed By: ES Titration: 04/21/25 07:27 Dose: 0.2 mcg/kg/min, 60.3 mls/hr Documented By: NDW Co-signed By: ES Titration: 04/21/25 07:21 Dose: 0.18 mcg/kg/min, 54.3 mls/hr Documented By: NDW Co-signed By: HMS Titration: 04/21/25 07:17 Dose: 0.16 mcg/kg/min, 48.2 mls/hr Documented By: NDW Co-signed By: ES Admin: 04/21/25 07:08 Dose: 0.14 mcg/kg/min, 42.2 mls/hr Documented By: NDW Co-signed By: Titration: 04/21/25 07:08 Dose: Infused Documented By: NDW Co-signed By: Titration: 04/21/25 07:06 Dose: 0.14 mcg/kg/min, 42.2 mls/hr Documented By: NDW Co-signed By: Titration: 04/21/25 06:53 Dose: 0.12 mcg/kg/min, 36.2 mls/hr Documented By: RENATO Co-signed By: DELICIA Titration: 04/21/25 06:42 Dose: 0.1 mcg/kg/min, 30.2 mls/hr Documented By: RENATO Co-signed By: DELICIA Admin: 04/21/25 06:37 Dose: 0.05 mcg/kg/min, 15.1 mls/hr Documented By: RENATO Co-signed By: DELICIA Miscellaneous (Icu Protocol For Hyperglycemia) 1 each N/A ACHS HUSAM Stop: 04/23/25 11:29 Last Admin: 04/21/25 11:46 Dose: 1 each Documented By: ISSAC Rifaximin (Rifaximin 550 Mg Tablet) 550 mg PO BID HUSAM Stop: 05/21/25 10:29 Last Admin: 04/21/25 11:12 Dose: 550 mg Documented By: ISSAC Discontinued Medications Hydrocortisone Sodium Succinate (Hydrocortisone Sod Succinate 100 Mg/2 Ml Vial) 50 mg IV NOW STA Stop: 04/21/25 10:25 Last Admin: 04/21/25 11:12 Dose: 50 mg Documented By: ISSAC Ceftriaxone Sodium (Rocephin) 2,000 mg in 50 mls @ 100 mls/hr IV NOW STA Stop: 04/21/25 07:00 Last Admin: 04/21/25 06:54 Dose: Not Given Documented By: RENATO Sodium Chloride (Nss) 500 mls @ 999 mls/hr IV .Q31M ONE Stop: 04/21/25 07:02 Last Infusion: 04/21/25 10:07 Dose: Infused Documented By: Infusion: 04/21/25 07:00 Dose: 0 mls/hr Documented By: Admin: 04/21/25 06:40 Dose: 999 mls/hr Documented By: ALEXIS Piperacillin Sod/Tazobactam Sod (Zosyn) 4.5 gm in 100 mls @ 200 mls/hr IV NOW ONE; Protocol Stop: 04/21/25 07:10 Last Infusion: 04/21/25 08:02 Dose: Infused Documented By: Admin: 04/21/25 07:29 Dose: 200 mls/hr Documented By: TAYLOR Sodium Chloride (Nss) 1,000 mls @ 999 mls/hr IV .Q1H1M ONE Stop: 04/21/25 07:45 Last Infusion: 04/21/25 10:06 Dose: Infused Documented By: Admin: 04/21/25 07:43 Dose: 999 mls/hr Documented By: TAYLOR Daptomycin 575 mg/ Syringe 11.5 mls @ 5.75 mls/min IV Q24H HUSAM; Protocol Stop: 04/23/25 07:29 Last Admin: 04/21/25 10:06 Dose: Not Given Documented By: ISSAC Vancomycin HCl 1,500 mg/ (Sodium Chloride) 530 mls @ 200 mls/hr IV NOW ONE Stop: 04/21/25 10:12 Last Infusion: 04/21/25 11:01 Dose: Infused Documented By: Admin: 04/21/25 08:02 Dose: 200 mls/hr Documented By: TAYLOR Sodium Chloride (Nss) 1,000 mls @ 999 mls/hr IV .Q1H1M ONE Stop: 04/21/25 09:08 Last Infusion: 04/21/25 10:07 Dose: Infused Documented By: Admin: 04/21/25 08:19 Dose: 999 mls/hr Documented By: TAYLOR Bumetanide 2 mg/ Syringe 8 mls @ 4 mls/min IV ONE ONE Stop: 04/21/25 09:51 Last Admin: 04/21/25 11:11 Dose: 4 mls/min Documented By: ISSAC Miscellaneous (Stat Iv Infusion Titration Per Protocol) 1 each N/A NOW STA Stop: 04/21/25 06:46 Last Admin: 04/21/25 06:54 Dose: Not Given Documented By: RENATO Norepinephrine Bitartrate (Norepinephrine/D5w 4 Mg/250 Ml) Confirm Administered Dose 4 mg IV .STK-MED ONE Stop: 04/21/25 06:37 Last Admin: 04/21/25 06:53 Dose: Not Given Documented By: RENATO Imaging Data Radiologist's Impression: Chest X-Ray 04/21/25 06:30 EXAM: XR chest 1V portable CLINICAL HISTORY: Sepsis TECHNIQUE: Xray of the chest was performed in AP projection. COMPARISON: 04/11/2025 FINDINGS: Pulmonary Parenchyma: Prominent bronchovascular markings. Right basal opacity. Otherwise, no evidence of consolidation, collapse, or focal opacities. No pulmonary nodules are identified. No evidence of pleural effusion or pleural thickening. Heart and Mediastinum: Cardiomegaly. No mediastinal widening or masses. No hilar or mediastinal lymphadenopathy. Bony Thorax: Thoracic scoliosis to the right with evidence of lower thoracic/ lumbar fixation Bilateral acromioclavicular joint arthropathy Soft Tissues: Soft tissues overlying the chest wall are unremarkable. IMPRESSION: 1. Right basal opacity, which could be airspace disease. New finding. Clinical correlation needed. 2. Prominent bronchovascular markings. Stable 3. Cardiomegaly. Stable Electronically signed by Deni Turner 04-21-2025 07:29 AM Venous Doppler Study 04/21/25 07:17 ULTRASOUND BILATERAL LOWER EXTREMITY VENOUS CLINICAL HISTORY: Lower extremity edema. COMPARISON STUDY: No priors. TECHNIQUE: Portable real-time, grayscale, and color Doppler sonography of the deep veins of the right and left lower extremity was performed from the inguinal crease to the calf. Compression and augmentation were utilized. FINDINGS: There is no sonographic evidence of deep venous thrombosis identified in the right or left lower extremity. The common femoral, superficial femoral, and popliteal veins are patent and normally compressible bilaterally. The greater saphenous vein and the profunda femoris vein at the junction with the common femoral vein are clear in both legs. The visualized calf veins are patent bilaterally. Soft tissue edema is noted in the calves. IMPRESSION: There is no sonographic evidence of deep venous thrombosis identified in the right or left lower extremity. ACT 112: Negative or not required by law. Electronically signed by: Anshu Saul M.D. 04/21/2025 8:26 AM Abdomen/Pelvis CT 04/21/25 08:06 CT SCAN OF THE ABDOMEN AND PELVIS WITHOUT IV CONTRAST CLINICAL HISTORY: Sepsis COMPARISON STUDY: Abdominal CT dated 04/14/2025. Abdominal MRI dated 04/11/2025. TECHNIQUE: CT scan of the abdomen and pelvis is performed from the lung bases to the proximal femora. Images are reviewed in the axial, sagittal, and coronal planes. IV contrast was not administered for this examination. Note that the examination was performed in suboptimal fashion without oral and IV contrast. A dose lowering technique was utilized adhering to the principles of ALARA. CT DOSE: 1953.95 mGy.cm FINDINGS: Lung bases: The heart is top normal in size noting trace pericardial effusion. The mitral annulus and coronary arteries are densely calcified. There are small right and trace left pleural effusions with dependent consolidation. Liver: The unenhanced liver is cirrhotic in morphology and heterogeneous in attenuation. There is hypertrophy of the left lobe and caudate and nodularity of the surface contour. There is no intrahepatic biliary ductal dilatation. Gallbladder: The gallbladder is filled with hyperdense stone. Spleen: The spleen is mildly enlarged measuring 13.4 cm in length. Pancreas: The unenhanced pancreas is mildly atrophic. A 2.7 cm ovoid cystic lesion is again seen in the pancreatic head on image #120. Adrenal glands: Unremarkable. Kidneys: The unenhanced kidneys are atrophic and without hydronephrosis. There are no renal calculi identified. There is no evidence of contour deforming renal mass lesion. 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 There is asymmetric left-sided perinephric stranding which is new from 04/14/2025. Abdominal vasculature: There is advanced atherosclerotic calcification and mild ectasia of the abdominal aorta. Bowel:. There is no bowel obstruction. There is mild sigmoid diverticulosis without CT evidence of acute diverticulitis. The appendix is normal as visualized. Peritoneum: There is a small volume of abdominopelvic ascites. No intraperitoneal free air is identified Lymphadenopathy: None. Pelvic viscera: Evaluation of the pelvis is degraded by streak artifact from a right hip arthroplasty. The bladder is decompressed around a Muniz catheter and not well evaluated. Foci of intraluminal gas are likely related to instrumentation. The uterus and adnexa are normal as imaged. Skeletal structures: The skeletal structures are osteopenic. No lytic or blastic lesions are seen. Spondylotic and extensive postsurgical change is noted throughout the lumbar spine. There are numerous chronic thoracolumbar compression deformities. A right hip arthroplasty is in place. Arthritic change is seen in the left hip. There is chronic posttraumatic deformity of the right pubic ring. Soft tissues: There is body wall edema. IMPRESSION: 1. There is asymmetric left-sided perinephric stranding and fluid. This is new from 04/14/2025. Correlate with clinical findings and urinalysis. 2. The liver is cirrhotic in morphology and heterogeneous attenuation. 3. Mild splenomegaly and a small volume of abdominopelvic ascites indicates portal hypertension. Ascites is new from 04/14/2025. 4. Small right and trace left pleural effusions with dependent consolidation. 5. Cholelithiasis. 6. A cystic lesion of the pancreatic head is unchanged from recent prior studies. 7. Additional findings as above. ACT 112: Negative or not required by law. Electronically signed by: Anshu Saul M.D. 04/21/2025 9:[address] 04/21/25 08:06 CT chest diagnostic wo con CT DOSE: 1955 CLINICAL HISTORY: sepsis. TECHNIQUE: Multiaxial CT images of the chest were performed without contrast. A dose lowering technique was utilized adhering to the principles of ALARA. COMPARISON STUDY: 04/11/2025 FINDINGS: There are mild airway secretions. There are diffuse coronary artery calcifications. There are mitral valvular calcifications. There is moderate cardiomegaly with prominence of the pulmonary vasculature consistent with CHF. There are bilateral pleural effusions, moderate on the right and trace on the left. There is moderate compressive atelectasis at the right lower lobe and mild atelectasis at the left lung base. There is mild septal thickening and mild pulmonary ground glass opacity consistent with mild pulmonary edema. There is no pneumothorax. No enlarged adenopathy. No pericardial effusion. Visualized liver is diffusely nodular consistent with cirrhosis. There are severe degenerative changes at the right shoulder. There is stable height loss at multiple thoracic vertebral bodies. There is osteopenia. No acute osseous finding seen. IMPRESSION: 1. CHF with bilateral pleural effusions, right greater than left. 2. Otherwise as described. ACT 112: Negative or not required by law. Electronically signed by: Simon Jimenez M.D. 04/21/2025 8:56 AM Discharge Plan Visit Data Chief Complaint: Edema To Extremity Stated Complaint: FLUID FROM LEG RED AND HOT ED Provider: Paul Whipple Discharge Problem: Septic shock Patient Disposition: Admitted As Inpatient Condition: Critical Discharge Instructions Interventions: ED Discharge Assessment Last Done: 04/21/25 09:25
[2025-04-21] MEDS: NOREPINEPHRINE/D5W 4 MG/250 ML PLCT IV SCH (06:37)
[2025-04-21] MEDS: SODIUM CHLORIDE 0.9% 500 ML IV ONE (06:40)
[2025-04-21] MEDS: NOREPINEPHRINE/D5W 4 MG/250 ML IV ONE (06:53)
[2025-04-21] MEDS: STAT IV Infusion **Titration per Protocol STA (06:54)
[2025-04-21] MEDS: cefTRIAXone SODIUM 2,000 MG/50 ML BAG IV STA (06:54)
[2025-04-21] MEDS: SODIUM CHLORIDE 0.9% 1,000 ML IV ONE ×2 (07:10→08:19)
[2025-04-21 07:11] LABS: Hematocrit (blood only) 32.5 % (37.0-47.0); Hemoglobin 10.4 g/dl (12.0-16.0); Mean Corpuscular Hemoglobin 30.4 pg (25.0-34.0); Mean Corpuscular Volume 95.0 fL (80.0-100.0); Platelet Count 74 K/uL (130-400); RDW Standard Deviation 56.7 fL (36.4-46.3); Red Blood Count 3.42 M/uL (4.20-5.40)
[2025-04-21 07:25] LABS: Alanine Aminotransferase 39 U/L (7-52); Alkaline Phosphatase 65 U/L (34-104); Anion Gap 11 (3-11); Bilirubin,Total 1.3 mg/dl (0.2-1.0); Blood Urea Nitrogen 29 mg/dl (6-23); Calcium 8.3 mg/dl (8.6-10.3); Carbon Dioxide 24 mmol/L (21-32); Chloride 97 mmol/L (98-107); Creatinine Clr Calc Pharmacy 13.6 ml/min; Glucose 102 mg/dl (70-99(Fasting)); INR 1.2 (0.9-1.1); Magnesium 1.9 mg/dl (1.7-2.4); Partial Thromboplastin Time 25 Seconds (21-31); Potassium 4.6 mmol/L (3.5-5.1); Prothrombin Time 12.7 Seconds (9.0-12.0); Sodium 132 mmol/L (136-145); Total Protein 5.5 gm/dl (6.0-8.3)
[2025-04-21 07:27] LABS: Base Excess VBG -4.8 mEq/L; HCO3 VBG 22 mmol/L; Oxygen Saturation VBG < 60.0 %; PCO2 VBG 44 mmHg (38-50); PO2 VBG < 20 mmHg; pH VBG 7.30 (7.36-7.41)
[2025-04-21] MEDS: PIPERACILLIN/TAZOBACTAM 4.5 GM/100 ML BAG IV ONE (07:29)
--- NOTE | 2025-04-21 07:30 | XRay Report ---
EXAM: XR chest 1V portable CLINICAL HISTORY: Sepsis TECHNIQUE: Xray of the chest was performed in AP projection. COMPARISON: 04/11/2025 FINDINGS: Pulmonary Parenchyma: Prominent bronchovascular markings. Right basal opacity. Otherwise, no evidence of consolidation, collapse, or focal opacities. No pulmonary nodules are identified. No evidence of pleural effusion or pleural thickening. Heart and Mediastinum: Cardiomegaly. No mediastinal widening or masses. No hilar or mediastinal lymphadenopathy. Bony Thorax: Thoracic scoliosis to the right with evidence of lower thoracic/ lumbar fixation Bilateral acromioclavicular joint arthropathy Soft Tissues: Soft tissues overlying the chest wall are unremarkable. IMPRESSION: 1. Right basal opacity, which could be airspace disease. New finding. Clinical correlation needed. 2. Prominent bronchovascular markings. Stable 3. Cardiomegaly. Stable Electronically signed by Deni Turner 04-21-2025 07:29 AM
[2025-04-21] MEDS ORDERED: VANCOMYCIN CONSULT ACTIVE PRN (07:34)
[2025-04-21 07:39] LABS: Appearance Urine Cloudy (Clear); Glucose Urine UA 2+ (Negative); WBC Urine Automated 0-5 /hpf (0-5)
[2025-04-21 07:40] LABS: White Blood Count 10.57 K/ul (4.8-10.8)
[2025-04-21 07:49] LABS: Bacteria Urine Automated 3+ (None Seen)
[2025-04-21 07:50] LABS: Cast Urine Automated 0-2 /lpf (0-2)
[2025-04-21] MEDS: VANCOMYCIN HCL 1,500 MG in SODIUM CHLORIDE 0.9% 500 ML IV ONE (08:02)
[2025-04-21 08:03] LABS: Immature Granulocytes # (auto) 0.02 K/uL (0.01-0.20); Immature Granulocytes % (auto) 0.2 %; Toxic Vacuolation 3+
[2025-04-21] MEDS ORDERED: STAT IV Infusion **Titration per Protocol STA (08:03)
[2025-04-21] MEDS ORDERED: HYDROCORTISONE SOD SUCCINATE 100 MG/2 ML VIAL IV STA (08:08)
--- NOTE | 2025-04-21 08:28 | Ultrasound Report ---
ULTRASOUND BILATERAL LOWER EXTREMITY VENOUS CLINICAL HISTORY: Lower extremity edema. COMPARISON STUDY: No priors. TECHNIQUE: Portable real-time, grayscale, and color Doppler sonography of the deep veins of the right and left lower extremity was performed from the inguinal crease to the calf. Compression and augment ation were utilized. FINDINGS: There is no sonographic evidence of deep venous thrombosis identified in the right or left lower extremity. The common femoral, superficial femoral, and popliteal veins are patent and normally compressible bilaterally. The greater saphenous vein and the profunda femoris vein at the junction w ith the common femoral vein are clear in both legs. The visualized calf veins are patent bilaterally. Soft tissue edema is noted in the calves. IMPRESSION: There is no sonographic evidence of deep venous thrombosis identified in the right or lef t lower extremity. ACT 112: Negative or not required by law. Electronically signed by: Anshu Saul M.D. 04/21/2025 8:26 AM
--- NOTE | 2025-04-21 08:31 | History & Physical Report ---
Date of Service April 21, 2025 Assessment & Plan (1) Septic shock: (2) Atrial fibrillation with rapid ventricular response: (3) CKD (chronic kidney disease) stage 3, GFR 30-59 ml/min: (4) Cirrhosis: (5) Thrombocytopenia: (6) Acute hypotension: Plan 75-year-old man with history significant for HUANG cirrhosis with ascites thrombocytopenia, DM type II, CKD 3, hypertension, hypothyroidism,, and hypothyroidism, recently hospitalized from 04/12/2025 to 04/16/2025 for septic shock, new A-fib with RVR who presents today complaining of worsening generalized weakness. Exam notable for tachycardia, irregularly irregular rhythm, hypertension, lower extremity erythema and tenderness , diminished breath sounds Labs notable for WBC 10.5, hemoglobin of10.4 was 12.9 last week, Platelet 74 (was 49 last week), Na 132, Cr 2.69 (was 1.88 on 04/16), lactate 4.3,TBil 1.3, Trop 244, BNP 1293, Procal 13, Chest x-ray reviewed,, noted Pulmonary congestion, right lung opacity Septic shock Possible etiologies include RLE cellulitis, pneumonia Atrial Fibrillation with RVR RANDY on CKD 3 multiple Hyponatremia Anemia Thrombocytopenia Cirrhosis Continue Vanco and Zosyn Follow-up blood cultures, urine culture and Infectious workup Follow-up CT chest abdomen pelvis 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 Code status- Full. Discussed with patient and daughter at bedside I spent a total of 80 minutes coordinating, documenting and providing care for this patient excluding time spent in performance of separately billed services History of Present Illness Chief Complaint: Worsening generalized weakness. Primary Care Provider: Deion Joy MD 75-year-old man with history significant for HUANG cirrhosis with ascites thrombocytopenia, DM type II, CKD 3, hypertension, hypothyroidism,, and hypothyroidism, recently hospitalized from 04/12/2025 to 04/16/2025 for septic shock, new A-fib with RVR who presents today complaining of worsening generalized weakness. Patient reports that since discharge last week she has been increasingly fatigue. She also reports that she had abdominal distention on discharge which is not improved with diuretics but has been having worsening leg swelling over the past few days associated with pain worse on the right side. Denies any cough, shortness of breath, chest pain or palpitation. Denied fevers or chills Denied constipation. Reported some hemorrhoidal bleeding over the weekend that has resolved. Denied ur reported that she saw her PCP yesterday and was told thatinary symptoms Her heart rate was elevated and her metoprolol was increased to 100 mg twice a day she started yesterday. Reports worsening weakness today necessitating presentation to the ER. Patient denies alcohol use, smoking or illicit drug use. Ambulates with a walker since recent discharge. Allergies Allergy/AdvReac Type Severity Reaction Status Date / Time carrot Allergy Intermediate RAW Verified 04/11/25 14:52 CARROTS CAUSE INSIDE MOUTH TO GET ITCHY ON CHEEKS nut - unspecified Allergy Intermediate ERUPTION Verified 04/11/25 14:52 INSIDE MOUTH AND LIPS peanut Allergy Intermediate ERUPTION Verified 04/11/25 14:52 INSIDE MOUTH AND LIPS Sulfa (Sulfonamide Allergy Intermediate "SULFA Verified 04/11/25 14:52 Antibiotics) DRUGS": ITCHY & HIVES [place]ICH[place] ISLANDIC[place] AdvReac Intermediate BLEEDING Uncoded 04/11/25 14:52 Home Medications Medication Instructions Recorded Confirmed Type ascorbic acid (vitamin C) 250 mg 500 mg PO QAM 06/23/18 04/21/25 History tablet (Vitamin C) clobetasol 0.05 % topical gel 1 applic topical BID PRN LICHEN 06/23/18 04/21/25 History PLANUS BREAK OUTS clonazepam 0.5 mg tablet (Klonopin) 0.5 tab PO TID PRN Anxiety 06/23/18 04/21/25 History ferrous sulfate 325 mg (65 mg 325 mg PO WK 06/23/18 04/21/25 History iron) tablet (iron) folic acid 1 mg tablet 1 mg PO QAM 06/23/18 04/21/25 History furosemide 40 mg tablet (Lasix) 40 mg PO QAM 06/23/18 04/21/25 History gabapentin 100 mg capsule 100 mg PO .BID-QAM & AFTERNOON 06/23/18 04/21/25 History lactulose 10 gram/15 mL oral 30 ml PO TID 06/23/18 04/21/25 History solution omeprazole 40 mg capsule,delayed 40 mg PO DAILYBB 06/23/18 04/21/25 History release oxycodone 5 mg tablet 2.5 mg PO Q8H PRN Pain 06/23/18 04/21/25 History potassium chloride 20 mEq 10 meq PO QDL 06/23/18 04/21/25 History tablet,extended release(part/cryst) (Klor-Con M) rifaximin 550 mg tablet (Xifaxan) 550 mg PO BID 06/23/18 04/21/25 History spironolactone 100 mg tablet See Rx Instructions .Route .COMPLEX 06/23/18 04/21/25 History furosemide 40 mg tablet 20 mg PO HS 06/05/22 04/21/25 History citalopram 40 mg tablet 20 mg PO DAILY PRN Anxiety 11/07/22 04/21/25 History gabapentin 100 mg capsule 300 mg PO HS 11/07/22 04/21/25 History nystatin 100,000 unit/gram topical 1 applic topical TID PRN SKIN RASH 07/15/23 04/21/25 History powder (Nyamyc) ondansetron HCl 4 mg tablet 4 mg PO Q6H PRN NAUSEA/VOMITING 07/15/23 04/21/25 History betamethasone dipropionate 0.05 % 1 applic topical BID PRN SKIN 04/11/25 04/21/25 History topical cream IRRITATIONS cholecalciferol (vitamin D3) 25 25 mcg PO DAILY 04/11/25 04/21/25 History mcg (1,000 unit) capsule (Vitamin D3) cyanocobalamin (vitamin B-12) 1,000 mcg PO Q OTHER DAY 04/11/25 04/21/25 History 1,000 mcg tablet (Vitamin B-12) diclofenac sodium 2 % topical 0 ml topical DIRECTED PRN Pain 04/11/25 04/21/25 History solution in packet (Pennsaid) empagliflozin 10 mg tablet 10 mg PO QAM 04/11/25 04/21/25 History (Jardiance) levothyroxine 50 mcg tablet 50 mcg PO DAILYBB 04/11/25 04/21/25 History lidocaine 4 % topical patch 1 patch topical DAILY 04/11/25 04/21/25 History montelukast 10 mg tablet 10 mg PO HS 04/11/25 04/21/25 History (Singulair) vbrnybla-nng-zbqwpo 5 mg-zeaxanth 1 cap PO DAILY 04/11/25 04/21/25 History 1 mg-bilberry 7.5 mg-herbal capsule ([facility] Formula) tacrolimus 0.1 % topical ointment 1 applic topical BID PRN SKIN 04/11/25 04/21/25 History IRRITATIONS tizanidine 4 mg tablet 1 mg PO HS 04/11/25 04/21/25 History triamcinolone acetonide 0.1 % 1 applic topical BID PRN FLARE UPS 04/11/25 04/21/25 History topical ointment vitamin E 268 mg (400 unit) capsule 268 mg PO DAILY 04/11/25 04/21/25 History hydrocortisone 10 mg tablet 10 mg PO UD #10 tabs 04/16/25 04/21/25 Rx metoprolol succinate 50 mg 100 mg PO BID 04/21/25 04/21/25 History tablet,extended release 24 hr Past Med/Surg History Problem List (Updated 04/15/25 @ 11:08 by Cherise Shetty PA-C) Cirrhosis Thrombocytopenia HX New onset a-fib RANDY (acute kidney injury) Acute hypotension (Acute) Hypothermia (Acute) CKD (chronic kidney disease) stage 3, GFR 30-59 ml/min Atrial fibrillation with rapid ventricular response Septic shock (Acute) Encounter for pre-operative examination Hip fracture History of back surgery (Chronic) "x 2" History of total right knee replacement (Chronic) H/O repair of rotator cuff (Chronic) "L side" Lumbago (Chronic) HUANG (nonalcoholic steatohepatitis) (Chronic) Allergic rhinitis (Chronic) Medical History Varicose veins of both lower extremities HUANG (nonalcoholic steatohepatitis) Constipation HX Anxiety Lichen planus Thrombocytopenia HX History of anemia Diabetes mellitus type 2 in nonobese DVT (deep venous thrombosis) RIGHT LEG S/P HIP SX 2016 Dyslipidemia GERD (gastroesophageal reflux disease) HTN (hypertension) Surgical History History of cataract surgery Right Cataract surgery 06/11/22 History of endoscopy History of colonoscopy History of back surgery X3 (HAS HARDWARE) History of hip replacement PARTIAL RIGHT History of repair of rotator cuff LEFT History of tonsillectomy "1974" H/O hernia repair History of tubal ligation H/O breast biopsy On 11/08/15 10:28 Erin Mccabe wrote "01/29/2012 right core bx - BCC - ductal hyperplasia, columnar cell hyperplasia and fibrocystic change - [facility] BCC 01/29/2012" Family History Mother Family history of diabetes mellitus Other Family history non-contributory Social History Smoking Status: Never smoker Second Hand Exposure: No; Do You Dip or Chew Tobacco: No; Hx Alcohol Use: No Hx Substance Use: No Preferred Language: Malaysian Communication Ability: Effective Supplier Quality Specialist Required: No Beliefs That Will Affect Care: None Current Living Situation: Alone Feels Safe at Home: Yes Assistive Devices: Cane Review of Systems Review of Systems: All systems reviewed & are unremarkable except as noted in HPI & below Physical Exam Constitutional: + ill appearing; no acute distress Eyes: PERRL, conjunctivae normal, anicteric sclerae ENMT: external ear and nose normal, oropharynx normal Respiratory: On nasal cannula, not in respiratory distress, diminished breath sounds lung base Cardiovascular: Rate/Rhythm: + tachycardic and + irregularly irregular Gastrointestinal (Abdomen): normal bowel sounds, soft, nontender, no hepatospl enomegaly Musculoskeletal: +Pedal edema Stasis changes. Tenderness and erythema in medial right thigh Neurologic: PERRL, EOMI, accommodation nl, no face palsy, no dysarthria Psychiatric: A+Ox3, euthymic affect Results & Data Results & Data Vital Signs (Past 12 Hours) Vital Signs Temp Pulse Pulse Resp BP BP Pulse Ox 04/21/25 07:40 98/75 L 04/21/25 07:39 37.7 C H 102 H 18 04/21/25 07:36 37.7 C H 109 H 13 98 04/21/25 07:36 79/65 L 04/21/25 07:36 79/65 L 04/21/25 07:36 79/65 L 04/21/25 07:36 79/65 L 04/21/25 07:33 37.6 C H 72 21 98 04/21/25 07:31 76/53 L 04/21/25 07:31 76/53 L 04/21/25 07:24 120/61 04/21/25 07:21 37.5 C 97 H 19 04/21/25 07:21 51/27 L 04/21/25 07:21 51/27 L 04/21/25 07:18 37.4 C 115 H 21 96 04/21/25 07:16 62/52 L 04/21/25 07:16 62/52 L 04/21/25 07:10 77/54 L 04/21/25 07:10 77/54 L 04/21/25 07:09 36.8 C 80 17 93 04/21/25 07:05 77/48 L 04/21/25 07:03 36.5 C 95 H 20 97 04/21/25 07:02 88/47 L 04/21/25 06:57 91 H 26 H 96 04/21/25 06:55 85/66 L 04/21/25 06:50 92 H 24 89/58 L 98 04/21/25 06:45 100 H 24 88/63 L 95 04/21/25 06:43 114 H 24 72/53 L 99 04/21/25 06:41 91 04/21/25 06:37 110 H 28 H 69/46 L 04/21/25 06:35 118 H 04/21/25 06:17 37.2 C 92 H 19 70/47 L 100 O2 Del Method 04/21/25 07:40 04/21/25 07:39 04/21/25 07:36 04/21/25 07:36 04/21/25 07:36 04/21/25 07:36 04/21/25 07:36 04/21/25 07:33 04/21/25 07:31 04/21/25 07:31 04/21/25 07:24 04/21/25 07:21 04/21/25 07:21 04/21/25 07:21 04/21/25 07:18 04/21/25 07:16 04/21/25 07:16 04/21/25 07:10 04/21/25 07:10 04/21/25 07:09 04/21/25 07:05 04/21/25 07:03 04/21/25 07:02 04/21/25 06:57 04/21/25 06:55 04/21/25 06:50 04/21/25 06:45 04/21/25 06:43 04/21/25 06:41 Room Air 04/21/25 06:37 04/21/25 06:35 04/21/25 06:17 Room Air Laboratory Results Abnormal lab results 04/21/25 04/21/25 04/21/25 Range/Units 06:30 06:38 06:55 RBC 3.42 L (4.20-5.40) M/uL Hgb 10.4 L (12.0-16.0) g/dl POC Hgb 11.2 L (12.0-16.0) g/dl Hct 32.5 L (37.0-47.0) % POC Hct 33 L (37-47) % RDW Std Deviation 56.7 H (36.4-46.3) fL RDW Coeff of Arlene 17.2 H (11.5-14.5) % Plt Count 74 L (130-400) K/uL Neut # (Auto) 9.18 H (1.40-6.50) K/uL Lymph # (Auto) 0.20 L (1.20-3.40) K/uL [place] # (Auto) 0.92 H (0.11-0.59) K/uL PT 12.7 H (9.0-12.0) Seconds INR 1.2 H (0.9-1.1) VBG pH (7.36-7.41) POC Sodium 132 L (135-144) mmol/L Sodium 132 L (136-145) mmol/L POC Chloride 98 L (101-112) mmol/L Chloride 97 L (98-107) mmol/L POC Total CO2 21 L (24-31) mmol/L POC BUN 25 H (7-18) mg/dl BUN 29 H (6-23) mg/dl Creatinine 2.64 H (0.6-1.2) mg/dl POC Creatinine 2.7 H (0.6-1.3) mg/dl Glucose 102 H (70-99(Fasting)) mg/dl POC Glucose (other) 103 H (70-99) mg/dl Lactate 4.3 H* (0.4-2.0) mmol/L Calcium 8.3 L (8.6-10.3) mg/dl POC Ioniz Calcium Tank 1.07 L (1.12-1.32) mmol/l Total Bilirubin 1.3 H (0.2-1.0) mg/dl Direct Bilirubin (0-0.2) mg/dl Troponin I High Sens 244.6 H* (0-14) pg/ml B-Natriuretic Peptide 1293 H (0-100) pg/ml Total Protein 5.5 L (6.0-8.3) gm/dl Albumin 3.1 L (3.4-5.0) gm/dl Procalcitonin 13.30 H (0-0.5) ng/ml Urine Appearance Cloudy A (Clear) Urine Glucose (UA) 2+ H (Negative) Ur Leukocyte Esterase Trace H (Negative) Urine RBC (Auto) 3-5 H (0-2) /hpf U Epithel Cells (Auto) 3-5 H (0-2) /hpf Urine Bacteria (Auto) 3+ H (None Seen) Calcium Oxalate Crystal Present A (None Prsent) 04/21/25 04/21/25 04/21/25 Range/Units 07:23 07:24 08:27 RBC (4.20-5.40) M/uL Hgb (12.0-16.0) g/dl POC Hgb (12.0-16.0) g/dl Hct (37.0-47.0) % POC Hct (37-47) % RDW Std Deviation (36.4-46.3) fL RDW Coeff of Arlene (11.5-14.5) % Plt Count (130-400) K/uL Neut # (Auto) (1.40-6.50) K/uL Lymph # (Auto) (1.20-3.40) K/uL [place] # (Auto) (0.11-0.59) K/uL PT (9.0-12.0) Seconds INR (0.9-1.1) VBG pH 7.30 L (7.36-7.41) POC Sodium (135-144) mmol/L Sodium (136-145) mmol/L POC Chloride (101-112) mmol/L Chloride (98-107) mmol/L POC Total CO2 (24-31) mmol/L POC BUN (7-18) mg/dl BUN (6-23) mg/dl Creatinine (0.6-1.2) mg/dl POC Creatinine (0.6-1.3) mg/dl Glucose (70-99(Fasting)) mg/dl POC Glucose (other) (70-99) mg/dl Lactate 3.5 H* (0.4-2.0) mmol/L Calcium (8.6-10.3) mg/dl POC Ioniz Calcium Tank (1.12-1.32) mmol/l Total Bilirubin (0.2-1.0) mg/dl Direct Bilirubin 0.4 H (0-0.2) mg/dl Troponin I High Sens (0-14) pg/ml B-Natriuretic Peptide (0-100) pg/ml Total Protein (6.0-8.3) gm/dl Albumin (3.4-5.0) gm/dl Procalcitonin (0-0.5) ng/ml Urine Appearance (Clear) Urine Glucose (UA) (Negative) Ur Leukocyte Esterase (Negative) Urine RBC (Auto) (0-2) /hpf U Epithel Cells (Auto) (0-2) /hpf Urine Bacteria (Auto) (None Seen) Calcium Oxalate Crystal (None Prsent) Diagnostic Findings XR chest 1V portable CLINICAL HISTORY: Sepsis TECHNIQUE: Xray of the chest was performed in AP projection. COMPARISON: 04/11/2025 FINDINGS: Pulmonary Parenchyma: Prominent bronchovascular markings. Right basal opacity. Otherwise, no evidence of consolidation, collapse, or focal opacities. No pulmonary nodules are identified. No evidence of pleural effusion or pleural thickening. Heart and Mediastinum: Cardiomegaly. No mediastinal widening or masses. No hilar or mediastinal lymphadenopathy. Bony Thorax: Thoracic scoliosis to the right with evidence of lower thoracic/ lumbar fixation Bilateral acromioclavicular joint arthropathy Soft Tissues: Soft tissues overlying the chest wall are unremarkable. IMPRESSION: 1. Right basal opacity, which could be airspace disease. New finding. Clinical correlation needed. 2. Prominent bronchovascular markings. Stable 3. Cardiomegaly. Stable Code Status & VTE Plan Code Status Full code (4) Cirrhosis Hepatic cirrhosis type: other cirrhosis Qualified Code(s): K74.69 - Other cirrhosis of liver
--- NOTE | 2025-04-21 08:57 | CT Scan Report ---
CT chest diagnostic wo con CT DOSE: 1955 CLINICAL HISTORY: sepsis. TECHNIQUE: Multiaxial CT images of the chest were performed without contrast. A dose lowering techni que was utilized adhering to the principles of ALARA. COMPARISON STUDY: 04/11/2025 FINDINGS: There are mild airway secretions. There are diffuse coronary artery calcifications. There a re mitral valvular calcifications. There is moderate cardiomegaly with prominence of the pulmonary va sculature consistent with CHF. There are bilateral pleural effusions, moderate on the right and trace on the left. There is moderate compressive atelectasis at the right lower lobe and mild atelectasis at the left lung base. There is mild septal thickening and mild pulmonary ground glass opacity consis tent with mild pulmonary edema. There is no pneumothorax. No enlarged adenopathy. No pericardial effu alexander. Visualized liver is diffusely nodular consistent with cirrhosis. There are severe degenerative changes at the right shoulder. There is stable height loss at multiple thoracic vertebral bodies. The re is osteopenia. No acute osseous finding seen. IMPRESSION: 1. CHF with bilateral pleural effusions, right greater than left. 2. Otherwise as described. ACT 112: Negative or not required by law. Electronically signed by: Simon Jimenez M.D. 04/21/2025 8:56 AM
--- NOTE | 2025-04-21 09:20 | CT Scan Report ---
CT SCAN OF THE ABDOMEN AND PELVIS WITHOUT IV CONTRAST CLINICAL HISTORY: Sepsis COMPARISON STUDY: Abdominal CT dated 04/14/2025. Abdominal MRI dated 04/11/2025. TECHNIQUE: CT scan of the abdomen and pelvis is performed from the lung bases to the proximal femora. Images are reviewed in the axial, sagittal, and coronal planes. IV contrast was not administered for this examination. Note that the examination was performed in suboptimal fashion without oral and IV contrast. A dose lowering technique was utilized adhering to the principles of ALARA. CT DOSE: 1953.95 mGy.cm FINDINGS: Lung bases: The heart is top normal in size noting trace pericardial effusion. The mitral annulus and coronary arteries are densely calcified. There are small right and trace left pleural effusions with dependent consolidation. Liver: The unenhanced liver is cirrhotic in morphology and heterogeneous in attenuation. There is hyp ertrophy of the left lobe and caudate and nodularity of the surface contour. There is no intrahepatic biliary ductal dilatation. Gallbladder: The gallbladder is filled with hyperdense stone. Spleen: The spleen is mildly enlarged measuring 13.4 cm in length. Pancreas: The unenhanced pancreas is mildly atrophic. A 2.7 cm ovoid cystic lesion is again seen in t he pancreatic head on image #120. Adrenal glands: Unremarkable. Kidneys: The unenhanced kidneys are atrophic and without hydronephrosis. There are no renal calculi i dentified. There is no evidence of contour deforming renal mass lesion. A 1.7 cm angiomyolipoma is ag ain seen on the right. There is asymmetric left-sided perinephric stranding which is new from 04/14/20. Abdominal vasculature: There is advanced atherosclerotic calcification and mild ectasia of the abdomi nal aorta. Bowel:. There is no bowel obstruction. There is mild sigmoid diverticulosis without CT evidence of ac milagros diverticulitis. The appendix is normal as visualized. Peritoneum: There is a small volume of abdominopelvic ascites. No intraperitoneal free air is identif ied Lymphadenopathy: None. Pelvic viscera: Evaluation of the pelvis is degraded by streak artifact from a right hip arthroplasty . The bladder is decompressed around a Muniz catheter and not well evaluated. Foci of intraluminal ga s are likely related to instrumentation. The uterus and adnexa are normal as imaged. Skeletal structures: The skeletal structures are osteopenic. No lytic or blastic lesions are seen. Sp ondylotic and extensive postsurgical change is noted throughout the lumbar spine. There are numerous chronic thoracolumbar compression deformities. A right hip arthroplasty is in place. Arthritic change is seen in the left hip. There is chronic posttraumatic deformity of the right pubic ring. Soft tissues: There is body wall edema. IMPRESSION: 1. There is asymmetric left-sided perinephric stranding and fluid. This is new from 04/14/2025. Correl ate with clinical findings and urinalysis. 2. The liver is cirrhotic in morphology and heterogeneous attenuation. 3. Mild splenomegaly and a small volume of abdominopelvic ascites indicates portal hypertension. Asci tia is new from 04/14/2025. 4. Small right and trace left pleural effusions with dependent consolidation. 5. Cholelithiasis. 6. A cystic lesion of the pancreatic head is unchanged from recent prior studies. 7. Additional findings as above. ACT 112: Negative or not required by law. Electronically signed by: Anshu Saul M.D. 04/21/2025 9:18 AM
[2025-04-21] MEDS: DAPTOmycin 575 MG in SYRINGE 0 ML IV SCH (10:06)
[2025-04-21] MEDS: BUMETANIDE 2 MG in SYRINGE 0 ML IV ONE (11:11)
[2025-04-21] MEDS: HYDROCORTISONE SOD SUCCINATE 100 MG/2 ML VIAL IV STA (11:12)
[2025-04-21] MEDS: GABAPENTIN 100 MG CAP PO SCH (11:12)
--- NOTE | 2025-04-21 11:12 | XRay Report ---
XR chest 1V portable CLINICAL HISTORY: eval right IJ placement COMPARISON STUDY: 04/21/2025 FINDINGS: Right central catheter tip is just above the cavoatrial junction. There is no pneumothorax. There is stable cardiomegaly without pulmonary vascular congestion. Stable stranding opacity in lung bases with obscuration of the right hemidiaphragm. IMPRESSION: No pneumothorax. Otherwise as described. ACT 112: Negative or not required by law. Electronically signed by: Simon Jimenez M.D. 04/21/2025 11:10 AM
--- NOTE | 2025-04-21 11:24 | Critical Care Consultation ---
Date of Consultation April 21, 2025 Assessment & Plan (1) Cirrhosis: (2) Thrombocytopenia: (3) New onset a-fib: (4) RANDY (acute kidney injury): (5) CKD (chronic kidney disease) stage 3, GFR 30-59 ml/min: (6) Acute hypotension: (7) GERD (gastroesophageal reflux disease): (8) Shock: (9) HUANG (nonalcoholic steatohepatitis): Plan Carol Lawrence is a 75-year-old female with past medical history of Non-alcoholic Steatohepatitis, atrial fibrillation, hyperlipidemia, lumbar fusion, DMII, GERD, hyperparathyroidism, CKD stage IIIb, HFrEF; who presented to [facility] with hypotension and generalized weakness. Neuro: Depression; LEELA -No acute issues -CAM-ICU negative -No intracranial head imaging need at this time. -Monitor -Continue Celexa CV: Shock undifferentiated possible septic v. hepatocradiorenal syndrome; Type II myocardial injury/ PRAMOD -Started on Levo gtt in ED was at 0.30 on initial evaluation. Vasopressin added. -Start stress dosed steroids 50mg q6h. -maintain MAP > 65mmhg -Patient BNP 1293 and troponin 244 likely demand ischemia -Diuresed with 2mg of Bumex will monitor pressor requirement with diuresis. Atrial fibrillation -Given critical illness would maintain HR < 120. -Consider amiodarone if RVR -Not on therapeutic AC. -Hold betablocker at this time given hypotension requiring vasopressors -Cardiology following. Pulm: Acute hypoxic respiratory failure -Patient sPo2 85% on arrival improved with oxygen -Maintain SpO2 > 92% currently on 2L NC GI: FEN -NO at this time. -Will initiate clear liquids but hold on full diet given high dose vasopressors. 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 MCV 95. -Plts 74K -Monitor H&H daily -transfuse for hgb < 7 -No DVT noted on lower extremity duplex. Endo: Diabetes mellitus Type II -BG 104 on admission -BG control may worsen with corticosteroids -Hyperglycemia protocol ordered ID: Possible septic shock; sepsis -WBC 10. -Low grade fever at home 37.5 -Procal 13 -Chest x-ray RLL infiltrate. -Blood cultures pending -UA 3+ bacteria otherwise negative. Asymptomatic bacteuria. -Started on empiric vanc and zosyn. D/C or deescelate as appropriate. Prophylaxis: -SCD for mechanical DVT prophylaxis -Heparin for DVT chemoprophylaxis -PPI for GI prophylaxis (home med) Disposition: ICU for continued evaluation and management of undifferentiated shock requiring high dose vasopressors with high risk for decline. Patient is full code. Patient and family updated at bedside by ICU provider on 04/21/2025. I have personally spent 60 minutes of critical care time in the direct management of this patient. This is a life/limb threatening event. This includes time spent evaluating patient, direct bedside care, chart review, placing orders, interpretation of diagnostic studies, discussion with consultants, patient, and/or family members regarding treatment decisions, as well as other required patient management activities. This time is exclusive of all separately billable procedures, and teaching time and separate from and in addition to any other critical care service time. History of Present Illness Reason for Consultation: Shock requiring vasopressors Attending Physician: Demetria Daigle MD History of Present Illness Carol Lawrence is a 75-year-old female with past medical history of Non-alcoholic Steatohepatitis, atrial fibrillation, hyperlipidemia, lumbar fusion, DMII, GERD, hyperparathyroidism, CKD stage IIIb, HFrEF; who presented to [facility] with hypotension and generalized weakness. Of note the patient was recently admitted to [facility] ICU on 04/11/2025 for a similar episode at that time patient CT abdomen and pelvis concerning for gall stones, sludge, and dilated CBD. MRCP negative and patient was discharged on 04/16/2025 after without an identified source of infection. Patient reportedly was doing well sine discharge and saw her PCP yesterday for her atrial fibrillation diagnosed on last admission where her metoprolol dose was increased. Patient's daughter last evening noted lower blood pressure with SBP in the 80's but rafael refused to com to the emergency department. Over the course of the night she became weaker prompting her to come to the ED around 0500. The patient was found to be in atrial fibrillation with HR in the 120's, hypotensive, and with significant lower extremity edema and tenderness. Labs were notable for WBC 10.5, hemoglobin of10.4 was 12.9 last week, Platelet 74 (was 49 last week), Na 132, Cr 2.69 (was 1.88 on 04/16), lactate 4.3,TBil 1.3, Trop 244, BNP 1293, Procal 13. Chest x-ray showed a right lower lobe infiltrate. Patient was given 2 liters of crystalloid, started on broad spectrum antibiotics and put on a norepinephrine gtt. ICU consulted for continued evaluation and management of undifferentiated shock requiring high dose vasopressors with high risk for decline. Allergies Allergy/AdvReac Type Severity Reaction Status Date / Time carrot Allergy Intermediate RAW Verified 04/11/25 14:52 CARROTS CAUSE INSIDE MOUTH TO GET ITCHY ON CHEEKS nut - unspecified Allergy Intermediate ERUPTION Verified 04/11/25 14:52 INSIDE MOUTH AND LIPS peanut Allergy Intermediate ERUPTION Verified 04/11/25 14:52 INSIDE MOUTH AND LIPS Sulfa (Sulfonamide Allergy Intermediate "SULFA Verified 04/11/25 14:52 Antibiotics) DRUGS": ITCHY & HIVES [place] ISLANDIC[place] AdvReac Intermediate BLEEDING Uncoded 04/11/25 14:52 Home Medications Medication Instructions Recorded Confirmed Type ascorbic acid (vitamin C) 250 mg 500 mg PO QAM 06/23/18 04/21/25 History tablet (Vitamin C) clobetasol 0.05 % topical gel 1 applic topical BID PRN LICHEN 06/23/18 04/21/25 History PLANUS BREAK OUTS clonazepam 0.5 mg tablet (Klonopin) 0.5 tab PO TID PRN Anxiety 06/23/18 04/21/25 History ferrous sulfate 325 mg (65 mg 325 mg PO WK 06/23/18 04/21/25 History iron) tablet (iron) folic acid 1 mg tablet 1 mg PO QAM 06/23/18 04/21/25 History furosemide 40 mg tablet (Lasix) 40 mg PO QAM 06/23/18 04/21/25 History gabapentin 100 mg capsule 100 mg PO .BID-QAM & AFTERNOON 06/23/18 04/21/25 History lactulose 10 gram/15 mL oral 30 ml PO TID 06/23/18 04/21/25 History solution omeprazole 40 mg capsule,delayed 40 mg PO DAILYBB 06/23/18 04/21/25 History release oxycodone 5 mg tablet 2.5 mg PO Q8H PRN Pain 06/23/18 04/21/25 History potassium chloride 20 mEq 10 meq PO QDL 06/23/18 04/21/25 History tablet,extended release(part/cryst) (Klor-Con M) rifaximin 550 mg tablet (Xifaxan) 550 mg PO BID 06/23/18 04/21/25 History spironolactone 100 mg tablet See Rx Instructions .Route .COMPLEX 06/23/18 04/21/25 History furosemide 40 mg tablet 20 mg PO HS 06/05/22 04/21/25 History citalopram 40 mg tablet 20 mg PO DAILY PRN Anxiety 11/07/22 04/21/25 History gabapentin 100 mg capsule 300 mg PO HS 11/07/22 04/21/25 History nystatin 100,000 unit/gram topical 1 applic topical TID PRN SKIN RASH 07/15/23 04/21/25 History powder (Nyamyc) ondansetron HCl 4 mg tablet 4 mg PO Q6H PRN NAUSEA/VOMITING 07/15/23 04/21/25 History betamethasone dipropionate 0.05 % 1 applic topical BID PRN SKIN 04/11/2512/15 History topical cream IRRITATIONS cholecalciferol (vitamin D3) 25 25 mcg PO DAILY 04/11/25 04/21/25 History mcg (1,000 unit) capsule (Vitamin D3) cyanocobalamin (vitamin B-12) 1,000 mcg PO Q OTHER DAY 04/11/25 04/21/25 History 1,000 mcg tablet (Vitamin B-12) diclofenac sodium 2 % topical 0 ml topical DIRECTED PRN Pain 04/11/25 04/21/25 History solution in packet (Pennsaid) empagliflozin 10 mg tablet 10 mg PO QAM 04/11/25 04/21/25 History (Jardiance) levothyroxine 50 mcg tablet 50 mcg PO DAILYBB 04/11/25 04/21/25 History lidocaine 4 % topical patch 1 patch topical DAILY 04/11/25 04/21/25 History montelukast 10 mg tablet 10 mg PO HS 04/11/25 04/21/25 History (Singulair) [id number]-tgn-[id number] 5 mg-zeaxanth 1 cap PO DAILY 04/11/25 04/21/25 History 1 mg-bilberry 7.5 mg-herbal capsule ([employer] Formula) tacrolimus 0.1 % topical ointment 1 applic topical BID PRN SKIN 04/11/25 04/21/25 History IRRITATIONS tizanidine 4 mg tablet 1 mg PO HS 04/11/25 04/21/25 History triamcinolone acetonide 0.1 % 1 applic topical BID PRN FLARE UPS 04/11/25 04/21/25 History topical ointment vitamin E 268 mg (400 unit) capsule 268 mg PO DAILY 04/11/25 04/21/25 History hydrocortisone 10 mg tablet 10 mg PO UD #10 tabs 04/16/25 04/21/25 Rx metoprolol succinate 50 mg 100 mg PO BID 04/21/25 04/21/25 History tablet,extended release 24 hr Patient History Medical History Varicose veins of both lower extremities HUANG (nonalcoholic steatohepatitis) Constipation HX Anxiety Lichen planus History of anemia Diabetes mellitus type 2 in nonobese DVT (deep venous thrombosis) RIGHT LEG S/P HIP SX 2016 Dyslipidemia GERD (gastroesophageal reflux disease) HTN (hypertension) Surgical History History of cataract surgery Right Cataract surgery 06/11/22 History of endoscopy History of colonoscopy History of back surgery X3 (HAS HARDWARE) History of hip replacement PARTIAL RIGHT History of repair of rotator cuff LEFT History of tonsillectomy "1974" H/O hernia repair History of tubal ligation H/O breast biopsy On 11/08/15 10:28 Erin Chandlerflaco wrote "01/29/2012 right core bx - BCC - ductal hyperplasia, columnar cell hyperplasia and fibrocystic change - [facility] BCC 01/29/2012" Family History Mother Family history of diabetes mellitus Other Family history non-contributory Social History Smoking Status: Former smoker Second Hand Exposure: No; Do You Dip or Chew Tobacco: No; Tobacco Cessation Education Requested by Patient: No Hx Alcohol Use: No Hx Substance Use: No Preferred Language: Kyrgyz Communication Ability: Effective 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 Neck: trachea midline, no thyromegaly Respiratory: normal respiratory effort, lungs clear to auscultation Cardiovascular: Irregular rate and rhythm, S1/S2 present, no murmurs, rubs, or gallops. Gastrointestinal (Abdomen): normal bowel sounds, soft, nontender, no hepatosplenomegaly Ascites noted Musculoskeletal: Bilateral lower extremities with 3+ edema, erythematous, and right lower extremity tender. 2+ distal pulses in all extrmeities. Skin: no rashes, warm and dry Neurologic: Nonfocal exam Lymphatic: no cervical lymphadenopathy Results & Data Results & Data Vital Signs (Past 12 Hours) Vital Signs Temp Pulse Pulse Resp BP BP Pulse Ox 04/21/25 10:30 04/21/25 10:30 37.7 C H 117 H 24 107/71 97 04/21/25 09:25 04/21/25 09:16 86/72 L 04/21/25 09:05 117/95 04/21/25 09:05 117/95 04/21/25 09:03 94 H 27 H 98 04/21/25 08:57 96 H 17 96 04/21/25 08:56 118/57 L 04/21/25 08:56 118/57 L 04/21/25 08:51 99 H 14 95 04/21/25 08:51 75/59 L 04/21/25 08:48 93/70 L 04/21/25 08:21 37.6 C H 91 H 21 99 04/21/25 08:21 117/75 04/21/25 08:15 37.6 C H 99 H 24 100 04/21/25 08:15 131/77 04/21/25 08:05 74/47 L 04/21/25 08:05 74/47 L 04/21/25 08:05 74/47 L 04/21/25 08:00 88/58 L 04/21/25 08:00 88/58 L 04/21/25 07:54 37.7 C H 112 H 24 04/21/25 07:51 75/36 L 04/21/25 07:51 75/36 L 04/21/25 07:48 37.7 C H 101 H 17 93 04/21/25 07:46 97/64 L 04/21/25 07:40 98/75 L 04/21/25 07:39 37.7 C H 102 H 18 04/21/25 07:36 37.7 C H 109 H 13 98 04/21/25 07:36 79/65 L 04/21/25 07:36 79/65 L 04/21/25 07:36 79/65 L 04/21/25 07:36 79/65 L 04/21/25 07:33 37.6 C H 72 21 98 04/21/25 07:31 76/53 L 04/21/25 07:31 76/53 L 04/21/25 07:24 120/61 04/21/25 07:21 37.5 C 97 H 19 04/21/25 07:21 51/27 L 04/21/25 07:21 51/27 L 04/21/25 07:18 37.4 C 115 H 21 96 04/21/25 07:16 62/52 L 04/21/25 07:16 62/52 L 04/21/25 07:10 77/54 L 04/21/25 07:10 77/54 L 04/21/25 07:09 36.8 C 80 17 93 04/21/25 07:05 77/48 L 04/21/25 07:03 36.5 C 95 H 20 97 04/21/25 07:02 88/47 L 04/21/25 06:57 91 H 26 H 96 04/21/25 06:55 85/66 L 04/21/25 06:50 92 H 24 89/58 L 98 04/21/25 06:45 100 H 24 88/63 L 95 04/21/25 06:43 114 H 24 72/53 L 99 04/21/25 06:41 91 04/21/25 06:37 110 H 28 H 69/46 L 04/21/25 06:35 118 H 04/21/25 06:17 37.2 C 92 H 19 70/47 L 100 O2 Del Method O2 Flow Rate 04/21/25 10:30 Nasal Cannula 2 04/21/25 10:30 Nasal Cannula 2 04/21/25 09:25 Nasal Cannula 2 04/21/25 09:16 04/21/25 09:05 04/21/25 09:05 04/21/25 09:03 04/21/25 08:57 04/21/25 08:56 04/21/25 08:56 04/21/25 08:51 04/21/25 08:51 04/21/25 08:48 04/21/25 08:21 04/21/25 08:21 04/21/25 08:15 04/21/25 08:15 04/21/25 08:05 04/21/25 08:05 04/21/25 08:05 04/21/25 08:00 04/21/25 08:00 04/21/25 07:54 04/21/25 07:51 04/21/25 07:51 04/21/25 07:48 04/21/25 07:46 04/21/25 07:40 04/21/25 07:39 04/21/25 07:36 04/21/25 07:36 04/21/25 07:36 04/21/25 07:36 04/21/25 07:36 04/21/25 07:33 04/21/25 07:31 04/21/25 07:31 04/21/25 07:24 04/21/25 07:21 04/21/25 07:21 04/21/25 07:21 04/21/25 07:18 04/21/25 07:16 04/21/25 07:16 04/21/25 07:10 04/21/25 07:10 04/21/25 07:09 04/21/25 07:05 04/21/25 07:03 04/21/25 07:02 04/21/25 06:57 04/21/25 06:55 04/21/25 06:50 04/21/25 06:45 04/21/25 06:43 04/21/25 06:41 Room Air 04/21/25 06:37 04/21/25 06:35 04/21/25 06:17 Room Air Critical Care Results & Data Vital Signs (Past 12 Hours) Vital Signs Temp Pulse Pulse Resp BP BP Pulse Ox 04/21/25 10:30 04/21/25 10:30 37.7 C H 117 H 24 107/71 97 04/21/25 09:25 04/21/25 09:16 86/72 L 04/21/25 09:05 117/95 04/21/25 09:05 117/95 04/21/25 09:03 94 H 27 H 98 04/21/25 08:57 96 H 17 96 04/21/25 08:56 118/57 L 04/21/25 08:56 118/57 L 04/21/25 08:51 99 H 14 95 04/21/25 08:51 75/59 L 04/21/25 08:48 93/70 L 04/21/25 08:21 37.6 C H 91 H 21 99 04/21/25 08:21 117/75 04/21/25 08:15 37.6 C H 99 H 24 100 04/21/25 08:15 131/77 04/21/25 08:05 74/47 L 04/21/25 08:05 74/47 L 04/21/25 08:05 74/47 L 04/21/25 08:00 88/58 L 04/21/25 08:00 88/58 L 04/21/25 07:54 37.7 C H 112 H 24 04/21/25 07:51 75/36 L 04/21/25 07:51 75/36 L 04/21/25 07:48 37.7 C H 101 H 17 93 04/21/25 07:46 97/64 L 04/21/25 07:40 98/75 L 04/21/25 07:39 37.7 C H 102 H 18 04/21/25 07:36 37.7 C H 109 H 13 98 04/21/25 07:36 79/65 L 04/21/25 07:36 79/65 L 04/21/25 07:36 79/65 L 04/21/25 07:36 79/65 L 04/21/25 07:33 37.6 C H 72 21 98 04/21/25 07:31 76/53 L 04/21/25 07:31 76/53 L 04/21/25 07:24 120/61 04/21/25 07:21 37.5 C 97 H 19 04/21/25 07:21 51/27 L 04/21/25 07:21 51/27 L 04/21/25 07:18 37.4 C 115 H 21 96 04/21/25 07:16 62/52 L 04/21/25 07:16 62/52 L 04/21/25 07:10 77/54 L 04/21/25 07:10 77/54 L 04/21/25 07:09 36.8 C 80 17 93 04/21/25 07:05 77/48 L 04/21/25 07:03 36.5 C 95 H 20 97 04/21/25 07:02 88/47 L 04/21/25 06:57 91 H 26 H 96 04/21/25 06:55 85/66 L 04/21/25 06:50 92 H 24 89/58 L 98 04/21/25 06:45 100 H 24 88/63 L 95 04/21/25 06:43 114 H 24 72/53 L 99 04/21/25 06:41 91 04/21/25 06:37 110 H 28 H 69/46 L 04/21/25 06:35 118 H 04/21/25 06:17 37.2 C 92 H 19 70/47 L 100 O2 Del Method O2 Flow Rate 04/21/25 10:30 Nasal Cannula 2 04/21/25 10:30 Nasal Cannula 2 04/21/25 09:25 Nasal Cannula 2 04/21/25 09:16 04/21/25 09:05 04/21/25 09:05 04/21/25 09:03 04/21/25 08:57 04/21/25 08:56 04/21/25 08:56 04/21/25 08:51 04/21/25 08:51 04/21/25 08:48 04/21/25 08:21 04/21/25 08:21 04/21/25 08:15 04/21/25 08:15 04/21/25 08:05 04/21/25 08:05 04/21/25 08:05 04/21/25 08:00 04/21/25 08:00 04/21/25 07:54 04/21/25 07:51 04/21/25 07:51 04/21/25 07:48 04/21/25 07:46 04/21/25 07:40 04/21/25 07:39 04/21/25 07:36 04/21/25 07:36 04/21/25 07:36 04/21/25 07:36 04/21/25 07:36 04/21/25 07:33 04/21/25 07:31 04/21/25 07:31 04/21/25 07:24 04/21/25 07:21 04/21/25 07:21 04/21/25 07:21 04/21/25 07:18 04/21/25 07:16 04/21/25 07:16 04/21/25 07:10 04/21/25 07:10 04/21/25 07:09 04/21/25 07:05 04/21/25 07:03 04/21/25 07:02 04/21/25 06:57 04/21/25 06:55 04/21/25 06:50 04/21/25 06:45 04/21/25 06:43 04/21/25 06:41 Room Air 04/21/25 06:37 04/21/25 06:35 04/21/25 06:17 Room Air Lab & Micro Results (Past 24 Hours) RBC 3.30 M/uL (4.20-5.40) L 04/22/25 WBC 19.90 K/ul (4.8-10.8) H 04/22/25 Hgb 9.9 g/dl (12.0-16.0) L 04/22/25 Hct 29.5 % (37.0-47.0) L 04/22/25 MCV 89.4 fL (80.0-100.0) 04/22/25 MCH 30.0 pg (25.0-34.0) 04/22/25 MCHC 33.6 g/dL (32.0-36.0) 04/22/25 RDW Standard Deviation 53.9 fL (36.4-46.3) H 04/22/25 RDW Coefficient of Variation 17.0 % (11.5-14.5) H 04/22/25 Plt Count 89 K/uL (130-400) L 04/22/25 MPV 10.5 fL (9.4-12.4) 04/22/25 Na 133 mmol/L (136-145) L 04/22/25 K 3.6 mmol/L (3.5-5.1) 04/22/25 Cl 101 mmol/L (98-107) 04/22/25 CO2 22 mmol/L (21-32) 04/22/25 Anion Gap 10 (3-11) 04/22/25 BUN 29 mg/dl (6-23) H 04/22/25 Creatinine 2.12 mg/dl (0.6-1.2) H 04/22/25 BUN/Creatinine Ratio 13.7 (10-20) 04/22/25 Glu 143 mg/dl (70-99(Fasting)) H 04/22/25 Ca 7.8 mg/dl (8.6-10.3) L 04/22/25 Phosphorus Level 3.0 mg/dl (2.5-4.9) 04/22/25 Total Bilirubin 1.5 mg/dl (0.2-1.0) H 04/22/25 AST 55 U/L (13-39) H 04/22/25 ALT 88 U/L (7-52) H 04/22/25 Alkaline Phosphatase 60 U/L (34-104) 04/22/25 TP 5.3 gm/dl (6.0-8.3) L 04/22/25 Albumin 2.7 gm/dl (3.4-5.0) L 04/22/25 Globulin 2.6 gm/dl (2.5-4.0) 04/22/25 Albumin/Globulin Ratio 1.0 (0.9-2) 04/22/25 Mg 1.7 mg/dl (1.7-2.4) 04/22/25 04:39 Calcium Level 7.8 mg/dl (8.6-10.3) L 04/22/25 04:39 Diagnostic Findings (Past 24 Hours) Chest X-Ray 04/21/25 06:30 EXAM: XR chest 1V portable CLINICAL HISTORY: Sepsis TECHNIQUE: Xray of the chest was performed in AP projection. COMPARISON: 04/11/2025 FINDINGS: Pulmonary Parenchyma: Prominent bronchovascular markings. Right basal opacity. Otherwise, no evidence of consolidation, collapse, or focal opacities. No pulmonary nodules are identified. No evidence of pleural effusion or pleural thickening. Heart and Mediastinum: Cardiomegaly. No mediastinal widening or masses. No hilar or mediastinal lymphadenopathy. Bony Thorax: Thoracic scoliosis to the right with evidence of lower thoracic/ lumbar fixation Bilateral acromioclavicular joint arthropathy Soft Tissues: Soft tissues overlying the chest wall are unremarkable. IMPRESSION: 1. Right basal opacity, which could be airspace disease. New finding. Clinical correlation needed. 2. Prominent bronchovascular markings. Stable 3. Cardiomegaly. Stable Electronically signed by Deni Turner 04-21-2025 07:29 AM Venous Doppler Study 04/21/25 07:17 ULTRASOUND BILATERAL LOWER EXTREMITY VENOUS CLINICAL HISTORY: Lower extremity edema. COMPARISON STUDY: No priors. TECHNIQUE: Portable real-time, grayscale, and color Doppler sonography of the deep veins of the right and left lower extremity was performed from the inguinal crease to the calf. Compression and augmentation were utilized. FINDINGS: There is no sonographic evidence of deep venous thrombosis identified in the right or left lower extremity. The common femoral, superficial femoral, and popliteal veins are patent and normally compressible bilaterally. The greater saphenous vein and the profunda femoris vein at the junction with the common femoral vein are clear in both legs. The visualized calf veins are patent bilaterally. Soft tissue edema is noted in the calves. IMPRESSION: There is no sonographic evidence of deep venous thrombosis identified in the right or left lower extremity. ACT 112: Negative or not required by law. Electronically signed by: Anshu Saul M.D. 04/21/2025 8:26 AM Abdomen/Pelvis CT 04/21/25 08:06 CT SCAN OF THE ABDOMEN AND PELVIS WITHOUT IV CONTRAST CLINICAL HISTORY: Sepsis COMPARISON STUDY: Abdominal CT dated 04/14/2025. Abdominal MRI dated 04/11/2025. TECHNIQUE: CT scan of the abdomen and pelvis is performed from the lung bases to the proximal femora. Images are reviewed in the axial, sagittal, and coronal planes. IV contrast was not administered for this examination. Note that the examination was performed in suboptimal fashion without oral and IV contrast. A dose lowering technique was utilized adhering to the principles of ALARA. CT DOSE: 1953.95 mGy.cm FINDINGS: Lung bases: The heart is top normal in size noting trace pericardial effusion. The mitral annulus and coronary arteries are densely calcified. There are small right and trace left pleural effusions with dependent consolidation. Liver: The unenhanced liver is cirrhotic in morphology and heterogeneous in attenuation. There is hypertrophy of the left lobe and caudate and nodularity of the surface contour. There is no intrahepatic biliary ductal dilatation. Gallbladder: The gallbladder is filled with hyperdense stone. Spleen: The spleen is mildly enlarged measuring 13.4 cm in length. Pancreas: The unenhanced pancreas is mildly atrophic. A 2.7 cm ovoid cystic lesion is again seen in the pancreatic head on image #120. Adrenal glands: Unremarkable. Kidneys: The unenhanced kidneys are atrophic and without hydronephrosis. There are no renal calculi identified. There is no evidence of contour deforming renal mass lesion. 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 There is asymmetric left-sided perinephric stranding which is new from 04/14/2025. Abdominal vasculature: There is advanced atherosclerotic calcification and mild ectasia of the abdominal aorta. Bowel:. There is no bowel obstruction. There is mild sigmoid diverticulosis without CT evidence of acute diverticulitis. The appendix is normal as visualized. Peritoneum: There is a small volume of abdominopelvic ascites. No intraperitoneal free air is identified Lymphadenopathy: None. Pelvic viscera: Evaluation of the pelvis is degraded by streak artifact from a right hip arthroplasty. The bladder is decompressed around a Muniz catheter and not well evaluated. Foci of intraluminal gas are likely related to instrumentation. The uterus and adnexa are normal as imaged. Skeletal structures: The skeletal structures are osteopenic. No lytic or blastic lesions are seen. Spondylotic and extensive postsurgical change is noted throughout the lumbar spine. There are numerous chronic thoracolumbar compression deformities. A right hip arthroplasty is in place. Arthritic change is seen in the left hip. There is chronic posttraumatic deformity of the right pubic ring. Soft tissues: There is body wall edema. IMPRESSION: 1. There is asymmetric left-sided perinephric stranding and fluid. This is new from 04/14/2025. Correlate with clinical findings and urinalysis. 2. The liver is cirrhotic in morphology and heterogeneous attenuation. 3. Mild splenomegaly and a small volume of abdominopelvic ascites indicates portal hypertension. Ascites is new from 04/14/2025. 4. Small right and trace left pleural effusions with dependent consolidation. 5. Cholelithiasis. 6. A cystic lesion of the pancreatic head is unchanged from recent prior studies. 7. Additional findings as above. ACT 112: Negative or not required by law. Electronically signed by: Anshu Saul M.D. 04/21/2025 9:[address] 04/21/25 08:06 CT chest diagnostic wo con CT DOSE: 1954 CLINICAL HISTORY: sepsis. TECHNIQUE: Multiaxial CT images of the chest were performed without contrast. A dose lowering technique was utilized adhering to the principles of ALARA. COMPARISON STUDY: 04/11/2025 FINDINGS: There are mild airway secretions. There are diffuse coronary artery calcifications. There are mitral valvular calcifications. There is moderate cardiomegaly with prominence of the pulmonary vasculature consistent with CHF. There are bilateral pleural effusions, moderate on the right and trace on the left. There is moderate compressive atelectasis at the right lower lobe and mild atelectasis at the left lung base. There is mild septal thickening and mild pulmonary ground glass opacity consistent with mild pulmonary edema. There is no pneumothorax. No enlarged adenopathy. No pericardial effusion. Visualized liver is diffusely nodular consistent with cirrhosis. There are severe degenerative changes at the right shoulder. There is stable height loss at multiple thoracic vertebral bodies. There is osteopenia. No acute osseous finding seen. IMPRESSION: 1. CHF with bilateral pleural effusions, right greater than left. 2. Otherwise as described. ACT 112: Negative or not required by law. Electronically signed by: Simon Jimenez M.D. 04/21/2025 8:56 AM Chest X-Ray 04/21/25 10:46 XR chest 1V portable CLINICAL HISTORY: eval right IJ placement COMPARISON STUDY: 04/21/2025 FINDINGS: Right central catheter tip is just above the cavoatrial junction. There is no pneumothorax. There is stable cardiomegaly without pulmonary vascular congestion. Stable stranding opacity in lung bases with obscuration of the right hemidiaphragm. IMPRESSION: No pneumothorax. Otherwise as described. ACT 112: Negative or not required by law. Electronically signed by: Simon Jimenez M.D. 04/21/2025 11:10 AM I & O Totals 24 Hours 04/20/25 04/21/25 04/22/25 06:59 06:59 06:59 Intake Total 6.795 / 745.021 4440.167 / 3341.167 Balance 6.795 / 104.495 4497.167 / 3341.167 Cumulative 04/21/25 06:13 thru 04/21/25 11:30 Intake Total 3347.962 Balance 3347.962 RT Ventilator Mngmt (Last Documented) Ventilator Ordered Settings Respiratory Rate 24 04/21/25 10:30 Ventilator - PT Measurements Respiratory Rate 24 Coding Level of Care Code 89000 CRITICAL CARE 1ST 30-74M Diagnoses Other cirrhosis of liver K74.69 Hepatic cirrhosis type: other cirrhosis Thrombocytopenia D69.6 New onset a-fib I48.91 RANDY (acute kidney injury) N17.9 Stage 3b chronic kidney disease N18.32 Chronic kidney disease stage 3 subtype: stage 3b (GFR 30-44) Acute hypotension I95.9 Gastroesophageal reflux disease without esophagitis K21.9 Esophagitis presence: without esophagitis Shock R57.9 HUANG (nonalcoholic steatohepatitis) K75.81 (1) Cirrhosis Hepatic cirrhosis type: other cirrhosis Qualified Code(s): K74.69 - Other cirrhosis of liver (5) CKD (chronic kidney disease) stage 3, GFR 30-59 ml/min Chronic kidney disease stage 3 subtype: stage 3b (GFR 30-44) Qualified Code(s): N18.32 - Chronic kidney disease, stage 3b (7) GERD (gastroesophageal reflux disease) Esophagitis presence: without esophagitis Qualified Code(s): K21.9 - Gastro-esophageal reflux disease without esophagitis
--- NOTE | 2025-04-21 12:38 | Procedure Note ---
Procedure Note Date of Service April 21, 2025 INTERNAL JUGULAR CENTRAL LINE PROCEDURE NOTE: Procedure: Internal Jugular Central Line Placement Attending: Dr. Taj Burnette APC: MARISOL Gr Indication: Central Drug Administration, Poor Venous Access, Multiple Lab Draws Necessary, etc. Anesthesia: Lidocaine 1% Consent was signed and placed on the chart prior to procedure. Indication, risks, and benefits were explained at length. A time-out was completed verifying correct patient, procedure, site, positioning, and implants(s) or special equipment if applicable. Patients right Neck was cleansed and draped in the typical sterile fashion using Chloraprep. The Internal Jugular Vein and Carotid Artery were identified using ultrasound. The superficial tissue was anesthetized using 3 mL of 1% lidocaine without epinephrine under direct visualization with the ultrasound. After adequate anesthetization was achieved, the Internal Jugular vein was cannulated under direct ultrasound guidance using an introducer needle on a syringe. Good venous blood return was maintained prior to removal of syringe from introducer needle. Using Seldinger Technique, a guide wire was advanced through the introducer needle without resistance. The introducer needle was removed and ultrasound images were obtained of the guide wire within the Internal Jugular Vein and saved to the patients medical record. A small incision was made in penetrating fashion at the guide wire insertion site utilizing an 11 blade scalpel. The dilator was advanced to the vessel without resistance. The dilator was exchanged for the triple lumen catheter which was advanced into the vessel without resistance. The guide wire was removed intact from the catheter without issue. Claves were placed on each catheter tip with confirmation of good blood flow from each lumen. Each port was easily flushed with sterile saline. The catheter was placed at 16cm and sutured in place. A sterile chlorhexidine impregnated Tegaderm dressing was applied over the catheter with careful attention to sterility. Patient tolerated procedure well. No immediate complications were met. Post procedure x-ray was completed, placement was appropriate and no pneumothorax was noted. Images obtained are saved for permanent record Procedural Ultrasound Guidance: Procedure Date: 04/21/2025 Indication: Guidance for right IJ placment Attending: Dr. aTj Burnette APC: MARISOL Gr Artery AND Vein visualized: Yes Compressible Vein: Yes Guidewire or Short Catheter seen in vein prior to dilation: Yes Line confirmed in Vein with ultrasound: Yes Images obtained are saved for permanent record. MNP Procedure Codes (Charges) Tubes, Drains, and Vasc Access Procedure 1: Tubes, Drains, and Vasc Access: [id number] Insertion Of Non-tunneled Catheter Age 3 Yrs> Procedure 2: Tubes, Drains, and Vasc Access: [id number] Ultrasound Guidance For Vascular Coding CPT Codes Tubes, Drains, and Vasc Access - Tubes, Drains, and Vasc Access: [id number] Insertion Of Non-tunneled Catheter Age 3 Yrs> ([id number]) Tubes, Drains, and Vasc Access - Tubes, Drains, and Vasc Access: [id number] Ultrasound Guidance For Vascular ([id number]) Additional Codes Date of Service ([facility].[email or web address])
--- NOTE | 2025-04-21 12:41 | Procedure Note ---
Procedure Note Date of Service April 21, 2025 ARTERIAL LINE PROCEDURE NOTE: Procedure: Arterial Line Placement Attending: Dr. Taj Burnette APC: MARISOL Gr Indication: Monitoring on Pressors/Frequent labs Anesthesia: Lidocaine 1% Consent was signed and placed on the chart prior to procedure. Indication, risks, and benefits were explained at length. A time-out was completed verifying correct patient, procedure, site, positioning, and implant(s) or special equipment if applicable. Allens test was performed to ensure adequate perfusion. Patients right wrist was prepped and draped in the usual sterile fashion. Ultrasound guidance was used to aid needle placement. A 20g Arrow arterial line was introduced into the radial artery. Catheter was threaded, and the needle was removed with appropriate blood return. Good waveform was observed. The patient tolerated the procedure well. Confirma tion of placement with ultrasound. []Images saved to medical record. Blood Loss: Minimal Complications: None Procedural Ultrasound Guidance: Procedure Date: 04/21/2025 Indication: Blodd pressure monitoring Attending: Dr. Taj Burnette APC: MRAISOL Gr Artery Identified: YES Line confirmed in Artery with ultrasound: Yes Complications: NONE Patient tolerated procedure: [facility] [place] Codes (Charges) Tubes, Drains, and Vasc Access Procedure 1: Tubes, Drains, and Vasc Access: [id number] Arterial Cath/Cannulation Sampling/Monitoring/Transfusion Procedure 2: Tubes, Drains, and Vasc Access: [id number] Ultrasound Guidance For Vascular Coding CPT Codes Tubes, Drains, and Vasc Access - Tubes, Drains, and Vasc Access: [id number] Arterial Cath/Cannulation Sampling/Monitoring/Transfusion ([id number]) Tubes, Drains, and Vasc Access - Tubes, Drains, and Vasc Access: [id number] Ultrasound Guidance For Vascular ([id number]) Additional Codes Date of Service ([facility].SURGERY)
--- NOTE | 2025-04-21 12:59 | Cardiology Consultation ---
Date of Consultation April 21, 2025 Assessment & Plan (1) Shock: (2) Cirrhosis: (3) Atrial fibrillation with rapid ventricular response: (4) HUANG (nonalcoholic steatohepatitis): Plan Complex 75-year-old female with rehospitalization with hypotension, shock parameters with lactic acidosis, acute on chronic renal insufficiency, atrial fibrillation with elevated ventricular response rates. Significant leg edema and 15 pound weight gain also noted. Troponin elevated without EKG abnormality Patient currently in the intensive care unit on IV pressor support. Issues addressed as follows 1. Atrial fibrillation with elevated ventricular response rate. Beta-lizbet currently contraindicated in the setting of IV pressor support. Will consider adding digoxin to her regimen depending on heart rate response and renal function 2. Hypotension with shock parameters on pressor support. Acidosis present. Empiric treatment begun for possible sepsis Echocardiogram ordered. Continue to trend troponin 3. Acute on chronic right heart failure with increasing abdominal girth and edema. Will reassess LV and RV systolic function given elevated troponin and acute change. No acute findings on EKG. Prior echocardiographic findings demonstrated hyperdynamic LV systolic function Will hold Xifaxan, may contribute to significant peripheral edema Consider reduction in gabapentin dosing 4. Hepatic cirrhosis History of Present Illness Reason for Consultation: Possible septic shock, atrial fibrillation with rapid ventricular response Requesting Physician: Armando vizcaino Attending Physician: Demetria Daigle MD History of Present Illness Patient is a complex 75-year-old female with acute hospitalization with increasing lower extremity edema, shortness of breath, marked fatigue and hypotension. Recent hospitalization with discharge on 04/16/2025 to daughter's home. Underlying medical issues include 1. Newly diagnosed atrial fibrillation 04/11/2025 2. Hepatic cirrhosis secondary to HUANG with prior hepatic encephalopathy 3. CKD stage III 4. Chronic thrombocytopenia 5. Acute hospitalization on 04/11/2025 with presumed septic shock, lactic acidosis Patient presents now noting gradual decline followed by acute decline over the past 3 days. Worsening lower extremity edema shortness of breath and marked weakness. Beta-lizbet increased as an outpatient due to elevated heart rate yesterday. On ER presentation patient tachycardic and hypotensive with evidence of reduced renal perfusion, lactic acidosis and increased creatinine. Patient now on pressor support in intensive care unit. Patient able to mentate and answer questions. Has been aware of increasing abdominal girth and lower extremity edema. No specific chest pains. No overt fevers. Appetite only fair Allergies Allergy/AdvReac Type Severity Reaction Status Date / Time carrot Allergy Intermediate RAW Verified 04/11/25 14:52 CARROTS CAUSE INSIDE MOUTH TO GET ITCHY ON CHEEKS nut - unspecified Allergy Intermediate ERUPTION Verified 04/11/25 14:52 INSIDE MOUTH AND LIPS peanut Allergy Intermediate ERUPTION Verified 04/11/25 14:52 INSIDE MOUTH AND LIPS Sulfa (Sulfonamide Allergy Intermediate "SULFA Verified 04/11/25 14:52 Antibiotics) DRUGS": ITCHY & HIVES [place]LANDIC[place] AdvReac Intermediate BLEEDING Uncoded 04/11/25 14:52 Home Medications Medication Instructions Recorded Confirmed Type ascorbic acid (vitamin C) 250 mg 500 mg PO QAM 06/23/18 04/21/25 History tablet (Vitamin C) clobetasol 0.05 % topical gel 1 applic topical BID PRN LICHEN 06/23/18 04/21/25 History PLANUS BREAK OUTS clonazepam 0.5 mg tablet (Klonopin) 0.5 tab PO TID PRN Anxiety 06/23/18 04/21/25 History ferrous sulfate 325 mg (65 mg 325 mg PO WK 06/23/18 04/21/25 History iron) tablet (iron) folic acid 1 mg tablet 1 mg PO QAM 06/23/18 04/21/25 History furosemide 40 mg tablet (Lasix) 40 mg PO QAM 06/23/18 04/21/25 History gabapentin 100 mg capsule 100 mg PO .BID-QAM & AFTERNOON 06/23/18 04/21/25 History lactulose 10 gram/15 mL oral 30 ml PO TID 06/23/18 04/21/25 History solution omeprazole 40 mg capsule,delayed 40 mg PO DAILYBB 06/23/18 04/21/25 History release oxycodone 5 mg tablet 2.5 mg PO Q8H PRN Pain 06/23/18 04/21/25 History potassium chloride 20 mEq 10 meq PO QDL 06/23/18 04/21/25 History tablet,extended release(part/cryst) (Klor-Con M) rifaximin 550 mg tablet (Xifaxan) 550 mg PO BID 06/23/18 04/21/25 History spironolactone 100 mg tablet See Rx Instructions .Route .COMPLEX 06/23/18 04/21/25 History furosemide 40 mg tablet 20 mg PO HS 06/05/22 04/21/25 History citalopram 40 mg tablet 20 mg PO DAILY PRN Anxiety 11/07/22 04/21/25 History gabapentin 100 mg capsule 300 mg PO HS 11/07/22 04/21/25 History nystatin 100,000 unit/gram topical 1 applic topical TID PRN SKIN RASH 07/15/23 04/21/25 History powder (Nyamyc) ondansetron HCl 4 mg tablet 4 mg PO Q6H PRN NAUSEA/VOMITING 07/15/23 04/21/25 History betamethasone dipropionate 0.05 % 1 applic topical BID PRN SKIN 04/11/25 04/21/25 History topical cream IRRITATIONS cholecalciferol (vitamin D3) 25 25 mcg PO DAILY 04/11/25 04/21/25 History mcg (1,000 unit) capsule (Vitamin D3) cyanocobalamin (vitamin B-12) 1,000 mcg PO Q OTHER DAY 04/11/25 04/21/25 History 1,000 mcg tablet (Vitamin B-12) diclofenac sodium 2 % topical 0 ml topical DIRECTED PRN Pain 04/11/25 0 04/21/25 History solution in packet (Pennsaid) empagliflozin 10 mg tablet 10 mg PO QAM 04/11/25 04/21/25 History (Jardiance) levothyroxine 50 mcg tablet 50 mcg PO DAILYBB 04/11/25 04/21/25 History lidocaine 4 % topical patch 1 patch topical DAILY 04/11/25 04/21/25 History montelukast 10 mg tablet 10 mg PO HS 04/11/25 04/21/25 History (Singulair) qvjemerf-yrz-wxtqmw 5 mg-zeaxanth 1 cap PO DAILY 04/11/25 04/21/25 History 1 mg-bilberry 7.5 mg-herbal capsule (Macular Health Formula) tacrolimus 0.1 % topical ointment 1 applic topical BID PRN SKIN 04/11/25 5 History IRRITATIONS tizanidine 4 mg tablet 1 mg PO HS 04/11/25 04/21/25 History triamcinolone acetonide 0.1 % 1 applic topical BID PRN FLARE UPS 04/11/25 04/21/25 History topical ointment vitamin E 268 mg (400 unit) capsule 268 mg PO DAILY 04/11/25 04/21/25 History hydrocortisone 10 mg tablet 10 mg PO UD #10 tabs 04/16/25 04/21/25 Rx metoprolol succinate 50 mg 100 mg PO BID 04/21/25 04/21/25 History tablet,extended release 24 hr Patient History Medical History Varicose veins of both lower extremities HUANG (nonalcoholic steatohepatitis) Constipation HX Anxiety Lichen planus History of anemia Diabetes mellitus type 2 in nonobese DVT (deep venous thrombosis) RIGHT LEG S/P HIP SX 2015 Dyslipidemia GERD (gastroesophageal reflux disease) HTN (hypertension) Surgical History History of cataract surgery Right Cataract surgery 06/11/22 History of endoscopy History of colonoscopy History of back surgery X3 (HAS HARDWARE) History of hip replacement PARTIAL RIGHT History of repair of rotator cuff LEFT History of tonsillectomy "1974" H/O hernia repair History of tubal ligation H/O breast biopsy On 11/08/15 10:28 Erin Mccabe wrote "01/29/2012 right core bx - BCC - ductal hyperplasia, columnar cell hyperplasia and fibrocystic change - [facility] BCC 01/29/2012" Family History Mother Family history of diabetes mellitus Other Family history non-contributory Social History Smoking Status: Former smoker Second Hand Exposure: No; Do You Dip or Chew Tobacco: No; Tobacco Cessation Education Requested by Patient: No Hx Alcohol Use: No Hx Substance Use: No Preferred Language: [place] Communication Ability: Effective Hair Spring Cutter Required: No Beliefs That Will Affect Care: None Current Living Situation: Family Other Information That Helps Us Care for You: No Feels Safe at Home: Yes Safety Concerns: Feels Safe At This Time Assistive Devices: Cane, Denture - Upper, Denture - Lower, Glasses and Wheelchair Review of Systems Review of Systems: All systems reviewed & are unremarkable except as noted in HPI & below Physical Exam Constitutional: + ill appearing and + disheveled Eyes: PERRL, conjunctivae normal, anicteric sclerae ENMT: external ear and nose normal, oropharynx normal Neck: trachea midline, no thyromegaly Respiratory: symmetric chest movement Auscultation: + diminished lung dex nds Cardiovascular: Rate/Rhythm: + tachycardic and + irregularly irregular Heart Sounds: normal S1 and normal S2 Vessels: no JVD Extremities: no edema Gastrointestinal (Abdomen): normal bowel sounds, soft, nontender, no hepatosplenomegaly Musculoskeletal: no cyanosis or clubbing, extremities motor strength 5/5 Results & Data Vital Signs (Past 12 Hours) Vital Signs Temp Pulse Pulse Resp BP BP Pulse Ox 04/21/25 11:42 37.3 C 95 H 18 100 04/21/25 11:33 37.2 C 111 H 22 100 04/21/25 11:24 37.1 C 111 H 19 100 04/21/25 11:12 37.1 C 96 H 28 H 98 04/21/25 11:03 37.1 C 102 H 21 98 04/21/25 11:01 87/30 L 04/21/25 10:51 37.2 C 93 H 25 H 95 04/21/25 10:30 37.3 C 105 H 22 95 04/21/25 10:30 04/21/25 10:30 37.7 C H 117 H 24 107/71 97 04/21/25 10:21 37.3 C 114 H 13 85 L 04/21/25 10:12 37.3 C 119 H 20 92 04/21/25 10:02 90/66 L 04/21/25 10:00 132 H 26 H 96 04/21/25 09:51 106 H 17 04/21/25 09:48 102/76 04/21/25 09:48 117 H 29 H 04/21/25 09:42 88 22 04/21/25 09:39 110 H 25 H 04/21/25 09:25 04/21/25 09:16 86/72 L 04/21/25 09:05 117/95 04/21/25 09:05 117/95 04/21/25 09:03 94 H 27 H 98 04/21/25 08:57 96 H 17 96 04/21/25 08:56 118/57 L 04/21/25 08:56 118/57 L 04/21/25 08:51 99 H 14 95 04/21/25 08:51 75/59 L 04/21/25 08:48 93/70 L 04/21/25 08:21 37.6 C H 91 H 21 99 04/21/25 08:21 117/75 04/21/25 08:15 37.6 C H 99 H 24 100 04/21/25 08:15 131/77 04/21/25 08:05 74/47 L 04/21/25 08:05 74/47 L 04/21/25 08:05 74/47 L 04/21/25 08:00 88/58 L 04/21/25 08:00 88/58 L 04/21/25 07:54 37.7 C H 112 H 24 04/21/25 07:51 75/36 L 04/21/25 07:51 75/36 L 04/21/25 07:48 37.7 C H 101 H 17 93 04/21/25 07:46 97/64 L 04/21/25 07:40 98/75 L 04/21/25 07:39 37.7 C H 102 H 18 04/21/25 07:36 37.7 C H 109 H 13 98 04/21/25 07:36 79/65 L 04/21/25 07:36 79/65 L 04/21/25 07:36 79/65 L 04/21/25 07:36 79/65 L 04/21/25 07:33 37.6 C H 72 21 98 04/21/25 07:31 76/53 L 04/21/25 07:31 76/53 L 04/21/25 07:24 120/61 04/21/25 07:21 37.5 C 97 H 19 04/21/25 07:21 51/27 L 04/21/25 07:21 51/27 L 04/21/25 07:18 37.4 C 115 H 21 96 04/21/25 07:16 62/52 L 04/21/25 07:16 62/52 L 04/21/25 07:10 77/54 L 04/21/25 07:10 77/54 L 04/21/25 07:09 36.8 C 80 17 93 04/21/25 07:05 77/48 L 04/21/25 07:03 36.5 C 95 H 20 97 04/21/25 07:02 88/47 L 04/21/25 06:57 91 H 26 H 96 04/21/25 06:55 85/66 L 04/21/25 06:50 92 H 24 89/58 L 98 04/21/25 06:45 100 H 24 88/63 L 95 04/21/25 06:43 114 H 24 72/53 L 99 04/21/25 06:41 91 04/21/25 06:37 110 H 28 H 69/46 L 04/21/25 06:35 118 H 04/21/25 06:17 37.2 C 92 H 19 70/47 L 100 O2 Del Method O2 Flow Rate 04/21/25 11:42 04/21/25 11:33 04/21/25 11:24 04/21/25 11:12 04/21/25 11:03 04/21/25 11:01 04/21/25 10:51 04/21/25 10:30 04/21/25 10:30 Nasal Cannula 2 04/21/25 10:30 Nasal Cannula 2 04/21/25 10:21 04/21/25 10:12 04/21/25 10:02 04/21/25 10:00 04/21/25 09:51 04/21/25 09:48 04/21/25 09:48 04/21/25 09:42 04/21/25 09:39 04/21/25 09:25 Nasal Cannula 2 04/21/25 09:16 04/21/25 09:05 04/21/25 09:05 04/21/25 09:03 04/21/25 08:57 04/21/25 08:56 04/21/25 08:56 04/21/25 08:51 04/21/25 08:51 04/21/25 08:48 04/21/25 08:21 04/21/25 08:21 04/21/25 08:15 04/21/25 08:15 04/21/25 08:05 04/21/25 08:05 04/21/25 08:05 04/21/25 08:00 04/21/25 08:00 04/21/25 07:54 04/21/25 07:51 04/21/25 07:51 04/21/25 07:48 04/21/25 07:46 04/21/25 07:40 04/21/25 07:39 04/21/25 07:36 04/21/25 07:36 04/21/25 07:36 04/21/25 07:36 04/21/25 07:36 04/21/25 07:33 04/21/25 07:31 04/21/25 07:31 04/21/25 07:24 04/21/25 07:21 04/21/25 07:21 04/21/25 07:21 04/21/25 07:18 04/21/25 07:16 04/21/25 07:16 04/21/25 07:10 04/21/25 07:10 04/21/25 07:09 04/21/25 07:05 04/21/25 07:03 04/21/25 07:02 04/21/25 06:57 04/21/25 06:55 04/21/25 06:50 04/21/25 06:45 04/21/25 06:43 04/21/25 06:41 Room Air 04/21/25 06:37 04/21/25 06:35 04/21/25 06:17 Room Air Laboratory Results Laboratory Results - last 24 hr 04/21/25 04/21/25 04/21/25 06:30 06:38 06:55 WBC 10.57 RBC 3.42 L Hgb 10.4 L POC Hgb 11.2 L Hct 32.5 L POC Hct 33 L MCV 95.0 MCH 30.4 MCHC 32.0 RDW Std Deviation 56.7 H RDW Coeff of Arlene 17.2 H Plt Count 74 L MPV 11.8 Immature Gran % (Auto) 0.2 Neut % (Auto) 86.8 Lymph % (Auto) 1.9 Benton % (Auto) 8.7 Eos % (Auto) 2.1 Baso % (Auto) 0.3 Neut # (Auto) 9.18 H Lymph # (Auto) 0.20 L Benton # (Auto) 0.92 H Eos # (Auto) 0.22 Baso # (Auto) 0.03 Immature Gran # (Auto) 0.02 Absolute Nucleated RBC 0.09 Nucleated RBC % (auto) 0.9 Toxic Vacuolation 3+ Echinocytes 1+ PT 12.7 H INR 1.2 H APTT 25 PTT Ratio 0.9 VBG pH VBG pCO2 VBG pO2 VBG HCO3 VBG O2 Saturation VBG Base Excess POC Sodium 132 L Sodium 132 L POC Potassium 4.5 Potassium 4.6 POC Chloride 98 L Chloride 97 L Carbon Dioxide 24 POC Total CO2 21 L Anion Gap 11 POC Anion Gap 18.0 POC BUN 25 H BUN 29 H Creatinine 2.64 H POC Creatinine 2.7 H Est Cr Clr Drug Dosing 13.6 eGFR 18.10 BUN/Creatinine Ratio 11.0 Glucose 102 H POC Glucose POC Glucose (other) 103 H Lactate 4.3 H* Calcium 8.3 L POC Ioniz Calcium Tank 1.07 L Magnesium 1.9 Total Bilirubin 1.3 H Direct Bilirubin TNP AST 36 ALT 39 Alkaline Phosphatase 65 Troponin I High Sens 244.6 H* B-Natriuretic Peptide 1293 H Total Protein 5.5 L Albumin 3.1 L Procalcitonin 13.30 H Urine Color Yellow Urine Appearance Cloudy A Urine pH 5.0 Ur Specific [place] 1.014 Urine Protein Negative Urine Glucose (UA) 2+ H Urine Ketones Negative Urine Blood Negative Urine Nitrite Negative Urine Bilirubin Negative Urine Urobilinogen Negative Ur Leukocyte Esterase Trace H Urine WBC (Auto) 0-5 Urine RBC (Auto) 3-5 H U Hyaline Cast (Auto) 0-2 U Epithel Cells (Auto) 3-5 H Urine Bacteria (Auto) 3+ H Calcium Oxalate Crystal Present A Hyaline Casts P Urine Comment Nasal Screen MRSA (PCR) 04/21/25 04/21/25 04/21/25 07:23 07:24 08:23 WBC RBC Hgb POC Hgb Hct POC Hct MCV MCH MCHC RDW Std Deviation RDW Coeff of Arlene Plt Count MPV Immature Gran % (Auto) Neut % (Auto) Lymph % (Auto) Benton % (Auto) Eos % (Auto) Baso % (Auto) Neut # (Auto) Lymph # (Auto) Benton # (Auto) Eos # (Auto) Baso # (Auto) Immature Gran # (Auto) Absolute Nucleated RBC Nucleated RBC % (auto) Toxic Vacuolation Echinocytes PT INR APTT PTT Ratio VBG pH 7.30 L VBG pCO2 44 VBG pO2 < 20 VBG HCO3 22 VBG O2 Saturation < 60.0 VBG Base Excess -4.8 POC Sodium Sodium POC Potassium Potassium POC Chloride Chloride Carbon Dioxide POC Total CO2 Anion Gap POC Anion Gap POC BUN BUN Creatinine POC Creatinine Est Cr Clr Drug Dosing eGFR BUN/Creatinine Ratio Glucose POC Glucose POC Glucose (other) Lactate Calcium POC Ioniz Calcium Tank Magnesium Total Bilirubin Direct Bilirubin 0.4 H AST ALT Alkaline Phosphatase Troponin I High Sens 328.3 H* D B-Natriuretic Peptide Total Protein Albumin Procalcitonin Urine Color Urine Appearance Urine pH Ur Specific [place] Urine Protein Urine Glucose (UA) Urine Ketones Urine Blood Urine Nitrite Urine Bilirubin Urine Urobilinogen Ur Leukocyte Esterase Urine WBC (Auto) Urine RBC (Auto) U Hyaline Cast (Auto) U Epithel Cells (Auto) Urine Bacteria (Auto) Calcium Oxalate Crystal Hyaline Casts Urine Comment Nasal Screen MRSA (PCR) 04/21/25 04/21/25 04/21/25 08:27 09:50 10:11 WBC RBC Hgb POC Hgb Hct POC Hct MCV MCH MCHC RDW Std Deviation RDW Coeff of Arlene Plt Count MPV Immature Gran % (Auto) Neut % (Auto) Lymph % (Auto) [place] % (Auto) Eos % (Auto) Baso % (Auto) Neut # (Auto) Lymph # (Auto) [place] # (Auto) Eos # (Auto) Baso # (Auto) Immature Gran # (Auto) Absolute Nucleated RBC Nucleated RBC % (auto) Toxic Vacuolation Echinocytes PT INR APTT PTT Ratio VBG pH VBG pCO2 VBG pO2 VBG HCO3 VBG O2 Saturation VBG Base Excess POC Sodium Sodium POC Potassium Potassium POC Chloride Chloride Carbon Dioxide POC Total CO2 Anion Gap POC Anion Gap POC BUN BUN Creatinine POC Creatinine Est Cr Clr Drug Dosing eGFR BUN/Creatinine Ratio Glucose POC Glucose 97 POC Glucose (other) Lactate 3.5 H* Calcium POC Ioniz Calcium Tank Magnesium Total Bilirubin Direct Bilirubin AST ALT Alkaline Phosphatase Troponin I High Sens B-Natriuretic Peptide Total Protein Albumin Procalcitonin Urine Color Urine Appearance Urine pH Ur Specific [place] Urine Protein Urine Glucose (UA) Urine Ketones Urine Blood Urine Nitrite Urine Bilirubin Urine Urobilinogen Ur Leukocyte Esterase Urine WBC (Auto) Urine RBC (Auto) U Hyaline Cast (Auto) U Epithel Cells (Auto) Urine Bacteria (Auto) Calcium Oxalate Crystal Hyaline Casts Urine Comment Nasal Screen MRSA (PCR) Negative 04/21/25 11:19 WBC RBC Hgb POC Hgb Hct POC Hct MCV MCH MCHC RDW Std Deviation RDW Coeff of Arlene Plt Count MPV Immature Gran % (Auto) Neut % (Auto) Lymph % (Auto) [place] % (Auto) Eos % (Auto) Baso % (Auto) Neut # (Auto) Lymph # (Auto) [place] # (Auto) Eos # (Auto) Baso # (Auto) Immature Gran # (Auto) Absolute Nucleated RBC Nucleated RBC % (auto) Toxic Vacuolation Echinocytes PT INR APTT PTT Ratio VBG pH VBG pCO2 VBG pO2 VBG HCO3 VBG O2 Saturation VBG Base Excess POC Sodium Sodium POC Potassium Potassium POC Chloride Chloride Carbon Dioxide POC Total CO2 Anion Gap POC Anion Gap POC BUN BUN Creatinine POC Creatinine Est Cr Clr Drug Dosing eGFR BUN/Creatinine Ratio Glucose POC Glucose 99 POC Glucose (other) Lactate Calcium POC Ioniz Calcium Tank Magnesium Total Bilirubin Direct Bilirubin AST ALT Alkaline Phosphatase Troponin I High Sens B-Natriuretic Peptide Total Protein Albumin Procalcitonin Urine Color Urine Appearance Urine pH Ur Specific [place] Urine Protein Urine Glucose (UA) Urine Ketones Urine Blood Urine Nitrite Urine Bilirubin Urine Urobilinogen Ur Leukocyte Esterase Urine WBC (Auto) Urine RBC (Auto) U Hyaline Cast (Auto) U Epithel Cells (Auto) Urine Bacteria (Auto) Calcium Oxalate Crystal Hyaline Casts Urine Comment Nasal Screen MRSA (PCR) PG Care Time/CCT Total # of Minutes Spent Total Time Spent with Patient: Total time spent is greater than 50% in coordination of care (as documented) at patient's floor/unit and/or counseling patient: Coding Level of Care Code 14773 INT INP/OBS CARE 3/75MIN Diagnoses Shock R57.9 Other cirrhosis of liver K74.69 Hepatic cirrhosis type: other cirrhosis Atrial fibrillation with rapid ventricular response I48.91 HUANG (nonalcoholic steatohepatitis) K75.81 (2) Cirrhosis Hepatic cirrhosis type: other cirrhosis Qualified Code(s): K74.69 - Other cirrhosis of liver
[2025-04-21] MEDS ORDERED: HYDROCORTISONE SOD SUCCINATE 100 MG/2 ML VIAL IV SCH (13:00)
[2025-04-21] MEDS ORDERED: HYDROCORTISONE SOD 50 MG in SYRINGE 0 ML IV SCH (13:00)
[2025-04-21] MEDS: VASOPRESSIN 20 UNITS in SODIUM CHLORIDE 0.9% 100 ML IV SCH (14:21)
--- NOTE | 2025-04-21 15:01 | Electrocardiogram Report ---
Test Reason : Blood Pressure : */* mmHG Vent. Rate : 120 BPM Atrial Rate : * BPM P-R Int : * ms QRS Dur : 74 ms QT Int : 302 ms P-R-T Axes : * -35 58 degrees QTcB Int : 426 ms Atrial fibrillation with rapid ventricular response Left axis deviation Low voltage QRS Cannot rule out Anterior infarct (cited on or before 11-Apr-2025) Abnormal ECG When compared with ECG of 11-Apr-2025 13:57, Criteria for Inferior infarct are no longer Present T wave inversion no longer evident in Lateral leads Confirmed by Rip Salomon ([id number]) on 04/21/2025 3:01:25 PM Referred By: Confirmed By: Rip Salomon
--- NOTE | 2025-04-21 15:08 | Pharmacy Report ---
Pharmacy PK ABX Note - Date of Service April 21, 2025 - Assessment and Plan Assessment 75 year old F receiving VANCOMYCIN/ZOSYN for EMPIRIC treatment. Pertinent microbiologic data includes: MRSA nasal swab negative, Blood cultures pending. Recent hospitalization, antibiotic use (zosyn). Possible RLL pneumonia, also with leg swelling/rash. WBC normal, Tmax 37.7. Procal elevated but in the setting of RANDY. Lactate 4.3 --> 3.5. Hypotensive on pressors. Troponin trending upward. Sepsis vs hepatorenal syndrome. SCr 2.64, baseline ~1.8. Received 2 mg of bumex. Plan Vancomycin * Loading dose: 1500 mg IV x 1 * Half-life estimating > 24 hours. Will dose by levels. * Will obtain a level tonight when estimating level will be < 20 mcg/mL with current renal function. * Redosing dependent on level Pharmacy will continue to follow and will adjust dose/frequency as necessary. Thank you. Pharmacy has transitioned to AUC monitoring for vancomycin. AUC/CARLOS is the preferred PK/PD target and is associated with decreased risk of nephrotoxicity compared to traditional trough targets.
[2025-04-21] MEDS: PIPERACILLIN/TAZOBACTAM 4.5 GM/100 ML BAG IV SCH (15:27)
[2025-04-21] MEDS: HEPARIN SOD 5,000 UNIT/0.5 ML VIAL SQ SCH (15:36)
[2025-04-21] MEDS: HYDROCORTISONE SOD 50 MG in SYRINGE 0 ML IV SCH (16:51)
[2025-04-21] MEDS ORDERED: DEXTROSE 50% 50 ML SYRINGE IV PRN (17:59)
[2025-04-21] MEDS ORDERED: GLUCOSE 40% GEL 15 GM TUBE PO PRN (17:59)
[2025-04-21] MEDS ORDERED: CARBOHYDRATES FOR HYPOGLYCEMIA PO PRN (17:59)
[2025-04-21] MEDS ORDERED: GLUCOSE 10 TAB/TUBE PO PRN (17:59)
[2025-04-21] MEDS ORDERED: GLUCAGON FOR INJ 1 MG VIAL SQ PRN (17:59)
[2025-04-21] MEDS: INSULIN ASPART PER UNIT CHARGE SC SCH (18:19)
[2025-04-21] MEDS: MONTELUKAST SODIUM 10 MG TABLET PO SCH (19:55)
[2025-04-21 20:54] LABS: A calco-baum cmplx NotReported DETECTED (NotDetected); Bact fragilis Not Reported Not Detected (NotDetected); Blood Culture Id Panel See PCR Comment (NotDetected); C auris Not Reported Not Detected (NotDetected); CTX-M Resistant Gene Not Detected (NotDetected); Calbicans Not Reported Not Detected (NotDetected); Candida glabrata Not Reported Not Detected (NotDetected); Candida krusei Not Reported Not Detected (NotDetected); Cneoformans/gatti Not Reported Not Detected (NotDetected); Cparapsilosis Not Reported Not Detected (NotDetected); Ctropicalis Not Reported Not Detected (NotDetected); E cloacae compx Not Reported Not Detected (NotDetected); Efaecalis Not Reported Not Detected (NotDetected); Efaecium Not Reported Not Detected (NotDetected); Enterobacterales Not Reported Not Detected (NotDetected); Escherichia coli Not Reported Not Detected (NotDetected); H influenzae Not Reported Not Detected (NotDetected); IMP Resistant Gene Not Detected (NotDetected); K aerogenes Not Reported Not Detected (NotDetected); KPC Resistant Gene Not Detected (NotDetected); Koxytoca Not Reported Not Detected (NotDetected); Kpneumoniae grp Not Reported Not Detected (NotDetected); Lmonocyt Not Reported Not Detected (NotDetected); N meningitidis Not Reported Not Detected (NotDetected); NDM Resistant Gene Not Detected (NotDetected); P aeruginosa Not Reported Not Detected (NotDetected); Proteus spp Not Reported Not Detected (NotDetected); Salmonella spp Not Reported Not Detected (NotDetected); Staph lugdunensis Not Reported Not Detected (NotDetected); Staph spp. Not Reported Not Detected (NotDetected); Staphaureus Not Reported Not Detected (NotDetected); Staphepi Not Reported Not Detected (NotDetected); Stenmaltophilia Not Reported Not Detected (NotDetected); Strep agal(GrpB) Not Reported Not Detected (NotDetected); Strep pneum Not Reported Not Detected (NotDetected); Strep pyog (GrpA) Not Reported Not Detected (NotDetected); Strep spp Not Reported Not Detected (NotDetected); VIM Resistant Gene Not Detected (NotDetected)
[2025-04-21 21:04] LABS: Acinetobacter calco-baum cmplx DETECTED (NotDetected)
[2025-04-21] MEDS: VANCOMYCIN 750 MG in SODIUM CHLORIDE 0.9% 250 ML IV SCH (23:35)
[2025-04-22] MEDS: LEVOTHYROXINE SODIUM 50 MCG TABLET PO SCH (05:10)
[2025-04-22 05:28] LABS: Alanine Aminotransferase 88.0 U/L (7-52); Albumin Globulin Ratio 1.0 (0.9-2); Alkaline Phosphatase 60.0 U/L (34-104); Anion Gap 10.0 (3-11); Bilirubin,Total 1.5 mg/dl (0.2-1.0); Blood Urea Nitrogen 29.0 mg/dl (6-23); Calcium 7.8 mg/dl (8.6-10.3); Carbon Dioxide 22.0 mmol/L (21-32); Chloride 101.0 mmol/L (98-107); Creatinine Clr Calc Pharmacy 17.1 ml/min; Globulin 2.6 gm/dl (2.5-4.0); Glucose 143.0 mg/dl (70-99(Fasting)); Magnesium 1.7 mg/dl (1.7-2.4); Potassium 3.6 mmol/L (3.5-5.1); Sodium 133.0 mmol/L (136-145); Total Protein 5.3 gm/dl (6.0-8.3)
[2025-04-22 05:55] LABS: Hematocrit (blood only) 29.5 % (37.0-47.0); Hemoglobin 9.9 g/dl (12.0-16.0); Mean Corpuscular Hemoglobin 30.0 pg (25.0-34.0); Mean Corpuscular Volume 89.4 fL (80.0-100.0); Platelet Count 89 K/uL (130-400); RDW Standard Deviation 53.9 fL (36.4-46.3); Red Blood Count 3.30 M/uL (4.20-5.40); White Blood Count 19.90 K/ul (4.8-10.8)
[2025-04-22] MEDS: MAGNESIUM SULFATE / D5W 1 GM/100 ML BAG IV SCH (06:31)
[2025-04-22] MEDS: POTASSIUM CHLORIDE / WTR 20 MEQ/100 ML PLCT IV SCH (06:31)
[2025-04-22] MEDS: CHOLECALCIFEROL 25 MCG (1000 UNITS) TAB PO SCH (08:40)
[2025-04-22] MEDS: ASCORBIC ACID 500 MG TAB PO SCH (08:40)
[2025-04-22] MEDS: LACTULOSE SYRUP 10 GM/15 ML BTL 960 ML PO SCH (08:40)
[2025-04-22] MEDS ORDERED: CITALOPRAM 20 MG TAB PO PRN (09:00)
[2025-04-22] MEDS: ALBUMIN 5% 250 ML IV ONE (09:07)
--- NOTE | 2025-04-22 09:12 | Critical Care Progress Note ---
Date of Service April 22, 2025 Assessment & Plan (1) Cirrhosis: (2) Thrombocytopenia: (3) New onset a-fib: (4) RANDY (acute kidney injury): (5) CKD (chronic kidney disease) stage 3, GFR 30-59 ml/min: (6) Acute hypotension: (7) GERD (gastroesophageal reflux disease): (8) Shock: (9) HUANG (nonalcoholic steatohepatitis): Plan Carol Lawrence is a 75-year-old female with past medical history of Non-alcoholic Steatohepatitis, atrial fibrillation, hyperlipidemia, lumbar fusion, DMII, GERD, hyperparathyroidism, CKD stage IIIb, HFrEF; who presented to [facility] with hypotension and generalized weakness. Neuro: Depression; LEELA -No acute issues -CAM-ICU negative -No intracranial head imaging need at this time. -Monitor -Continue Celexa CV: Shock undifferentiated possible septic v. hepatocradiorenal syndrome; Type II myocardial injury/ PRAMOD -Started on Levo gtt in ED was at 0.30 on initial evaluation. Vasopressin added. -Start stress dosed steroids 50mg q6h. -maintain MAP > 65mmhg -Patient BNP 1293 and troponin 244 likely demand ischemia -Diuresed with 2mg of Bumex will monitor pressor requirement with diuresis. Atrial fibrillation -Given critical illness would maintain HR < 120. -Consider amiodarone if RVR -Not on therapeutic AC. -Hold betablocker at this time given hypotension requiring vasopressors -Cardiology following. Pulm: Acute hypoxic respiratory failure -Patient sPo2 85% on arrival improved with oxygen -Maintain SpO2 > 92% currently on 2L NC GI: FEN -NO at this time. -Will initiate clear liquids but hold on full diet given high dose vasopressors. 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 MCV 95. -Plts 74K -Monitor H&H daily -transfuse for hgb < 7 -No DVT noted on lower extremity duplex. Endo: Diabetes mellitus Type II -BG 104 on admission -BG control may worsen with corticosteroids -Hyperglycemia protocol ordered ID: Possible septic shock; sepsis -WBC 10. -Low grade fever at home 37.5 -Procal 13 -Chest x-ray RLL infiltrate. -Blood cultures pending -UA 3+ bacteria otherwise negative. Asymptomatic bacteuria. -Started on empiric vanc and zosyn. D/C or deescelate as appropriate. Prophylaxis: -SCD for mechanical DVT prophylaxis -Heparin for DVT chemoprophylaxis -PPI for GI prophylaxis (home med) Disposition: ICU for continued evaluation and management of undifferentiated shock requiring high dose vasopressors with high risk for decline. Patient is full code. Patient and family updated at bedside by ICU provider on 04/21/2025. I have personally spent 60 minutes of critical care time in the direct management of this patient. This is a life/limb threatening event. This includes time spent evaluating patient, direct bedside care, chart review, pl acing orders, interpretation of diagnostic studies, discussion with consultants, patient, and/or family members regarding treatment decisions, as well as other required patient management activities. This time is exclusive of all separately billable procedures, and teaching time and separate from and in addition to any other critical care service time. Admission and Anticipated Discharge Date Admission Date: April 21, 2025 Results & Data Results & Data Vital Signs (Past 12 Hours) Vital Signs Temp Pulse Resp Pulse Ox 04/22/25 08:06 37.7 C H 118 H 20 99 04/22/25 07:00 37.8 C H 112 H 21 99 04/22/25 06:15 37.8 C H 119 H 23 100 04/22/25 06:00 37.7 C H 109 H 24 99 04/22/25 05:45 37.7 C H 112 H 98 04/22/25 05:36 37.7 C H 119 H 19 98 04/22/25 05:18 37.7 C H 100 H 19 98 04/22/25 04:51 99 04/22/25 04:36 37.9 C H 111 H 18 98 04/22/25 04:18 37.9 C H 109 H 18 100 04/22/25 04:03 37.9 C H 119 H 24 100 04/22/25 03:45 37.9 C H 124 H 24 04/22/25 03:27 37.9 C H 108 H 19 100 04/22/25 03:06 37.9 C H 104 H 21 04/22/25 02:51 37.9 C H 117 H 22 04/22/25 02:03 37.9 C H 127 H 21 04/22/25 01:51 37.9 C H 116 H 18 04/22/25 01:42 37.9 C H 114 H 19 04/22/25 01:33 37.8 C H 121 H 18 04/22/25 01:12 37.9 C H 100 H 22 04/22/25 01:09 37.9 C H 137 H 21 04/22/25 00:42 37.8 C H 134 H 22 04/22/25 00:30 37.8 C H 112 H 20 04/22/25 00:18 37.9 C H 103 H 20 04/22/25 00:00 115 H 04/22/25 00:00 37.9 C H 134 H 17 04/21/25 23:42 37.9 C H 117 H 21 04/21/25 23:39 37.9 C H 138 H 18 04/21/25 23:12 37.9 C H 110 H 20 04/21/25 23:09 37.9 C H 113 H 15 04/21/25 22:48 37.9 C H 118 H 23 04/21/25 22:36 37.9 C H 130 H 18 04/21/25 22:21 37.9 C H 106 H 20 04/21/25 22:15 38.0 C H 113 H 17 04/21/25 22:09 38.0 C H 105 H 23 04/21/25 21:42 38.0 C H 124 H 21 04/21/25 21:39 38.0 C H 111 H 22 04/21/25 21:24 38.0 C H 112 H 17 Coding Diagnoses Other cirrhosis of liver K74.69 Hepatic cirrhosis type: other cirrhosis Thrombocytopenia D69.6 New onset a-fib I48.91 RANDY (acute kidney injury) N17.9 Stage 3b chronic kidney disease N18.32 Chronic kidney disease stage 3 subtype: stage 3b (GFR 30-44) Acute hypotension I95.9 Gastroesophageal reflux disease without esophagitis K21.9 Esophagitis presence: without esophagitis Shock R57.9 HUANG (nonalcoholic steatohepatitis) K75.81 (1) Cirrhosis Hepatic cirrhosis type: other cirrhosis Qualified Code(s): K74.69 - Other cirrhosis of liver (5) CKD (chronic kidney disease) stage 3, GFR 30-59 ml/min Chronic kidney disease stage 3 subtype: stage 3b (GFR 30-44) Qualified Code(s): N18.32 - Chronic kidney disease, stage 3b (7) GERD (gastroesophageal reflux disease) Esophagitis presence: without esophagitis Qualified Code(s): K21.9 - Gastro- esophageal reflux disease without esophagitis
[2025-04-22] MEDS ORDERED: AMPICILLIN/SULBACTAM SOD 3,000 MG/100 ML BAG IV SCH (10:30)
--- NOTE | 2025-04-22 10:40 | Cardiology Progress Note ---
Date of Service April 22, 2025 Assessment & Plan (1) Shock: Plan: With sepsis (2) Cirrhosis: (3) Atrial fibrillation with rapid ventricular response: (4) HUANG (nonalcoholic steatohepatitis): Plan Complex 75-year-old female with rehospitalization with hypotension, shock parameters with lactic acidosis, acute on chronic renal insufficiency, atrial fibrillation with elevated ventricular response rates. Significant leg edema and 15 pound weight gain also noted. Troponin elevated without EKG abnormality Patient currently in the intensive care unit on IV pressor support. Issues addressed as follows 1. Atrial fibrillation with elevated ventricular response rate. Beta-lizbet currently contraindicated in the setting of IV pressor support. Will consider adding digoxin to her regimen depending on heart rate response and renal function 2. Hypotension with shock parameters on pressor support. Acidosis present. Empiric treatment begun for possible sepsis Echocardiogram ordered. Continue to trend troponin 3. Acute on chronic right heart failure with increasing abdominal girth and edema. Will reassess LV and RV systolic function given elevated troponin and acute change. No acute findings on EKG. Prior echocardiographic findings demonstrated hyperdynamic LV systolic function Will hold Xifaxan, may contribute to significant peripheral edema Consider reduction in gabapentin dosing 4. Hepatic cirrhosis 04/22/2025 Patient with slow clinical improvement with mild improvement hypotension, tachycardia. Underlying sepsis being treated. Pressors being weaned. Echocardiogram with small hypertrophied left ventricle with hyperdynamic LV function no wall motion abnormalities Mild to moderate mitral insufficiency 1. Atrial fibrillation with rapid ventricular response in response to acute septic shock and illness. Hypertrophied small left ventricle with reduced stroke-volume. Plan: Reinstitute low-dose beta-lizbet as pressors weaned to reduced heart rate and increased diastolic filling time Continue to treat septic shock Continue to hold Xifaxan, may contribute to significant peripheral edema Consider reduction in gabapentin dosing Admission and Anticipated Discharge Date Admission Date: April 21, 2025 Review of Systems Review of Systems: All systems reviewed & are unremarkable except as noted in Subjective Physical Exam Constitutional: + ill appearing and + thin Eyes: PERRL, conjunctivae normal, anicteric sclerae ENMT: external ear and nose normal, oropharynx normal Neck: trachea midline, no thyromegaly Respiratory: symmetric chest movement Auscultation: + diminished lung sounds Cardiovascular: Rate/Rhythm: + tachycardic and + irregularly irregular Heart Sounds: normal S1 and normal S2 Vessels: no JVD Extremities: no edema Gastrointestinal (Abdomen): normal bowel sounds, soft, nontender, no hepatosplenomegaly Musculoskeletal: no cyanosis or clubbing, extremities motor strength 5/5 Skin: Stasis changes and wound breakdown in the lower extremity Results & Data Vital Signs (Past 12 Hours) Vital Signs Temp Pulse Resp Pulse Ox 04/22/25 09:00 37.5 C 103 H 21 97 04/22/25 08:06 37.7 C H 118 H 20 99 04/22/25 07:00 37.8 C H 112 H 21 99 04/22/25 06:15 37.8 C H 119 H 23 100 04/22/25 06:00 37.7 C H 109 H 24 99 04/22/25 05:45 37.7 C H 112 H 98 04/22/25 05:36 37.7 C H 119 H 19 98 04/22/25 05:18 37.7 C H 100 H 19 98 04/22/25 04:51 99 04/22/25 04:36 37.9 C H 111 H 18 98 04/22/25 04:18 37.9 C H 109 H 18 100 04/22/25 04:03 37.9 C H 119 H 24 100 04/22/25 03:45 37.9 C H 124 H 24 100 04/22/25 03:27 37.9 C H 108 H 19 100 04/22/25 03:06 37.9 C H 104 H 21 100 04/22/25 02:51 37.9 C H 117 H 22 100 04/22/25 02:03 37.9 C H 127 H 21 99 04/22/25 01:51 37.9 C H 116 H 18 100 04/22/25 01:42 37.9 C H 114 H 19 100 04/22/25 01:33 37.8 C H 121 H 18 100 04/22/25 01:12 37.9 C H 100 H 22 100 04/22/25 01:09 37.9 C H 137 H 21 100 04/22/25 00:42 37.8 C H 134 H 22 100 04/22/25 00:30 37.8 C H 112 H 20 100 04/22/25 00:18 37.9 C H 103 H 20 100 04/22/25 00:00 115 H 04/22/25 00:00 37.9 C H 134 H 17 100 04/21/25 23:42 37.9 C H 117 H 21 100 04/21/25 23:39 37.9 C H 138 H 18 100 04/21/25 23:12 37.9 C H 110 H 20 100 04/21/25 23:09 37.9 C H 113 H 15 100 04/21/25 22:48 37.9 C H 118 H 23 100 Laboratory Results Laboratory Results - last 24 hr 04/21/25 04/21/25 04/21/25 06:30 09:50 11:19 WBC RBC Hgb Hct MCV MCH MCHC RDW Std Deviation RDW Coeff of Arlene Plt Count MPV Sodium Potassium Chloride Carbon Dioxide Anion Gap BUN Creatinine Est Cr Clr Drug Dosing eGFR BUN/Creatinine Ratio Glucose POC Glucose 99 POC Glucose (other) Lactate Calcium Phosphorus Magnesium Total Bilirubin AST ALT Alkaline Phosphatase Ammonia Troponin I High Sens Total Protein Albumin Globulin Albumin/Globulin Ratio Nasal Screen MRSA (PCR) Negative Random Vancomycin A.calcoaceticus-baumannii cmplx PCR DETECTED A blaIMP Car res Gene PCR Not Detected KPC-Carbap Res Gene PCR Not Detected blaNDM Car Res Gene PCR Not Detected blaVIM Car Res Gene PCR Not Detected CTX-M Gene Resistance (PCR) Not Detected Bld Cult ID Panel PCR See PCR Comment 04/21/25 04/21/25 04/21/25 13:58 14:46 17:28 WBC RBC Hgb Hct MCV MCH MCHC RDW Std Deviation RDW Coeff of Arlene Plt Count MPV Sodium Potassium Chloride Carbon Dioxide Anion Gap BUN Creatinine Est Cr Clr Drug Dosing eGFR BUN/Creatinine Ratio Glucose POC Glucose POC Glucose (other) 192 H Lactate 2.3 H* Calcium Phosphorus Magnesium Total Bilirubin AST ALT Alkaline Phosphatase Ammonia 32.0 Troponin I High Sens 568.1 H* D Total Protein Albumin Globulin Albumin/Globulin Ratio Nasal Screen MRSA (PCR) Random Vancomycin A.calcoaceticus-baumannii cmplx PCR blaIMP Car res Gene PCR KPC-Carbap Res Gene PCR blaNDM Car Res Gene PCR blaVIM Car Res Gene PCR CTX-M Gene Resistance (PCR) Bld Cult ID Panel PCR 04/21/25 04/21/25 04/21/25 19:52 19:58 23:49 WBC RBC Hgb Hct MCV MCH MCHC RDW Std Deviation RDW Coeff of Arlene Plt Count MPV Sodium Potassium Chloride Carbon Dioxide Anion Gap BUN Creatinine Est Cr Clr Drug Dosing eGFR BUN/Creatinine Ratio Glucose POC Glucose POC Glucose (other) 194 H 202 H Lactate Calcium Phosphorus Magnesium Total Bilirubin AST ALT Alkaline Phosphatase Ammonia Troponin I High Sens 482.7 H* Total Protein Albumin Globulin Albumin/Globulin Ratio Nasal Screen MRSA (PCR) Random Vancomycin 14.7 A.calcoaceticus-baumannii cmplx PCR blaIMP Car res Gene PCR KPC-Carbap Res Gene PCR blaNDM Car Res Gene PCR blaVIM Car Res Gene PCR CTX-M Gene Resistance (PCR) Bld Cult ID Panel PCR 04/22/25 04:39 WBC 19.90 H RBC 3.30 L Hgb 9.9 L Hct 29.5 L MCV 89.4 D MCH 30.0 MCHC 33.6 RDW Std Deviation 53.9 H RDW Coeff of Arlene 17.0 H Plt Count 89 L MPV 10.5 Sodium 133 L Potassium 3.6 D Chloride 101 Carbon Dioxide 22 Anion Gap 10 BUN 29 H Creatinine 2.12 H D Est Cr Clr Drug Dosing 17.1 eGFR 23.55 BUN/Creatinine Ratio 13.7 Glucose 143 H POC Glucose POC Glucose (other) Lactate Calcium 7.8 L Phosphorus 3.0 Magnesium 1.7 Total Bilirubin 1.5 H AST 55 H ALT 88 H Alkaline Phosphatase 60 Ammonia Troponin I High Sens Total Protein 5.3 L Albumin 2.7 L Globulin 2.6 Albumin/Globulin Ratio 1.0 Nasal Screen MRSA (PCR) Random Vancomycin 21.4 H A.calcoaceticus-baumannii cmplx PCR blaIMP Car res Gene PCR KPC-Carbap Res Gene PCR blaNDM Car Res Gene PCR blaVIM Car Res Gene PCR CTX-M Gene Resistance (PCR) Bld Cult ID Panel PCR PG Care Time/CCT Total # of Minutes Spent Total Time Spent with Patient: Total time spent is greater than 50% in coordination of care (as documented) at patient's floor/unit and/or counseling patient: Coding Level of Care Code 60578 SUB INP/OBS CARE 3/50MIN Diagnoses Shock R57.9 Other cirrhosis of liver K74.69 Hepatic cirrhosis type: other cirrhosis Atrial fibrillation with rapid ventricular response I48.91 HUANG (nonalcoholic steatohepatitis) K75.81 (2) Cirrhosis Hepatic cirrhosis type: other cirrhosis Qualified Code(s): K74.69 - Other cirrhosis of liver
--- NOTE | 2025-04-22 10:54 | Hospitalist Progress Note ---
Date of Service April 22, 2025 Assessment & Plan (1) Septic shock: (2) Atrial fibrillation with rapid ventricular response: (3) CKD (chronic kidney disease) stage 3, GFR 30-59 ml/min: (4) Cirrhosis: (5) Thrombocytopenia: (6) Acute hypotension: Plan 75-year-old man with history significant for HUANG cirrhosis with ascites thrombocytopenia, DM type II, CKD 3, hypertension, hypothyroidism,, and hypothyroidism, recently hospitalized from 04/12/2025 to 04/16/2025 for septic shock, new A-fib with RVR who presents today complaining of worsening generalized weakness. Exam notable for tachycardia, irregularly irregular rhythm, hypertension, lower extremity erythema and tenderness , diminished breath sounds Labs notable for WBC 10.5, hemoglobin of10.4 was 12.9 last week, Platelet 74 (was 49 last week), Na 132, Cr 2.69 (was 1.88 on 04/16), lactate 4.3,TBil 1.3, Trop 244, BNP 1293, Procal 13, Chest x-ray reviewed,, noted Pulmonary congestion, right lung opacity Septic shock RLE cellulitis Atrial Fibrillation with RVR Demand ischemia RANDY on CKD 3 Hyponatremia Anemia Thrombocytopenia Cirrhosis Blood culture - Acinetobacter in 1 set Follow-up outstanding infectious workup Antibiotics changed to Unasyn and levofloxacin Will follow up ID already consulted Got bumex one dose yesterday per ICU team Hold [employer]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 Gabapentin 100mg TID home dose reduced to 100mg BID for now DVT prophylaxis - Will do sq heparin for now and monitor Hb closely or any signs of bleeding. Code status- Full. Updated daughter at bedside I spent a total of 50 minutes coordinating, documenting and providing care for this patient excluding time spent in performance of separately billed services Admission and Anticipated Discharge Date Admission Date: April 21, 2025 Subjective Patient seen and examined Reports RLE pain on ROS Denied chest pain, cough, SOB, abd pain, nausea, vomiting or any other complaints on ROS Physical Exam Constitutional: + ill appearing; no acute distress Eyes: PERRL, conjunctivae normal, anicteric sclerae ENMT: external ear and nose normal, oropharynx normal Respiratory: normal respiratory effort, lungs clear to auscultation Cardiovascular: Rate/Rhythm: + irregularly irregular Gastrointestinal (Abdomen): normal bowel sounds, soft, nontender, no hepatosplenomegaly Musculoskeletal: B/L LE edema. Tenderness and erythema on RLE Neurologic: PERRL, EOMI, accommodation nl, no face palsy, no dysarthria Psychiatric: A+Ox3, euthymic affect Results & Data Results & Data Vital Signs (Past 12 Hours) Vital Signs Temp Pulse Resp Pulse Ox 04/22/25 10:21 37.4 C 96 H 21 97 04/22/25 09:00 37.5 C 103 H 21 97 04/22/25 08:06 37.7 C H 118 H 20 99 04/22/25 07:00 37.8 C H 112 H 21 99 04/22/25 06:15 37.8 C H 119 H 23 100 04/22/25 06:00 37.7 C H 109 H 24 99 04/22/25 05:45 37.7 C H 112 H 98 04/22/25 05:36 37.7 C H 119 H 19 98 04/22/25 05:18 37.7 C H 100 H 19 98 04/22/25 04:51 99 04/22/25 04:36 37.9 C H 111 H 18 98 04/22/25 04:18 37.9 C H 109 H 18 100 04/22/25 04:03 37.9 C H 119 H 24 100 04/22/25 03:45 37.9 C H 124 H 24 100 04/22/25 03:27 37.9 C H 108 H 19 100 04/22/25 03:06 37.9 C H 104 H 21 100 04/22/25 02:51 37.9 C H 117 H 22 100 04/22/25 02:03 37.9 C H 127 H 21 99 04/22/25 01:51 37.9 C H 116 H 18 100 04/22/25 01:42 37.9 C H 114 H 19 100 04/22/25 01:33 37.8 C H 121 H 18 100 04/22/25 01:12 37.9 C H 100 H 22 100 04/22/25 01:09 37.9 C H 137 H 21 100 04/22/25 00:42 37.8 C H 134 H 22 100 07/03/25 00:30 37.8 C H 112 H 20 04/22/25 00:18 37.9 C H 103 H 20 04/22/25 00:00 115 H 04/22/25 00:00 37.9 C H 134 H 17 04/21/25 23:42 37.9 C H 117 H 21 04/21/25 23:39 37.9 C H 138 H 18 04/21/25 23:12 37.9 C H 110 H 20 04/21/25 23:09 37.9 C H 113 H 15 100 Laboratory Results Abnormal lab results 04/21/25 04/21/25 04/21/25 Range/Units 06:30 13:58 14:46 WBC (4.8-10.8) K/ul RBC (4.20-5.40) M/uL Hgb (12.0-16.0) g/dl Hct (37.0-47.0) % RDW Std Deviation (36.4-46.3) fL RDW Coeff of Arlene (11.5-14.5) % Plt Count (130-400) K/uL Sodium (136-145) mmol/L BUN (6-23) mg/dl Creatinine (0.6-1.2) mg/dl Glucose (70-99(Fasting)) mg/dl POC Glucose (70-99) mg/dl POC Glucose (other) (70-99) mg/dl Lactate 2.3 H* (0.4-2.0) mmol/L Calcium (8.6-10.3) mg/dl Total Bilirubin (0.2-1.0) mg/dl AST (13-39) U/L ALT (7-52) U/L Troponin I High Sens 568.1 H* D (0-14) pg/ml Total Protein (6.0-8.3) gm/dl Albumin (3.4-5.0) gm/dl Random Vancomycin (10-20) mcg/ml A.calcoaceticus-baumannii cmplx PCR DETECTED A (NotDetected) 04/21/25 04/21/25 04/21/25 Range/Units 17:28 19:52 19:58 WBC (4.8-10.8) K/ul RBC (4.20-5.40) M/uL Hgb (12.0-16.0) g/dl Hct (37.0-47.0) % RDW Std Deviation (36.4-46.3) fL RDW Coeff of Arlene (11.5-14.5) % Plt Count (130-400) K/uL Sodium (136-145) mmol/L BUN (6-23) mg/dl Creatinine (0.6-1.2) mg/dl Glucose (70-99(Fasting)) mg/dl POC Glucose (70-99) mg/dl POC Glucose (other) 192 H 194 H (70-99) mg/dl Lactate (0.4-2.0) mmol/L Calcium (8.6-10.3) mg/dl Total Bilirubin (0.2-1.0) mg/dl AST (13-39) U/L ALT (7-52) U/L Troponin I High Sens 482.7 H* (0-14) pg/ml Total Protein (6.0-8.3) gm/dl Albumin (3.4-5.0) gm/dl Random Vancomycin (10-20) mcg/ml A.calcoaceticus-baumannii cmplx PCR (NotDetected) 04/21/25 04/22/25 04/22/25 Range/Units 23:49 04:39 11:20 WBC 19.90 H (4.8-10.8) K/ul RBC 3.30 L (4.20-5.40) M/uL Hgb 9.9 L (12.0-16.0) g/dl Hct 29.5 L (37.0-47.0) % RDW Std Deviation 53.9 H (36.4-46.3) fL RDW Coeff of Arlene 17.0 H (11.5-14.5) % Plt Count 89 L (130-400) K/uL Sodium 133 L (136-145) mmol/L BUN 29 H (6-23) mg/dl Creatinine 2.12 H D (0.6-1.2) mg/dl Glucose 143 H (70-99(Fasting)) mg/dl POC Glucose 164 H (70-99) mg/dl POC Glucose (other) 202 H (70-99) mg/dl Lactate (0.4-2.0) mmol/L Calcium 7.8 L (8.6-10.3) mg/dl Total Bilirubin 1.5 H (0.2-1.0) mg/dl AST 55 H (13-39) U/L ALT 88 H (7-52) U/L Troponin I High Sens (0-14) pg/ml Total Protein 5.3 L (6.0-8.3) gm/dl Albumin 2.7 L (3.4-5.0) gm/dl Random Vancomycin 21.4 H (10-20) mcg/ml A.calcoaceticus-baumannii cmplx PCR (NotDetected) (3) CKD (chronic kidney disease) stage 3, GFR 30-59 ml/min Chronic kidney disease stage 3 subtype: stage 3b (GFR 30-44) Qualified Code(s): N18.32 - Chronic kidney disease, stage 3b (4) Cirrhosis Hepatic cirrhosis type: other cirrhosis Qualified Code(s): K74.69 - Other cirrhosis of liver
--- NOTE | 2025-04-22 11:21 | Infectious Disease Consult ---
Date of Consultation April 22, 2025 Assessment & Plan (1) Infection due to Acinetobacter species: (2) RANDY (acute kidney injury): (3) Septic shock: Plan Problems: #Acinetobacter pittii bacteremia #Septic shock #RLE wound #RANDY #Cirrhosis #Chronic thrombocytopenia #Sulfa allergy Micro: 04/21 BCx x2: Acinetobacter pittii in 1/ bottles 04/11 BCx x2: NG Abx: Levofloxacin 04/21 - present Amp-sul 04/22 - present Pip-tazo 04/21 - 04/22 Vanc 04/21 75 yo F with cirrhosis, ascites, thrombocytopenia, T2DM, CKD, HTN, HLD, primary hyperparathyroidism, ambulatory dysfunction, recent admission 04/11 - 04/16 for septic shock of unclear source, new afib with RVR who presented on 04/21 with generalized weakness, admitted with septic shock, Acinetobacter pittii bacteremia. During her prior hospitalization, she had presented on 04/11 with weakness, slurred speech, fevers, chills, sweats, and a recent skin tear on the RLE. She was very hypotensive requiring pressors. CT head, chest, abd pelvis noted sludge and stones in gallbladder with dilated CBD, but normal LFTs. Also had leukopenia, encephalopathy, elevated Cr, lactate >2. She was started on Zosyn and admitted to the ICU. MRI brain with no acute findings. MRCP did not suggest choledocholithiasis. BCx were negative. She was weaned off pressors by 04/12 and placed on stress dose steroids. She was continued on Zosyn to complete a 5 day course for ? GI source. Pt reports she felt improved after her last hospitalization, but after discharging to her daughter's, she started slowly "going downhill". Her daughter reports pt started retaining fluid in her legs and having leg pain, became more weak. The RLE wound appeared worse than prior, with new drainage. On presentation, pt was afebrile (later febrile to 38), HR 92, BP 70/47, RR 19, 100% on room air. Labs showed WBC 10.57 (up from 3/3 on 04/16), Hb 10.4, plt 74 (baseline thrombocytopenia), Cr 2.64 (up from 1.88 on 04/16), lactate 4.3, procal 13.3, Tbili 1.3, normal AST, ALT, and alk phos. UA with 0-5 WBCs, trace leuk est. BCx sent. CT chest with CHF with bilateral pleural effusions. CT A/P with asymmetric L perinephric stranding and fluid, new from 04/14/25. Small volume abdominopelvic ascites. Lower extremity duplex ultrasound with no DVT. Pt initially started on vanc and Zosyn. BCx positive for Acinetobacter, and antibiotics switched to Unasyn and levofloxacin. On my evaluation, pt denies shortness of breath, cough, abdominal pain, dysuria. Pressors weaning. Discussion: Pt with Acinetobacter pittii bacteremia. Acinetobacter pittii is part of Acinetobacter calcoaceticus-baumannii complex, and less commonly found to be a cause of infection than other types of Acinetobacter. Acinetobacter can cause infectious such as pneumonia, skin/soft tissue, CLABSI, UTI. However, pt without respiratory symptoms and CT chest without consolidations suggestive of pneumonia, and pt is without urinary symptoms and UA only has 0-5 WBCs. Could consider the RLE wound as a source. Recommendations: - Agree with amp-sulbactam 3 g IV q8h (renally dosed). Had pharmacy change it to an extended infusion over 4 hours. Also continue renally-dosed levofloxacin for combination therapy - Anticipate combination therapy with 2 antibiotics to complete a course of treatment for Acinetobacter bacteremia - Follow-up Acinetobacter pittii sensitivities and adjust accordingly. (If resistant to amp-sulbactam, could switch it to ceftaz, cefepime, pip/tazo, or meropenem if susceptible. If resistant to levofloxacin, could switch to aminoglycoside or tetracycline/doxy/minocycline if susceptible) - Ordered a culture of the RLE wound - Consider wound care consult Please note that ID does not round or write notes over the weekend, including on 04/23 holiday. If questions or concerns arise, please contact the Infectious Disease Call Center and ask to speak with the covering ID physician. Consultation Information Consultation was provided via telemedicine using two-way real-time interactive telecommunication between the patient and the telemedicine provider. For the duration of the visit, the provider was performing the assessment from a different facility than the patient. This includesuse of bluetooth stethoscope forauscultationperformed by the telepresenter that the telemedicine provider can hear if described in the physical exam. Senior Managing Director contact information: Please call [facility] . (Phone Number For Physician Use Only) After establishing a telemedicine visit, patient was: Patient was verified with two unique identifiers, Patient/authorized rep acknowledged consent and understanding and Gave permission to continue telehealth session Time Spent with Patient: Initial => 55 min History of Present Illness Reason for Consultation: Antibiotic management Attending Physician: Demetria Daigle MD History of Present Illness 75 yo F with cirrhosis, ascites, thrombocytopenia, T2DM, CKD, HTN, HLD, primary hyperparathyroidism, ambulatory dysfunction, recent admission 04/11 - 04/16 for septic shock of unclear source, new afib with RVR who presented on 04/21 with generalized weakness. During her prior hospitalization, she had presented on 04/11 with weakness, slurred speech, fevers, chills, sweats, and a recent skin tear on the RLE. She was very hypotensive requiring pressors. CT head, chest, abd pelvis noted sludge and stones in gallbladder with dilated CBD, but normal LFTs. Also had leukopenia, encephalopathy, elevated Cr, lactate >2. She was started on Zosyn and admitted to the ICU. MRI brain with no acute findings. MRCP did not suggest choledocholithiasis. BCx were negative. She was weaned off pressors by 04/12 and placed on stress dose steroids. She was continued on Zosyn to complete a 5 day course for ? GI source. Pt reports she felt improved after her last hospitalization, but after discharging to her daughter's, she started slowly "going downhill". Her daughter reports pt started retaining fluid in her legs and having leg pain, became more weak. The RLE wound appeared worse than prior, with new drainage. On presentation, pt was afebrile (later febrile to 38), HR 92, BP 70/47, RR 19, 100% on room air. Labs showed WBC 10.57 (up from 3/3 on 04/16), Hb 10.4, plt 74 (baseline thrombocytopenia), Cr 2.64 (up from 1.88 on 04/16), lactate 4.3, procal 13.3, Tbili 1.3, normal AST, ALT, and alk phos. UA with 0-5 WBCs, trace leuk est. BCx sent. CT chest with CHF with bilateral pleural effusions. CT A/P with asymmetric L perinephric stranding and fluid, new from 04/14/25. Small volume abdominopelvic ascites. Lower extremity duplex ultrasound with no DVT. Pt initially started on vanc and Zosyn. BCx positive for Acinetobacter, and antibiotics switched to Unasyn and levofloxacin. On my evaluation, pt denies shortness of breath, cough, abdominal pain, dysuria. Allergies Allergy/AdvReac Type Severity Reaction Status Date / Time carrot Allergy Intermediate RAW Verified 04/11/25 14:52 CARROTS CAUSE INSIDE MOUTH TO GET ITCHY ON CHEEKS nut - unspecified Allergy Intermediate ERUPTION Verified 04/11/25 14:52 INSIDE MOUTH AND LIPS peanut Allergy Intermediate ERUPTION Verified 04/11/25 14:52 INSIDE MOUTH AND LIPS Sulfa (Sulfonamide Allergy Intermediate "SULFA Verified 04/11/25 14:52 Antibiotics) DRUGS": ITCHY & HIVES LICHEN ISLANDICUS AdvReac Intermediate BLEEDING Uncoded 04/11/25 14:52 Home Medications Medication Instructions Recorded Confirmed Type ascorbic acid (vitamin C) 250 mg 500 mg PO QAM 06/23/18 04/21/25 History tablet (Vitamin C) clobetasol 0.05 % topical gel 1 applic topical BID PRN LICHEN 06/23/18 04/21/25 History PLANUS BREAK OUTS clonazepam 0.5 mg tablet (Klonopin) 0.5 tab PO TID PRN Anxiety 06/23/18 04/21/25 History ferrous sulfate 325 mg (65 mg 325 mg PO WK 06/23/18 04/21/25 History iron) tablet (iron) folic acid 1 mg tablet 1 mg PO QAM 06/23/18 04/21/25 History furosemide 40 mg tablet (Lasix) 40 mg PO QAM 06/23/18 04/21/25 History gabapentin 100 mg capsule 100 mg PO .BID-QAM & AFTERNOON 06/23/18 04/21/25 H istory lactulose 10 gram/15 mL oral 30 ml PO TID 06/23/18 04/21/25 History solution omeprazole 40 mg capsule,delayed 40 mg PO DAILYBB 06/23/18 04/21/25 History release oxycodone 5 mg tablet 2.5 mg PO Q8H PRN Pain 06/23/18 04/21/25 History potassium chloride 20 mEq 10 meq PO QDL 06/23/18 04/21/25 History tablet,extended release(part/cryst) (Klor-Con M) rifaximin 550 mg tablet (Xifaxan) 550 mg PO BID 06/23/18 04/21/25 History spironolactone 100 mg tablet See Rx Instructions .Route .COMPLEX 06/23/18 04/21/25 History furosemide 40 mg tablet 20 mg PO HS 06/05/22 04/21/25 History citalopram 40 mg tablet 20 mg PO DAILY PRN Anxiety 11/07/22 04/21/25 History gabapentin 100 mg capsule 300 mg PO HS 11/07/22 04/21/25 History nystatin 100,000 unit/gram topical 1 applic topical TID PRN SKIN RASH 07/15/23 04/21/25 History powder (Nyamyc) ondansetron HCl 4 mg tablet 4 mg PO Q6H PRN NAUSEA/VOMITING 07/15/23 04/21/25 History betamethasone dipropionate 0.05 % 1 applic topical BID PRN SKIN 04/11/25 04/21/25 History topical cream IRRITATIONS cholecalciferol (vitamin D3) 25 25 mcg PO DAILY 04/11/25 04/21/25 History mcg (1,000 unit) capsule (Vitamin D3) cyanocobalamin (vitamin B-12) 1,000 mcg PO Q OTHER DAY 04/11/25 04/21/25 History 1,000 mcg tablet (Vitamin B-12) diclofenac sodium 2 % topical 0 ml topical DIRECTED PRN Pain 04/11/25 04/21/25 History solution in packet (Pennsaid) empagliflozin 10 mg tablet 10 mg PO QAM 04/11/25 04/21/25 History (Jardiance) levothyroxine 50 mcg tablet 50 mcg PO DAILYBB 04/11/25 04/21/25 History lidocaine 4 % topical patch 1 patch topical DAILY 04/11/25 04/21/25 History montelukast 10 mg tablet 10 mg PO HS 04/11/25 04/21/25 History (Singulair) gfojjpog-uec-jbyvyh 5 mg-zeaxanth 1 cap PO DAILY 04/11/25 04/21/25 History 1 mg-bilberry 7.5 mg-herbal capsule (BRANDiD - [employer] Formula) tacrolimus 0.1 % topical ointment 1 applic topical BID PRN SKIN 04/11/25 04/21/25 History IRRITATIONS tizanidine 4 mg tablet 1 mg PO HS 04/11/25 04/21/25 History triamcinolone acetonide 0.1 % 1 applic topical BID PRN FLARE UPS 04/11/25 04/21/25 History topical ointment vitamin E 268 mg (400 unit) capsule 268 mg PO DAILY 04/11/25 04/21/25 History hydrocortisone 10 mg tablet 10 mg PO UD #10 tabs 04/16/25 04/21/25 Rx metoprolol succinate 50 mg 100 mg PO BID 04/21/25 04/21/25 History tablet,extended release 24 hr Patient History Medical History Varicose veins of both lower extremities HUANG (nonalcoholic steatohepatitis) Constipation HX Anxiety Lichen planus History of anemia Diabetes mellitus type 2 in nonobese DVT (deep venous thrombosis) RIGHT LEG S/P HIP SX 2015 Dyslipidemia GERD (gastroesophageal reflux disease) HTN (hypertension) Surgical History History of cataract surgery Right Cataract surgery 06/11/22 History of endoscopy History of colonoscopy History of back surgery X3 (HAS HARDWARE) History of hip replacement PARTIAL RIGHT History of repair of rotator cuff LEFT History of tonsillectomy "1974" H/O hernia repair History of tubal ligation H/O breast biopsy On 11/08/15 10:28 Erin Mccabe wrote "01/29/2012 right core bx - BCC - ductal hyperplasia, columnar cell hyperplasia and fibrocystic change - [facility] [place] BCC 01/29/2012" Family History Mother Family history of diabetes mellitus Other Family history non-contributory Social History Smoking Status: Former smoker Second Hand Exposure: No; Do You Dip or Chew Tobacco: No; Tobacco Cessation Education Requested by Patient: No Hx Alcohol Use: No Hx Substance Use: No Preferred Language: Swedish Communication Ability: Effective Mold Mechanic Required: No Beliefs That Will Affect Care: None Current Living Situation: Family Other Information That Helps Us Care for You: No Feels Safe at Home: Yes Safety Concerns: Feels Safe At This Time Assistive Devices: Cane, Glasses, Walker and Wheelchair Review of System A complete ROS was performed and is negative except as mentioned in the HPI. Physical Exam Physical Exam: GEN: fatigued appearing, laying in bed in NAD. RESP: No increased work of breathing ABD: Soft, non-distended. Non-tender to palpation. SKIN: R lower lateral leg with a wound with central blackened area, serous drainage. Slight erythema of R medial thigh NEURO: Alert and oriented. Answers all questions appropriately. Speech not slurred. PSYCH: Normal mood, affect appropriate. Results & Data Vital Signs (Past 12 Hours) Vital Signs Temp Pulse Resp Pulse Ox 04/22/25 10:21 37.4 C 96 H 21 97 04/22/25 09:00 37.5 C 103 H 21 97 04/22/25 08:06 37.7 C H 118 H 20 99 04/22/25 07:00 37.8 C H 112 H 21 99 04/22/25 06:15 37.8 C H 119 H 23 100 04/22/25 06:00 37.7 C H 109 H 24 99 04/22/25 05:45 37.7 C H 112 H 98 04/22/25 05:36 37.7 C H 119 H 19 98 04/22/25 05:18 37.7 C H 100 H 19 98 04/22/25 04:51 99 04/22/25 04:36 37.9 C H 111 H 18 98 04/22/25 04:18 37.9 C H 109 H 18 100 04/22/25 04:03 37.9 C H 119 H 24 100 04/22/25 03:45 37.9 C H 124 H 24 100 04/22/25 03:27 37.9 C H 108 H 19 100 04/22/25 03:06 37.9 C H 104 H 21 04/22/25 02:51 37.9 C H 117 H 22 04/22/25 02:03 37.9 C H 127 H 21 99 04/22/25 01:51 37.9 C H 116 H 18 04/22/25 01:42 37.9 C H 114 H 19 04/22/25 01:33 37.8 C H 121 H 18 04/22/25 01:12 37.9 C H 100 H 22 04/22/25 01:09 37.9 C H 137 H 21 04/22/25 00:42 37.8 C H 134 H 22 04/22/25 00:30 37.8 C H 112 H 20 04/22/25 00:18 37.9 C H 103 H 20 04/22/25 00:00 115 H 04/22/25 00:00 37.9 C H 134 H 17 04/21/25 23:42 37.9 C H 117 H 21 04/21/25 23:39 37.9 C H 138 H 18 100 Laboratory Results Short CBC 04/22/25 Range/Units 04:39 WBC 19.90 H (4.8-10.8) K/ul Hgb 9.9 L (12.0-16.0) g/dl Hct 29.5 L (37.0-47.0) % Plt Count 89 L (130-400) K/uL BMP 04/22/25 04:39 Sodium 133 L Potassium 3.6 D Chloride 101 Carbon Dioxide 22 BUN 29 H Creatinine 2.12 H D Glucose 143 H Calcium 7.8 L Liver Function 04/22/25 Range/Units 04:39 Total Bilirubin 1.5 H (0.2-1.0) mg/dl AST 55 H (13-39) U/L ALT 88 H (7-52) U/L Alkaline Phosphatase 60 (34-104) U/L Albumin 2.7 L (3.4-5.0) gm/dl Diagnostic Findings Chest X-Ray 04/21/25 06:30 EXAM: XR chest 1V portable CLINICAL HISTORY: Sepsis TECHNIQUE: Xray of the chest was performed in AP projection. COMPARISON: 04/11/2025 FINDINGS: Pulmonary Parenchyma: Prominent bronchovascular markings. Right basal opacity. Otherwise, no evidence of consolidation, collapse, or focal opacities. No pulmonary nodules are identified. No evidence of pleural effusion or pleural thickening. Heart and Mediastinum: Cardiomegaly. No mediastinal widening or masses. No hilar or mediastinal lymphadenopathy. Bony Thorax: Thoracic scoliosis to the right with evidence of lower thoracic/ lumbar fixation Bilateral acromioclavicular joint arthropathy Soft Tissues: Soft tissues overlying the chest wall are unremarkable. IMPRESSION: 1. Right basal opacity, which could be airspace disease. New finding. Clinical correlation needed. 2. Prominent bronchovascular markings. Stable 3. Cardiomegaly. Stable Electronically signed by Deni Turner 04-21-2025 07:29 AM Venous Doppler Study 04/21/25 07:17 ULTRASOUND BILATERAL LOWER EXTREMITY VENOUS CLINICAL HISTORY: Lower extremity edema. COMPARISON STUDY: No priors. TECHNIQUE: Portable real-time, grayscale, and color Doppler sonography of the deep veins of the right and left lower extremity was performed from the inguinal crease to the calf. Compression and augmentation were utilized. FINDINGS: There is no sonographic evidence of deep venous thrombosis identified in the right or left lower extremity. The common femoral, superficial femoral, and popliteal veins are patent and normally compressible bilaterally. The greater saphenous vein and the profunda femoris vein at the junction with the common femoral vein are clear in both legs. The visualized calf veins are patent bilaterally. Soft tissue edema is noted in the calves. IMPRESSION: There is no sonographic evidence of deep venous thrombosis identified in the right or left lower extremity. ACT 112: Negative or not required by law. Electronically signed by: Anshu Saul M.D. 04/21/2025 8:26 AM Abdomen/Pelvis CT 04/21/25 08:06 CT SCAN OF THE ABDOMEN AND PELVIS WITHOUT IV CONTRAST CLINICAL HISTORY: Sepsis COMPARISON STUDY: Abdominal CT dated 04/14/2025. Abdominal MRI dated 04/11/2025. TECHNIQUE: CT scan of the abdomen and pelvis is performed from the lung bases to the proximal femora. Images are reviewed in the axial, sagittal, and coronal planes. IV contrast was not administered for this examination. Note that the examination was performed in suboptimal fashion without oral and IV contrast. A dose lowering technique was utilized adhering to the principles of ALARA. CT DOSE: 1953.95 mGy.cm FINDINGS: Lung bases: The heart is top normal in size noting trace pericardial effusion. The mitral annulus and coronary arteries are densely calcified. There are small right and trace left pleural effusions with dependent consolidation. Liver: The unenhanced liver is cirrhotic in morphology and heterogeneous in attenuation. There is hypertrophy of the left lobe and caudate and nodularity of the surface contour. There is no intrahepatic biliary ductal dilatation. Gallbladder: The gallbladder is filled with hyperdense stone. Spleen: The spleen is mildly enlarged measuring 13.4 cm in length. Pancreas: The unenhanced pancreas is mildly atrophic. A 2.7 cm ovoid cystic lesion is again seen in the pancreatic head on image #120. Adrenal glands: Unremarkable. Kidneys: The unenhanced kidneys are atrophic and without hydronephrosis. There are no renal calculi identified. There is no evidence of contour deforming renal mass lesion. 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 There is asymmetric left-sided perinephric stranding which is new from 04/14/2025. Abdominal vasculature: There is advanced atherosclerotic calcification and mild ectasia of the abdominal aorta. Bowel:. There is no bowel obstruction. There is mild sigmoid diverticulosis without CT evidence of acute diverticulitis. The appendix is normal as visualized. Peritoneum: There is a small volume of abdominopelvic ascites. No intraperitoneal free air is identified Lymphadenopathy: None. Pelvic viscera: Evaluation of the pelvis is degraded by streak artifact from a right hip arthroplasty. The bladder is decompressed around a Muniz catheter and not well evaluated. Foci of intraluminal gas are likely related to instrumentation. The uterus and adnexa are normal as imaged. Skeletal structures: The skeletal structures are osteopenic. No lytic or blastic lesions are seen. Spondylotic and extensive postsurgical change is noted throughout the lumbar spine. There are numerous chronic thoracolumbar compression deformities. A right hip arthroplasty is in place. Arthritic change is seen in the left hip. There is chronic posttraumatic deformity of the right pubic ring. Soft tissues: There is body wall edema. IMPRESSION: 1. There is asymmetric left-sided perinephric stranding and fluid. This is new from 04/14/2025. Correlate with clinical findings and urinalysis. 2. The liver is cirrhotic in morphology and heterogeneous attenuation. 3. Mild splenomegaly and a small volume of abdominopelvic ascites indicates portal hypertension. Ascites is new from 04/14/2025. 4. Small right and trace left pleural effusions with dependent consolidation. 5. Cholelithiasis. 6. A cystic lesion of the pancreatic head is unchanged from recent prior studies. 7. Additional findings as above. ACT 112: Negative or not required by law. Electronically signed by: Anshu Saul M.D. 04/21/2025 9:[address] 04/21/25 08:06 CT chest diagnostic wo con CT DOSE: 1955 CLINICAL HISTORY: sepsis. TECHNIQUE: Multiaxial CT images of the chest were performed without contrast. A dose lowering technique was utilized adhering to the principles of ALARA. COMPARISON STUDY: 04/11/2025 FINDINGS: There are mild airway secretions. There are diffuse coronary artery calcifications. There are mitral valvular calcifications. There is moderate cardiomegaly with prominence of the pulmonary vasculature consistent with CHF. There are bilateral pleural effusions, moderate on the right and trace on the left. There is moderate compressive atelectasis at the right lower lobe and mild atelectasis at the left lung base. There is mild septal thickening and mild pulmonary ground glass opacity consistent with mild pulmonary edema. There is no pneumothorax. No enlarged adenopathy. No pericardial effusion. Visualized liver is diffusely nodular consistent with cirrhosis. There are severe degenerative changes at the right shoulder. There is stable height loss at multiple thoracic vertebral bodies. There is osteopenia. No acute osseous finding seen. IMPRESSION: 1. CHF with bilateral pleural effusions, right greater than left. 2. Otherwise as described. ACT 112: Negative or not required by law. Electronically signed by: Simon Jimenez M.D. 04/21/2025 8:56 AM Chest X-Ray 04/21/25 10:46 XR chest 1V portable CLINICAL HISTORY: eval right IJ placement COMPARISON STUDY: 04/21/2025 FINDINGS: Right central catheter tip is just above the cavoatrial junction. There is no pneumothorax. There is stable cardiomegaly without pulmonary vascular congestion. Stable stranding opacity in lung bases with obscuration of the right hemidiaphragm. IMPRESSION: No pneumothorax. Otherwise as described. ACT 112: Negative or not required by law. Electronically signed by: Simon Jimenez M.D. 04/21/2025 11:10 AM Medications Administered Current Inpatient Medications Acetaminophen (Acetaminophen 325 Mg Tab) 650 mg PO Q6H PRN PRN Reason: Pain or Fever Stop: 05/22/25 11:05 Last Admin: 04/22/25 11:25 Dose: 650 mg Ascorbic Acid (Ascorbic Acid 500 Mg Tab) 500 mg PO QAM [facility] Stop: 05/22/25 08:59 Last Admin: 04/22/25 08:40 Dose: Not Given Citalopram Hydrobromide (Citalopram 20 Mg Tab) 20 mg PO DAILY PRN PRN Reason: Anxiety Stop: 05/22/25 08:59 Dextrose (Dextrose 50% 50 Ml Syringe) 25 - 50 ml IV UD PRN; Protocol PRN Reason: Hypoglycemia Protocol Stop: 05/21/25 17:58 Gabapentin (Gabapentin 300 Mg Cap) 300 mg PO HS HUASM Stop: 05/22/25 20:59 Gabapentin (Gabapentin 100 Mg Cap) 100 mg PO TID HUSAM Stop: 05/21/25 10:59 Last Admin: 04/22/25 08:40 Dose: 100 mg Glucagon (Glucagon For Inj 1 Mg Vial) 1 mg SQ UD PRN; Protocol PRN Reason: Hypoglycemia Protocol Stop: 05/21/25 17:58 Glucose (Glucose 40% Gel 15 Gm Tube) 15 - 30 gm PO UD PRN; Protocol PRN Reason: Hypoglycemia Protocol Stop: 05/21/25 17:58 Glucose (Glucose 10 Tab/Tube) 4 - 8 tab PO UD PRN; Protocol PRN Reason: Hypoglycemia Protocol Stop: 05/21/25 17:58 Heparin Sodium (Porcine) (Heparin Sod 5,000 Unit/0.5 Ml Vial) 5,000 units SQ Q8 HUSAM Stop: 05/21/25 13:59 Last Admin: 04/22/25 05:10 Dose: 5,000 units Norepinephrine Bitartrate (Levophed/D5w) 4 mg in 250 mls @ 6.03 mls/hr IV .Q24H HUSAM; Protocol Stop: 05/21/25 06:44 Last Admin: 04/22/25 13:23 Dose: Not Given Hydrocortisone Sodium (Succinate 50 mg/ Syringe) 1 mls @ 4 mls/min IV Q6H HUSAM Stop: 05/21/25 16:59 Last Admin: 04/22/25 11:25 Dose: 4 mls/min Levofloxacin/Dextrose (Levaquin/D5w) 500 mg in 100 mls @ 100 mls/hr IV Q48H HUSAM Stop: 05/05/25 20:59 Ampicillin Sodium/Sulbactam Sodium (Unasyn) 3,000 mg in 100 mls @ 25 mls/hr IV Q8H HUSAM; Protocol Stop: 05/06/25 11:59 Last Infusion: 04/22/25 12:36 Dose: Infused Insulin Aspart (Insulin Aspart Per Unit Charge) 0 units SC Q6 HUSAM Stop: 05/21/25 17:59 Last Admin: 04/22/25 12:09 Dose: 2 units Lactulose (Lactulose Syrup 20 Gm/30 Ml Udc) 20 gm PO TID [facility] Stop: 05/22/25 13:59 Levothyroxine Sodium (Levothyroxine Sodium 50 Mcg Tablet) 50 mcg PO DAILYBB HUSAM Stop: 05/22/25 06:29 Last Admin: 04/22/25 05:10 Dose: 50 mcg Metoprolol Tartrate (Metoprolol Tartrate 25 Mg Tab) 12.5 mg PO BID HUSAM Stop: 05/22/25 20:59 Metoprolol Tartrate (Metoprolol Tartrate 25 Mg Tab) 12.5 mg PO Q6 HUSAM Stop: 05/22/25 11:59 Last Admin: 04/22/25 11:26 Dose: 12.5 mg Miscellaneous (Carbohydrates For Hypoglycemia ) 15 - 30 gm PO UD PRN PRN Reason: Hypoglycemia Protocol Stop: 05/21/25 17:58 Montelukast Sodium (Montelukast Sodium 10 Mg Tablet) 10 mg PO HS [facility]IT[facility] [facility] Stop: 05/21/25 20:59 Last Admin: 04/21/25 19:55 Dose: 10 mg Pantoprazole Sodium (Pantoprazole 40 Mg Tab) 40 mg PO DAILYBB [facility] Stop: 05/22/25 06:29 Last Admin: 04/22/25 05:10 Dose: 40 mg Rifaximin (Rifaximin 550 Mg Tablet) 550 mg PO BID HUSAM Stop: 05/21/25 10:29 Last Admin: 04/21/25 11:12 Dose: 550 mg Vitamin D (Cholecalciferol 25 Mcg (1000 Units) Tab) 25 mcg PO DAILY HUSAM Stop: 05/22/25 08:59 Last Admin: 04/22/25 08:40 Dose: Not Given
[2025-04-22] MEDS: AMPICILLIN/SULBACTAM SOD 3,000 MG/100 ML BAG IV SCH (11:25)
[2025-04-22] MEDS: ACETAMINOPHEN 325 MG TAB PO PRN (11:25)
[2025-04-22] MEDS: METOPROLOL TARTRATE 25 MG TAB PO SCH ×2 (11:26→19:56)
--- NOTE | 2025-04-22 12:41 | Critical Care Progress Note ---
Date of Service April 22, 2025 Assessment & Plan (1) Cirrhosis: (2) Thrombocytopenia: (3) New onset a-fib: (4) RANDY (acute kidney injury): (5) CKD (chronic kidney disease) stage 3, GFR 30-59 ml/min: (6) Acute hypotension: (7) GERD (gastroesophageal reflux disease): (8) Shock: (9) HUANG (nonalcoholic steatohepatitis): Plan Carol Lawrence is a 75-year-old female with past medical history of Non-alcoholic Steatohepatitis, atrial fibrillation, hyperlipidemia, lumbar fusion, DMII, GERD, hyperparathyroidism, CKD stage IIIb, HFrEF; who presented to [facility] with hypotension and generalized weakness found to have Acinetobacter bacteremia. Neuro: Depression; LEELA -No acute issues -CAM-ICU negative -No intracranial head imaging need at this time. -Monitor -Continue Celexa CV: Septic Shock; Type II myocardial injury/ PRAMOD -Started on Levo gtt in ED was at 0.30 on initial evaluation. Vasopressin added. -Start stress dosed steroids 50mg q6h. -maintain MAP > 65mmhg -Patient BNP 1293 and troponin 244 likely demand ischemia -Diuresed with 2mg of Bumex will monitor pressor requirement with diuresis. Atrial fibrillation -Given critical illness would maintain HR < 120. -Not on therapeutic AC. -Initiate low dose betablocker -Cardiology following. Pulm: Acute hypoxic respiratory failure -Patient sPo2 85% on arrival improved with oxygen -Maintain SpO2 > 92% currently on 2L NC GI: FEN -NO at this time. -Will initiate clear liquids but hold on full diet given high dose vasopressors. HUANG -Continue lactulose -Ammonia level 32 -Hold rifaxamin due to significant peripheral edema. -Monitor LFT Hyponatremia likely related to HAUNG/liver dysfunction. 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 ATN from shock -Creatinine typically 1.7-1.9. Admitted at 2.64 downtrending this am. -BUN 29 -Diuresed with 2mg of bumex -Monitor renal function Heme: Anemia of chronic disease; Thrombocytopenia likely related to portal hypertension and suppressed thrombopoietin from HUANG -Hgb 10.4 on admission. MCV 95. -Plts 74K -Monitor H&H daily -transfuse for hgb < 7 -No DVT noted on lower extremity duplex. Endo: Diabetes mellitus Type II; stress hyperglycemia -BG elevated to 190-200 in last 24hrs -Hyperglycemia protocol ordered ID: Septic shock; sepsis; Acinetobacter bacteremia -WBC 10->19.9 -Low grade fever 37.8 -Procal 13 -Chest x-ray RLL infiltrate. -Blood cultures x 1 set + Acinetobacter. 2nd set pending. -Source for bacteremia unclear. -UA 3+ bacteria otherwise negative. No culture sent. -Antibiotics changed to Unasyn and Levaquin. ID consulted appreciate recs. Prophylaxis: -SCD for mechanical DVT prophylaxis -Heparin for DVT chemoprophylaxis -PPI for GI prophylaxis (home med) Disposition: ICU for continued evaluation and management of undifferentiated shock requiring high dose vasopressors with high risk for decline. Patient is full code. Patient and family updated at bedside by ICU provider on 04/22/2025. I have personally spent 45 minutes of critical care time in the direct management of this patient. This is a life/limb threatening event. This includes time spent evaluating patient, direct bedside care, chart review, placing orders, interpretation of diagnostic studies, discussion with consultants, patient, and/or family members regarding treatment decisions, as well as other required patient management activities. This time is exclusive of all separately billable procedures, and teaching time and separate from and in addition to any other critical care service time. Admission and Anticipated Discharge Date Admission Date: April 21, 2025 Subjective "I am doing okay." Patient weaning off Norepinephrine gtt this am and down to 0.08 mcg/kg/min from 0.34 mcg/kg/min. Vasopressin D/C. TTE yesterday showed hyperdynamic LV. 500ml of 5% albumin given. Discussed with cardiology and will initiate low dose beta lizbet this am. Blood cultures growing Acinetobacter not resistant on PCR. Antibiotics changed to high dose Unasyn and Levaquin. Unclear source of infection. ID consulted, appreciate recs. Review of Systems Review of Systems: All systems reviewed & are unremarkable except as noted in HPI & below Physical Exam Constitutional: Patient groaning and in moderate distess lying in bed. Neck: trachea midline, no thyromegaly Respiratory: normal respiratory effort, lungs clear to auscultation Cardiovascular: Irregular rate and rhythm, S1/S2 present, no murmurs, rubs, or gallops. Gastrointestinal (Abdomen): normal bowel sounds, soft, nontender, no hepatosplenomegaly Ascites noted Musculoskeletal: Bilateral lower extremities with 3+ edema, erythematous, and right lower extremity tender. 2+ distal pulses in all extrmeities. Skin: no rashes, warm and dry Neurologic: Nonfocal exam Lymphatic: no cervical lymphadenopathy Results & Data Results & Data Vital Signs (Past 12 Hours) Vital Signs Temp Pulse Resp Pulse Ox 04/22/25 10:21 37.4 C 96 H 21 97 04/22/25 09:00 37.5 C 103 H 21 97 04/22/25 08:06 37.7 C H 118 H 20 99 04/22/25 07:00 37.8 C H 112 H 21 99 04/22/25 06:15 37.8 C H 119 H 23 100 04/22/25 06:00 37.7 C H 109 H 24 99 04/22/25 05:45 37.7 C H 112 H 98 04/22/25 05:36 37.7 C H 119 H 19 98 04/22/25 05:18 37.7 C H 100 H 19 98 04/22/25 04:51 99 04/22/25 04:36 37.9 C H 111 H 18 98 04/22/25 04:18 37.9 C H 109 H 18 100 04/22/25 04:03 37.9 C H 119 H 24 100 04/22/25 03:45 37.9 C H 124 H 24 100 04/22/25 03:27 37.9 C H 108 H 19 100 04/22/25 03:06 37.9 C H 104 H 21 100 04/22/25 02:51 37.9 C H 117 H 22 100 04/22/25 02:03 37.9 C H 127 H 21 99 04/22/25 01:51 37.9 C H 116 H 18 100 04/22/25 01:42 37.9 C H 114 H 19 100 04/22/25 01:33 37.8 C H 121 H 18 100 04/22/25 01:12 37.9 C H 100 H 22 100 04/22/25 01:09 37.9 C H 137 H 21 100 04/22/25 00:42 37.8 C H 134 H 22 100 Critical Care Results & Data Vital Signs (Past 12 Hours) Vital Signs Temp Pulse Resp Pulse Ox 04/22/25 10:21 37.4 C 96 H 21 97 04/22/25 09:00 37.5 C 103 H 21 97 04/22/25 08:06 37.7 C H 118 H 20 99 04/22/25 07:00 37.8 C H 112 H 21 99 04/22/25 06:15 37.8 C H 119 H 23 100 04/22/25 06:00 37.7 C H 109 H 24 99 04/22/25 05:45 37.7 C H 112 H 98 04/22/25 05:36 37.7 C H 119 H 19 98 04/22/25 05:18 37.7 C H 100 H 19 98 04/22/25 04:51 99 04/22/25 04:36 37.9 C H 111 H 18 98 04/22/25 04:18 37.9 C H 109 H 18 100 04/22/25 04:03 37.9 C H 119 H 24 100 04/22/25 03:45 37.9 C H 124 H 24 100 04/22/25 03:27 37.9 C H 108 H 19 100 04/22/25 03:06 37.9 C H 104 H 21 04/22/25 02:51 37.9 C H 117 H 22 04/22/25 02:03 37.9 C H 127 H 21 99 04/22/25 01:51 37.9 C H 116 H 18 100 04/22/25 01:42 37.9 C H 114 H 19 04/22/25 01:33 37.8 C H 121 H 18 04/22/25 01:12 37.9 C H 100 H 22 100 04/22/25 01:09 37.9 C H 137 H 21 100 04/22/25 00:42 37.8 C H 134 H 22 100 Lab & Micro Results (Past 24 Hours) RBC 3.30 M/uL (4.20-5.40) L 04/22/25 WBC 19.90 K/ul (4.8-10.8) H 04/22/25 Hgb 9.9 g/dl (12.0-16.0) L 04/22/25 Hct 29.5 % (37.0-47.0) L 04/22/25 MCV 89.4 fL (80.0-100.0) 04/22/25 MCH 30.0 pg (25.0-34.0) 04/22/25 MCHC 33.6 g/dL (32.0-36.0) 04/22/25 RDW Standard Deviation 53.9 fL (36.4-46.3) H 04/22/25 RDW Coefficient of Variation 17.0 % (11.5-14.5) H 04/22/25 Plt Count 89 K/uL (130-400) L 04/22/25 MPV 10.5 fL (9.4-12.4) 04/22/25 Na 133 mmol/L (136-145) L 04/22/25 K 3.6 mmol/L (3.5-5.1) 04/22/25 Cl 101 mmol/L (98-107) 04/22/25 CO2 22 mmol/L (21-32) 04/22/25 Anion Gap 10 (3-11) 04/22/25 BUN 29 mg/dl (6-23) H 04/22/25 Creatinine 2.12 mg/dl (0.6-1.2) H 04/22/25 BUN/Creatinine Ratio 13.7 (10-20) 04/22/25 Glu 143 mg/dl (70-99(Fasting)) H 04/22/25 Ca 7.8 mg/dl (8.6-10.3) L 04/22/25 Phosphorus Level 3.0 mg/dl (2.5-4.9) 04/22/25 Total Bilirubin 1.5 mg/dl (0.2-1.0) H 04/22/25 AST 55 U/L (13-39) H 04/22/25 ALT 88 U/L (7-52) H 04/22/25 Alkaline Phosphatase 60 U/L (34-104) 04/22/25 TP 5.3 gm/dl (6.0-8.3) L 04/22/25 Albumin 2.7 gm/dl (3.4-5.0) L 04/22/25 Globulin 2.6 gm/dl (2.5-4.0) 04/22/25 Albumin/Globulin Ratio 1.0 (0.9-2) 04/22/25 Mg 1.7 mg/dl (1.7-2.4) 04/22/25 04:39 Calcium Level 7.8 mg/dl (8.6-10.3) L 04/22/25 04:39 Microbiology 04/21/25 07:18 Aerobic Blood Culture - Preliminary Blood No growth in Aerobic bottle after 24 hours. 04/21/25 06:30 Aerobic Blood Culture - Preliminary Blood Gram negative bacilli Anaerobic Blood Culture - Preliminary No growth in Anaerobic bottle after 24 hours. I & O Totals 24 Hours 04/21/25 04/22/25 04/23/25 06:59 06:59 06:59 Intake Total 6.795 / 186.814 4552.315 / 4756.315 1089.002 / 1089.002 Output Total 2250 / 2250 300 / 300 Balance 6.795 / 102.156 3333.315 / 2506.315 789.002 / 789.002 Cumulative 04/21/25 06:13 thru 04/22/25 12:36 Intake Total 5852.112 Output Total 2550 Balance 3302.112 RT Ventilator Mngmt (Last Documented) Ventilator Ordered Settings Respiratory Rate 21 04/22/25 10:21 Ventilator - PT Measurements Respiratory Rate 21 Coding Level of Care Code 12103 CRITICAL CARE 1ST 30-74M Diagnoses Other cirrhosis of liver K74.69 Hepatic cirrhosis type: other cirrhosis Thrombocytopenia D69.6 New onset a-fib I48.91 RANDY (acute kidney injury) N17.9 Stage 3b chronic kidney disease N18.32 Chronic kidney disease stage 3 subtype: stage 3b (GFR 30-44) Acute hypotension I95.9 Gastroesophageal reflux disease without esophagitis K21.9 Esophagitis presence: without esophagitis Shock R57.9 HUANG (nonalcoholic steatohepatitis) K75.81 (1) Cirrhosis Hepatic cirrhosis type: other cirrhosis Qualified Code(s): K74.69 - Other cirrhosis of liver (5) CKD (chronic kidney disease) stage 3, GFR 30-59 ml/min Chronic kidney disease stage 3 subtype: stage 3b (GFR 30-44) Qualified Code(s): N18.32 - Chronic kidney disease, stage 3b (7) GERD (gastroesophageal reflux disease) Esophagitis presence: without esophagitis Qualified Code(s): K21.9 - Gastro- esophageal reflux disease without esophagitis
[2025-04-22] MEDS: LACTULOSE SYRUP 20 GM/30 ML UDC PO SCH (13:29)
--- NOTE | 2025-04-22 14:29 | Electrocardiogram Report ---
Test Reason : Blood Pressure : */* mmHG Vent. Rate : 96 BPM Atrial Rate : * BPM P-R Int : * ms QRS Dur : 70 ms QT Int : 374 ms P-R-T Axes : * -5 49 degrees QTcB Int : 472 ms Atrial fibrillation with premature ventricular or aberrantly conducted complexes Low voltage QRS Cannot rule out Anterior infarct (cited on or before 11-Apr-2025) Abnormal ECG When compared with ECG of 21-Apr-2025 06:28, QRS axis Shifted right Nonspecific T wave abnormality now evident in Lateral leads Confirmed by Rip Salomon ([id number]) on 04/22/2025 2:28:33 PM Referred By: REFERRED SELF Confirmed By: Rip Salomon
[2025-04-22] MEDS ORDERED: Nursing to Pharmacy Communication SCH (15:45)
[2025-04-22] MEDS: INSULIN ASPART PER UNIT CHARGE SC SCH (17:33)
[2025-04-22] MEDS: NYSTATIN SUSP 500,000 U/5 ML UDC PO SCH (19:55)
[2025-04-22] MEDS: GABAPENTIN 100 MG CAP PO SCH (19:56)
[2025-04-22] MEDS ORDERED: GABAPENTIN 300 MG CAP PO SCH (21:00)
[2025-04-23 05:14] LABS: Alanine Aminotransferase 70.0 U/L (7-52); Albumin Globulin Ratio 1.2 (0.9-2); Alkaline Phosphatase 57.0 U/L (34-104); Anion Gap 8.0 (3-11); Bilirubin,Total 1.2 mg/dl (0.2-1.0); Blood Urea Nitrogen 33.0 mg/dl (6-23); Calcium 8.0 mg/dl (8.6-10.3); Carbon Dioxide 24.0 mmol/L (21-32); Chloride 101.0 mmol/L (98-107); Creatinine Clr Calc Pharmacy 17.2 ml/min; Globulin 2.2 gm/dl (2.5-4.0); Glucose 137.0 mg/dl (70-99(Fasting)); Magnesium 2.4 mg/dl (1.7-2.4); Potassium 3.7 mmol/L (3.5-5.1); Sodium 133.0 mmol/L (136-145); Total Protein 4.9 gm/dl (6.0-8.3)
[2025-04-23 05:26] LABS: Hematocrit (blood only) 24.5 % (37.0-47.0); Hemoglobin 8.1 g/dl (12.0-16.0); Mean Corpuscular Hemoglobin 30.2 pg (25.0-34.0); Mean Corpuscular Volume 91.4 fL (80.0-100.0); Platelet Count 34 K/uL (130-400); RDW Standard Deviation 56.8 fL (36.4-46.3); Red Blood Count 2.68 M/uL (4.20-5.40); White Blood Count 5.64 K/ul (4.8-10.8)
[2025-04-23 06:50] LABS: Hematocrit (blood only) 25.8 % (37.0-47.0); Hemoglobin 8.4 g/dl (12.0-16.0); Mean Corpuscular Hemoglobin 29.9 pg (25.0-34.0); Mean Corpuscular Volume 91.8 fL (80.0-100.0); Platelet Count 33 K/uL (130-400); RDW Standard Deviation 57.3 fL (36.4-46.3); Red Blood Count 2.81 M/uL (4.20-5.40); White Blood Count 5.92 K/ul (4.8-10.8)
[2025-04-23 07:11] LABS: Immature Granulocytes # (auto) 0.05 K/uL (0.01-0.20); Immature Granulocytes % (auto) 0.8 %; Polychromasia 1+
--- NOTE | 2025-04-23 07:55 | Critical Care Progress Note ---
Date of Service April 23, 2025 Assessment & Plan (1) Cirrhosis: (2) Thrombocytopenia: (3) New onset a-fib: (4) RANDY (acute kidney injury): (5) CKD (chronic kidney disease) stage 3, GFR 30-59 ml/min: (6) Acute hypotension: (7) GERD (gastroesophageal reflux disease): (8) Shock: (9) HUANG (nonalcoholic steatohepatitis): Plan Carol Lawrence is a 75-year-old female with past medical history of Non-alcoholic Steatohepatitis, atrial fibrillation, hyperlipidemia, lumbar fusion, DMII, GERD, hyperparathyroidism, CKD stage IIIb, HFrEF; who presented to [facility] with hypotension and generalized weakness found to have Acinetobacter bacteremia. Neuro: Depression; LEELA -No acute issues -CAM-ICU negative -Continue Celexa CV: Septic Shock; Type II myocardial injury/ PRAMOD: Improved - Discontinue stress dose steroids Atrial fibrillation -Given critical illness would maintain HR < 120. -Not on therapeutic AC. - Tolerating metoprolol 12.5 mg every 6 hours -Cardiology following. Pulm: Acute hypoxic respiratory failure: Improved -Maintain SpO2 > 92% currently on 2L NC GI: FEN - Tolerating diet HUANG -Continue lactulose -Ammonia level 32 -Hold rifaxamin due to treatment with Levaquin -Monitor LFT Hyponatremia likely related to HUANG/liver dysfunction. 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 ATN from shock: Improving -Creatinine typically 1.7-1.9. Admitted at 2.64 downtrending this am. -BUN 29 - Reinstitute morning Lasix 40 mg and potassium supplementation -Monitor renal function Heme: Anemia of chronic disease; Thrombocytopenia likely related to portal hypertens ion and suppressed thrombopoietin from HUANG -No DVT noted on lower extremity duplex. - Continue heparin chemoprophylaxis Endo: Diabetes mellitus Type II; stress hyperglycemia -BG elevated to 190-200 in last 24hrs -Hyperglycemia protocol ordered ID: Septic shock; sepsis; Acinetobacter bacteremia -WBC 10->19.9 -Low grade fever 37.8 -Procal 13 -Chest x-ray RLL infiltrate. -Blood cultures x 1 set + Acinetobacter. 2nd set pending. -Source for bacteremia unclear. -UA 3+ bacteria otherwise negative. No culture sent. -Antibiotics changed to Unasyn and Levaquin. ID consulted appreciate recs. - Surface wound culture ordered by infectious disease Prophylaxis: -SCD for mechanical DVT prophylaxis -Heparin for DVT chemoprophylaxis -PPI for GI prophylaxis (home med) Disposition: Patient's critical care needs have largely resolved patient would be stable for downgrade out of ICU Admission and Anticipated Discharge Date Admission Date: April 21, 2025 Subjective Has remained off vasoactive medication. Awaiting sensitivities of Acinetobacter, feels improved compared to yesterday still generally feeling u nwell. Would like to be transferred upstairs. Family concerned that patient has been refusing lactulose and would prefer to take rifaximin explained rifaximin on hold given medication interactions while on Levaquin and encouraged patient to take lactulose. Physical Exam Physical Exam: General: Alert. nontoxic. Skin: Warm, dry, Head: Atraumatic Ears, nose, mouth and throat: airway patent Cardiovascular: Normal peripheral perfusion Respiratory: no respiratory distress Gastrointestinal: Non distended Musculoskeletal: No deformity Results & Data Results & Data Vital Signs (Past 12 Hours) Vital Signs Temp Pulse Resp BP Pulse Ox 04/23/25 06:32 99/65 L 04/23/25 06:30 36.8 C 104 H 23 96 04/23/25 06:21 36.8 C 100 H 15 96 04/23/25 06:09 36.7 C 112 H 24 98 04/23/25 06:00 105/60 04/23/25 06:00 105/60 04/23/25 05:51 36.8 C 103 H 20 98 04/23/25 05:30 36.8 C 99 H 19 98 04/23/25 05:30 94/63 L 04/23/25 05:30 94/63 L 04/23/25 05:12 36.8 C 87 19 97 04/23/25 05:00 107/56 L 04/23/25 05:00 107/56 L 04/23/25 05:00 107/56 L 04/23/25 05:00 107/56 L 04/23/25 05:00 107/56 L 04/23/25 05:00 36.8 C 121 H 17 98 04/23/25 04:45 36.8 C 102 H 19 99 04/23/25 04:36 36.8 C 87 19 100 04/23/25 04:30 99/65 L 04/23/25 04:30 99/65 L 04/23/25 04:30 99/65 L 04/23/25 04:27 36.8 C 94 H 19 96 04/23/25 04:15 36.8 C 99 H 18 98 04/23/25 04:00 04/23/25 04:00 04/23/25 04:00 04/23/25 04:00 04/23/25 04:00 36.8 C 96 H 19 97 04/23/25 03:48 36.8 C 99 H 19 96 04/23/25 03:30 109/04/23/25 03:30 36.8 C 100 H 18 96 04/23/25 03:18 36.8 C 112 H 19 97 04/23/25 03:03 36.8 C 108 H 16 97 04/23/25 03:00 10904/23/25 03:00 10904/23/25 03:00 10904/23/25 02:27 36.9 C 109 H 18 99 04/23/25 02:15 36.9 C 94 H 17 99 04/23/25 02:06 36.9 C 93 H 19 98 04/23/25 02:00 10304/23/25 02:00 04/23/25 01:39 37.0 C 98 H 20 99 04/23/25 01:36 37.0 C 98 H 19 98 04/23/25 01:06 37.0 C 118 H 18 98 04/23/25 01:03 36.9 C 104 H 15 98 04/23/25 01:00 10504/23/25 01:00 105/04/23/25 01:00 105/04/23/25 00:48 37.0 C 95 H 20 97 04/23/25 00:39 37.1 C 100 H 22 98 04/23/25 00:24 37.0 C 100 H 16 98 04/23/25 00:00 92 H 04/22/25 23:42 37.2 C 98 H 22 96 04/22/25 23:30 94/60 L 04/22/25 23:24 37.3 C 97 H 20 98 04/22/25 23:12 37.3 C 114 H 17 99 04/22/25 23:00 98/54 L 04/22/25 23:00 98/54 L 04/22/25 23:00 98/54 L 04/22/25 22:57 37.3 C 95 H 19 99 04/22/25 22:30 37.3 C 99 H 21 90 04/22/25 22:30 108/59 L 04/22/25 22:30 108/59 L 04/22/25 22:12 37.4 C 108 H 24 97 04/22/25 22:00 108/58 L 04/22/25 22:00 108/58 L 04/22/25 21:51 37.4 C 106 H 16 98 04/22/25 21:33 37.4 C 116 H 22 97 04/22/25 21:30 89/69 L 04/22/25 21:30 89/69 L 04/22/25 21:30 89/69 L 04/22/25 21:09 37.4 C 93 H 24 97 04/22/25 21:00 94/60 L 04/22/25 21:00 94/60 L 04/22/25 21:00 37.4 C 105 H 15 96 04/22/25 20:30 37.0 C 114 H 18 98 04/22/25 20:30 106/61 04/22/25 20:30 106/61 04/22/25 20:30 106/61 04/22/25 20:06 37.4 C 99 H 24 100 04/22/25 19:56 100/61 Critical Care Results & Data Vital Signs (Past 12 Hours) Vital Signs Temp Pulse Resp BP Pulse Ox 04/23/25 06:32 99/65 L 04/23/25 06:30 36.8 C 104 H 23 96 04/23/25 06:21 36.8 C 100 H 15 96 04/23/25 06:09 36.7 C 112 H 24 98 04/23/25 06:00 105/60 04/23/25 06:00 105/60 04/23/25 05:51 36.8 C 103 H 20 98 04/23/25 05:30 36.8 C 99 H 19 98 04/23/25 05:30 94/63 L 04/23/25 05:30 94/63 L 04/23/25 05:12 36.8 C 87 19 97 04/23/25 05:00 107/56 L 04/23/25 05:00 107/56 L 04/23/25 05:00 107/56 L 04/23/25 05:00 107/56 L 04/23/25 05:00 107/56 L 04/23/25 05:00 36.8 C 121 H 17 98 04/23/25 04:45 36.8 C 102 H 19 99 04/23/25 04:36 36.8 C 87 19 100 04/23/25 04:30 99/65 L 04/23/25 04:30 99/65 L 04/23/25 04:30 99/65 L 04/23/25 04:27 36.8 C 94 H 19 96 04/23/25 04:15 36.8 C 99 H 18 98 04/23/25 04:00 11304/23/25 04:00 11304/23/25 04:00 11304/23/25 04:00 11304/23/25 04:00 36.8 C 96 H 19 97 04/23/25 03:48 36.8 C 99 H 19 96 04/23/25 03:30 109/62 04/23/25 03:30 36.8 C 100 H 18 96 04/23/25 03:18 36.8 C 112 H 19 97 04/23/25 03:03 36.8 C 108 H 16 97 04/23/25 03:00 10963 04/23/25 03:00 109/63 04/23/25 03:00 10963 04/23/25 02:27 36.9 C 109 H 18 99 04/23/25 02:15 36.9 C 94 H 17 99 04/23/25 02:06 36.9 C 93 H 19 98 04/23/25 02:00 10304/23/25 02:00 04/23/25 01:39 37.0 C 98 H 20 99 04/23/25 01:36 37.0 C 98 H 19 98 04/23/25 01:06 37.0 C 118 H 18 98 04/23/25 01:03 36.9 C 104 H 15 98 04/23/25 01:00 105/63 04/23/25 01:00 105/63 04/23/25 01:00 105/63 04/23/25 00:48 37.0 C 95 H 20 97 04/23/25 00:39 37.1 C 100 H 22 98 04/23/25 00:24 37.0 C 100 H 16 98 04/23/25 00:00 92 H 04/22/25 23:42 37.2 C 98 H 22 96 04/22/25 23:30 94/60 L 04/22/25 23:24 37.3 C 97 H 20 98 04/22/25 23:12 37.3 C 114 H 17 99 04/22/25 23:00 98/54 L 04/22/25 23:00 98/54 L 04/22/25 23:00 98/54 L 04/22/25 22:57 37.3 C 95 H 19 99 04/22/25 22:30 37.3 C 99 H 21 90 04/22/25 22:30 108/59 L 04/22/25 22:30 108/59 L 04/22/25 22:12 37.4 C 108 H 24 97 04/22/25 22:00 108/58 L 04/22/25 22:00 108/58 L 04/22/25 21:51 37.4 C 106 H 16 98 04/22/25 21:33 37.4 C 116 H 22 97 04/22/25 21:30 89/69 L 04/22/25 21:30 89/69 L 04/22/25 21:30 89/69 L 04/22/25 21:09 37.4 C 93 H 24 97 04/22/25 21:00 94/60 L 04/22/25 21:00 94/60 L 04/22/25 21:00 37.4 C 105 H 15 96 04/22/25 20:30 37.0 C 114 H 18 98 04/22/25 20:30 106/61 04/22/25 20:30 106/61 04/22/25 20:30 106/61 04/22/25 20:06 37.4 C 99 H 24 100 04/22/25 19:56 100/61 Lab & Micro Results (Past 24 Hours) RBC 2.81 M/uL (4.20-5.40) L 04/23/25 WBC 5.92 K/ul (4.8-10.8) 04/23/25 Hgb 8.4 g/dl (12.0-16.0) L 04/23/25 Hct 25.8 % (37.0-47.0) L 04/23/25 MCV 91.8 fL (80.0-100.0) 04/23/25 MCH 29.9 pg (25.0-34.0) 04/23/25 MCHC 32.6 g/dL (32.0-36.0) 04/23/25 RDW Standard Deviation 57.3 fL (36.4-46.3) H 04/23/25 RDW Coefficient of Variation 17.2 % (11.5-14.5) H 04/23/25 Plt Count 33 K/uL (130-400) L 04/23/25 MPV 11.1 fL (9.4-12.4) 04/23/25 Neutrophils (%) (Auto) 90.2 % 04/23/25 Lymphocytes (%) (Auto) 2.5 % 04/23/25 Monocytes # (Auto) 0.37 K/uL (0.11-0.59) 04/23/25 Eosinophils # (Auto) 0.00 K/uL (0.00-0.50) 04/23/25 Immature Granulocyte % (Auto) 0.8 % 04/23/25 Neutrophils # (Auto) 5.34 K/uL (1.40-6.50) 04/23/25 Lymphocytes # (Auto) 0.15 K/uL (1.20-3.40) L 04/23/25 Monocytes # (Auto) 0.37 K/uL (0.11-0.59) 04/23/25 Eosinophils # (Auto) 0.00 K/uL (0.00-0.50) 04/23/25 Basophils # (Auto) 0.01 K/uL (0.00-0.20) 04/23/25 Immature Granulocyte # (Auto) 0.05 K/uL (0.01-0.20) 5 Polychromasia 1+ 04/23/25 Na 133 mmol/L (136-145) L 04/23/25 K 3.7 mmol/L (3.5-5.1) 04/23/25 Cl 101 mmol/L (98-107) 04/23/25 CO2 24 mmol/L (21-32) 04/23/25 Anion Gap 8 (3-11) 04/23/25 BUN 33 mg/dl (6-23) H 04/23/25 Creatinine 2.11 mg/dl (0.6-1.2) H 04/23/25 BUN/Creatinine Ratio 15.6 (10-20) 04/23/25 Glu 137 mg/dl (70-99(Fasting)) H 04/23/25 Ca 8.0 mg/dl (8.6-10.3) L 04/23/25 Phosphorus Level 3.3 mg/dl (2.5-4.9) 04/23/25 Total Bilirubin 1.2 mg/dl (0.2-1.0) H 04/23/25 AST 34 U/L (13-39) 04/23/25 ALT 70 U/L (7-52) H 04/23/25 Alkaline Phosphatase 57 U/L (34-104) 04/23/25 TP 4.9 gm/dl (6.0-8.3) L 04/23/25 Albumin 2.7 gm/dl (3.4-5.0) L 04/23/25 Globulin 2.2 gm/dl (2.5-4.0) L 04/23/25 Albumin/Globulin Ratio 1.2 (0.9-2) 04/23/25 Mg 2.4 mg/dl (1.7-2.4) 04/23/25 04:35 Calcium Level 8.0 mg/dl (8.6-10.3) L 04/23/25 04:35 Microbiology 04/21/25 06:30 Aerobic Blood Culture - Preliminary Blood Acinetobacter pittii Anaerobic Blood Culture - Preliminary No growth in Anaerobic bottle after 24 hours. 04/22/25 Unknown Gram Stain - Final Leg,Right 04/21/25 07:18 Aerobic Blood Culture - Preliminary Blood No growth in Aerobic bottle after 24 hours. Anaerobic Blood Culture - Final I & O Totals 24 Hours 07/03/25 07/04/25 07/05/25 06:59 06:59 06:59 Intake Total 4756.315 / 4756.315 2040.465 / 2040.465 Output Total 2250 / 2250 1450 / 1450 Balance 2506.315 / 2506.315 590.465 / 590.465 Cumulative 04/21/25 06:13 thru 04/23/25 06:33 Intake Total 6803.575 Output Total 3700 Balance 3103.575 RT Ventilator Mngmt (Last Documented) Ventilator Ordered Settings Respiratory Rate 23 04/23/25 06:30 Ventilator - PT Measurements Respiratory Rate 23 Coding Level of Care Code 74516 SUB INP/OBS CARE 3/50MIN Diagnoses Other cirrhosis of liver K74.69 Hepatic cirrhosis type: other cirrhosis Thrombocytopenia D69.6 New onset a-fib I48.91 RANDY (acute kidney injury) N17.9 Stage 3b chronic kidney disease N18.32 Chronic kidney disease stage 3 subtype: stage 3b (GFR 30-44) Acute hypotension I95.9 Gastroesophageal reflux disease without esophagitis K21.9 Esophagitis presence: without esophagitis Shock R57.9 HUANG (nonalcoholic steatohepatitis) K75.81 (1) Cirrhosis Hepatic cirrhosis type: other cirrhosis Qualified Code(s): K74.69 - Other cirrhosis of liver (5) CKD (chronic kidney disease) stage 3, GFR 30-59 ml/min Chronic kidney disease stage 3 subtype: stage 3b (GFR 30-44) Qualified Code(s): N18.32 - Chronic kidney disease, stage 3b (7) GERD (gastroesophageal reflux disease) Esophagitis presence: without esophagitis Qualified Code(s): K21.9 - Gastro- esophageal reflux disease without esophagitis
[2025-04-23] MEDS: FUROSEMIDE 40 MG TAB PO SCH (08:35)
[2025-04-23] MEDS: POTASSIUM CHLORIDE CRTAB 20 MEQ TABCR PO SCH (08:36)
--- NOTE | 2025-04-23 12:13 | Cardiology Progress Note ---
Date of Service April 23, 2025 Assessment & Plan (1) Shock: Plan: With sepsis (2) Cirrhosis: (3) Atrial fibrillation with rapid ventricular response: (4) HUANG (nonalcoholic steatohepatitis): Plan Complex 75-year-old female with rehospitalization with hypotension, shock parameters with lactic acidosis, acute on chronic renal insufficiency, atrial fibrillation with elevated ventricular response rates. Significant leg edema and 15 pound weight gain also noted. Troponin elevated without EKG abnormality Patient currently in the intensive care unit on IV pressor support. Issues addressed as follows 1. Atrial fibrillation with elevated ventricular response rate. Beta-lizbet currently contraindicated in the setting of IV pressor support. Will consider adding digoxin to her regimen depending on heart rate response and renal function 2. Hypotension with shock parameters on pressor support. Acidosis present. Empiric treatment begun for possible sepsis Echocardiogram ordered. Continue to trend troponin 3. Acute on chronic right heart failure with increasing abdominal girth and edema. Will reassess LV and RV systolic function given elevated troponin and acute change. No acute findings on EKG. Prior echocardiographic findings demonstrated hyperdynamic LV systolic function Will hold Xifaxan, may contribute to significant peripheral edema Consider reduction in gabapentin dosing 4. Hepatic cirrhosis 04/23/2025 Patient with slow clinical improvement with mild improvement hypotension, tachycardia. Underlying sepsis being treated. Pressors being weaned. Echocardiogram with small hypertrophied left ventricle with hyperdynamic LV function no wall motion abnormalities Mild to moderate mitral insufficiency 1. Atrial fibrillation with rapid ventricular response in response to acute septic shock and illness. Hypertrophied small left ventricle with reduced stroke-volume. Plan: Increase metropolol to 25mg q6hr (order placed) Change lasix to 40mg IV BID Continue Abx I provided 50 min of care to the patient in regards to management of AFib with RVR and volume overload/edema. Magnus Coronado MD Admission and Anticipated Discharge Date Admission Date: April 21, 2025 Subjective Wants to leave the ICU No chest pain. No sensation of palpitations Review of Systems Review of Systems: A full review of systems is otherwise unremarkable. Physical Exam Physical Exam: GEN: AAOx3; NAD HEENT: No significant JVD CV: Irregularly Irregular; no M/R/G PULM: CTA b/l; no W/R/R ABD: soft; NTND EXT: RLE: (+) edema to R-thigh; LLE: trace edema Results & Data Vital Signs (Past 12 Hours) Vital Signs Temp Pulse Resp BP Pulse Ox 04/23/25 11:09 37.1 C 99 H 24 99 04/23/25 11:00 109/66 04/23/25 10:30 105/62 04/23/25 10:00 108/71 04/23/25 10:00 37.0 C 104 H 18 98 04/23/25 09:00 95/66 L 04/23/25 09:00 36.9 C 99 H 27 H 97 04/23/25 08:21 36.9 C 113 H 23 96/55 L 98 04/23/25 07:06 36.8 C 99 H 19 110/64 99 04/23/25 06:32 99/65 L 04/23/25 06:30 36.8 C 104 H 23 96 04/23/25 06:21 36.8 C 100 H 15 96 04/23/25 06:09 36.7 C 112 H 24 98 04/23/25 06:00 105/60 04/23/25 06:00 105/60 04/23/25 05:51 36.8 C 103 H 20 98 04/23/25 05:30 36.8 C 99 H 19 98 04/23/25 05:30 94/63 L 04/23/25 05:30 94/63 L 04/23/25 05:12 36.8 C 87 19 97 04/23/25 05:00 107/56 L 04/23/25 05:00 107/56 L 04/23/25 05:00 107/56 L 04/23/25 05:00 107/56 L 04/23/25 05:00 107/56 L 04/23/25 05:00 36.8 C 121 H 17 98 04/23/25 04:45 36.8 C 102 H 19 99 04/23/25 04:36 36.8 C 87 19 100 04/23/25 04:30 99/65 L 04/23/25 04:30 99/65 L 04/23/25 04:30 99/65 L 04/23/25 04:27 36.8 C 94 H 19 96 04/23/25 04:15 36.8 C 99 H 18 98 04/23/25 04:00 113/66 04/23/25 04:00 04/23/25 04:00 11304/23/25 04:00 11304/23/25 04:00 36.8 C 96 H 19 97 04/23/25 03:48 36.8 C 99 H 19 96 04/23/25 03:30 109/62 04/23/25 03:30 36.8 C 100 H 18 96 04/23/25 03:18 36.8 C 112 H 19 97 04/23/25 03:03 36.8 C 108 H 16 97 04/23/25 03:00 109/04/23/25 03:00 109/04/23/25 03:00 109/04/23/25 02:27 36.9 C 109 H 18 99 04/23/25 02:15 36.9 C 94 H 17 99 04/23/25 02:06 36.9 C 93 H 19 98 04/23/25 02:00 10304/23/25 02:00 10304/23/25 01:39 37.0 C 98 H 20 99 04/23/25 01:36 37.0 C 98 H 19 98 04/23/25 01:06 37.0 C 118 H 18 98 04/23/25 01:03 36.9 C 104 H 15 98 04/23/25 01:00 10504/23/25 01:00 10504/23/25 01:00 10504/23/25 00:48 37.0 C 95 H 20 97 04/23/25 00:39 37.1 C 100 H 22 98 04/23/25 00:24 37.0 C 100 H 16 98 Results Cardiology Web EHR Widget: Cardiology Consultation 04/21/25 12:58 Cardiology Progress Note 04/23/25 12:09 Electrocardiogram 04/23/25 06:09 Echocardiogram 04/21/25 14:12 Troponin I High Sens 482.7 pg/ml (0-14) H* 04/21/25 19:52 B-Natriuretic Peptide 1293 pg/ml (0-100) H 04/21/25 06:30 APTT 25 Seconds (21-31) 04/21/25 06:30 PT 12.7 Seconds (9.0-12.0) H 04/21/25 06:30 INR 1.2 (0.9-1.1) H 04/21/25 06:30 Sodium 133 mmol/L (136-145) L 04/23/25 04:35 Potassium 3.7 mmol/L (3.5-5.1) 04/23/25 04:35 BUN 33 mg/dl (6-23) H 04/23/25 04:35 Creatinine 2.11 mg/dl (0.6-1.2) H 04/23/25 04:35 Glucose 137 mg/dl (70-99(Fasting)) H 04/23/25 04:35 Hemoglobin A1c 5.7 % (4.5-5.6) H 04/12/25 03:48 Magnesium 2.4 mg/dl (1.7-2.4) 04/23/25 04:35 AST 34 U/L (13-39) 04/23/25 04:35 ALT 70 U/L (7-52) H 04/23/25 04:35 TSH 0.355 uIu/ml (0.300-4.500) 04/12/25 03:48 WBC 5.92 K/ul (4.8-10.8) 04/23/25 06:19 Hgb 8.4 g/dl (12.0-16.0) L 04/23/25 06:19 Plt Count 33 K/uL (130-400) L 04/23/25 06:19 VBG HCO3 22 mmol/L 04/21/25 07:23 Results BMP Results: Sodium 133 mmol/L (136-145) L 04/23/25 Potassium 3.7 mmol/L (3.5-5.1) 04/23/25 Chloride 101 mmol/L (98-107) 04/23/25 Carbon Dioxide 24 mmol/L (21-32) 04/23/25 Anion Gap 8 (3-11) 04/23/25 BUN 33 mg/dl (6-23) H 04/23/25 Creatinine 2.11 mg/dl (0.6-1.2) H 04/23/25 Glucose 137 mg/dl (70-99(Fasting)) H 04/23/25 PG Care Time/CCT Total # of Minutes Spent Total Time Spent with Patient: Total time spent is greater than 50% in coordination of care (as documented) at patient's floor/unit and/or counseling patient: [place] [address] SUB INP/OBS CARE 3/50MIN Patient Type Established History Detailed Exam Detailed Medical Decision Making High Complexity Diagnoses Shock R57.9 Other cirrhosis of liver K74.69 Hepatic cirrhosis type: other cirrhosis Atrial fibrillation with rapid ventricular response I48.91 HUANG (nonalcoholic steatohepatitis) K75.81 Updated Medication List Medication Instructions Recorded Confirmed Type ascorbic acid (vitamin C) 250 mg 500 mg PO QAM 06/23/18 04/21/25 History tablet (Vitamin C) clobetasol 0.05 % topical gel 1 applic topical BID PRN LICHEN 06/23/18 04/21/25 History PLANUS BREAK OUTS clonazepam 0.5 mg tablet (Klonopin) 0.5 tab PO TID PRN Anxiety 06/23/18 04/21/25 History ferrous sulfate 325 mg (65 mg 325 mg PO WK 06/23/18 04/21/25 History iron) tablet (iron) folic acid 1 mg tablet 1 mg PO QAM 06/23/18 04/21/25 History furosemide 40 mg tablet (Lasix) 40 mg PO QAM 06/23/18 04/21/25 History gabapentin 100 mg capsule 100 mg PO .BID-QAM & AFTERNOON 06/23/18 04/21/25 History lactulose 10 gram/15 mL oral 30 ml PO TID 06/23/18 04/21/25 History solution omeprazole 40 mg capsule,delayed 40 mg PO DAILYBB 06/23/18 04/21/25 History release oxycodone 5 mg tablet 2.5 mg PO Q8H PRN Pain 06/23/18 04/21/25 History potassium chloride 20 mEq 10 meq PO QDL 06/23/18 04/21/25 History tablet,extended release(part/cryst) (Klor-Con M) rifaximin 550 mg tablet (Xifaxan) 550 mg PO BID 06/23/18 04/21/25 History spironolactone 100 mg tablet See Rx Instructions .Route .COMPLEX 06/23/18 04/21/25 History furosemide 40 mg tablet 20 mg PO HS 06/05/22 04/21/25 History citalopram 40 mg tablet 20 mg PO DAILY PRN Anxiety 11/07/22 04/21/25 History gabapentin 100 mg capsule 300 mg PO HS 11/07/22 04/21/25 History nystatin 100,000 unit/gram topical 1 applic topical TID PRN SKIN RASH 07/15/23 04/21/25 History powder (Nyamyc) ondansetron HCl 4 mg tablet 4 mg PO Q6H PRN NAUSEA/VOMITING 07/15/23 04/21/25 History betamethasone dipropionate 0.05 % 1 applic topical BID PRN SKIN 04/11/25 04/21/25 History topical cream IRRITATIONS cholecalciferol (vitamin D3) 25 25 mcg PO DAILY 04/11/25 04/21/25 History mcg (1,000 unit) capsule (Vitamin D3) cyanocobalamin (vitamin B-12) 1,000 mcg PO Q OTHER DAY 04/11/25 04/21/25 History 1,000 mcg tablet (Vitamin B-12) diclofenac sodium 2 % topical 0 ml topical DIRECTED PRN Pain 04/11/25 04/21/25 History solution in packet (Pennsaid) empagliflozin 10 mg tablet 10 mg PO QAM 04/11/25 04/21/25 History (Jardiance) levothyroxine 50 mcg tablet 50 mcg PO DAILYBB 04/11/25 04/21/25 History lidocaine 4 % topical patch 1 patch topical DAILY 04/11/25 04/21/25 History montelukast 10 mg tablet 10 mg PO HS 04/11/25 04/21/25 History (Singulair) awtplbmn-fjy-fsjvoa 5 mg-zeaxanth 1 cap PO DAILY 04/11/25 04/21/25 History 1 mg-bilberry 7.5 mg-herbal capsule (Macular Health Formula) tacrolimus 0.1 % topical ointment 1 applic topical BID PRN SKIN 04/11/25 04/21/25 History IRRITATIONS tizanidine 4 mg tablet 1 mg PO HS 04/11/25 04/21/25 History triamcinolone acetonide 0.1 % 1 applic topical BID PRN FLARE UPS 04/11/2504/21 History topical ointment vitamin E 268 mg (400 unit) capsule 268 mg PO DAILY 04/11/25 04/21/25 History hydrocortisone 10 mg tablet 10 mg PO UD #10 tabs 04/16/25 04/21/25 Rx metoprolol succinate 50 mg 100 mg PO BID 04/21/25 04/21/25 History tablet,extended release 24 hr (2) Cirrhosis Hepatic cirrhosis type: other cirrhosis Qualified Code(s): K74.69 - Other cirrhosis of liver
--- NOTE | 2025-04-23 14:51 | Hospitalist Progress Note ---
Date of Service April 23, 2025 Assessment & Plan (1) Septic shock: (2) Atrial fibrillation with rapid ventricular response: (3) CKD (chronic kidney disease) stage 3, GFR 30-59 ml/min: (4) Cirrhosis: (5) Thrombocytopenia: (6) Acute hypotension: Plan 75-year-old man with history significant for HUANG cirrhosis with ascites thrombocytopenia, DM type II, CKD 3, hypertension, hypothyroidism,, and hypothyroidism, recently hospitalized from 04/12/2025 to 04/16/2025 for septic shock, new A-fib with RVR who presents today complaining of worsening generalized weakness. Exam notable for tachycardia, irregularly irregular rhythm, hypertension, lower extremity erythema and tenderness , diminished breath sounds Labs notable for WBC 10.5, hemoglobin of10.4 was 12.9 last week, Platelet 74 (was 49 last week), Na 132, Cr 2.69 (was 1.88 on 04/16), lactate 4.3,TBil 1.3, Trop 244, BNP 1293, Procal 13, Chest x-ray noted Pulmonary congestion, right lung opacity Septic shock Acinetobacter bacteremia RLE cellulitis Atrial Fibrillation with RVR Demand ischemia RANDY on CKD 3 Hyponatremia Anemia Thrombocytopenia Cirrhosis Blood culture - Acinetobacter in 1 set Follow-up outstanding infectious workup Antibiotics changed to Unasyn and levofloxacin ID recs noted Off pressors and hydrocortisone [employer]er lamar noted Lopressor increased to 25mg q6h by cardiology Lasix 40mg daily resumed Continue lactulose [employer]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 Gabapentin 100mg TID home dose reduced to 100mg BID for now DVT prophylaxis - Hep sq Code status- Full. Updated daughters at bedside Downgrade to PCU I spent a total of 50 minutes coordinating, documenting and providing care for this patient excluding time spent in performance of separately billed services Admission and Anticipated Discharge Date Admission Date: April 21, 2025 Subjective Patient seen and examined Reports feeling better today Still has pain in Right leg. Pain in right thigh is improving Off pressors Physical Exam Constitutional: + ill appearing; no acute distress Eyes: PERRL, conjunctivae normal, anicteric sclerae ENMT: external ear and nose normal, oropharynx normal Respiratory: normal respiratory effort, lungs clear to auscultation Cardiovascular: Rate/Rhythm: + tachycardic and + irregularly irregular Gastrointestinal (Abdomen): normal bowel sounds, soft, nontender, no hepatosplenomegaly Musculoskeletal: B/L LE edema. Tenderness and erythema on Right thigh improved Neurologic: PERRL, EOMI, accommodation nl, no face palsy, no dysarthria Psychiatric: A+Ox3, euthymic affect Results & Data Results & Data Vital Signs (Past 12 Hours) Vital Signs Temp Pulse Resp BP Pulse Ox 04/23/25 14:01 112 H 04/23/25 11:09 37.1 C 99 H 24 99 04/23/25 11:00 109/66 04/23/25 10:30 105/62 04/23/25 10:00 108/71 04/23/25 10:00 37.0 C 104 H 18 98 04/23/25 09:00 95/66 L 04/23/25 09:00 36.9 C 99 H 27 H 97 04/23/25 08:21 36.9 C 113 H 23 96/55 L 98 04/23/25 07:06 36.8 C 99 H 19 110/64 99 04/23/25 06:32 99/65 L 04/23/25 06:30 36.8 C 104 H 23 96 04/23/25 06:21 36.8 C 100 H 15 96 04/23/25 06:09 36.7 C 112 H 24 98 04/23/25 06:00 105/60 04/23/25 06:00 105/60 04/23/25 05:51 36.8 C 103 H 20 98 04/23/25 05:30 36.8 C 99 H 19 98 04/23/25 05:30 94/63 L 04/23/25 05:30 94/63 L 04/23/25 05:12 36.8 C 87 19 97 04/23/25 05:00 107/56 L 04/23/25 05:00 107/56 L 04/23/25 05:00 107/56 L 04/23/25 05:00 107/56 L 04/23/25 05:00 107/56 L 04/23/25 05:00 36.8 C 121 H 17 98 04/23/25 04:45 36.8 C 102 H 19 99 04/23/25 04:36 36.8 C 87 19 100 04/23/25 04:30 99/65 L 04/23/25 04:30 99/65 L 04/23/25 04:30 99/65 L 04/23/25 04:27 36.8 C 94 H 19 96 04/23/25 04:15 36.8 C 99 H 18 98 04/23/25 04:00 113/04/23/25 04:00 113/04/23/25 04:00 11304/23/25 04:00 11304/23/25 04:00 36.8 C 96 H 19 97 04/23/25 03:48 36.8 C 99 H 19 96 04/23/25 03:30 109/62 04/23/25 03:30 36.8 C 100 H 18 96 04/23/25 03:18 36.8 C 112 H 19 97 04/23/25 03:03 36.8 C 108 H 16 97 04/23/25 03:00 109/63 04/23/25 03:00 109/63 04/23/25 03:00 109/63 Laboratory Results Abnormal lab results 04/22/25 04/22/25 04/22/25 Range/Units 16:17 19:30 19:32 RBC (4.20-5.40) M/uL Hgb (12.0-16.0) g/dl Hct (37.0-47.0) % RDW Std Deviation (36.4-46.3) fL RDW Coeff of Arlene (11.5-14.5) % Plt Count (130-400) K/uL Lymph # (Auto) (1.20-3.40) K/uL Platelet Estimate (Normal) Sodium (136-145) mmol/L BUN (6-23) mg/dl Creatinine (0.6-1.2) mg/dl Glucose (70-99(Fasting)) mg/dl POC Glucose 182 H 206 H 225 H (70-99) mg/dl Calcium (8.6-10.3) mg/dl Total Bilirubin (0.2-1.0) mg/dl ALT (7-52) U/L Total Protein (6.0-8.3) gm/dl Albumin (3.4-5.0) gm/dl Globulin (2.5-4.0) gm/dl 04/23/25 04/23/25 04/23/25 Range/Units 04:35 06:19 07:35 RBC 2.68 L 2.81 L (4.20-5.40) M/uL Hgb 8.1 L 8.4 L (12.0-16.0) g/dl Hct 24.5 L 25.8 L (37.0-47.0) % RDW Std Deviation 56.8 H 57.3 H (36.4-46.3) fL RDW Coeff of Arlene 17.2 H 17.2 H (11.5-14.5) % Plt Count 34 L D 33 L (130-400) K/uL Lymph # (Auto) 0.15 L (1.20-3.40) K/uL Platelet Estimate Decreased L (Normal) Sodium 133 L (136-145) mmol/L BUN 33 H (6-23) mg/dl Creatinine 2.11 H (0.6-1.2) mg/dl Glucose 137 H (70-99(Fasting)) mg/dl POC Glucose 156 H (70-99) mg/dl Calcium 8.0 L (8.6-10.3) mg/dl Total Bilirubin 1.2 H (0.2-1.0) mg/dl ALT 70 H (7-52) U/L Total Protein 4.9 L (6.0-8.3) gm/dl Albumin 2.7 L (3.4-5.0) gm/dl Globulin 2.2 L (2.5-4.0) gm/dl 04/23/25 Range/Units 10:59 RBC (4.20-5.40) M/uL Hgb (12.0-16.0) g/dl Hct (37.0-47.0) % RDW Std Deviation (36.4-46.3) fL RDW Coeff of Arlene (11.5-14.5) % Plt Count (130-400) K/uL Lymph # (Auto) (1.20-3.40) K/uL Platelet Estimate (Normal) Sodium (136-145) mmol/L BUN (6-23) mg/dl Creatinine (0.6-1.2) mg/dl Glucose (70-99(Fasting)) mg/dl POC Glucose 304 H* (70-99) mg/dl Calcium (8.6-10.3) mg/dl Total Bilirubin (0.2-1.0) mg/dl ALT (7-52) U/L Total Protein (6.0-8.3) gm/dl Albumin (3.4-5.0) gm/dl Globulin (2.5-4.0) gm/dl (3) CKD (chronic kidney disease) stage 3, GFR 30-59 ml/min Chronic kidney disease stage 3 subtype: stage 3b (GFR 30-44) Qualified Code(s): N18.32 - Chronic kidney disease, stage 3b (4) Cirrhosis Hepatic cirrhosis type: other cirrhosis Qualified Code(s): K74.69 - Other cirrhosis of liver
[2025-04-23] MEDS: METOPROLOL TARTRATE 25 MG TAB PO SCH (18:04)
[2025-04-24 06:29] LABS: Hematocrit (blood only) 26.5 % (37.0-47.0); Hemoglobin 9.0 g/dl (12.0-16.0); Mean Corpuscular Hemoglobin 30.8 pg (25.0-34.0); Mean Corpuscular Volume 90.8 fL (80.0-100.0); Platelet Count 36 K/uL (130-400); RDW Standard Deviation 56.1 fL (36.4-46.3); Red Blood Count 2.92 M/uL (4.20-5.40); White Blood Count 7.03 K/ul (4.8-10.8)
[2025-04-24 06:46] LABS: Alanine Aminotransferase 69.0 U/L (7-52); Albumin Globulin Ratio 1.1 (0.9-2); Alkaline Phosphatase 103.0 U/L (34-104); Anion Gap 8.0 (3-11); Bilirubin,Total 0.9 mg/dl (0.2-1.0); Blood Urea Nitrogen 37.0 mg/dl (6-23); Calcium 8.1 mg/dl (8.6-10.3); Carbon Dioxide 25.0 mmol/L (21-32); Chloride 101.0 mmol/L (98-107); Creatinine Clr Calc Pharmacy 19.1 ml/min; Globulin 2.5 gm/dl (2.5-4.0); Glucose 101.0 mg/dl (70-99(Fasting)); Magnesium 2.2 mg/dl (1.7-2.4); Potassium 3.2 mmol/L (3.5-5.1); Sodium 134.0 mmol/L (136-145); Total Protein 5.2 gm/dl (6.0-8.3)
--- NOTE | 2025-04-24 09:35 | Hospitalist Progress Note ---
Date of Service April 24, 2025 Assessment & Plan (1) Septic shock: (2) Atrial fibrillation with rapid ventricular response: (3) CKD (chronic kidney disease) stage 3, GFR 30-59 ml/min: (4) Cirrhosis: (5) Thrombocytopenia: (6) Acute hypotension: Plan 75-year-old man with history significant for HUANG cirrhosis with ascites thrombocytopenia, DM type II, CKD 3, hypertension, hypothyroidism,, and hypothyroidism, recently hospitalized from 04/12/2025 to 04/16/2025 for septic shock, new A-fib with RVR who presents today complaining of worsening generalized weakness. Exam notable for tachycardia, irregularly irregular rhythm, hypertension, lower extremity erythema and tenderness , diminished breath sounds Labs notable for WBC 10.5, hemoglobin of10.4 was 12.9 last week, Platelet 74 (was 49 last week), Na 132, Cr 2.69 (was 1.88 on 04/16), lactate 4.3,TBil 1.3, Trop 244, BNP 1293, Procal 13, Chest x-ray noted Pulmonary congestion, right lung opacity Septic shock Acinetobacter bacteremia RLE cellulitis Atrial Fibrillation with RVR Demand ischemia RANDY on CKD 3 Hyponatremia Anemia Thrombocytopenia Cirrhosis Blood culture - Acinetobacter pittii in 1 set Continue Unasyn and levofloxacin ID recs noted Off pressors and hydrocortisone [employer] 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 Gabapentin 100mg TID home dose reduced to 100mg BID for now Will get UE doppler to rule out DVT DVT prophylaxis - Hep sq on hold due to thrombocytopenia. Platelet dropped to 34 today. Will monitor Code status- Full. I spent a total of 50 minutes coordinating, documenting and providing care for this patient excluding time spent in performance of separately billed services Admission and Anticipated Discharge Date Admission Date: April 21, 2025 Subjective Patient seen and examined Reports weakness is improving Still has RLE pain Denied chest pain, SOB, cough Denied nausea, vomiting, abd pain Reports poor appetite is improving Physical Exam Constitutional: no acute distress Eyes: PERRL, conjunctivae normal, anicteric sclerae ENMT: external ear and nose normal, oropharynx normal Respiratory: normal respiratory effort, lungs clear to auscultation Cardiovascular: Rate/Rhythm: + irregularly irregular Gastrointestinal (Abdomen): normal bowel sounds, soft, nontender, no hepatosplenomegaly Musculoskeletal: RLE swelling, erythema +edema (R>L) Neurologic: PERRL, EOMI, accommodation nl, no face palsy, no dysarthria Psychiatric: A+Ox3, euthymic affect Results & Data Results & Data Vital Signs (Past 12 Hours) Vital Signs Temp Pulse Pulse Resp BP Pulse Ox O2 Del Method 04/24/25 07:30 36.9 C 95 H 16 97/63 L 98 Room Air 04/24/25 07:00 86 04/24/25 03:37 36.5 C 92 H 18 90/59 L 96 Room Air 04/23/25 23:38 36.6 C 111 H 18 104/67 97 Room Air Laboratory Results Abnormal lab results 04/23/25 04/23/25 04/24/25 Range/Units 16:31 20:28 05:46 RBC 2.92 L (4.20-5.40) M/uL Hgb 9.0 L (12.0-16.0) g/dl Hct 26.5 L (37.0-47.0) % RDW Std Deviation 56.1 H (36.4-46.3) fL RDW Coeff of Arlene 17.1 H (11.5-14.5) % Plt Count 36 L (130-400) K/uL Sodium 134 L (136-145) mmol/L Potassium 3.2 L (3.5-5.1) mmol/L BUN 37 H (6-23) mg/dl Creatinine 1.92 H (0.6-1.2) mg/dl Glucose 101 H (70-99(Fasting)) mg/dl POC Glucose 158 H 177 H (70-99) mg/dl Calcium 8.1 L (8.6-10.3) mg/dl ALT 69 H (7-52) U/L Total Protein 5.2 L (6.0-8.3) gm/dl Albumin 2.7 L (3.4-5.0) gm/dl 04/24/25 04/24/25 Range/Units 07:31 11:15 RBC (4.20-5.40) M/uL Hgb (12.0-16.0) g/dl Hct (37.0-47.0) % RDW Std Deviation (36.4-46.3) fL RDW Coeff of Arlene (11.5-14.5) % Plt Count (130-400) K/uL Sodium (136-145) mmol/L Potassium (3.5-5.1) mmol/L BUN (6-23) mg/dl Creatinine (0.6-1.2) mg/dl Glucose (70-99(Fasting)) mg/dl POC Glucose 112 H 123 H (70-99) mg/dl Calcium (8.6-10.3) mg/dl ALT (7-52) U/L Total Protein (6.0-8.3) gm/dl Albumin (3.4-5.0) gm/dl (3) CKD (chronic kidney disease) stage 3, GFR 30-59 ml/min Chronic kidney disease stage 3 subtype: stage 3b (GFR 30-44) Qualified Code(s): N18.32 - Chronic kidney disease, stage 3b (4) Cirrhosis Hepatic cirrhosis type: other cirrhosis Qualified Code(s): K74.69 - Other cirrhosis of liver
[2025-04-24] MEDS: FUROSEMIDE INJ 20 MG/2 ML VIAL IV ONE (10:49)
[2025-04-24] MEDS: POTASSIUM CHLORIDE CRTAB 20 MEQ TABCR PO STA (10:49)
--- NOTE | 2025-04-24 11:23 | Cardiology Progress Note ---
Date of Service April 24, 2025 Assessment & Plan (1) Shock: Plan: With sepsis (2) Cirrhosis: (3) Atrial fibrillation with rapid ventricular response: (4) HUANG (nonalcoholic steatohepatitis): Plan Complex 75-year-old female with rehospitalization with hypotension, shock parameters with lactic acidosis, acute on chronic renal insufficiency, atrial fibrillation with elevated ventricular response rates. Significant leg edema and 15 pound weight gain also noted. Troponin elevated without EKG abnormality 04/24/2025 1. Atrial fibrillation with rapid ventricular response in response to acute septic shock and illness. Hypertrophied small left ventricle with reduced stroke-volume. Plan: Continue metoprolol 25mg q6hr Can consider changing tomorrow to 100mg toprol qday Continue IV lasix Continue Abx I provided 50 min of care to the patient in regards to management of AFib with RVR and volume overload/edema. Magnus Coronado MD Admission and Anticipated Discharge Date Admission Date: April 21, 2025 Subjective Patient seen and examined Reports feeling better today Happy that she is out of the ICU No chest pain. No N/V/ECHOLS; afebrile. No PND or orthopnea Review of Systems Review of Systems: A full review of systems is otherwise unremarkable. Physical Exam Physical Exam: GEN: AAOx3; NAD HEENT: No significant JVD CV: Irregularly Irregular; no M/R/G PULM: CTA b/l; no W/R/R ABD: soft; NTND EXT: RLE: (+) edema to R-thigh; LLE: trace edema Results & Data Vital Signs (Past 12 Hours) Vital Signs Temp Pulse Pulse Resp BP Pulse Ox O2 Del Method 04/24/25 07:30 36.9 C 95 H 16 97/63 L 98 Room Air 04/24/25 07:00 86 04/24/25 03:37 36.5 C 92 H 18 90/59 L 96 Room Air 04/23/25 23:38 36.6 C 111 H 18 104/67 97 Room Air Results Complete Blood Count Results: RBC 2.92 M/uL (4.20-5.40) L 04/24/25 WBC 7.03 K/ul (4.8-10.8) 04/24/25 Hgb 9.0 g/dl (12.0-16.0) L 04/24/25 Hct 26.5 % (37.0-47.0) L 04/24/25 Plt Count 36 K/uL (130-400) L 04/24/25 Results Cardiology Web EHR Widget: Cardiology Consultation 04/21/25 12:58 Cardiology Progress Note 04/23/25 12:09 Electrocardiogram 04/23/25 06:09 Echocardiogram 04/21/25 14:12 Troponin I High Sens 482.7 pg/ml (0-14) H* 04/21/25 19:52 B-Natriuretic Peptide 1293 pg/ml (0-100) H 04/21/25 06:30 APTT 25 Seconds (21-31) 04/21/25 06:30 PT 12.7 Seconds (9.0-12.0) H 04/21/25 06:30 INR 1.2 (0.9-1.1) H 04/21/25 06:30 Sodium 134 mmol/L (136-145) L 04/24/25 05:46 Potassium 3.2 mmol/L (3.5-5.1) L 04/24/25 05:46 BUN 37 mg/dl (6-23) H 04/24/25 05:46 Creatinine 1.92 mg/dl (0.6-1.2) H 04/24/25 05:46 Glucose 101 mg/dl (70-99(Fasting)) H 04/24/25 05:46 Hemoglobin A1c 5.7 % (4.5-5.6) H 04/12/25 03:48 Magnesium 2.2 mg/dl (1.7-2.4) 04/24/25 05:46 AST 38 U/L (13-39) 04/24/25 05:46 ALT 69 U/L (7-52) H 04/24/25 05:46 TSH 0.355 uIu/ml (0.300-4.500) 04/12/25 03:48 WBC 7.03 K/ul (4.8-10.8) 04/24/25 05:46 Hgb 9.0 g/dl (12.0-16.0) L 04/24/25 05:46 Plt Count 36 K/uL (130-400) L 04/24/25 05:46 VBG HCO3 22 mmol/L 04/21/25 07:23 Results BMP Results: Sodium 134 mmol/L (136-145) L 04/24/25 Potassium 3.2 mmol/L (3.5-5.1) L 04/24/25 Chloride 101 mmol/L (98-107) 04/24/25 Carbon Dioxide 25 mmol/L (21-32) 04/24/25 Anion Gap 8 (3-11) 04/24/25 BUN 37 mg/dl (6-23) H 04/24/25 Creatinine 1.92 mg/dl (0.6-1.2) H 04/24/25 Glucose 101 mg/dl (70-99(Fasting)) H 04/24/25 PG Care Time/CCT Total # of Minutes Spent Total Time Spent with Patient: Total time spent is greater than 50% in coordination of care (as documented) at patient's floor/unit and/or counseling patient: C[place] [address] SUB INP/OBS CARE 3/50MIN Patient Type Established History Comprehensive Medical Decision Making High Complexity Diagnoses Shock R57.9 Other cirrhosis of liver K74.69 Hepatic cirrhosis type: other cirrhosis Atrial fibrillation with rapid ventricular response I48.91 HUANG (nonalcoholic steatohepatitis) K75.81 Time Spent (min) 50 Updated Medication List Medication Instructions Recorded Confirmed Type ascorbic acid (vitamin C) 250 mg 500 mg PO QAM 06/23/18 04/21/25 History tablet (Vitamin C) clobetasol 0.05 % topical gel 1 applic topical BID PRN LICHEN 06/23/18 04/21/25 History PLANUS BREAK OUTS clonazepam 0.5 mg tablet (Klonopin) 0.5 tab PO TID PRN Anxiety 06/23/18 04/21/25 History ferrous sulfate 325 mg (65 mg 325 mg PO WK 06/23/18 04/21/25 History iron) tablet (iron) folic acid 1 mg tablet 1 mg PO QAM 06/23/18 04/21/25 History furosemide 40 mg tablet (Lasix) 40 mg PO QAM 06/23/18 04/21/25 History gabapentin 100 mg capsule 100 mg PO .BID-QAM & AFTERNOON 06/23/18 04/21/25 History lactulose 10 gram/15 mL oral 30 ml PO TID 06/23/18 04/21/25 History solution omeprazole 40 mg capsule,delayed 40 mg PO DAILYBB 06/23/18 04/21/25 History release oxycodone 5 mg tablet 2.5 mg PO Q8H PRN Pain 06/23/18 04/21/25 History potassium chloride 20 mEq 10 meq PO QDL 06/23/18 04/21/25 History tablet,extended release(part/cryst) (Klor-Con M) rifaximin 550 mg tablet (Xifaxan) 550 mg PO BID 06/23/18 04/21/25 History spironolactone 100 mg tablet See Rx Instructions .Route .COMPLEX 06/23/18 04/21/25 History furosemide 40 mg tablet 20 mg PO HS 06/05/22 04/21/25 History citalopram 40 mg tablet 20 mg PO DAILY PRN Anxiety 11/07/22 04/21/25 History gabapentin 100 mg capsule 300 mg PO HS 11/07/22 04/21/25 History nystatin 100,000 unit/gram topical 1 applic topical TID PRN SKIN RASH 07/15/23 04/21/25 History powder (Nyamyc) ondansetron HCl 4 mg tablet 4 mg PO Q6H PRN NAUSEA/VOMITING 07/15/23 04/21/25 History betamethasone dipropionate 0.05 % 1 applic topical BID PRN SKIN 04/11/25 04/21/25 History topical cream IRRITATIONS cholecalciferol (vitamin D3) 25 25 mcg PO DAILY 04/11/25 04/21/25 History mcg (1,000 unit) capsule (Vitamin D3) cyanocobalamin (vitamin B-12) 1,000 mcg PO Q OTHER DAY 04/11/25 04/21/25 History 1,000 mcg tablet (Vitamin B-12) diclofenac sodium 2 % topical 0 ml topical DIRECTED PRN Pain 04/11/25 04/21/25 History solution in packet (Pennsaid) empagliflozin 10 mg tablet 10 mg PO QAM 04/11/25 04/21/25 History (Jardiance) levothyroxine 50 mcg tablet 50 mcg PO DAILYBB 04/11/25 04/21/25 History lidocaine 4 % topical patch 1 patch topical DAILY 04/11/25 04/21/25 History montelukast 10 mg tablet 10 mg PO HS 04/11/25 04/21/25 History (Singulair) [id number]-[id number]-[id number] 5 mg-zeaxanth 1 cap PO DAILY 04/11/25 04/21/25 History 1 mg-bilberry 7.5 mg-herbal capsule ([facility] Formula) tacrolimus 0.1 % topical ointment 1 applic topical BID PRN SKIN 04/11/25 04/21/25 History IRRITATIONS tizanidine 4 mg tablet 1 mg PO HS 04/11/25 04/21/25 History triamcinolone acetonide 0.1 % 1 applic topical BID PRN FLARE UPS 04/11/25 04/21/25 History topical ointment vitamin E 268 mg (400 unit) capsule 268 mg PO DAILY 04/11/25 04/21/25 History hydrocortisone 10 mg tablet 10 mg PO UD #10 tabs 04/16/25 04/21/25 Rx metoprolol succinate 50 mg 100 mg PO BID 04/21/25 04/21/25 History tablet,extended release 24 hr Meds Home Medications and Allergies Home Medications Medication Instructions Recorded Confirmed Type ascorbic acid (vitamin C) 250 mg 500 mg PO QAM 06/23/18 04/21/25 History tablet (Vitamin C) clobetasol 0.05 % topical gel 1 applic topical BID PRN LICHEN 06/23/18 04/21/25 History PLANUS BREAK OUTS clonazepam 0.5 mg tablet (Klonopin) 0.5 tab PO TID PRN Anxiety 06/23/18 04/21/25 History ferrous sulfate 325 mg (65 mg 325 mg PO WK 06/23/18 04/21/25 History iron) tablet (iron) folic acid 1 mg tablet 1 mg PO QAM 06/23/18 04/21/25 History furosemide 40 mg tablet (Lasix) 40 mg PO QAM 06/23/18 04/21/25 History gabapentin 100 mg capsule 100 mg PO .BID-QAM & AFTERNOON 06/23/18 04/21/25 History lactulose 10 gram/15 mL oral 30 ml PO TID 06/23/18 04/21/25 History solution omeprazole 40 mg capsule,delayed 40 mg PO DAILYBB 06/23/18 04/21/25 History release oxycodone 5 mg tablet 2.5 mg PO Q8H PRN Pain 06/23/18 04/21/25 History potassium chloride 20 mEq 10 meq PO QDL 06/23/18 04/21/25 History tablet,extended release(part/cryst) (Klor-Con M) rifaximin 550 mg tablet (Xifaxan) 550 mg PO BID 06/23/18 04/21/25 History spironolactone 100 mg tablet See Rx Instructions .Route .COMPLEX 06/23/18 04/21/25 History furosemide 40 mg tablet 20 mg PO HS 06/05/22 04/21/25 History citalopram 40 mg tablet 20 mg PO DAILY PRN Anxiety 11/07/22 04/21/25 History gabapentin 100 mg capsule 300 mg PO HS 11/07/22 04/21/25 History nystatin 100,000 unit/gram topical 1 applic topical TID PRN SKIN RASH 07/15/23 04/21/25 History powder (Nyamyc) ondansetron HCl 4 mg tablet 4 mg PO Q6H PRN NAUSEA/VOMITING 07/15/23 04/21/25 History betamethasone dipropionate 0.05 % 1 applic topical BID PRN SKIN 04/11/25 04/21/25 History topical cream IRRITATIONS cholecalciferol (vitamin D3) 25 25 mcg PO DAILY 04/11/25 04/21/25 History mcg (1,000 unit) capsule (Vitamin D3) cyanocobalamin (vitamin B-12) 1,000 mcg PO Q OTHER DAY 04/11/25 04/21/25 History 1,000 mcg tablet (Vitamin B-12) diclofenac sodium 2 % topical 0 ml topical DIRECTED PRN Pain 04/11/25 0 04/21/25 History solution in packet (Pennsaid) empagliflozin 10 mg tablet 10 mg PO QAM 04/11/25 04/21/25 History (Jardiance) levothyroxine 50 mcg tablet 50 mcg PO DAILYBB 04/11/25 04/21/25 History lidocaine 4 % topical patch 1 patch topical DAILY 04/11/25 04/21/25 History montelukast 10 mg tablet 10 mg PO HS 04/11/25 04/21/25 History (Singulair) [id number]-[id number] 5 mg-zeaxanth 1 cap PO DAILY 04/11/25 04/21/25 History 1 mg-bilberry 7.5 mg-herbal capsule ([facility] Formula) tacrolimus 0.1 % topical ointment 1 applic topical BID PRN SKIN 04/11/25 5 History IRRITATIONS tizanidine 4 mg tablet 1 mg PO HS 04/11/25 04/21/25 History triamcinolone acetonide 0.1 % 1 applic topical BID PRN FLARE UPS 04/11/25 04/21/25 History topical ointment vitamin E 268 mg (400 unit) capsule 268 mg PO DAILY 04/11/25 04/21/25 History metoprolol succinate 50 mg 100 mg PO BID 04/21/25 04/21/25 History tablet,extended release 24 hr Allergies Allergy/AdvReac Type Severity Reaction Status Date / Time carrot Allergy Intermediate RAW Verified 04/11/25 14:52 CARROTS CAUSE INSIDE MOUTH TO GET ITCHY ON CHEEKS nut - unspecified Allergy Intermediate ERUPTION Verified 04/11/25 14:52 INSIDE MOUTH AND LIPS peanut Allergy Intermediate ERUPTION Verified 04/11/25 14:52 INSIDE MOUTH AND LIPS Sulfa (Sulfonamide Allergy Intermediate "SULFA Verified 04/11/25 14:52 Antibiotics) DRUGS": ITCHY & HIVES [place] AdvReac Intermediate BLEEDING Uncoded 04/11/25 14:52 (2) Cirrhosis Hepatic cirrhosis type: other cirrhosis Qualified Code(s): K74.69 - Other cirrhosis of liver
--- NOTE | 2025-04-24 12:16 | Ultrasound Report ---
BILATERAL UPPER EXTREMITY VENOUS DOPPLER ULTRASOUND CLINICAL HISTORY: Bilateral arm swelling. Assess for DVT COMPARISON STUDY: No previous studies for comparison. FINDINGS: There is no deep venous thrombus within the right upper extremity. No deep venous pelvis wi thin the left upper extremity is present. Note is made of superficial thrombus within the left cephal ic vein which extends from the level of the mid upper arm through proximal forearm. IMPRESSION: 1. Superficial thrombus within the left cephalic vein which extends from the level the mid upper arm through proximal forearm. 2. No deep venous thrombus within the upper extremities. ACT 112: Negative or not required by law. Electronically signed by: Dexter Taveras M.D. 04/24/2025 12:15 PM
[2025-04-24] MEDS: CALCIUM CARBONATE 500 MG CHEWABLE TAB PO PRN (17:52)
[2025-04-25 07:04] LABS: Hematocrit (blood only) 30.4 % (37.0-47.0); Hemoglobin 10.0 g/dl (12.0-16.0); Mean Corpuscular Hemoglobin 29.9 pg (25.0-34.0); Mean Corpuscular Volume 90.7 fL (80.0-100.0); Platelet Count 45 K/uL (130-400); RDW Standard Deviation 55.4 fL (36.4-46.3); Red Blood Count 3.35 M/uL (4.20-5.40); White Blood Count 4.53 K/ul (4.8-10.8)
[2025-04-25 07:27] LABS: Anion Gap 7.0 (3-11); Blood Urea Nitrogen 37.0 mg/dl (6-23); Calcium 8.0 mg/dl (8.6-10.3); Carbon Dioxide 25.0 mmol/L (21-32); Chloride 102.0 mmol/L (98-107); Creatinine Clr Calc Pharmacy 20.5 ml/min; Glucose 97.0 mg/dl (70-99(Fasting)); Magnesium 2.1 mg/dl (1.7-2.4); Potassium 3.9 mmol/L (3.5-5.1); Sodium 134.0 mmol/L (136-145)
[2025-04-25] MEDS: FUROSEMIDE 40 MG/4 ML VIAL IV SCH (08:20)
--- NOTE | 2025-04-25 08:52 | Hospitalist Progress Note ---
Date of Service April 25, 2025 Assessment & Plan (1) Septic shock: (2) Atrial fibrillation with rapid ventricular response: (3) CKD (chronic kidney disease) stage 3, GFR 30-59 ml/min: (4) Cirrhosis: (5) Thrombocytopenia: (6) Acute hypotension: Plan 75-year-old man with history significant for HUANG cirrhosis with ascites thrombocytopenia, DM type II, CKD 3, hypertension, hypothyroidism,, and hypothyroidism, recently hospitalized from 04/12/2025 to 04/16/2025 for septic shock, new A-fib with RVR who presents today complaining of worsening generalized weakness. Exam notable for tachycardia, irregularly irregular rhythm, hypertension, lower extremity erythema and tenderness , diminished breath sounds Labs notable for WBC 10.5, hemoglobin of10.4 was 12.9 last week, Platelet 74 (was 49 last week), Na 132, Cr 2.69 (was 1.88 on 04/16), lactate 4.3,TBil 1.3, Trop 244, BNP 1293, Procal 13, Chest x-ray noted Pulmonary congestion, right lung opacity Septic shock Acinetobacter bacteremia RLE cellulitis Atrial Fibrillation with RVR Demand ischemia RANDY on CKD 3 Hyponatremia Anemia Thrombocytopenia Cirrhosis Blood culture - Acinetobacter pittii in 1 set Continue Unasyn and levofloxacin ID recs noted Off pressors and hydrocortisone [employer] lamar noted Continue Lopressor 25mg q6h by cardiology Continue IV lasix daily for now Continue lactulose FRONT DESK COORDINATOR rifaximin on hold Continue FRONT DESK COORDINATOR levothyroxine FRONT DESK COORDINATOR gabapentin 300mg HS on hold. Gabapentin 100mg TID home dose reduced to 100mg BID for now UE doppler showed Left cephalic vein thrombus. No DVT DVT prophylaxis - Hep sq on hold due to thrombocytopenia. Monitor. SCD Code status- Full. I spent a total of 50 minutes coordinating, documenting and providing care for this patient excluding time spent in performance of separately billed services Admission and Anticipated Discharge Date Admission Date: April 21, 2025 Subjective Patient seen and examined Reports weakness and RLE pain No other complaints today Physical Exam Constitutional: + ill appearing; no acute distress Eyes: PERRL, conjunctivae normal, anicteric sclerae ENMT: external ear and nose normal, oropharynx normal Respiratory: normal respiratory effort, lungs clear to auscultation Cardiovascular: Rate/Rhythm: + irregularly irregular Gastrointestinal (Abdomen): Soft, protuberant, nontender, normal bowel sounds Musculoskeletal: RLE swelling, erythema +edema (R>L) Neurologic: PERRL, EOMI, accommodation nl, no face palsy, no dysarthria Psychiatric: A+Ox3, euthymic affect Results & Data Results & Data Vital Signs (Past 12 Hours) Vital Signs Temp Pulse Pulse Resp BP BP Pulse Ox 04/25/25 07:13 36.8 C 106 H 18 107/73 97 04/25/25 03:49 36.8 C 95 H 18 119/82 97 04/25/25 00:00 36.7 C 116 H 18 112/74 95 04/24/25 21:54 102 H O2 Del Method 04/25/25 07:13 Room Air 04/25/25 03:49 Room Air 04/25/25 00:00 Room Air 04/24/25 21:54 Laboratory Results Abnormal lab results 04/24/25 04/24/25 04/25/25 Range/Units 16:12 21:24 05:55 WBC 4.53 L (4.8-10.8) K/ul RBC 3.35 L (4.20-5.40) M/uL Hgb 10.0 L (12.0-16.0) g/dl Hct 30.4 L (37.0-47.0) % RDW Std Deviation 55.4 H (36.4-46.3) fL RDW Coeff of Arlene 16.8 H (11.5-14.5) % Plt Count 45 L (130-400) K/uL Sodium 134 L (136-145) mmol/L BUN 37 H (6-23) mg/dl Creatinine 1.75 H (0.6-1.2) mg/dl BUN/Creatinine Ratio 21.1 H (10-20) POC Glucose 133 H 157 H (70-99) mg/dl Calcium 8.0 L (8.6-10.3) mg/dl 04/25/25 04/25/25 Range/Units 07:23 10:53 WBC (4.8-10.8) K/ul RBC (4.20-5.40) M/uL Hgb (12.0-16.0) g/dl Hct (37.0-47.0) % RDW Std Deviation (36.4-46.3) fL RDW Coeff of Arlene (11.5-14.5) % Plt Count (130-400) K/uL Sodium (136-145) mmol/L BUN (6-23) mg/dl Creatinine (0.6-1.2) mg/dl BUN/Creatinine Ratio (10-20) POC Glucose 105 H 143 H (70-99) mg/dl Calcium (8.6-10.3) mg/dl (3) CKD (chronic kidney disease) stage 3, GFR 30-59 ml/min Chronic kidney disease stage 3 subtype: stage 3b (GFR 30-44) Qualified Code(s): N18.32 - Chronic kidney disease, stage 3b (4) Cirrhosis Hepatic cirrhosis type: other cirrhosis Qualified Code(s): K74.69 - Other cirrhosis of liver
--- NOTE | 2025-04-25 11:21 | Cardiology Progress Note ---
Date of Service April 25, 2025 Assessment & Plan (1) Shock: Plan: With sepsis (2) Cirrhosis: (3) Atrial fibrillation with rapid ventricular response: (4) HUANG (nonalcoholic steatohepatitis): Plan Complex 75-year-old female with rehospitalization with hypotension, shock parameters with lactic acidosis, acute on chronic renal insufficiency, atrial fibrillation with elevated ventricular response rates. Significant leg edema and 15 pound weight gain also noted. Troponin elevated without EKG abnormality 04/24/2025 1. Atrial fibrillation with rapid ventricular response in response to acute septic shock and illness. Hypertrophied small left ventricle with reduced stroke-volume. Plan: Continue metoprolol 25mg q6hr Can consider changing tomorrow to 100mg toprol qday Continue IV lasix Continue Abx Consider US of Abdomen and possible paracentesis (significant ascites) I provided 50 min of care to the patient in regards to management of AFib with RVR and volume overload/edema. Magnus Coronado MD Admission and Anticipated Discharge Date Admission Date: April 21, 2025 Subjective Patient seen and examined LE edema improving HR < 115 bpm No chest pain. No N/V/ECHOLS; afebrile Abd is distended. Review of Systems Review of Systems: A full review of systems is otherwise unremarkable. Physical Exam Physical Exam: GEN: AAOx3; NAD HEENT: No significant JVD CV: Irregularly Irregular; no M/R/G PULM: CTA b/l; no W/R/R ABD: soft; (+) distended. EXT: RLE: (+) edema to R-thigh; LLE: trace edema Results & Data Vital Signs (Past 12 Hours) Vital Signs Temp Pulse Pulse Resp BP BP Pulse Ox 04/25/25 10:34 04/25/25 08:00 102 H 04/25/25 07:13 36.8 C 106 H 18 107/73 97 04/25/25 03:49 36.8 C 95 H 18 119/82 97 04/25/25 00:00 36.7 C 116 H 18 112/74 95 O2 Del Method 04/25/25 10:34 Room Air 04/25/25 08:00 04/25/25 07:13 Room Air 04/25/25 03:49 Room Air 04/25/25 00:00 Room Air Results BMP Results: Sodium 134 mmol/L (136-145) L 04/25/25 Potassium 3.9 mmol/L (3.5-5.1) 04/25/25 Chloride 102 mmol/L (98-107) 04/25/25 Carbon Dioxide 25 mmol/L (21-32) 04/25/25 Anion Gap 7 (3-11) 04/25/25 BUN 37 mg/dl (6-23) H 04/25/25 Creatinine 1.75 mg/dl (0.6-1.2) H 04/25/25 Glucose 97 mg/dl (70-99(Fasting)) 04/25/25 Results CBC w Diff Results: RBC 3.35 M/uL (4.20-5.40) L 04/25/25 WBC 4.53 K/ul (4.8-10.8) L 04/25/25 Hgb 10.0 g/dl (12.0-16.0) L 04/25/25 Hct 30.4 % (37.0-47.0) L 04/25/25 MCV 90.7 fL (80.0-100.0) 04/25/25 MCH 29.9 pg (25.0-34.0) 04/25/25 MCHC 32.9 g/dL (32.0-36.0) 04/25/25 RDW Standard Deviation 55.4 fL (36.4-46.3) H 04/25/25 RDW Coefficient of Variation 16.8 % (11.5-14.5) H 04/25/25 Plt Count 45 K/uL (130-400) L 04/25/25 MPV 11.0 fL (9.4-12.4) 04/25/25 Nucleated Red Blood Cells % (auto) 0.9 % 04/21 Nucleated RBC Absolute Count (auto) 0.09 K/uL (0.00-0.12) 0 04/21/25 Neutrophils (%) (Auto) 90.2 % 04/23/25 Lymphocytes (%) (Auto) 2.5 % 04/23/25 Monocytes # (Auto) 0.37 K/uL (0.11-0.59) 04/23/25 Eosinophils # (Auto) 0.00 K/uL (0.00-0.50) 04/23/25 Immature Granulocyte % (Auto) 0.8 % 04/23/25 Neutrophils # (Auto) 5.34 K/uL (1.40-6.50) 04/23/25 Lymphocytes # (Auto) 0.15 K/uL (1.20-3.40) L 04/23/25 Monocytes # (Auto) 0.37 K/uL (0.11-0.59) 04/23/25 Eosinophils # (Auto) 0.00 K/uL (0.00-0.50) 04/23/25 Basophils # (Auto) 0.01 K/uL (0.00-0.20) 04/23/25 Immature Granulocyte # (Auto) 0.05 K/uL (0.01-0.20) 5 Red Blood Cell Morphology Unremarkable 06/23/18 Polychromasia 1+ 04/23/25 Echinocytes 1+ 04/21/25 Toxic Vacuolation 3+ 04/21/25 PG Care Time/CCT Total # of Minutes Spent Total Time Spent with Patient: Total time spent is greater than 50% in coordination of care (as documented) at patient's floor/unit and/or counseling patient: Coding [place] [address] SUB INP/OBS CARE 3/50MIN Patient Type Established History Comprehensive Exam Comprehensive Medical Decision Making High Complexity Diagnoses Shock R57.9 Other cirrhosis of liver K74.69 Hepatic cirrhosis type: other cirrhosis Atrial fibrillation with rapid ventricular response I48.91 HUANG (nonalcoholic steatohepatitis) K75.81 Time Spent (min) 50 Meds Home Medications and Allergies Home Medications Medication Instructions Recorded Confirmed Type ascorbic acid (vitamin C) 250 mg 500 mg PO QAM 06/23/18 04/21/25 History tablet (Vitamin C) clobetasol 0.05 % topical gel 1 applic topical BID PRN LICHEN 06/23/18 04/21/25 History PLANUS BREAK OUTS clonazepam 0.5 mg tablet (Klonopin) 0.5 tab PO TID PRN Anxiety 06/23/18 04/21/25 History ferrous sulfate 325 mg (65 mg 325 mg PO WK 06/23/18 04/21/25 History iron) tablet (iron) folic acid 1 mg tablet 1 mg PO QAM 06/23/18 04/21/25 History furosemide 40 mg tablet (Lasix) 40 mg PO QAM 06/23/18 04/21/25 History gabapentin 100 mg capsule 100 mg PO .BID-QAM & AFTERNOON 06/23/18 04/21/25 History lactulose 10 gram/15 mL oral 30 ml PO TID 06/23/18 04/21/25 History solution omeprazole 40 mg capsule,delayed 40 mg PO DAILYBB 06/23/18 04/21/25 History release oxycodone 5 mg tablet 2.5 mg PO Q8H PRN Pain 06/23/18 04/21/25 History potassium chloride 20 mEq 10 meq PO QDL 06/23/18 04/21/25 History tablet,extended release(part/cryst) (Klor-Con M) rifaximin 550 mg tablet (Xifaxan) 550 mg PO BID 06/23/18 04/21/25 History spironolactone 100 mg tablet See Rx Instructions .Route .COMPLEX 06/23/18 04/21/25 History furosemide 40 mg tablet 20 mg PO HS 06/05/22 04/21/25 History citalopram 40 mg tablet 20 mg PO DAILY PRN Anxiety 11/07/22 04/21/25 History gabapentin 100 mg capsule 300 mg PO HS 11/07/22 04/21/25 History nystatin 100,000 unit/gram topical 1 applic topical TID PRN SKIN RASH 07/15/23 04/21/25 History powder (Nyamyc) ondansetron HCl 4 mg tablet 4 mg PO Q6H PRN NAUSEA/VOMITING 07/15/23 04/21/25 History betamethasone dipropionate 0.05 % 1 applic topical BID PRN SKIN 04/11/25 04/21/25 History topical cream IRRITATIONS cholecalciferol (vitamin D3) 25 25 mcg PO DAILY 04/11/25 04/21/25 History mcg (1,000 unit) capsule (Vitamin D3) cyanocobalamin (vitamin B-12) 1,000 mcg PO Q OTHER DAY 04/11/25 04/21/25 History 1,000 mcg tablet (Vitamin B-12) diclofenac sodium 2 % topical 0 ml topical DIRECTED PRN Pain 04/11/25 04/21/25 History solution in packet (Pennsaid) empagliflozin 10 mg tablet 10 mg PO QAM 04/11/25 04/21/25 History (Jardiance) levothyroxine 50 mcg tablet 50 mcg PO DAILYBB 04/11/25 04/21/25 History lidocaine 4 % topical patch 1 patch topical DAILY 04/11/25 04/21/25 History montelukast 10 mg tablet 10 mg PO HS 04/11/25 04/21/25 History (Singulair) wcxpwthr-vks-zmrbol 5 mg-zeaxanth 1 cap PO DAILY 04/11/25 04/21/25 History 1 mg-bilberry 7.5 mg-herbal capsule ([facility] [employer] [facility] Formula) tacrolimus 0.1 % topical ointment 1 applic topical BID PRN SKIN 04/11/25 04/21/25 History IRRITATIONS tizanidine 4 mg tablet 1 mg PO HS 04/11/25 04/21/25 History triamcinolone acetonide 0.1 % 1 applic topical BID PRN FLARE UPS 04/11/25 04/21/25 History topical ointment vitamin E 268 mg (400 unit) capsule 268 mg PO DAILY 04/11/25 04/21/25 History metoprolol succinate 50 mg 100 mg PO BID 04/21/25 04/21/25 History tablet,extended release 24 hr Allergies Allergy/AdvReac Type Severity Reaction Status Date / Time carrot Allergy Intermediate RAW Verified 04/11/25 14:52 CARROTS CAUSE INSIDE MOUTH TO GET ITCHY ON CHEEKS nut - unspecified Allergy Intermediate ERUPTION Verified 04/11/25 14:52 INSIDE MOUTH AND LIPS peanut Allergy Intermediate ERUPTION Verified 04/11/25 14:52 INSIDE MOUTH AND LIPS Sulfa (Sulfonamide Allergy Intermediate "SULFA Verified 04/11/25 14:52 Antibiotics) DRUGS": ITCHY & HIVES [place] AdvReac Intermediate BLEEDING Uncoded 04/11/25 14:52 (2) Cirrhosis Hepatic cirrhosis type: other cirrhosis Qualified Code(s): K74.69 - Other c irrhosis of liver
--- NOTE | 2025-04-25 14:28 | Electrocardiogram Report ---
Test Reason : Blood Pressure : */* mmHG Vent. Rate : 110 BPM Atrial Rate : * BPM P-R Int : * ms QRS Dur : 74 ms QT Int : 356 ms P-R-T Axes : * 0 62 degrees QTcB Int : 481 ms Atrial fibrillation with rapid ventricular response Low voltage QRS Abnormal ECG When compared with ECG of 22-Apr-2025 05:01, No significant change was found Confirmed by Nathaniel Chavis ([id number]) on 04/25/2025 2:27:51 PM Referred By: REFERRED SELF Confirmed By: Nathaniel Chavis
[2025-04-26 06:55] LABS: Hematocrit (blood only) 30.2 % (37.0-47.0); Hemoglobin 10.2 g/dl (12.0-16.0); Mean Corpuscular Hemoglobin 30.2 pg (25.0-34.0); Mean Corpuscular Volume 89.3 fL (80.0-100.0); Platelet Count 35 K/uL (130-400); RDW Standard Deviation 54.4 fL (36.4-46.3); Red Blood Count 3.38 M/uL (4.20-5.40); White Blood Count 3.17 K/ul (4.8-10.8)
[2025-04-26 07:21] LABS: Anion Gap 8.0 (3-11); Blood Urea Nitrogen 35.0 mg/dl (6-23); Calcium 8.0 mg/dl (8.6-10.3); Carbon Dioxide 26.0 mmol/L (21-32); Chloride 101.0 mmol/L (98-107); Creatinine Clr Calc Pharmacy 24.3 ml/min; Glucose 92.0 mg/dl (70-99(Fasting)); Potassium 3.8 mmol/L (3.5-5.1); Sodium 135.0 mmol/L (136-145)
--- NOTE | 2025-04-26 09:11 | Infectious Disease Progress Nt ---
Date of Service April 26, 2025 Assessment & Plan (1) Infection due to Acinetobacter species: (2) RANDY (acute kidney injury): (3) Septic shock: Plan Problems: #Acinetobacter pittii bacteremia #Septic shock: resolved #RLE wound #RANDY: improving #Cirrhosis with ascites #Chronic thrombocytopenia #Sulfa allergy Micro: 04/22 RLE wound cx: low counts mixed probable skin microbiota 04/21 BCx x2: Acinetobacter pittii in 1/4 bottles (S amp/sul, cefepime, ceftaz, sandra, tetra, TMP/SMX, levo <=0.5, cipro <=0.25) 04/11 BCx x2: NG Abx: Levofloxacin 04/21 - present Amp-sul 04/22 - present Pip-tazo 04/21 - 04/22 Vanc 04/21 75 yo F with cirrhosis, ascites, thrombocytopenia, T2DM, CKD, HTN, HLD, primary hyperparathyroidism, ambulatory dysfunction, recent admission 04/11 - 04/16 for septic shock of unclear source, new afib with RVR who presented on 04/21 with generalized weakness, admitted with septic shock, Acinetobacter pittii bacteremia. During her prior hospitalization, she had presented on 04/11 with weakness, slurred speech, fevers, chills, sweats, and a recent skin tear on the RLE. She was very hypotensive requiring pressors. CT head, chest, abd pelvis noted sludge and stones in gallbladder with dilated CBD, but normal LFTs. Also had leukopenia, encephalopathy, elevated Cr, lactate >2. She was started on Zosyn and admitted to the ICU. MRI brain with no acute findings. MRCP did not suggest choledocholithiasis. BCx were negative. She was weaned off pressors by 04/12 and placed on stress dose steroids. She was continued on Zosyn to complete a 5 day course for ? GI source. Pt reports she felt improved after her last hospitalization, but after discharging to her daughter's, she started slowly "going downhill". Her daughter reports pt started retaining fluid in her legs and having leg pain, became more weak. The RLE wound appeared worse than prior, with new drainage. On presentation, pt was afebrile (later febrile to 38), HR 92, BP 70/47, RR 19, 100% on room air. Labs showed WBC 10.57 (up from 12/21 on 04/16), Hb 10.4, plt 74 (baseline thrombocytopenia), Cr 2.64 (up from 1.88 on 04/16), lactate 4.3, procal 13.3, Tbili 1.3, normal AST, ALT, and alk phos. UA with 0-5 WBCs, trace leuk est. BCx sent. CT chest with CHF with bilateral pleural effusions. CT A/P with asymmetric L perinephric stranding and fluid, new from 04/14/25. Small volume abdominopelvic ascites. Lower extremity duplex ultrasound with no DVT. Pt init ially started on vanc and Zosyn. BCx positive for Acinetobacter, and antibiotics switched to Unasyn and levofloxacin. On my evaluation, pt denies shortness of breath, cough, abdominal pain, dysuria. Pressors weaning. Discussion: Pt with Acinetobacter pittii bacteremia. Acinetobacter pittii is part of Acinetobacter calcoaceticus-baumannii complex, and less commonly found to be a cause of infection than other types of Acinetobacter. Acinetobacter can cause infections such as pneumonia, skin/soft tissue, CLABSI, UTI. However, pt without respiratory symptoms and CT chest without consolidations suggestive of pneumonia, and pt is without urinary symptoms and UA only has 0-5 WBCs. Could consider the RLE wound as a source. Wound culture grew only skin erik, but uncertain if an ideal sample, as there was only slight drainage. Pt now clinically improved, with resolution of fevers, leukocytosis, shock. Complaining of abd pain this AM, with abd distension on exam. Will be getting a paracentesis today. Recommendations: - Can continue renally dosed extended infusion amp-sulbactam and levofloxacin for now - On discharge, can transition to renally dosed PO levofloxacin alone to complete a total 7 day course through 04/28/25 Will sign off. Please re-consult ID if concern for SBP on ascites fluid cell counts. Admission and Anticipated Discharge Date Admission Date: April 21, 2025 Subjective Subsequent visit was provided via telemedicine using two-way real-time interactive telecommunication between the patient and the telemedicine provider. For the duration of the visit, the provider was performing the assessment from a different facility than the patient. This includesuse of bluetooth stethoscope forauscultationperformed by the telepresenter that the telemedicine provider can hear if described in the physical exam. Application Infrastructure Engineer contact information: Please call [facility] [phone]. (Phone Number For Physician Use Only) After establishing a telemedicine visit, patient was: Patient was verified with two unique identifiers, Patient/authorized rep acknowledged consent and understanding and Gave permission to continue telehealth session Time Spent with Patient: Subsequent => 35 min Remains off pressors, afebrile Reports pain in her upper abdomen for the last few days. Denies vomiting, diarrhea Review of System A complete ROS was performed and is negative except as mentioned in the HPI. Physical Exam Physical Exam: GEN: fatigued appearing RESP: No increased work of breathing ABD: distended, firm, tender in upper quadrants SKIN: R lower lateral leg wound with serous drainage NEURO: Alert and oriented PSYCH: Normal mood, affect appropriate. Results & Data Vital Signs (Past 12 Hours) Vital Signs Temp Pulse Pulse Resp BP BP Pulse Ox 04/26/25 07:19 36.4 C L 94 H 14 108/74 97 04/26/25 07:12 107 H 04/26/25 04:04 36.5 C 107 H 18 102/68 97 04/25/25 22:58 36.8 C 108 H 18 97/59 L 95 O2 Del Method 04/26/25 07:19 Room Air 04/26/25 07:12 04/26/25 04:04 Room Air 04/25/25 22:58 Room Air Laboratory Results Short CBC 04/26/25 Range/Units 05:52 WBC 3.17 L (4.8-10.8) K/ul Hgb 10.2 L (12.0-16.0) g/dl Hct 30.2 L (37.0-47.0) % Plt Count 35 L (130-400) K/uL BMP 04/26/25 05:52 Sodium 135 L Potassium 3.8 Chloride 101 Carbon Dioxide 26 BUN 35 H Creatinine 1.48 H Glucose 92 Calcium 8.0 L Medications Administered Current Inpatient Medications Acetaminophen (Acetaminophen 325 Mg Tab) 650 mg PO Q6H PRN PRN Reason: Pain or Fever Stop: 05/22/25 11:05 Last Admin: 04/25/25 23:53 Dose: 650 mg Ascorbic Acid (Ascorbic Acid 500 Mg Tab) 500 mg PO QAM [facility] Stop: 05/22/25 08:59 Last Admin: 04/26/25 08:22 Dose: 500 mg Calcium Carbonate (Calcium Carbonate 500 Mg Chewable Tab) 500 mg PO BID PRN PRN Reason: Indigestion Stop: 05/24/25 17:27 Last Admin: 04/25/25 12:13 Dose: 500 mg Citalopram Hydrobromide (Citalopram 20 Mg Tab) 20 mg PO DAILY PRN PRN Reason: Anxiety Stop: 05/22/25 08:59 Dextrose (Dextrose 50% 50 Ml Syringe) 25 - 50 ml IV UD PRN; Protocol PRN Reason: Hypoglycemia Protocol Stop: 05/21/25 17:58 Furosemide (Furosemide 40 Mg Tab) 40 mg PO QAM [facility] Stop: 05/23/25 08:59 Last Admin: 04/24/25 08:09 Dose: 40 mg Furosemide (Furosemide 40 Mg/4 Ml Vial) 40 mg IV DAILY [facility] Stop: 05/25/25 08:59 Last Admin: 04/26/25 08:22 Dose: 40 mg Gabapentin (Gabapentin 300 Mg Cap) 300 mg PO HS [facility] Stop: 05/22/25 20:59 Gabapentin (Gabapentin 100 Mg Cap) 100 mg PO BID [facility] Stop: 05/22/25 20:59 Last Admin: 04/26/25 08:22 Dose: 100 mg Glucagon (Glucagon For Inj 1 Mg Vial) 1 mg SQ UD PRN; Protocol PRN Reason: Hypoglycemia Protocol Stop: 05/21/25 17:58 Glucose (Glucose 40% Gel 15 Gm Tube) 15 - 30 gm PO UD PRN; Protocol PRN Reason: Hypoglycemia Protocol Stop: 05/21/25 17:58 Glucose (Glucose 10 Tab/Tube) 4 - 8 tab PO UD PRN; Protocol PRN Reason: Hypoglycemia Protocol Stop: 05/21/25 17:58 Heparin Sodium (Porcine) (Heparin Sod 5,000 Unit/0.5 Ml Vial) 5,000 units SQ Q8 [facility] Stop: 05/21/25 13:59 Last Admin: 04/24/25 05:08 Dose: 5,000 units Levofloxacin/Dextrose (Levaquin/D5w) 500 mg in 100 mls @ 100 mls/hr IV Q48H [facility] Stop: 05/05/25 20:59 Last Infusion: 04/25/25 22:15 Dose: Infused Ampicillin Sodium/Sulbactam Sodium (Unasyn) 3,000 mg in 100 mls @ 25 mls/hr IV Q8H [facility]; Protocol Stop: 05/06/25 11:59 Last Infusion: 04/26/25 07:56 Dose: Infused Insulin Aspart (Insulin Aspart Per Unit Charge) 0 units SC ACHS [facility] Stop: 05/21/25 17:59 Last Admin: 04/26/25 08:23 Dose: Not Given Lactulose (Lactulose Syrup 20 Gm/30 Ml Udc) 20 gm PO TID [facility] Stop: 05/22/25 13:59 Last Admin: 04/26/25 08:23 Dose: Not Given Levothyroxine Sodium (Levothyroxine Sodium 50 Mcg Tablet) 50 mcg PO DAILYBB [facility] Stop: 05/22/25 06:29 Last Admin: 04/26/25 05:35 Dose: 50 mcg Metoprolol Tartrate (Metoprolol Tartrate 25 Mg Tab) 25 mg PO Q6 [facility] Stop: 05/23/25 17:59 Last Admin: 04/26/25 05:35 Dose: 25 mg Miscellaneous (Carbohydrates For Hypoglycemia ) 15 - 30 gm PO UD PRN PRN Reason: Hypoglycemia Protocol Stop: 05/21/25 17:58 Montelukast Sodium (Montelukast Sodium 10 Mg Tablet) 10 mg PO HS [facility] Stop: 05/21/25 20:59 Last Admin: 04/25/25 21:07 Dose: 10 mg Nystatin (Nystatin Susp 500,000 U/5 Ml Udc) 5 ml PO QID [facility] Stop: 05/22/25 20:59 Last Admin: 04/26/25 08:23 Dose: 5 ml Oxycodone HCl (Oxycodone Hcl Ir 5 Mg Tab (Immediate Release)) 2.5 mg PO TID PRN PRN Reason: Mod-Sev Pain (Scale 4-10) Stop: 05/07/25 19:53 Last Admin: 04/26/25 08:26 Dose: 2.5 mg Pantoprazole Sodium (Pantoprazole 40 Mg Tab) 40 mg PO DAILYBB [facility] Stop: 05/22/25 06:29 Last Admin: 04/26/25 05:35 Dose: 40 mg Potassium Chloride (Potassium Chloride Crtab 20 Meq Tabcr) 20 meq PO QAM [facility] Stop: 05/23/25 08:59 Last Admin: 04/26/25 08:23 Dose: 20 meq Rifaximin (Rifaximin 550 Mg Tablet) 550 mg PO BID [facility] Stop: 05/21/25 10:29 Last Admin: 04/21/25 11:12 Dose: 550 mg Vitamin D (Cholecalciferol 25 Mcg (1000 Units) Tab) 25 mcg PO DAILY [facility] Stop: 05/22/25 08:59 Last Admin: 04/26/25 08:22 Dose: 25 mcg
[2025-04-26 09:59] LABS: Alanine Aminotransferase 49.0 U/L (7-52); Alkaline Phosphatase 160.0 U/L (34-104); Bilirubin,Total 0.9 mg/dl (0.2-1.0); Total Protein 5.5 gm/dl (6.0-8.3)
--- NOTE | 2025-04-26 11:50 | Hospitalist Progress Note ---
Date of Service April 26, 2025 Assessment & Plan (1) Septic shock: (2) Atrial fibrillation with rapid ventricular response: (3) CKD (chronic kidney disease) stage 3, GFR 30-59 ml/min: (4) Cirrhosis: (5) Thrombocytopenia: (6) Acute hypotension: Plan 75-year-old man with history significant for HUANG cirrhosis with ascites thrombocytopenia, DM type II, CKD 3, hypertension, hypothyroidism,, and hypothyroidism, recently hospitalized from 04/12/2025 to 04/16/2025 for septic shock, new A-fib with RVR who presents today complaining of worsening generalized weakness. Exam notable for tachycardia, irregularly irregular rhythm, hypertension, lower extremity erythema and tenderness , diminished breath sounds Labs notable for WBC 10.5, hemoglobin of10.4 was 12.9 last week, Platelet 74 (was 49 last week), Na 132, Cr 2.69 (was 1.88 on 04/16), lactate 4.3,TBil 1.3, Trop 244, BNP 1293, Procal 13, Chest x-ray noted Pulmonary congestion, right lung opacity Septic shock Acinetobacter bacteremia RLE cellulitis Atrial Fibrillation with RVR Demand ischemia RANDY on CKD 3 Hyponatremia Anemia Thrombocytopenia Cirrhosis Blood culture - Acinetobacter pittii in 1 set Discussed with ID. Continue Unasyn and levofloxacin for now. On discharge, can transition to renally dosed po levofloxacin to complete abx on 04/28/25 Required pressors in ICU. Off pressors and hydrocortisone now Brand Planner lamar noted Continue Lopressor 25mg q6h by cardiology Continue IV lasix daily for now IR paracentesis ordered for both diagnostic and therapeutic paracentesis IR reports procedure will be done tomorrow Continue lactulose ARTIST'S REPRESENTATIVE rifaximin on hold Continue ARTIST'S REPRESENTATIVE levothyroxine ARTIST'S REPRESENTATIVE gabapentin 300mg HS on hold. Gabapentin 100mg TID home dose reduced to 100mg BID for now UE doppler showed Left cephalic vein thrombus. No DVT Continue ARTIST'S REPRESENTATIVE citalopram. DVT prophylaxis - Hep sq on hold due to thrombocytopenia. Monitor. SCD Code status- Full. PT recommended SNF. Patient open to placement once medically stable Updated daughter at bedside I spent a total of 50 minutes coordinating, documenting and providing care for this patient excluding time spent in performance of separately billed services Admission and Anticipated Discharge Date Admission Date: April 21, 2025 Subjective Patient seen and examined Reports abdominal pain today Still reports RLE pain Denied chest pain, cough or SOB No fever or chills Physical Exam Constitutional: + ill appearing; no acute distress Eyes: PERRL, conjunctivae normal, anicteric sclerae ENMT: external ear and nose normal, oropharynx normal Respiratory: normal respiratory effort, lungs clear to auscultation Cardiovascular: Rate/Rhythm: + irregularly irregular Gastrointestinal (Abdomen): Abdomen is distended today, soft, +tender, normal bowel sounds Musculoskeletal: RLE swelling, erythema/tender +edema (R>L) Neurologic: PERRL, EOMI, accommodation nl, no face palsy, no dysarthria Psychiatric: A+Ox3, euthymic affect Results & Data Results & Data Vital Signs (Past 12 Hours) Vital Signs Temp Pulse Pulse Resp BP Pulse Ox O2 Del Method 04/26/25 11:38 36.6 C 91 H 18 127/72 97 Room Air 04/26/25 07:19 36.4 C L 94 H 14 108/74 97 Room Air 04/26/25 07:12 107 H 04/26/25 04:04 36.5 C 107 H 18 102/68 97 Room Air Laboratory Results Abnormal lab results 04/25/25 04/25/25 04/26/25 Range/Units 16:02 20:16 05:52 WBC 3.17 L (4.8-10.8) K/ul RBC 3.38 L (4.20-5.40) M/uL Hgb 10.2 L (12.0-16.0) g/dl Hct 30.2 L (37.0-47.0) % RDW Std Deviation 54.4 H (36.4-46.3) fL RDW Coeff of Arlene 16.7 H (11.5-14.5) % Plt Count 35 L (130-400) K/uL Sodium 135 L (136-145) mmol/L BUN 35 H (6-23) mg/dl Creatinine 1.48 H (0.6-1.2) mg/dl BUN/Creatinine Ratio 23.6 H (10-20) POC Glucose 134 H 120 H (70-99) mg/dl Calcium 8.0 L (8.6-10.3) mg/dl Alkaline Phosphatase 160 H (34-104) U/L Total Protein 5.5 L (6.0-8.3) gm/dl Albumin 2.5 L (3.4-5.0) gm/dl 04/26/25 Range/Units 11:20 WBC (4.8-10.8) K/ul RBC (4.20-5.40) M/uL Hgb (12.0-16.0) g/dl Hct (37.0-47.0) % RDW Std Deviation (36.4-46.3) fL RDW Coeff of Arlene (11.5-14.5) % Plt Count (130-400) K/uL Sodium (136-145) mmol/L BUN (6-23) mg/dl Creatinine (0.6-1.2) mg/dl BUN/Creatinine Ratio (10-20) POC Glucose 141 H (70-99) mg/dl Calcium (8.6-10.3) mg/dl Alkaline Phosphatase (34-104) U/L Total Protein (6.0-8.3) gm/dl Albumin (3.4-5.0) gm/dl (3) CKD (chronic kidney disease) stage 3, GFR 30-59 ml/min Chronic kidney disease stage 3 subtype: stage 3b (GFR 30-44) Qualified Code(s): N18.32 - Chronic kidney disease, stage 3b (4) Cirrhosis Hepatic cirrhosis type: other cirrhosis Qualified Code(s): K74.69 - Other cirrhosis of liver
[2025-04-26] MEDS: CITALOPRAM 20 MG TAB PO SCH (12:22)
--- NOTE | 2025-04-26 14:08 | Cardiology Progress Note ---
Date of Service April 26, 2025 Assessment & Plan (1) Shock: Plan: With sepsis (2) Cirrhosis: (3) Atrial fibrillation with rapid ventricular response: (4) HUANG (nonalcoholic steatohepatitis): Plan Assessment: Complex 75-year-old female with rehospitalization with hypotension, shock parameters with lactic acidosis, acute on chronic renal insufficiency, atrial fibrillation with elevated ventricular response rates. Significant leg edema and 15 pound weight gain also noted. Troponin elevated without EKG abnormality Plan 04/26/25: A-fib with RVR -Likely s/t acute septic shock, hyperdynamic LV on echo at time of admission. mild to moderate MR -Ongoing treatment for sepsis per primary team. RLL cellulitis with acinetobacter bacteremia on blood cultures. ID also on consult appreciate recs. -Patient to undergo paracentesis tomorrow -continue Furosemide 40mg IV Daily. -858ml fluid balance. Continue with strict I&O and daily weights. Close monitoring of renal function and electrolytes. Goal serum K> 4.0 and Serum Mag > 2.0 -Continue Lopressor 25mg PO Q6H for rate control, may consider transition to Toprol xl (100mg QD) following paracentesis pending patient status. Case has been discussed with Dr. Irvin. Further recommendations regarding plan of care as per his assessment. I spent a total of 30 minutes on the date of service in preparation, delivery, documentation of the care provided to the patient excluding any time spent in the performance of separately billed services. MARISOL Anderson [facility] Admission and Anticipated Discharge Date Admission Date: April 21, 2025 Supervising Physician Co-Signing Physician Notes Attending attestation: Case reviewed with the advanced practitioner. I have personally performed a history and physical examination on the patient. I have reviewed the advanced practitioner's documentation on the date of service referenced in note, and I agree with, and take responsibility for the plan of ca re. 5 status improving. Notes mild epigastric discomfort. Exam consistent with abdominal ascites. Mildly decreased breath sounds at the bases. Echocardiogram on 04/21/2025 revealed hyperdynamic LVEF,> 70%, with mild to moderate mitral regurgitation. Moderate concentric LVH. -Continue furosemide 40 mg IV daily - Continue subcutaneous heparin for DVT prophylaxis. - Not a candidate for systemic anticoagulation due to anemia, bleeding risk I spent a total of 20 minutes coordinating, documenting, and providing care for this patient excluding time spent in the performance of separately billed services or time spent by another provider. Jet Irvin DO Subjective 04/26/2025: Patient seen and examined in follow up today. Patient was resting comfortably, but awoke to verbal stimuli, reports Feeling poorly. Complains of generalized pain (chest, abdominal, back) but does not offer specifics. Labs, vitals, diagnostics, telemetry and documentation reviewed. Telemetry reviewed showing A-fib rates 90's to 120's. Review of Systems Review of Systems: All systems reviewed & are unremarkable except as noted in HPI & below Physical Exam Constitutional: well developed, well nourished and + ill appearing; no acute distress Neck: normal visual inspection and trachea midline Respiratory: normal respiratory effort; no respiratory distress, no labored breathing and no cough Auscultation: + diminished lung sounds; no crackles, no rales, no rhonchi and no wheezes Cardiovascular: Rate/Rhythm: + irregularly irregular Heart Sounds: normal S1, normal S2 and + murmur (+2/6 systolic ) Vessels: dorsalis pedis pulses present Extremities: + edema (trace to +1 BLE, + abd distension) Skin: no rashes, warm and dry Psychiatric: Orientation: alert, oriented to person and oriented to place Affect: + anxious affect and + tearful affect Results & Data Vital Signs (Past 12 Hours) Vital Signs Temp Pulse Pulse Resp BP Pulse Ox O2 Del Method 04/26/25 11:38 36.6 C 91 H 18 127/72 97 Room Air 04/26/25 07:19 36.4 C L 94 H 14 108/74 97 Room Air 04/26/25 07:12 107 H 04/26/25 04:04 36.5 C 107 H 18 102/68 97 Room Air Laboratory Results Cardiac Enzymes 04/26/25 Range/Units 05:52 AST 30 (13-39) U/L Lactate Dehydrogenase 180 (86-244) U/L CBC 04/26/25 Range/Units 05:52 WBC 3.17 L (4.8-10.8) K/ul RBC 3.38 L (4.20-5.40) M/uL Hgb 10.2 L (12.0-16.0) g/dl Hct 30.2 L (37.0-47.0) % Plt Count 35 L (130-400) K/uL Comprehensive Metabolic Panel 04/26/25 Range/Units 05:52 Sodium 135 L (136-145) mmol/L Potassium 3.8 (3.5-5.1) mmol/L Chloride 101 (98-107) mmol/L Carbon Dioxide 26 (21-32) mmol/L BUN 35 H (6-23) mg/dl Creatinine 1.48 H (0.6-1.2) mg/dl Glucose 92 (70-99(Fasting)) mg/dl Calcium 8.0 L (8.6-10.3) mg/dl Direct Bilirubin 0.2 (0-0.2) mg/dl AST 30 (13-39) U/L ALT 49 (7-52) U/L Alkaline Phosphatase 160 H (34-104) U/L Total Protein 5.5 L (6.0-8.3) gm/dl Albumin 2.5 L (3.4-5.0) gm/dl Intake and Output 04/25/25 04/26/25 04/26/25 22:59 06:59 14:59 Intake Total 472 / 992 300 / 992 560 / 560 Output Total 450 / 1850 300 / 1850 Balance 22 / -858 0 / -858 560 / 560 Intake: IV 200 / 400 100 / 400 100 / 100 Ampicillin/Sulbactam Sod 3,000 100 / 300 100 / 300 100 / 100 mg In 100 ml @ 25 mls/hr IV Q8H [facility] Rx#:[id number] levoFLOXacin/D5W 500 mg In 100 100 / 100 ml @ 100 mls/hr IV Q48H [facility] Rx# :[id number] Oral 272 / 592 200 / 592 460 / 460 Output: Urine Amount (Catheter) 450 / 1850 300 / 1850 Muniz/Indwelling 450 / 1850 300 / 1850 Other: Weight 80.1 kg Weight Measurement Method Built in [facility] Care Time/CCT Total # of Minutes Spent Total Time Spent: 30 Total Time Spent with Patient: Total time spent is greater than 50% in coordination of care (as documented) at patient's floor/unit and/or counseling patient: Coding Level of Care Code 16458 SUB INP/OBS CARE 3/50MIN History Detailed Exam Detailed Medical Decision Making High Complexity Diagnoses Shock R57.9 Other cirrhosis of liver K74.69 Hepatic cirrhosis type: other cirrhosis Atrial fibrillation with rapid ventricular response I48.91 HUANG (nonalcoholic steatohepatitis) K75.81 Time Spent (min) 50 Comment 30 minutes were spent by MARISOL Chu, 20 minutes by Jet Irvin DO (2) Cirrhosis Hepatic cirrhosis type: other cirrhosis Qualified Code(s): K74.69 - Other cirrhosis of liver
[2025-04-26] MEDS: METOPROLOL TARTRATE 1 MG/ML VIAL IV STA (23:06)
[2025-04-27] MEDS: HYDROmorphone INJ 0.5 MG/0.5 ML SYR IV STA (02:04)
[2025-04-27] MEDS: METOPROLOL TARTRATE 1 MG/ML VIAL IV STA (02:05)
[2025-04-27 02:42] LABS: Magnesium 2.2 mg/dl (1.7-2.4)
[2025-04-27 03:20] LABS: Alanine Aminotransferase 42.0 U/L (7-52); Alkaline Phosphatase 189.0 U/L (34-104); Anion Gap 8.0 (3-11); Bilirubin,Total 0.9 mg/dl (0.2-1.0); Blood Urea Nitrogen 32.0 mg/dl (6-23); Calcium 8.2 mg/dl (8.6-10.3); Carbon Dioxide 24.0 mmol/L (21-32); Chloride 102.0 mmol/L (98-107); Creatinine Clr Calc Pharmacy 24.4 ml/min; Glucose 125.0 mg/dl (70-99(Fasting)); Potassium 3.9 mmol/L (3.5-5.1); Sodium 134.0 mmol/L (136-145); Total Protein 5.3 gm/dl (6.0-8.3)
[2025-04-27 06:34] LABS: Hematocrit (blood only) 31.5 % (37.0-47.0); Hemoglobin 10.3 g/dl (12.0-16.0); Mean Corpuscular Hemoglobin 29.4 pg (25.0-34.0); Mean Corpuscular Volume 90.0 fL (80.0-100.0); Platelet Count 51 K/uL (130-400); RDW Standard Deviation 54.8 fL (36.4-46.3); Red Blood Count 3.50 M/uL (4.20-5.40); White Blood Count 4.25 K/ul (4.8-10.8)
--- NOTE | 2025-04-27 08:43 | Cardiology Progress Note ---
Date of Service April 27, 2025 Assessment & Plan (1) Shock: Plan: With sepsis (2) Cirrhosis: (3) Atrial fibrillation with rapid ventricular response: (4) HUANG (nonalcoholic steatohepatitis): Plan Assessment: Complex 75-year-old female with rehospitalization with hypotension, shock parameters with lactic acidosis, acute on chronic renal insufficiency, atrial fibrillation with elevated ventricular response rates. Significant leg edema and 15 pound weight gain also noted. Troponin elevated without EKG abnormality Plan 04/26/25: A-fib with RVR -Likely s/t acute septic shock, hyperdynamic LV on echo at time of admission. mild to moderate MR -Ongoing treatment for sepsis per primary team. RLL cellulitis with acinetobacter bacteremia on blood cultures. ID also on consult appreciate recs. -Patient to undergo paracentesis tomorrow -continue Furosemide 40mg IV Daily. -858ml fluid balance. Continue with strict I&O and daily weights. Close monitoring of renal function and electrolytes. Goal serum K> 4.0 and Serum Mag > 2.0 -Continue Lopressor 25mg PO Q6H for rate control, may consider transition to Toprol xl (100mg QD) following paracentesis pending patient status. 04/27/2025: -Patient is resting comfortably in bed at time of exam. continues to endorse chronic pain, abdominal pain/pressure. -Patient is slated for paracentesis today -BP stable. -ongoing treatment for sepsis per primary team. -Continue Furosemide 40mg IV daily, continues to slowly diurese. -Continue with strict I&O and daily weights. Close monitoring of renal function and electrolytes. Goal serum K> 4.0 and Serum Mag > 2.0 -Continue Lopressor 25mg PO Q6H for rate control, may consider transition to Toprol xl (100mg QD) following paracentesis pending patient status. -Review of telemetry showed one 7 beat run of VT at 1618 yesterday with no recurrence. Serum electrolytes including Mag stable. Case has been discussed with Dr. Irvin. Further recommendations regarding plan of care as per his assessment. I spent a total of 30 minutes on the date of service in preparation, delivery, documentation of the care provided to the patient excluding any time spent in the performance of separately billed services. MARISOL Anderson [facility] Admission and Anticipated Discharge Date Admission Date: April 21, 2025 Supervising Physician Co-Signing Physician Notes Attending attestation: Case reviewed with the advanced practitioner. I have personally performed a history and physical examination on the patient. I have reviewed the advanced practitioner's documentation on the date of service referenced in note, and I agree with, and take responsibility for the plan of care. Echocardiogram on 04/21/2025 revealed hyperdynamic LVEF,> 70%, with mild to moderate mitral regurgitation. Moderate concentric LVH. * Patient underwent paracentesis on 04/27/2025 yielding 1.8 L of fluid * Hold furosemide 40 mg IV daily a.m. of 04/28/2025 given large volume paracentesis which patient received and reassessment of vital signs and renal function * Will reassess patient with regards to transition to metoprolol succinate tomorrow. * Continue subcutaneous heparin for DVT prophylaxis. * Not a candidate for systemic anticoagulation due to anemia, bleeding risk I spent a total of 20 minutes coordinating, documenting, and providing care for this patient excluding time spent in the performance of separately billed services or time spent by another provider. Jet Irvin DO Subjective 04/27/2025: Patient seen and examined in follow up today. Feeling fair. Continues to endorse abdominal pain/pressure and generalized pain/arthralgias. Labs, vitals, diagnostics, telemetry and documentation reviewed. Telemetry reviewed showing A-fib rates 110-140 (non-sustained). Notation of a 7 beat run of VT on telemetry at 1618 yesterday. no recurrence for paracentesis today. Review of Systems Review of Systems: All systems reviewed & are unremarkable except as noted in HPI & below Physical Exam Constitutional: well developed, well nourished and + ill appearing; no acute distress Neck: normal visual inspection and trachea midline Respiratory: normal respiratory effort; no respiratory distress, no labored breathing and no cough Auscultation: + diminished lung sounds; no crackles, no rales, no rhonchi and no wheezes Cardiovascular: Rate/Rhythm: + irregularly irregular Heart Sounds: normal S1, normal S2 and + murmur (+2/6 systolic ) Vessels: dorsalis pedis pulses present Extremities: + edema (trace to +1 BLE, + abd distension) Skin: no rashes, warm and dry + wound (wound/lesion coverage by foam dressing lower extremity) Psychiatric: Orientation: alert, oriented to person and oriented to place Affect: + anxious affect and + tearful affect Results & Data Vital Signs (Past 12 Hours) Vital Signs Temp Pulse Pulse Pulse Resp BP BP 04/27/25 07:37 36.5 C 124 H 18 126/73 04/27/25 05:46 122 H 119/74 04/27/25 02:43 36.6 C 150 H 18 110/74 04/27/25 02:27 136 H 106/67 04/27/25 02:05 136 H 109/71 04/26/25 23:25 136 H 115/67 04/26/25 22:45 142 H 04/26/25 22:27 36.7 C 111 H 18 115/79 Pulse Ox O2 Del Method 04/27/25 07:37 92 Room Air 04/27/25 05:46 04/27/25 02:43 96 Room Air 04/27/25 02:27 04/27/25 02:05 04/26/25 23:25 04/26/25 22:45 04/26/25 22:27 95 Room Air Laboratory Results Cardiac Enzymes 04/26/25 04/27/25 04/27/25 Range/Units 05:52 02:12 05:59 AST 30 26 (13-39) U/L Lactate Dehydrogenase 180 165 (86-244) U/L CBC 04/27/25 Range/Units 05:59 WBC 4.25 L (4.8-10.8) K/ul RBC 3.50 L (4.20-5.40) M/uL Hgb 10.3 L (12.0-16.0) g/dl Hct 31.5 L (37.0-47.0) % Plt Count 51 L (130-400) K/uL Comprehensive Metabolic Panel 04/26/25 04/27/25 Range/Units 05:52 02:12 Sodium 134 L (136-145) mmol/L Potassium 3.9 (3.5-5.1) mmol/L Chloride 102 (98-107) mmol/L Carbon Dioxide 24 (21-32) mmol/L BUN 32 H (6-23) mg/dl Creatinine 1.47 H (0.6-1.2) mg/dl Glucose 125 H (70-99(Fasting)) mg/dl Calcium 8.2 L (8.6-10.3) mg/dl Direct Bilirubin 0.2 0.2 (0-0.2) mg/dl AST 30 26 (13-39) U/L ALT 49 42 (7-52) U/L Alkaline Phosphatase 160 H 189 H (34-104) U/L Total Protein 5.5 L 5.3 L (6.0-8.3) gm/dl Albumin 2.5 L 2.7 L (3.4-5.0) gm/dl Intake and Output 04/26/25 04/27/25 04/27/25 22:59 06:59 14:59 Intake Total 220 / 880 100 / 880 100 / 100 Output Total 501 / 1051 550 / 1051 Balance -281 / -171 -450 / -171 100 / 100 Intake: IV 100 / 300 100 / 300 100 / 100 Ampicillin/Sulbactam Sod 3,000 100 / 300 100 / 300 100 / 100 mg In 100 ml @ 25 mls/hr IV Q8H [facility] Rx#:[id number] Oral 120 / 580 Output: Urine Amount (Catheter) 500 / 1050 550 / 1050 Muniz/Indwelling 500 / 1050 550 / 1050 # Bowel Movements Other: Weight 80 kg PG Care Time/CCT Total # of Minutes Spent Total Time Spent with Patient: Total time spent is greater than 50% in coordination of care (as documented) at patient's floor/unit and/or counseling patient: [place] [address] SUB INP/OBS CARE 3/50MIN Patient Type New History Detailed Exam Detailed Diagnoses Shock R57.9 Other cirrhosis of liver K74.69 Hepatic cirrhosis type: other cirrhosis Atrial fibrillation with rapid ventricular response I48.91 HUANG (nonalcoholic steatohepatitis) K75.81 Time Spent (min) 50 Comment 30 minutes were spent by MARISOL Chu, 20 minutes spent by Jet Irvin DO (2) Cirrhosis Hepatic cirrhosis type: other cirrhosis Qualified Code(s): K74.69 - Other cirrhosis of liver
--- NOTE | 2025-04-27 09:08 | Hospitalist Progress Note ---
Date of Service April 27, 2025 Assessment & Plan (1) Septic shock: (2) Atrial fibrillation with rapid ventricular response: (3) CKD (chronic kidney disease) stage 3, GFR 30-59 ml/min: (4) Cirrhosis: (5) Thrombocytopenia: (6) Acute hypotension: Plan 75-year-old man with history significant for HUANG cirrhosis with ascites thrombocytopenia, DM type II, CKD 3, hypertension, hypothyroidism,, and hypothyroidism, recently hospitalized from 04/12/2025 to 04/16/2025 for septic shock, new A-fib with RVR who presents today complaining of worsening generalized weakness. Exam notable for tachycardia, irregularly irregular rhythm, hypertension, lower extremity erythema and tenderness , diminished breath sounds Labs notable for WBC 10.5, hemoglobin of10.4 was 12.9 last week, Platelet 74 (was 49 last week), Na 132, Cr 2.69 (was 1.88 on 04/16), lactate 4.3,TBil 1.3, Trop 244, BNP 1293, Procal 13, Chest x-ray noted Pulmonary congestion, right lung opacity Septic shock Acinetobacter bacteremia RLE cellulitis Atrial Fibrillation with RVR Demand ischemia RANDY on CKD 3 Hyponatremia Anemia Thrombocytopenia Cirrhosis Blood culture - Acinetobacter pittii in 1 set ID on board. Continue Unasyn and levofloxacin for now. On discharge, can transition to renally dosed po levofloxacin to complete abx on 04/28/25 Required pressors in ICU. Off pressors and hydrocortisone now [employer] Director lamar noted Continue Lopressor 25mg q6h. Not a candidate for systemic anticoagulation Continue IV lasix daily for now Awaiting IR paracentesis for both diagnostic and therapeutic paracentesis today Will follow up fluid analysis for SBP Continue lactulose [employer] rifaximin on hold due possibly contributing to edema. Reassess later Continue [employer] levothyroxine [employer] gabapentin 300mg HS on hold. Gabapentin 100mg TID home dose reduced to 100mg BID for now UE doppler showed Left cephalic vein thrombus. No DVT Continue [employer] citalopram. DVT prophylaxis - Hep sq Code status- Full. PT recommended SNF. Patient open to placement once medically stable I spent a total of 50 minutes coordinating, documenting and providing care for this patient excluding time spent in performance of separately billed services Admission and Anticipated Discharge Date Admission Date: April 21, 2025 Subjective Patient seen and examined Reports abd pain, increased distention and RLE pain No other complaints on ROS Required lopressor IV x 2 per Night team for RVR Physical Exam Constitutional: + ill appearing; no acute distress Eyes: PERRL, conjunctivae normal, anicteric sclerae ENMT: external ear and nose normal, oropharynx normal Respiratory: normal respiratory effort; no respiratory distress Diminished breath sounds. No crackles Cardiovascular: Rate/Rhythm: + tachycardic and + irregularly irregular Gastrointestinal (Abdomen): Increased abd distention, +tender, +bowel sounds Musculoskeletal: +pedal edema Neurologic: PERRL, EOMI, accommodation nl, no face palsy, no dysarthria Psychiatric: A+Ox3, euthymic affect Results & Data Results & Data Vital Signs (Past 12 Hours) Vital Signs Temp Pulse Pulse Pulse Resp BP BP 04/27/25 07:37 36.5 C 124 H 18 126/73 04/27/25 05:46 122 H 119/74 04/27/25 02:43 36.6 C 150 H 18 110/74 04/27/25 02:27 136 H 106/67 04/27/25 02:05 136 H 109/71 04/26/25 23:25 136 H 115/67 04/26/25 22:45 142 H 04/26/25 22:27 36.7 C 111 H 18 115/79 Pulse Ox O2 Del Method 04/27/25 07:37 92 Room Air 04/27/25 05:46 04/27/25 02:43 96 Room Air 04/27/25 02:27 04/27/25 02:05 04/26/25 23:25 04/26/25 22:45 04/26/25 22:27 95 Room Air Laboratory Results Abnormal lab results 04/26/25 04/26/25 04/26/25 Range/Units 05:52 11:20 20:04 WBC (4.8-10.8) K/ul RBC (4.20-5.40) M/uL Hgb (12.0-16.0) g/dl Hct (37.0-47.0) % RDW Std Deviation (36.4-46.3) fL RDW Coeff of Arlene (11.5-14.5) % Plt Count (130-400) K/uL Sodium (136-145) mmol/L BUN (6-23) mg/dl Creatinine (0.6-1.2) mg/dl BUN/Creatinine Ratio (10-20) Glucose (70-99(Fasting)) mg/dl POC Glucose 141 H 139 H (70-99) mg/dl Calcium (8.6-10.3) mg/dl Alkaline Phosphatase 160 H (34-104) U/L Total Protein 5.5 L (6.0-8.3) gm/dl Albumin 2.5 L (3.4-5.0) gm/dl 04/27/25 04/27/25 04/27/25 Range/Units 02:12 05:59 07:36 WBC 4.25 L (4.8-10.8) K/ul RBC 3.50 L (4.20-5.40) M/uL Hgb 10.3 L (12.0-16.0) g/dl Hct 31.5 L (37.0-47.0) % RDW Std Deviation 54.8 H (36.4-46.3) fL RDW Coeff of Arlene 16.7 H (11.5-14.5) % Plt Count 51 L (130-400) K/uL Sodium 134 L (136-145) mmol/L BUN 32 H (6-23) mg/dl Creatinine 1.47 H (0.6-1.2) mg/dl BUN/Creatinine Ratio 21.8 H (10-20) Glucose 125 H (70-99(Fasting)) mg/dl POC Glucose 126 H (70-99) mg/dl Calcium 8.2 L (8.6-10.3) mg/dl Alkaline Phosphatase 189 H (34-104) U/L Total Protein 5.3 L (6.0-8.3) gm/dl Albumin 2.7 L (3.4-5.0) gm/dl (3) CKD (chronic kidney disease) stage 3, GFR 30-59 ml/min Chronic kidney disease stage 3 subtype: stage 3b (GFR 30-44) Qualified Code(s): N18.32 - Chronic kidney disease, stage 3b (4) Cirrhosis Hepatic cirrhosis type: other cirrhosis Qualified Code(s): K74.69 - Other cirrhosis of liver
[2025-04-27 12:52] LABS: Albumin Peritoneal Fluid < 1.5 gm/dl
[2025-04-27 13:21] LABS: Appearance Peritoneal Fluid Clear; Color Peritoneal Fluid Pale Yellow; RBC Peritoneal Fluid Auto < 2000 /uL; WBC Peritoneal Fluid Auto 56 /ul (0-300)
[2025-04-27 13:27] LABS: Lymphocytes, Fluid 25 %; Mono,Macrophage,Mesothelial 27 %; Neutrophils, Fluid 48 %
--- NOTE | 2025-04-27 14:33 | Ultrasound Report ---
ULTRASOUND-GUIDED PARACENTESIS CLINICAL HISTORY: Ascites PROCEDURE: Procedure and risks were explained. Informed consent was obtained. A final timeout was com pleted. The abdomen was prepped and draped in sterile fashion. 1% lidocaine was utilized for skin ane sthesia. Utilizing ultrasound guidance, a 5 Malay safety centesis catheter was advanced into the right lower quadrant pocket of ascites. Ultrasound images were obtained. 1.8 L of ascites fluid was removed, with 1 L sent to the lab for analysis. The catheter was removed and Band-Aid applied. The patient tolerat ed the procedure well. Vital signs will be monitored postprocedure. IMPRESSION: Ultrasound-guided paracentesis as above. Performed, dictated, and signed by Colin Cook PA-C; to be co-signed by Dr. Anshu Saul. Electronically signed by: Anshu Saul M.D. 04/27/2025 2:39 PM
[2025-04-28 08:23] LABS: Hematocrit (blood only) 31.6 % (37.0-47.0); Hemoglobin 10.6 g/dl (12.0-16.0); Mean Corpuscular Hemoglobin 30.3 pg (25.0-34.0); Mean Corpuscular Volume 90.3 fL (80.0-100.0); Platelet Count 48 K/uL (130-400); RDW Standard Deviation 54.8 fL (36.4-46.3); Red Blood Count 3.50 M/uL (4.20-5.40); White Blood Count 3.79 K/ul (4.8-10.8)
[2025-04-28 08:40] LABS: Anion Gap 7.0 (3-11); Blood Urea Nitrogen 28.0 mg/dl (6-23); Calcium 8.1 mg/dl (8.6-10.3); Carbon Dioxide 27.0 mmol/L (21-32); Chloride 100.0 mmol/L (98-107); Creatinine Clr Calc Pharmacy 27.6 ml/min; Glucose 120.0 mg/dl (70-99(Fasting)); Potassium 3.6 mmol/L (3.5-5.1); Sodium 134.0 mmol/L (136-145)
[2025-04-28] MEDS ORDERED: NYSTATIN POWDER 15GM BTL EXT PRN (10:31)
[2025-04-28] MEDS ORDERED: clonazePAM 0.5 MG TAB PO PRN (11:01)
[2025-04-28] MEDS: METOPROLOL TARTRATE 25 MG TAB PO STA (11:50)
--- NOTE | 2025-04-28 13:47 | Cardiology Progress Note ---
Date of Service April 28, 2025 Assessment & Plan (1) Shock: Plan: With sepsis (2) Cirrhosis: (3) Atrial fibrillation with rapid ventricular response: (4) HUANG (nonalcoholic steatohepatitis): Plan Assessment: Complex 75-year-old female with rehospitalization with hypotension, shock parameters with lactic acidosis, acute on chronic renal insufficiency, atrial fibrillation with elevated ventricular response rates. Significant leg edema and 15 pound weight gain also noted. Troponin elevated without EKG abnormality Plan 04/26/25: A-fib with RVR -Likely s/t acute septic shock, hyperdynamic LV on echo at time of admission. mild to moderate MR -Ongoing treatment for sepsis per primary team. RLL cellulitis with acinetobacter bacteremia on blood cultures. ID also on consult appreciate recs. -Patient to undergo paracentesis tomorrow -continue Furosemide 40mg IV Daily. -858ml fluid balance. Continue with strict I&O and daily weights. Close monitoring of renal function and electrolytes. Goal serum K> 4.0 and Serum Mag > 2.0 -Continue Lopressor 25mg PO Q6H for rate control, may consider transition to Toprol xl (100mg QD) following paracentesis pending patient status. 04/27/2025: -Patient is resting comfortably in bed at time of exam. continues to endorse chronic pain, abdominal pain/pressure. -Patient is slated for paracentesis today -BP stable. -ongoing treatment for sepsis per primary team. -Continue Furosemide 40mg IV daily, continues to slowly diurese. -Continue with strict I&O and daily weights. Close monitoring of renal function and electrolytes. Goal serum K> 4.0 and Serum Mag > 2.0 -Continue Lopressor 25mg PO Q6H for rate control, may consider transition to Toprol xl (100mg QD) following paracentesis pending patient status. -Review of telemetry showed one 7 beat run of VT at 1618 yesterday with no recurrence. Serum electrolytes including Mag stable. 04/28/2025: -Patient demonstrates clinical improvement from a cardiac perspective. underwent paracentesis yesterday with a 1.8L fluid reduction. -BP stable -Increased ventricular ectopy on telemetry. Continue metoprolol tartrate 25mg PO Q6H, but give a one time additional dose of Metoprolol tartrate 25mg this am. Monitor closely on telemetry and consider transition to Troprol xl for ongoing maintenance. --ongoing treatment for sepsis per primary team. -furosemide on hold today s/p paracentesis. Reassess fluid status in the AM and consider restarting -Continue with strict I&O and daily weights. Close monitoring of renal function and electrolytes. Goal serum K> 4.0 and Serum Mag > 2.0 Case has been discussed with Dr. Irvin. Further recommendations regarding plan of care as per his assessment. I spent a total of 30 minutes on the date of service in preparation, delivery, documentation of the care provided to the patient excluding any time spent in the performance of separately billed services. MARISOL Anderson [facility] Admission and Anticipated Discharge Date Admission Date: April 21, 2025 Supervising Physician Co-Signing Physician Notes Attending attestation: Case reviewed with the advanced practitioner. I have personally performed a history and physical examination on the patient. I have reviewed the advanced practitioner's documentation on the date of service referenced in note, and I agree with, and take responsibility for the plan of care. Echocardiogram on 04/21/2025 revealed hyperdynamic LVEF,> 70%, with mild to moderate mitral regurgitation. Moderate concentric LVH. * Patient underwent paracentesis on 04/27/2025 yielding 1.8 L of fluid * Holding furosemide due to relative hypotension, significant fluid losses * Continue potassium supplementation * Continue antibiotics. QTc difficult to measure in the setting of atrial fibrillation but appear grossly normal on 05/14 ECG. Will repeat. * Titrate metoprolol to succinate 125 mg PO BID I spent a total of 20 minutes coordinating, documenting, and providing care for this patient excluding time spent in the performance of separately billed services or time spent by another provider. Jet Irvin, Subjective 04/28/2025: Patient seen and examined in follow up today. Feeling much better since having Paracentesis yesterday. She is sitting out of bed in a chair witho ut acute concerns. Daughter present at bedside. Labs, vitals, diagnostics, telemetry and documentation reviewed. Telemetry reviewed showing A-fib rates 100-130's. Notation of increased ventricular ectopy, PVC's couplets, triplets, several runs of non-sustained VT 5-9 beats. patient asympotmatic. Review of Systems Review of Systems: All systems reviewed & are unremarkable except as noted in HPI & below Physical Exam Constitutional: well developed and well nourished; no acute distress Neck: normal visual inspection and trachea midline Respiratory: normal respiratory effort; no respiratory distress, no labored breathing and no cough Auscultation: + diminished lung sounds; no crackles, no rales, no rhonchi and no wheezes Cardiovascular: Rate/Rhythm: + irregularly irregular Heart Sounds: normal S1, normal S2 and + murmur (+2/6 systolic ) Vessels: dorsalis pedis pulses present Extremities: + edema (trace BLE) Skin: no rashes, warm and dry + wound (wound/lesion coverage by foam dressing lower extremity) Psychiatric: Orientation: alert and oriented x 3 Affect: euthymic affect Results & Data Vital Signs (Past 12 Hours) Vital Signs Temp Pulse Pulse Pulse Resp BP Pulse Ox 04/28/25 11:54 36.8 C 84 20 104/64 94 04/28/25 08:00 36.8 C 87 108 H 16 90/56 L 97 04/28/25 05:38 117 H 04/28/25 02:43 36.7 C 114 H 18 105/64 95 O2 Del Method 04/28/25 11:54 Room Air 04/28/25 08:00 Room Air 04/28/25 05:38 04/28/25 02:43 Room Air Laboratory Results CBC 04/28/25 Range/Units 08:02 WBC 3.79 L (4.8-10.8) K/ul RBC 3.50 L (4.20-5.40) M/uL Hgb 10.6 L (12.0-16.0) g/dl Hct 31.6 L (37.0-47.0) % Plt Count 48 L (130-400) K/uL Comprehensive Metabolic Panel 04/28/25 Range/Units 08:02 Sodium 134 L (136-145) mmol/L Potassium 3.6 (3.5-5.1) mmol/L Chloride 100 (98-107) mmol/L Carbon Dioxide 27 (21-32) mmol/L BUN 28 H (6-23) mg/dl Creatinine 1.30 H (0.6-1.2) mg/dl Glucose 120 H (70-99(Fasting)) mg/dl Calcium 8.1 L (8.6-10.3) mg/dl Intake and Output 04/27/25 04/28/25 04/28/25 22:59 06:59 14:59 Intake Total 400 / 1200 250 / 1200 100 / 100 Output Total 700 / 2150 300 / 2150 Balance -300 / -950 -50 / -950 100 / 100 Intake: IV 200 / 400 100 / 400 100 / 100 Ampicillin/Sulbactam Sod 3,000 100 / 300 100 / 300 100 / 100 mg In 100 ml @ 25 mls/hr IV Q8H [facility] Rx#:[id number] levoFLOXacin/D5W 500 mg In 100 100 / 100 ml @ 100 mls/hr IV Q48H [facility] Rx# :[id number] Oral 200 / 800 150 / 800 Output: Urine Amount (Catheter) 700 / 2150 300 / 2150 Muniz/Indwelling 700 / 2150 300 / 2150 Other: Weight 80.1 kg PG Care Time/CCT Total # of Minutes Spent Total Time Spent with Patient: Total time spent is greater than 50% in coordination of care (as documented) at patient's floor/unit and/or counseling patient: Coding Level of Care Code 53992 SUB INP/OBS CARE 3/50MIN Diagnoses Shock R57.9 Other cirrhosis of liver K74.69 Hepatic cirrhosis type: other cirrhosis Atrial fibrillation with rapid ventricular response I48.91 HUANG (nonalcoholic steatohepatitis) K75.81 Time Spent (min) 35 (2) Cirrhosis Hepatic cirrhosis type: other cirrhosis Qualified Code(s): K74.69 - Other cirrhosis of liver
--- NOTE | 2025-04-28 14:02 | Hospitalist Progress Note ---
Date of Service April 28, 2025 Assessment & Plan (1) Septic shock: (2) Atrial fibrillation with rapid ventricular response: (3) CKD (chronic kidney disease) stage 3, GFR 30-59 ml/min: (4) Cirrhosis: (5) Thrombocytopenia: (6) Acute hypotension: Plan 75-year-old female with history significant for HUANG cirrhosis with ascites thrombocytopenia, DM type II, CKD 3, hypertension, hypothyroidism,, and hypothyroidism, recently hospitalized from 04/12/2025 to 04/16/2025 for septic sh ock, new A-fib with RVR admitted for complaining of worsening generalized weakness. Exam notable for tachycardia, irregularly irregular rhythm, hypertension, lower extremity erythema and tenderness , diminished breath sounds. Labs notable for WBC 10.5, hemoglobin of10.4 was 12.9 last week, Platelet 74 (was 49 last week), Na 132, Cr 2.69 (was 1.88 on 04/16), lactate 4.3,TBil 1.3, Trop 244, BNP 1293, Procal 13 and Chest x-ray noted Pulmonary congestion, right lung opacity Septic shock Acinetobacter bacteremia RLE cellulitis Atrial Fibrillation with RVR Demand ischemia RANDY on CKD 3 Hyponatremia Anemia Thrombocytopenia Cirrhosis Blood culture - Acinetobacter pittii in 1 set all other culture results are negative ID consult. Continue Unasyn and levofloxacin for now. Course will be completed today on 04/28/25 She required pressors in ICU. She remains off pressors and stress dose hydrocortisone now Cardiolog consulted and appreciate recommendations Continue Lopressor 25mg q6h. consider transition to daily if tolerated. Not a candidate for systemic anticoagulation Continue IV lasix daily. She continues slow diuresis. Status post IR paracentesis for both diagnostic and therapeutic paracentesis yesterday. No growth to date Gram stain negative. 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 Reassess later Renal function improving. Cre 1.47--->1.3 Continue CIRC[employer]ATION SALES REPRESENTATIVE levothyroxine CIR[employer] SALES REPRESENTATIVE gabapentin 300mg HS on hold. Gabapentin 100mg TID home dose reduced to 100mg BID for now UE doppler showed Left cephalic vein thrombus. No DVT Continue CIRCULATION SALES REPRESENTATIVE citalopram. DVT prophylaxis - Hep sq Code status- Full. PT recommended SNF. Patient accepted at [facility] pending authorization. She is excepted as a as early as tomorrow. Her daughter Valeria works there I spent a total of 55 minutes coordinating, documenting and providing care for this patient excluding time spent in performance of separately billed services Admission and Anticipated Discharge Date Admission Date: April 21, 2025 Subjective Patient seen and examined at bedside early this a.m. with her daughter present. She is status post paracentesis yesterday. She feels better post paracentesis. Labs, vitals, diagnostics, telemetry and documentation reviewed. Telemetry reviewed showing A-fib rates 100-130's and patient is asympotmatic. She feels weak overall. Denies chest pain. Shortness of breath is improved. Denies nausea or vomiting. No loose stools. Physical Exam Physical Exam: General- adult elderly female seen at bedside. She has a chronic ill appearance Head- atraumatic Eyes- PERRL, EOMI, anicteric ENT- oropharynx clear Neck- supple, no adenopathy, no thyromegaly; Lungs- clear to auscultation and percussion Heart-irregularly irregular at 96 bpm; Abdomen- normal bowel sounds, soft, nontender, no masses or hepatosplenomegaly Extremities-trace pretibial edema, no calf tenderness; peripheral pulses intact, wound dressing intact lower extremity Neuro- alert, oriented x 3; PERRL, EOMI; no facial palsy; no dysarthria; Skin- warm & dry Results & Data Results & Data Vital Signs (Past 12 Hours) Vital Signs Temp Pulse Pulse Pulse Resp BP Pulse Ox 04/28/25 11:54 36.8 C 84 20 104/64 94 04/28/25 08:00 36.8 C 87 108 H 16 90/56 L 97 04/28/25 05:38 117 H 04/28/25 02:43 36.7 C 114 H 18 105/64 95 O2 Del Method 04/28/25 11:54 Room Air 04/28/25 08:00 Room Air 04/28/25 05:38 04/28/25 02:43 Room Air Diagnostic Findings Laboratory Results WBC 3.79 K/ul (4.8-10.8) L 04/28/25 08:02 RBC 3.50 M/uL (4.20-5.40) L 04/28/25 08:02 Hgb 10.6 g/dl (12.0-16.0) L 04/28/25 08:02 POC Hgb 11.2 g/dl (12.0-16.0) L 04/21/25 06:38 Hct 31.6 % (37.0-47.0) L 04/28/25 08:02 POC Hct 33 % (37-47) L 04/21/25 06:38 MCV 90.3 fL (80.0-100.0) 04/28/25 08:02 MCH 30.3 pg (25.0-34.0) 04/28/25 08:02 MCHC 33.5 g/dL (32.0-36.0) 04/28/25 08:02 RDW Std Deviation 54.8 fL (36.4-46.3) H 04/28/25 08:02 RDW Coeff of Arlene 16.9 % (11.5-14.5) H 04/28/25 08:02 Plt Count 48 K/uL (130-400) L 04/28/25 08:02 MPV 11.6 fL (9.4-12.4) 04/28/25 08:02 Immature Gran % (Auto) 0.8 % 04/23/25 06:19 Neut % (Auto) 90.2 % 04/23/25 06:19 Lymph % (Auto) 2.5 % 04/23/25 06:19 Sac % (Auto) 6.3 % 04/23/25 06:19 Eos % (Auto) 0.0 % 04/23/25 06:19 Baso % (Auto) 0.2 % 04/23/25 06:19 Neut # (Auto) 5.34 K/uL (1.40-6.50) 04/23/25 06:19 Lymph # (Auto) 0.15 K/uL (1.20-3.40) L 04/23/25 06:19 Sac # (Auto) 0.37 K/uL (0.11-0.59) 04/23/25 06:19 Eos # (Auto) 0.00 K/uL (0.00-0.50) 04/23/25 06:19 Baso # (Auto) 0.01 K/uL (0.00-0.20) 04/23/25 06:19 Immature Gran # (Auto) 0.05 K/uL (0.01-0.20) 04/23/25 06:19 Absolute Nucleated RBC 0.09 K/uL (0.00-0.12) 04/21/25 06:30 Nucleated RBC % (auto) 0.9 % 04/21/25 06:30 Toxic Vacuolation 3+ 04/21/25 06:30 Platelet Estimate Decreased (Normal) L 04/23/25 04:35 Polychromasia 1+ 04/23/25 06:19 Echinocytes 1+ 04/21/25 06:30 PT 12.7 Seconds (9.0-12.0) H 04/21/25 06:30 INR 1.2 (0.9-1.1) H 04/21/25 06:30 APTT 25 Seconds (21-31) 04/21/25 06:30 PTT Ratio 0.9 04/21/25 06:30 VBG pH 7.30 (7.36-7.41) L 04/21/25 07:23 VBG pCO2 44 mmHg (38-50) 04/21/25 07:23 VBG pO2 < 20 mmHg 04/21/25 07:23 VBG HCO3 22 mmol/L 04/21/25 07:23 VBG O2 Saturation < 60.0 % 04/21/25 07:23 VBG Base Excess -4.8 mEq/L 04/21/25 07:23 POC Sodium 132 mmol/L (135-144) L 04/21/25 06:38 Sodium 134 mmol/L (136-145) L 04/28/25 08:02 POC Potassium 4.5 mmol/L (3.3-5.0) 04/21/25 06:38 Potassium 3.6 mmol/L (3.5-5.1) 04/28/25 08:02 POC Chloride 98 mmol/L (101-112) L 04/21/25 06:38 Chloride 100 mmol/L (98-107) 04/28/25 08:02 Carbon Dioxide 27 mmol/L (21-32) 04/28/25 08:02 POC Total CO2 21 mmol/L (24-31) L 04/21/25 06:38 Anion Gap 7 (3-11) 04/28/25 08:02 POC Anion Gap 18.0 mmol/L (16-25) 04/21/25 06:38 POC BUN 25 mg/dl (7-18) H 04/21/25 06:38 BUN 28 mg/dl (6-23) H 04/28/25 08:02 Creatinine 1.30 mg/dl (0.6-1.2) H 04/28/25 08:02 POC Creatinine 2.7 mg/dl (0.6-1.3) H 04/21/25 06:38 Est Cr Clr Drug Dosing 27.6 ml/min 04/28/25 08:02 eGFR 42.35 04/28/25 08:02 BUN/Creatinine Ratio 21.5 (10-20) H 04/28/25 08:02 Glucose 120 mg/dl (70-99(Fasting)) H 04/28/25 08:02 POC Glucose 172 mg/dl (70-99) H 04/28/25 11:32 POC Glucose (other) 202 mg/dl (70-99) H 04/21/25 23:49 Lactate 2.3 mmol/L (0.4-2.0) H* 04/21/25 14:46 Calcium 8.1 mg/dl (8.6-10.3) L 04/28/25 08:02 POC Ioniz Calcium Tank 1.07 mmol/l (1.12-1.32) L 04/21/25 06:38 Phosphorus 3.3 mg/dl (2.5-4.9) 04/27/25 02:12 Magnesium 2.2 mg/dl (1.7-2.4) 04/27/25 02:12 Total Bilirubin 0.9 mg/dl (0.2-1.0) 04/27/25 02:12 Direct Bilirubin 0.2 mg/dl (0-0.2) 04/27/25 02:12 AST 26 U/L (13-39) 04/27/25 02:12 ALT 42 U/L (7-52) 04/27/25 02:12 Alkaline Phosphatase 189 U/L (34-104) H 04/27/25 02:12 Ammonia 32.0 umol/L (18-72) 04/21/25 14:46 Lactate Dehydrogenase 165 U/L (86-244) 04/27/25 05:59 Troponin I High Sens 482.7 pg/ml (0-14) H* 04/21/25 19:52 B-Natriuretic Peptide 1293 pg/ml (0-100) H 04/21/25 06:30 Total Protein 5.3 gm/dl (6.0-8.3) L 04/27/25 02:12 Albumin 2.7 gm/dl (3.4-5.0) L 04/27/25 02:12 Globulin 2.5 gm/dl (2.5-4.0) 04/24/25 05:46 Albumin/Globulin Ratio 1.1 (0.9-2) 04/24/25 05:46 Procalcitonin 13.30 ng/ml (0-0.5) H 04/21/25 06:30 Urine Color Yellow 04/21/25 06:55 Urine Appearance Cloudy (Clear) A 04/21/25 06:55 Urine pH 5.0 (4.5-7.5) 04/21/25 06:55 Ur Specific [place] 1.014 (1.000-1.030) 04/21/25 06:55 Urine Protein Negative (Negative) 04/21/25 06:55 Urine Glucose (UA) 2+ (Negative) H 04/21/25 06:55 Urine Ketones Negative (Negative) 04/21/25 06:55 Urine Blood Negative (Negative) 04/21/25 06:55 Urine Nitrite Negative (Negative) 04/21/25 06:55 Urine Bilirubin Negative (Negative) 04/21/25 06:55 Urine Urobilinogen Negative (Negative) 04/21/25 06:55 Ur Leukocyte Esterase Trace (Negative) H 04/21/25 06:55 Urine WBC (Auto) 0-5 /hpf (0-5) 04/21/25 06:55 Urine RBC (Auto) 3-5 /hpf (0-2) H 04/21/25 06:55 U Hyaline Cast (Auto) 0-2 /lpf (0-2) 04/21/25 06:55 U Epithel Cells (Auto) 3-5 /hpf (0-2) H 04/21/25 06:55 Urine Bacteria (Auto) 3+ (None Seen) H 04/21/25 06:55 Calcium Oxalate Crystal Present (None Prsent) A 04/21/25 06:55 Hyaline Casts P /lpf (None Presnt) 04/21/25 06:55 Urine Comment 04/21/25 06:55 Fluid Neutrophils % 48 % 04/27/25 11:30 Fluid Lymphocytes % 25 % 04/27/25 11:30 Fluid Meso/Macro/Sac % 27 % 04/27/25 11:30 Fluid Comment 04/27/25 11:30 Peritoneal Color Pale Yellow 04/27/25 11:30 Peritoneal Appearance Clear 04/27/25 11:30 Peritoneal WBC (Auto) 56 /ul (0-300) 04/27/25 11:30 Peritoneal RBC (Auto) < 2000 /uL 04/27/25 11:30 Peritoneal Tot Protein < 3.0 gm/dl 04/27/25 11:30 Peritoneal Albumin < 1.5 gm/dl 04/27/25 11:30 Peritoneal LDH < 25 U/L 04/27/25 11:30 Peritoneal Glucose 135 mg/dl 04/27/25 11:30 Nasal Screen MRSA (PCR) Negative (Negative) 04/21/25 09:50 Random Vancomycin 21.4 mcg/ml (10-20) H 04/22/25 04:39 A.calcoaceticus-baumannii cmplx PCR DETECTED (NotDetected) A 04/21/25 06:30 blaIMP Car res Gene PCR Not Detected (NotDetected) 04/21/25 06:30 KPC-Carbap Res Gene PCR Not Detected (NotDetected) 04/21/25 06:30 blaNDM Car Res Gene PCR Not Detected (NotDetected) 04/21/25 06:30 blaVIM Car Res Gene PCR Not Detected (NotDetected) 04/21/25 06:30 CTX-M Gene Resistance (PCR) Not Detected (NotDetected) 04/21/25 06:30 Bld Cult ID Panel PCR See PCR Comment (NotDetected) 04/21/25 06:30 Impressions Abdomen/Pelvis CT 04/21/25 08:06 CT SCAN OF THE ABDOMEN AND PELVIS WITHOUT IV CONTRAST CLINICAL HISTORY: Sepsis COMPARISON STUDY: Abdominal CT dated 04/14/2025. Abdominal MRI dated 04/11/2025. TECHNIQUE: CT scan of the abdomen and pelvis is performed from the lung bases to the proximal femora. Images are reviewed in the axial, sagittal, and coronal planes. IV contrast was not administered for this examination. Note that the examination was performed in suboptimal fashion without oral and IV contrast. A dose lowering technique was utilized adhering to the principles of ALARA. CT DOSE: 1953.95 mGy.cm FINDINGS: Lung bases: The heart is top normal in size noting trace pericardial effusion. The mitral annulus and coronary arteries are densely calcified. There are small right and trace left pleural effusions with dependent consolidation. Liver: The unenhanced liver is cirrhotic in morphology and heterogeneous in attenuation. There is hypertrophy of the left lobe and caudate and nodularity of the surface contour. There is no intrahepatic biliary ductal dilatation. Gallbladder: The gallbladder is filled with hyperdense stone. Spleen: The spleen is mildly enlarged measuring 13.4 cm in length. Pancreas: The unenhanced pancreas is mildly atrophic. A 2.7 cm ovoid cystic lesion is again seen in the pancreatic head on image #120. Adrenal glands: Unremarkable. Kidneys: The unenhanced kidneys are atrophic and without hydronephrosis. There are no renal calculi identified. There is no evidence of contour deforming renal mass lesion. 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 There is asymmetric left-sided perinephric stranding which is new from 04/14/2025. Abdominal vasculature: There is advanced atherosclerotic calcification and mild ectasia of the abdominal aorta. Bowel:. There is no bowel obstruction. There is mild sigmoid diverticulosis without CT evidence of acute diverticulitis. The appendix is normal as visualized. Peritoneum: There is a small volume of abdominopelvic ascites. No intraperitoneal free air is identified Lymphadenopathy: None. Pelvic viscera: Evaluation of the pelvis is degraded by streak artifact from a right hip arthroplasty. The bladder is decompressed around a Muniz catheter and not well evaluated. Foci of intraluminal gas are likely related to instrumentation. The uterus and adnexa are normal as imaged. Skeletal structures: The skeletal structures are osteopenic. No lytic or blastic lesions are seen. Spondylotic and extensive postsurgical change is noted throughout the lumbar spine. There are numerous chronic thoracolumbar compression deformities. A right hip arthroplasty is in place. Arthritic change is seen in the left hip. There is chronic posttraumatic deformity of the right pubic ring. Soft tissues: There is body wall edema. IMPRESSION: 1. There is asymmetric left-sided perinephric stranding and fluid. This is new from 04/14/2025. Correlate with clinical findings and urinalysis. 2. The liver is cirrhotic in morphology and heterogeneous attenuation. 3. Mild splenomegaly and a small volume of abdominopelvic ascites indicates portal hypertension. Ascites is new from 04/14/2025. 4. Small right and trace left pleural effusions with dependent consolidation. 5. Cholelithiasis. 6. A cystic lesion of the pancreatic head is unchanged from recent prior studies. 7. Additional findings as above. ACT 112: Negative or not required by law. Electronically signed by: Anshu Saul M.D. 04/21/2025 9:[address] 04/21/25 08:06 CT chest diagnostic wo con CT DOSE: 4 CLINICAL HISTORY: sepsis. TECHNIQUE: Multiaxial CT images of the chest were performed without contrast. A dose lowering technique was utilized adhering to the principles of ALARA. COMPARISON STUDY: 04/11/2025 FINDINGS: There are mild airway secretions. There are diffuse coronary artery calcifications. There are mitral valvular calcifications. There is moderate cardiomegaly with prominence of the pulmonary vasculature consistent with CHF. There are bilateral pleural effusions, moderate on the right and trace on the left. There is moderate compressive atelectasis at the right lower lobe and mild atelectasis at the left lung base. There is mild septal thickening and mild p ulmonary ground glass opacity consistent with mild pulmonary edema. There is no pneumothorax. No enlarged adenopathy. No pericardial effusion. Visualized liver is diffusely nodular consistent with cirrhosis. There are severe degenerative changes at the right shoulder. There is stable height loss at multiple thoracic vertebral bodies. There is osteopenia. No acute osseous finding seen. IMPRESSION: 1. CHF with bilateral pleural effusions, right greater than left. 2. Otherwise as described. ACT 112: Negative or not required by law. Electronically signed by: Simon Jimenez M.D. 04/21/2025 8:56 AM Chest X-Ray 04/21/25 10:46 XR chest 1V portable CLINICAL HISTORY: eval right IJ placement COMPARISON STUDY: 04/21/2025 FINDINGS: Right central catheter tip is just above the cavoatrial junction. There is no pneumothorax. There is stable cardiomegaly without pulmonary vascular congestion. Stable stranding opacity in lung bases with obscuration of the right hemidiaphragm. IMPRESSION: No pneumothorax. Otherwise as described. ACT 112: Negative or not required by law. Electronically signed by: Simon Jimenez M.D. 04/21/2025 11:10 AM Venous Doppler Study 04/24/25 10:31 BILATERAL UPPER EXTREMITY VENOUS DOPPLER ULTRASOUND CLINICAL HISTORY: Bilateral arm swelling. Assess for DVT COMPARISON STUDY: No previous studies for comparison. FINDINGS: There is no deep venous thrombus within the right upper extremity. No deep venous pelvis within the left upper extremity is present. Note is made of superficial thrombus within the left cephalic vein which extends from the level of the mid upper arm through proximal forearm. IMPRESSION: 1. Superficial thrombus within the left cephalic vein which extends from the level the mid upper arm through proximal forearm. 2. No deep venous thrombus within the upper extremities. ACT 112: Negative or not required by law. Electronically signed by: Dexter Taveras M.D. 04/24/2025 12:15 PM Paracentesis Ultrasound 04/27/25 07:00 ULTRASOUND-GUIDED PARACENTESIS CLINICAL HISTORY: Ascites PROCEDURE: Procedure and risks were explained. Informed consent was obtained. A final timeout was completed. The abdomen was prepped and draped in sterile fashion. 1% lidocaine was utilized for skin anesthesia. Utilizing ultrasound guidance, a 5 [place] Islander safety centesis catheter was advanced into the right lower quadrant pocket of ascites. Ultrasound images were obtained. 1.8 L of ascites fluid was removed, with 1 L sent to the lab for analysis. The catheter was removed and Band-Aid applied. The patient tolerated the procedure well. Vital signs will be monitored postprocedure. IMPRESSION: Ultrasound-guided paracentesis as above. Performed, dictated, and signed by Colin Cook PA-C; to be co-signed by Dr. Anshu Saul. Electronically signed by: Anshu Saul M.D. 04/27/2025 2:39 PM (3) CKD (chronic kidney disease) stage 3, GFR 30-59 ml/min Chronic kidney disease stage 3 subtype: stage 3b (GFR 30-44) Qualified Code(s): N18.32 - Chronic kidney disease, stage 3b (4) Cirrhosis Hepatic cirrhosis type: other cirrhosis Qualified Code(s): K74.69 - Other cirrhosis of liver
[2025-04-28] MEDS ORDERED: ACETAMINOPHEN 325 MG TAB PO PRN (18:47)
[2025-04-28] MEDS: METOPROLOL SUCC 50MG EXT REL TAB PO SCH (21:39)
[2025-04-28 22:35] VITALS: RESP 18
[2025-04-28] MEDS: ACETAMINOPHEN 1,000 MG/100 ML VIAL IV STA (23:47)
[2025-04-28] MEDS: ALBUMIN 25% 12.5 GM/50 ML VIAL IV ONE (23:50)
[2025-04-28 23:56] LABS: Magnesium 2.0 mg/dl (1.7-2.4)
[2025-04-29] MEDS: POTASSIUM CHLORIDE CRTAB 20 MEQ TABCR PO STA (00:04)
[2025-04-29] MEDS: DIGOXIN 250 MCG in SYRINGE 9 ML IV STA (00:05)
[2025-04-29 07:47] LABS: Hematocrit (blood only) 31.2 % (37.0-47.0); Hemoglobin 10.1 g/dl (12.0-16.0); Mean Corpuscular Hemoglobin 29.5 pg (25.0-34.0); Mean Corpuscular Volume 91.2 fL (80.0-100.0); Platelet Count 41 K/uL (130-400); RDW Standard Deviation 55.9 fL (36.4-46.3); Red Blood Count 3.42 M/uL (4.20-5.40); White Blood Count 3.25 K/ul (4.8-10.8)
[2025-04-29 08:03] LABS: Anion Gap 6.0 (3-11); Blood Urea Nitrogen 25.0 mg/dl (6-23); Calcium 8.2 mg/dl (8.6-10.3); Carbon Dioxide 27.0 mmol/L (21-32); Chloride 102.0 mmol/L (98-107); Creatinine Clr Calc Pharmacy 27.1 ml/min; Glucose 103.0 mg/dl (70-99(Fasting)); Potassium 4.3 mmol/L (3.5-5.1); Sodium 135.0 mmol/L (136-145)
[2025-04-29 08:14] VITALS: TEMP 98.1; O2SAT 98
--- NOTE | 2025-04-29 09:19 | Cardiology Progress Note ---
Date of Service April 29, 2025 Assessment & Plan (1) Shock: Plan: With sepsis (2) Cirrhosis: (3) Atrial fibrillation with rapid ventricular response: (4) HUANG (nonalcoholic steatohepatitis): Plan Assessment: Complex 75-year-old female with rehospitalization with hypotension, shock parameters with lactic acidosis, acute on chronic renal insufficiency, atrial fibrillation with elevated ventricular response rates. Significant leg edema and 15 pound weight gain also noted. Troponin elevated without EKG abnormality Plan 04/26/25: A-fib with RVR -Likely s/t acute septic shock, hyperdynamic LV on echo at time of admission. mild to moderate MR -Ongoing treatment for sepsis per primary team. RLL cellulitis with acinetobacter bacteremia on blood cultures. ID also on consult appreciate recs. -Patient to undergo paracentesis tomorrow -continue Furosemide 40mg IV Daily. -858ml fluid balance. Continue with strict I&O and daily weights. Close monitoring of renal function and electrolytes. Goal serum K> 4.0 and Serum Mag > 2.0 -Continue Lopressor 25mg PO Q6H for rate control, may consider transition to Toprol xl (100mg QD) following paracentesis pending patient status. 04/27/2025: -Patient is resting comfortably in bed at time of exam. continues to endorse chronic pain, abdominal pain/pressure. -Patient is slated for paracentesis today -BP stable. -ongoing treatment for sepsis per primary team. -Continue Furosemide 40mg IV daily, continues to slowly diurese. -Continue with strict I&O and daily weights. Close monitoring of renal function and electrolytes. Goal serum K> 4.0 and Serum Mag > 2.0 -Continue Lopressor 25mg PO Q6H for rate control, may consider transition to Toprol xl (100mg QD) following paracentesis pending patient status. -Review of telemetry showed one 7 beat run of VT at 1618 yesterday with no recurrence. Serum electrolytes including Mag stable. 04/28/2025: -Patient demonstrates clinical improvement from a cardiac perspective. underwent paracentesis yesterday with a 1.8L fluid reduction. -BP stable -Increased ventricular ectopy on telemetry. Continue metoprolol tartrate 25mg PO Q6H, but give a one time additional dose of Metoprolol tartrate 25mg this am. Monitor closely on telemetry and consider transition to Troprol xl for ongoing maintenance. --ongoing treatment for sepsis per primary team. -furosemide on hold today s/p paracentesis. Reassess fluid status in the AM and consider restarting -Continue with strict I&O and daily weights. Close monitoring of renal function and electrolytes. Goal serum K> 4.0 and Serum Mag > 2.0 04/29/2025: -Patient is resting out of bed in chair. She is endorses increased abdominal bloat, distention. Consider repeat US vs CT, per primary team. -Patient shows a reduction in ventricular ectopy since increase in beta lizbet. Continue Toprol xl 125mg PO QD -Resume Furosemide 40mg IV QD, with strict I&O, daily weights and close monitoring of renal function/electrolytes. -ongoing sepsis management per primary team Case has been discussed with Dr. Irvin. Further recommendations regarding plan of care as per his assessment. I spent a total of 30 minutes on the date of service in preparation, delivery, documentation of the care provided to the patient excluding any time spent in the performance of separately billed services. MARISOL [facility] Admission and Anticipated Discharge Date Admission Date: April 21, 2025 Supervising Physician Co-Signing Physician Notes Attending: Case discussed with MARISOL Chu. Agree with plan as outlined. Jet Irvin DO Subjective 04/29/2025: Patient seen and examined in follow up today. Feeling fair. She is out of bed in chair visiting with her daughter. She denies any chest pain, or pressure but does report she is starting to feel that abdominal fullness again. Labs, vitals, diagnostics, telemetry and documentation reviewed. Telemetry reviewed showing A-fib with PVC's rates 98-106bpm. Patient has had several couplets/triplets and one 6 beat run of VT around 0130. Review of Systems Review of Systems: All systems reviewed & are unremarkable except as noted in HPI & below Physical Exam Constitutional: well developed, well nourished and + ill appearing; no acute distress Neck: normal visual inspection and trachea midline Respiratory: normal respiratory effort; no respiratory distress, no labored breathing and no cough Auscultation: + diminished lung sounds; no crackles, no rales, no rhonchi and no wheezes Cardiovascular: Rate/Rhythm: + irregularly irregular Heart Sounds: normal S1, normal S2 and + murmur (+2/6 systolic ) Vessels: dorsalis pedis pulses present Extremities: + edema (+1 BLE) Skin: no rashes, warm and dry + wound (wound/lesion coverage by foam dressing lower extremity) Psychiatric: Orientation: alert, oriented x 3, oriented to person and oriented to place Affect: euthymic affect, + anxious affect and + tearful affect Results & Data Vital Signs (Past 12 Hours) Vital Signs Temp Pulse Pulse Resp BP BP Pulse Ox 04/29/25 08:13 36.7 C 97 H 18 107/59 L 98 04/29/25 06:17 105 H 04/29/25 00:05 125 H 04/28/25 22:33 36.5 C 107 H 18 101/57 L 94 O2 Del Method 04/29/25 08:13 Room Air 04/29/25 06:17 04/29/25 00:05 04/28/25 22:33 Room Air Laboratory Results CBC 04/29/25 Range/Units 07:03 WBC 3.25 L (4.8-10.8) K/ul RBC 3.42 L (4.20-5.40) M/uL Hgb 10.1 L (12.0-16.0) g/dl Hct 31.2 L (37.0-47.0) % Plt Count 41 L (130-400) K/uL Comprehensive Metabolic Panel 04/29/25 Range/Units 07:03 Sodium 135 L (136-145) mmol/L Potassium 4.3 (3.5-5.1) mmol/L Chloride 102 (98-107) mmol/L Carbon Dioxide 27 (21-32) mmol/L BUN 25 H (6-23) mg/dl Creatinine 1.33 H (0.6-1.2) mg/dl Glucose 103 H (70-99(Fasting)) mg/dl Calcium 8.2 L (8.6-10.3) mg/dl Intake and Output 04/28/25 04/29/25 04/29/25 22:59 06:59 14:59 Intake Total 750 / 1250 400 / 1250 100 / 100 Output Total 751 / 1251 500 / 1251 Balance -1 / -1 -100 / -1 100 / 100 Intake: IV 100 / 450 250 / 450 100 / 100 Acetaminophen 1,000 mg In 100 100 / 100 ml @ 400 mls/hr IV NOW STA Rx#: [id number] Albumin 25% 12.5 gm In 50 ml @ 50 / 50 50 mls/hr IV ONE ONE Rx#: [id number] Ampicillin/Sulbactam Sod 3,000 100 / 300 100 / 300 100 / 100 mg In 100 ml @ 25 mls/hr IV Q8H [facility] Rx#:[id number] Oral 650 / 800 150 / 800 Output: Urine Amount (Catheter) 750 / 1250 500 / 1250 Muniz/Indwelling 750 / 1250 500 / 1250 # Bowel Movements Other: Weight 80.3 kg Coding Level of Care Code 64353 SUB INP/OBS CARE 3/50MIN Diagnoses Shock R57.9 Other cirrhosis of liver K74.69 Hepatic cirrhosis type: other cirrhosis Atrial fibrillation with rapid ventricular response I48.91 HUANG (nonalcoholic steatohepatitis) K75.81 Time Spent (min) 30 (2) Cirrhosis Hepatic cirrhosis type: other cirrhosis Qualified Code(s): K74.69 - Other cirrhosis of liver
[2025-04-29 11:44] VITALS: BP 113/72; PULSE 100
--- NOTE | 2025-04-29 16:43 | Hospitalist Progress Note ---
Date of Service error Assessment & Plan (1) Septic shock: (2) Atrial fibrillation with rapid ventricular response: (3) CKD (chronic kidney disease) stage 3, GFR 30-59 ml/min: (4) Cirrhosis: (5) Thrombocytopenia: (6) Acute hypotension: Admission and Anticipated Discharge Date Admission Date: April 21, 2025 Results & Data Results & Data Vital Signs (Past 12 Hours) Vital Signs Temp Pulse Pulse Pulse Resp BP BP 04/29/25 14:06 36.7 C 118 H 100 H 18 113/72 101/57 L 04/29/25 11:43 36.7 C 100 H 18 113/72 04/29/25 08:13 36.7 C 97 H 18 107/59 L 04/29/25 06:17 105 H Pulse Ox O2 Del Method 04/29/25 14:06 98 04/29/25 11:43 98 Room Air 04/29/25 08:13 98 Room Air 04/29/25 06:17 (3) CKD (chronic kidney disease) stage 3, GFR 30-59 ml/min Chronic kidney disease stage 3 subtype: stage 3b (GFR 30-44) Qualified Code(s): N18.32 - Chronic kidney disease, stage 3b (4) Cirrhosis Hepatic cirrhosis type: other cirrhosis Qualified Code(s): K74.69 - Other cirrhosis of liver
--- NOTE | 2025-04-29 16:49 | Discharge Summary ---
Discharge Summary Date of Service April 29, 2025 Principal Dx & Hospital Course #1 = Principal Diagnosis (1) Septic shock: Hospital course: Patient was admitted to the ICU with sepsis and septic shock. She was given septic level IV fluids. She was given IV antibiotics which were broad-spectrum consisting of vancomycin and Zosyn. Patient required norepinephrine for pressor support. Critical care medicine was consulted. Pressors were weaned off. Patient also had new onset atrial fibrillation with rapid ventricular response. Cardiology was consulted. Patient has Huang, cirrhosis with ascites. Paracentesis was done and the patient felt much better. Patient required increased dose of metoprolol for heart rate control. Patient was transferred to floor care. Patient had 1 blood culture that was positive. Infectious disease was consulted. They gave recommendations for antibiotic therapy for a total of 7 days. That was completed during her hospital stay. PT OT and care management will consult. Inpatient rehab was recommended. Patient was accepted at [facility] for continuing rehab. On the day of discharge she was seen by cardiology. She was cleared by cardiology for transfer for rehab. Her vital signs were stable. Unfortunately the patient has multiple comorbid conditions and her long-term prognosis is poor. She is a high readmission risk. (2) Atrial fibrillation with rapid ventricular response: (3) CKD (chronic kidney disease) stage 3, GFR 30-59 ml/min: (4) Cirrhosis: (5) Thrombocytopenia: (6) Acute hypotension: Plan 75-year-old female with history significant for HUANG cirrhosis with ascites thrombocytopenia, DM type II, CKD 3, hypertension, hypothyroidism,, and hypothyroidism, recently hospitalized from 04/12/2025 to 04/16/2025 for septic shock, new A-fib with RVR admitted for complaining of worsening generalized weakness. Exam notable for tachycardia, irregularly irregular rhythm, hypertension, lower extremity erythema and tenderness , diminished breath sounds. Labs notable for WBC 10.5, hemoglobin of10.4 was 12.9 last week, Platelet 74 (was 49 last week), Na 132, Cr 2.69 (was 1.88 on 04/16), lactate 4.3,TBil 1.3, Trop 244, BNP 1293, Procal 13 and Chest x-ray noted Pulmonary congestion, right lung opacity Septic shock Acinetobacter bacteremia RLE cellulitis Atrial Fibrillation with RVR Demand ischemia RANDY on CKD 3 Hyponatremia Anemia Thrombocytopenia Cirrhosis Blood culture - Acinetobacter pittii in 1 set all other culture results are negative ID consult. Continue Unasyn and levofloxacin for now. Course will be completed today on 04/28/25 She required pressors in ICU. She remains off pressors and stress dose hydrocortisone now Cardiolog consulted and appreciate recommendations Continue Lopressor 25mg q6h. consider transition to daily if tolerated. Not a candidate for systemic anticoagulation Continue IV lasix daily. She continues slow diuresis. Status post IR paracentesis for both diagnostic and therapeutic paracentesis yesterday. No growth to date Gram stain negative. Continue lactulose TUNE UP MECHANIC rifaximin on hold due possibly contributing to edema. Reassess later Renal function improving. Cre 1.47--->1.3 Continue TUNE UP MECHANIC levothyroxine TUNE UP MECHANIC gabapentin 300mg HS on hold. Gabapentin 100mg TID home dose reduced to 100mg BID for now UE doppler showed Left cephalic vein thrombus. No DVT Continue TUNE UP MECHANIC citalopram. DVT prophylaxis - Hep sq Code status- Full. PT recommended SNF. Patient accepted at [facility] pending authorization. She is excepted as a as early as tomorrow. Her daughter Valeria works there Notes For Next Care Provider Medication Changes From Visit Please see discharge list Metoprolol increased to 125 mg twice daily for heart rate control Admission HPI Per Admitting Provider 75-year-old with history significant for HUANG cirrhosis with ascites thrombocytopenia, DM type II, CKD 3, hypertension, hypothyroidism,, and hypothyroidism, recently hospitalized from 04/12/2025 to 04/16/2025 for septic shock, new A-fib with RVR who presents today complaining of worsening generalized weakness. Patient reports that since discharge last week she has been increasingly fatigue. She also reports that she had abdominal distention on discharge which is not improved with diuretics but has been having worsening leg swelling over the past few days associated with pain worse on the right side. Denies any cough, shortness of breath, chest pain or palpitation. Denied fevers or chills Denied constipation. Reported some hemorrhoidal bleeding over the weekend that has resolved. Denied ur reported that she saw her PCP yesterday and was told thatinary symp toms Her heart rate was elevated and her metoprolol was increased to 100 mg twice a day she started yesterday. Reports worsening weakness today necessitating presentation to the ER. Patient denies alcohol use, smoking or illicit drug use. Ambulates with a walker since recent discharge. Discharge Exam General- adult seen at chair side, her daughter is present Head- atraumatic Eyes- PERRL, EOMI, anicteric ENT- oropharynx clear Neck- supple, no JVD, no adenopathy, no thyromegaly; carotids +2/2, no bruits appreciated Lungs- clear to auscultation and percussion Heart-irregularly irregular at 96; Abdomen- normal bowel sounds, soft, nontender, mildly distended, ascites, no masses or hepatosplenomegaly Extremities- no pretibial edema, no calf tenderness; peripheral pulses intact Neuro- alert, oriented x 3; PERRL, EOMI; no focal deficits Skin- warm & dry Updated Medication List Medication Instructions Recorded Confirmed Type ascorbic acid (vitamin C) 250 mg 500 mg PO QAM 06/23/18 04/21/25 History tablet (Vitamin C) clobetasol 0.05 % topical gel 1 applic topical BID PRN LICHEN 06/23/18 04/21/25 History PLANUS BREAK OUTS clonazepam 0.5 mg tablet (Klonopin) 0.5 tab PO TID PRN Anxiety 06/23/18 04/21/25 History ferrous sulfate 325 mg (65 mg 325 mg PO WK 06/23/18 04/21/25 History iron) tablet (iron) folic acid 1 mg tablet 1 mg PO QAM 06/23/18 04/21/25 History furosemide 40 mg tablet (Lasix) 40 mg PO QAM 06/23/18 04/21/25 History gabapentin 100 mg capsule 100 mg PO .BID-QAM & AFTERNOON 06/23/18 04/21/25 History lactulose 10 gram/15 mL oral 30 ml PO TID 06/23/18 04/21/25 History solution omeprazole 40 mg capsule,delayed 40 mg PO DAILYBB 06/23/18 04/21/25 History release oxycodone 5 mg tablet 2.5 mg PO Q8H PRN Pain 06/23/18 04/21/25 History potassium chloride 20 mEq 10 meq PO QDL 06/23/18 04/21/25 History tablet,extended release(part/cryst) (Klor-Con M) rifaximin 550 mg tablet (Xifaxan) 550 mg PO BID 06/23/18 04/21/25 History spironolactone 100 mg tablet See Rx Instructions .Route .COMPLEX 06/23/18 04/21/25 History furosemide 40 mg tablet 20 mg PO HS 06/05/22 04/21/25 History citalopram 40 mg tablet 20 mg PO DAILY Anxiety 11/07/22 04/21/25 History gabapentin 100 mg capsule 300 mg PO HS 11/07/22 04/21/25 History nystatin 100,000 unit/gram topical 1 applic topical TID PRN SKIN RASH 07/15/23 04/21/25 History powder (Nyamyc) ondansetron HCl 4 mg tablet 4 mg PO Q6H PRN NAUSEA/VOMITING 07/15/23 04/21/25 History betamethasone dipropionate 0.05 % 1 applic topical BID PRN SKIN 04/11/25 04/21/25 History topical cream IRRITATIONS cholecalciferol (vitamin D3) 25 25 mcg PO DAILY 04/11/25 04/21/25 History mcg (1,000 unit) capsule (Vitamin D3) cyanocobalamin (vitamin B-12) 1,000 mcg PO Q OTHER DAY 04/11/25 04/21/25 History 1,000 mcg tablet (Vitamin B-12) diclofenac sodium 2 % topical 0 ml topical DIRECTED PRN Pain 04/11/25 04/21/25 History solution in packet (Pennsaid) empagliflozin 10 mg tablet 10 mg PO QAM 04/11/25 04/21/25 History (Jardiance) levothyroxine 50 mcg tablet 50 mcg PO DAILYBB 04/11/25 04/21/25 History lidocaine 4 % topical patch 1 patch topical DAILY 04/11/25 04/21/25 History montelukast 10 mg tablet 10 mg PO HS 04/11/25 04/21/25 History (Singulair) dfxavuwi-jln-clulry 5 mg-zeaxanth 1 cap PO DAILY 04/11/25 04/21/25 History 1 mg-bilberry 7.5 mg-herbal capsule (Macular Health Formula) tacrolimus 0.1 % topical ointment 1 applic topical BID PRN SKIN 04/11/25 04/21/25 History IRRITATIONS tizanidine 4 mg tablet 1 mg PO HS 04/11/25 04/21/25 History triamcinolone acetonide 0.1 % 1 applic topical BID PRN FLARE UPS 04/11/25 04/21/25 History topical ointment vitamin E 268 mg (400 unit) capsule 268 mg PO DAILY 04/11/25 04/21/25 History hydrocortisone 10 mg tablet 10 mg PO UD #10 tabs 04/16/25 04/21/25 Rx metoprolol succinate 50 mg 125 mg (2.5 x 50 mg) PO BID #30 04/29/25 Rx tablet,extended release 24 hr tabs Hospital Stay Data Consultations 04/21/25 06:58 Consult Bending Machine Operator Stat 04/21/25 07:28 ED Decision to Admit Stat 04/21/25 10:04 Consult Cardiology Routine Consult Bending Machine Operator Routine 04/22/25 10:39 Consult Infectious Diseases Stat Diagnostic Imagining Performed 04/21/25 07:17 US venous duplex leg [US venous doppler LE BI] Stat 04/21/25 08:06 CT abd pelvis wo con Stat CT chest diagnostic wo con Stat 04/21/25 10:12 US point of care ultrasound Stat 04/24/25 10:31 US venous duplex arm [US venous doppler UE BI] Urgent 04/27/25 07:00 IR paracentesis abd w/img US Urgent Pending Results Patient Have Any Pending Studies at Discharge: No Discharge Instructions Given to Patient (Per Discharging Provider) F/U with GI and cardiology within 1 week Remove Muniz cath when able CBC, LFT, BMP in 3 days Total Time Total Time Spent Total Time Spent (In Minutes): Total time spent in discharge planning was 60 minutes
--- NOTE | 2025-04-29 18:38 | Electrocardiogram Report ---
Test Reason : Blood Pressure : */* mmHG Vent. Rate : 98 BPM Atrial Rate : * BPM P-R Int : * ms QRS Dur : 72 ms QT Int : 338 ms P-R-T Axes : * -22 127 degrees QTcB Int : 431 ms Atrial fibrillation Low voltage QRS Nonspecific ST abnormality Abnormal ECG When compared with ECG of 23-Apr-2025 06:09, No significant change was found Confirmed by Dallas Childress ([id number]) on 04/29/2025 6:38:06 PM Referred By: REFERRED SELF Confirmed By: Dallas Childress
== END 2025-04-29 15:08 | DRG 871 ==
LOC: ED 06:13 → SUATTDRO 08:42 → 1E 08:42 → 2S 04-23 13:20